=== PATIENT | male | born 1950 | race Caucasian/White ===

== ENCOUNTER 2020-10-16 10:08 | Emergency (ER) | payer OTHER, MEDICARE, SELFPAY ==
--- NOTE | 2020-10-16 10:09 | EKG12_ITS ---
Test Reason : TRAUMA Blood Pressure : / mmHG Vent. Rate : 140 BPM Atrial Rate : 138 BPM P-R Int : 000 ms QRS Dur : 090 ms QT Int : 348 ms P-R-T Axes : 000 085 -04 degrees QTc Int : 531 ms Atrial fibrillation with rapid ventricular response with premature ventricular or aberrantly conducte d complexes Nonspecific ST and T wave abnormality Abnormal ECG Confirmed by BRYCE HUNTLEY, MERCEDEZ ([id number]), offline editor ISRA YATES ([id number]) on 10/18/2020 12:33:19 PM Referred By: BRENNA Confirmed By:MERCEDEZ WU MD
--- NOTE | 2020-10-16 10:09 | RAD_ITS ---
STUDY: X-RAY - PELVIS REASON FOR EXAM: Male, 70 years old. Trauma -- Pelvis 2 views TECHNIQUE: One view of the pelvis was obtained. COMPARISON: None. FINDINGS: There is a non-specific bowel gas pattern. Normal visualized soft tissue structures. Normal bilateral iliac wings, sacroiliac joints and visualized sacrum. Normal visualized bilateral superior and inferior pubic rami. Normal pubic symphysis. Normal ischial tuberosities. Normal visualized right femoral head. Normal right acetabulum. Normal right hip joint. Normal visualized left femoral head. Normal left acetabulum. Normal left hip joint. RAD/Pelvis 1 or 2 Views IMPRESSION: Normal x-ray examination of the pelvis. Electronically Signed: Harjeet Gayle MD at 11:02 EDT Tel , Service support ,
--- NOTE | 2020-10-16 10:09 | RAD_ITS ---
STUDY: X-RAY - RIGHT FEMUR REASON FOR STUDY: Male, 70 years old. trauma TECHNIQUE: 2 view(s) of the femur. COMPARISON: None. FINDINGS: Acute anterior medially displaced oblique fracture the midshaft of the femur with a large butterfly fragment. Normal visualized soft tissue structure. RAD/Femur Min 2 Views IMPRESSION: Acute anterior medially displaced oblique fracture the midshaft of the femur with a large butterfly fragment. Electronically Signed: Harjeet Gayle MD at 11:03 EDT Tel , Service support ,
[2020-10-16 10:10] VITALS: BP 145/81; PULSE 138; RESP 21; TEMP 36.3; O2SAT 95; BMI 28.2
--- NOTE | 2020-10-16 10:14 | NURSING ---
CALLED [facility], TALKED TO GOPAL. PILOTS ARE CHECKING WEATHER. SHE WILL CALL BACK. GOING TO [facility]
--- NOTE | 2020-10-16 10:17 | NURSING ---
ETA IS 15 MIN
[2020-10-16 10:19] VITALS: PULSE 131
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
--- NOTE | 2020-10-16 10:22 | NURSING ---
NO OLD EKGS
[2020-10-16 10:27] LABS: Absolute Lymphocyte Count 3.42 X10^3/uL (0.83-4.51); Basophil# 0.07 X10^3/uL; Basophil% 0.6 % (0-1); Eosinophil# 0.24 X10^3/uL; Hematocrit 41.5 % (40-54); Hemoglobin 13.7 g/dL (13.0-16.5); Lymphocyte # 3.42 X10^3/ul (0.83-4.51); Lymphocyte % 28.5 % (19-41); Mean Corpuscular Hgb 30.3 pg (27.0-32.0); Mean Corpuscular Volume 91.8 fL (80-94); Mean Platelet Vol. 9.1 fl (6.2-12.0); Monocyte# 1.25 X10^3/uL; Monocyte% 10.4 % (0-10); NRBC Flagged by Analyzer 0 % (0-5); Neutrophil # 6.95 X10^3/uL (2.7-7.7); Neutrophil % 57.8 % (47-70); Platelet Count 384 K/mm3 (150-450); RBC Distribution Width CV 13.1 % (11.6-14.6); RBC Distribution Width SD 43.8 fl (35.1-43.9); Red Blood Count 4.52 M/mm3 (4.6-6.2)
[2020-10-16] MEDS: 0.9% Normal Saline 1,000 ML 999 ML IV (10:27)
[2020-10-16] MEDS: Cefazolin 1 GM/50 ML BAG IV (10:27)
[2020-10-16] MEDS: Diphth,Pertuss(Acell),Tet Vac 0.5 ML Vial IM (10:31)
[2020-10-16] MEDS: fentaNYL 100 MCG/2 ML Ampul IV (10:35)
[2020-10-16 10:37] VITALS: BP 148/107; PULSE 118; PULSE 125; RESP 20; RESP 22; O2SAT 93; O2SAT 96
[2020-10-16 10:44] LABS: Anion Gap 8 (5-15); BUN 20 mg/dL (7-18); BUN/Creat Ratio 16.8 RATIO (10-20); Calcium,Total 8.5 mg/dL (8.5-10.1); Chloride 106 mmol/L (98-107); Creatinine, Serum 1.19 mg/dL (0.70-1.30); EST Glomerular Filtration Rate 65 mL/min (>60); Est Glom Filt Rate - Afr Amer 78 mL/min (>60); Estimated Creatinine Clearance 71.01 ml/min; Glucose 136 mg/dL (74-106); Potassium 3.3 mmol/L (3.5-5.1); Sodium Level 139 mmol/L (136-145)
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
[2020-10-16 10:53] LABS: International Normalized Ratio 3.5; Prothrombin Time (Protime)PT. 34.2 SECONDS (11.7-14.9)
== END 2020-10-16 10:35 | disposition other institution (70) ==
PROVIDERS: Emergency Provider Emergency Medicine; PCP Internal Medicine
DX: S72.91XA Unspecified fracture of right femur, initial encounter for closed fracture (principal); I48.91 Unspecified atrial fibrillation; I10 Essential (primary) hypertension; Z79.01 Long term (current) use of anticoagulants; Z87.891 Personal history of nicotine dependence; W23.0XXA Caught, crushed, jammed, or pinched between moving objects, initial encounter
CPT/HCPCS: 72170; 73552; 80048; 85025; 85610; 90715; 93005; 96372; 96374; 99285; J7030; A4216

== ENCOUNTER 2020-10-22 19:14 | Inpatient (IN) | payer OTHER, MEDICARE, SELFPAY ==
[2020-10-22 19:23] VITALS: BP 106/68; PULSE 103; RESP 18; TEMP 37.1; O2SAT 93; BMI 23.8
[2020-10-22] MEDS: oxyCODONE 5 MG Tablet PO (20:36)
[2020-10-22 20:58] VITALS: BP 116/76; PULSE 100; RESP 16; TEMP 37.1; O2SAT 16
[2020-10-22] MEDS: Acetaminophen 500 MG Tablet PO (21:37)
[2020-10-22 21:38] VITALS: PULSE 100
[2020-10-22] MEDS: APIXABAN 5 MG TABLET PO (21:38)
[2020-10-22] MEDS: Metoprolol Tartrate 25 MG Tablet PO (21:38)
[2020-10-22 22:00] VITALS: PULSE 105; RESP 16; O2SAT 97
[2020-10-23 05:54] LABS: Absolute Lymphocyte Count 1.62 X10^3/uL (0.83-4.51); Absolute Neutrophil Count 7.9 X10^3/uL (2.0-7.7); Basophil# 0.05 X10^3/uL; Basophil% 0.4 % (0-1); Eosinophil# 0.23 X10^3/uL; Hematocrit 32.5 % (40-54); Hemoglobin 10.6 g/dL (13.0-16.5); Lymphocyte # 1.62 X10^3/ul (0.83-4.51); Mean Corp Hgb Conc 32.6 g/dL (32-36); Mean Corpuscular Hgb 30.7 pg (27.0-32.0); Mean Corpuscular Volume 94.2 fL (80-94); Mean Platelet Vol. 8.8 fl (6.2-12.0); Monocyte# 1.48 X10^3/uL; Monocyte% 12.8 % (0-10); NRBC Flagged by Analyzer 0 % (0-5); Neutrophil # 7.94 X10^3/uL (2.7-7.7); Neutrophil % 68.4 % (47-70); Platelet Count 414 K/mm3 (150-450); RBC Distribution Width CV 13.3 % (11.6-14.6); RBC Distribution Width SD 45.5 fl (35.1-43.9); Red Blood Count 3.45 M/mm3 (4.6-6.2); White Blood Count 11.6 K/mm3 (4.4-11.0)
[2020-10-23 06:30] LABS: ALB/GLOB Ratio 0.7 RATIO (0.9-2.4); AST(SGOT) 35 U/L (15-37); Alanine Aminotransfer ALT/SGPT 39 U/L (16-61); Alkaline Phosphatase 43 U/L (45-117); Anion Gap 7 (5-15); BUN 22 mg/dL (7-18); BUN/Creat Ratio 25.1 RATIO (10-20); Calcium,Total 8.8 mg/dL (8.5-10.1); Chloride 100 mmol/L (98-107); Creatinine, Serum 0.88 mg/dL (0.70-1.30); EST Glomerular Filtration Rate 92 mL/min (>60); Est Glom Filt Rate - Afr Amer 111 mL/min (>60); Estimated Creatinine Clearance 96.02 ml/min; Globulin 4.5 g/dL (2.2-4.2); Glucose 110 mg/dL (74-106); Magnesium 2.3 mg/dL (1.6-2.6); Phosphorus 2.8 mg/dL (2.5-4.9); Potassium 3.9 mmol/L (3.5-5.1); Protein, Total 7.5 g/dL (6.4-8.2); Sodium Level 135 mmol/L (136-145)
[2020-10-23] MEDS: oxyCODONE 5 MG Tablet PO ×4 (06:42→20:15)
[2020-10-23] MEDS: Acetaminophen 500 MG Tablet PO ×2 (06:42→15:16)
[2020-10-23 07:30] VITALS: BP 128/64; PULSE 74; RESP 16; TEMP 36.6; O2SAT 99
[2020-10-23] MEDS: Omega-3 Acid Ethyl Esters 1 GM Capsule PO (09:15)
[2020-10-23] MEDS: Niacin SA 500 MG Tablet PO (09:16)
[2020-10-23] MEDS: Fenofibrate 145 MG Tablet PO (09:16)
[2020-10-23] MEDS: APIXABAN 5 MG TABLET PO ×2 (09:16→21:41)
[2020-10-23 10:00] VITALS: PULSE 100
--- NOTE | 2020-10-23 10:24 | NURSING ---
Addendum entered by Mahnaz Webster 10/23/20 10:24: spoke with Parris at Dr briscoe office. to call back with dressing changes and staple dc orders. Original Note: Lt message
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
[2020-10-23] MEDS: Atenolol 50 MG Tablet PO (13:39)
[2020-10-23 15:10] LABS: Hemoglobin A1c 5.6 % (3.8-5.6)
[2020-10-23 17:59] VITALS: O2SAT 95
[2020-10-23 19:10] VITALS: BP 103/56; PULSE 86; RESP 17; TEMP 36.5; O2SAT 98
[2020-10-23] MEDS: MELATONIN 3 MG TABLET PO (21:42)
--- NOTE | 2020-10-24 01:35 | NURSING ---
Reviewed and agree with CAR TRIMMER assessment.
[2020-10-24] MEDS: oxyCODONE 5 MG Tablet PO ×4 (02:55→20:16)
[2020-10-24] MEDS: Acetaminophen 500 MG Tablet PO (02:56)
[2020-10-24 08:07] VITALS: BP 110/63; PULSE 84; RESP 16; TEMP 36.6; O2SAT 98
[2020-10-24] MEDS: Atenolol 50 MG Tablet PO (08:19)
[2020-10-24] MEDS: Omega-3 Acid Ethyl Esters 1 GM Capsule PO (08:19)
[2020-10-24] MEDS: Niacin SA 500 MG Tablet PO (08:19)
[2020-10-24] MEDS: APIXABAN 5 MG TABLET PO ×2 (08:19→20:59)
[2020-10-24] MEDS: Fenofibrate 145 MG Tablet PO (08:19)
--- NOTE | 2020-10-24 11:27 | PCM.RU.PYE ---
Admission Information Primary Diagnosis:: Physical debility due to traumatic FX of R femur Status Changes from Prescreening?: No changes Identified Actual Problem List:: Skin Intergrity, Pain, ALteration in Cmfrt, Alteration in Sleep, Fluid Change-Dehydration and Alteration-Leisure Activ. Potential Problem List:: DVT, Bleeding, Infection, UTI, Aspiration, Falls, Skin Integrity and Depression Risk of Complications DVT: MARY Jean and - (He is on Eliquis 5 mg BID for AF.) Bleeding: Monitor Lab Values, Nursing to Teach Precautions for anti-coagulation therapy., Wound, if applicable, to be assessed every shift. and Stroke patients assessed for lethargy or change in status. Infection: Clinical Staff to Monitor for S/S of infection: and S/S of infection include fever, redness, warmth, etc. Urinary Tract Infection: Monitor for frequency, burning, discomfort, or incontinence. and Nursing will obtain urine sample for urinalysis and C&S when ordered. Aspiration: Clinical staff will monitor for coughing, drooling, congestion., Speech will evaluate swallowing and dsyphasia. and Nursing will monitor patient swallowing during meals. Falls: Patient will be evaluated for Fall Precautions and Patient will be placed on Fall Precautions as indicated per protocol. Skin Breakdown: Nursing will assess skin daily using assessment tool. and Nursing will place on Skin Breakdown Precautions as indicated. Pain: Clinical staff will assess patient's pain level per protocol., Medications will be given, if needed, and the pain level reassessed. and Other methods: Massage, distraction, decrease stimulus, etc. used PRN. Plan of Care Patient requires physician specializing in physical medicine and rehab oversight to provide close medical supervision of rehab issues including: Pain Management, Sleep Problems, Bowel and Bladder, Medical and co-morbidity Management, DVT prophylaxis, Rehabilitation Leadership and Coordination of treatment team Patient needs Physical Therapy: For a minimum of 1 hour and At least 5 out of 7 days Patient needs Physical Therapy to improve:: Mobility, Strengthening, Transfers, Stretching, ROM, Endurance, Stairs, Gait and Balance Patient needs Occupational Therapy: For a minimum of 1 hour and At least 5 out of 7 days Patient needs Occupational Therapy to improve ADL's incl.: Eating, Grooming, Bathing, Dressing, Toileting, Toilet transfers, Community Reintegration, Higher functioning activities, Household tasks, Adaptive Equipment, Splinting and Other activities as determined Patient requires 17/11 Rehabilitation Nursing for: Pain Issues, Identifying and preventing risk factors, Monitoring and reporting current medical conditions, Assisting with ambulation, transfer, and all ADL's, Teaching patients about disease process and medications, Family teaching, Providing safe environment, Bowel and Bladder Issues, Skin integrity and Medication Management Patient needs Professor Of Poultry Science/ Case Management for: Discharge Planning, Arranging Home Equipment or Services and Family Interventions Patient needs Dietary and Nutrition Services for: Adequate Nutrition, Nutritional Supplements and Nutritional Education Goals Patient will remain: free from falls and or injury at time of discharge. Patient will perform bed mobility at: MOD I level of assist. Patient will complete transfers from bed to chair at: MOD I level of assist. Patient will ambulate: 100 feet and with LRD Patient will complete upper body dressing at: MOD I level of assist. Patient will complete lower body dressing at: MOD I level of assist. Patient will complete toileting at: MOD I level of assist. Patient will perform bathing at: MOD I level of assist. Patient will complete grooming at: MOD I level of assist. Patient will complete home management skills at: MOD I level of assist. Patient will achieve: - (1 curb step) Patient will have pain level of: of 3 or less Patient's skin will: remain intact Patient will receive: adequate nutrition. Discharge Planning Pt Prognosis for Sig. Practical Improv. w/in Reasonable Time: Good Estimated Length of stay (days): 14 Anticipated D/C Destination: Home Was Preadmission Assessment Accurate?: Yes
--- NOTE | 2020-10-24 11:33 | PCM.PN.BLA ---
Progress Note AF VSS - BP is well controlled. The resting HR has come down into the 80's. Maintaining appropriate oxygen saturation on RA. I&O - 1240/800......I had hoped he would drink more after I encouraged him to increase his fluid intake yesterday. Will continue to encourage increased fluid intake. He continues to c/o inadequate pain relief. Will increase the Oxycodone to 5-10 mg q 4 H PRN. Schedule 1 GM of Tylenol Q 8H. He slept better with the Melatonin added last night. Denies CP,SOB, calf pain. Physical Exam HEENT HEENT Narrative: Dry mucous membranes. Resp normal respiratory effort, no use of accessory muscles and clear to auscultation bilaterally Resp Narrative: Not tachypneic and no conversational dyspnea. Cardio regular rate, S1 normal heart sound, S2 normal heart sound, no murmurs and no gallops GI normal to inspection, nondistended, normoactive bowel sounds and non-tender GI Narrative: No guarding with palpation. Extremity Extremity Narrative: Negative Bill's and Shay's signs Skin Skin Narrative: No rashes, no skin breakdown. Assessment & Plan Assessment/Plan (1) Physical debility: (2) Status post open reduction and internal fixation (ORIF) of fracture: (3) Atrial fibrillation: QUALIFIERS: Atrial fibrillation type: longstanding persistent Qualified Code(s): I48.11 - Longstanding persistent atrial fibrillation (4) Uncontrolled pain: PLAN: HGBA1C yesterday was normal Increase the Oxycodone to 5-10 mg Q4PRN Added scheduled Tylenol Continue the Melatonin Continue to monitor the HR and the BP since the Metoprolol was discontinued yesterday and adjust the Atenolol dose as needed. Continue to encourage increased fluid intake. Continue therapy. Visit Charges Inpatient E&M: 70220 Subs Hosp L2
[2020-10-24] MEDS: Acetaminophen 500 MG Tablet 1000 MG PO ×2 (14:00→20:59)
--- NOTE | 2020-10-24 15:56 | NURSING ---
[id number] call form Parris at Dr Dover office ok to wicho jett 10/30.
[2020-10-24 19:10] VITALS: BP 108/64; PULSE 67; RESP 16; TEMP 36.6; O2SAT 98
[2020-10-24] MEDS: MELATONIN 3 MG TABLET PO (20:59)
--- NOTE | 2020-10-25 00:14 | NURSING ---
Reviewed and agree with REAL ESTATE INVESTOR assessment.
[2020-10-25] MEDS: Acetaminophen 500 MG Tablet 1000 MG PO ×3 (06:08→22:24)
[2020-10-25] MEDS: oxyCODONE 5 MG Tablet PO ×4 (06:08→19:49)
[2020-10-25] MEDS: Omega-3 Acid Ethyl Esters 1 GM Capsule PO (08:02)
[2020-10-25] MEDS: Fenofibrate 145 MG Tablet PO (08:02)
[2020-10-25] MEDS: Niacin SA 500 MG Tablet PO (08:02)
[2020-10-25] MEDS: Atenolol 50 MG Tablet PO (08:03)
[2020-10-25] MEDS: APIXABAN 5 MG TABLET PO ×2 (08:03→22:24)
[2020-10-25 08:53] VITALS: BP 109/54; PULSE 83; RESP 16; TEMP 36.5; O2SAT 97
--- NOTE | 2020-10-25 10:13 | CASEMGMT ---
Social Work Team meeting held. Patient present as well as patient spouse. Patient with update due on 10/26/2020 with [facility]. Patient to continue with further care and treatment on the Rehab Unit. Patient plans to discharge to home with spouse at time of discharge. Will continue to follow. Joyce ISSA, CHRISTIANS
--- NOTE | 2020-10-25 11:58 | PN_ITS ---
Progress Note Rito was seen on TEAM rounds today. His Libby was present for rounds. Afebrile BP is well controlled. The resting HR is now in the low 80's with better fluid intake. Doing fine on just the Atenolol since we discontinued the Metoprolol. He is maintaining appropriate oxygen saturation on RA. Sleeping well. Good bowel function No problems reported by nursing. Pain is better controlled with using 10 mg of Oxycodone and the Tylenol also seems to be helping. I am hesitant to use an NSAID in a pt on Eliquis. He has no hx of PUD and denies epigastric pain, Nausea or vomiting. He asked to look at the XRAYS from presentation to the ED and we brought them up on the computer. I think he now understands why he continues to have so much pain. No SOB, CP, N/V/constipation, no calf pain, no palpitations or lightheadedness. Physical Exam Const alert, oriented x3 and no apparent distress Constitutional Narrative: Making good eye contact, appropriate Resp normal respiratory effort, no use of accessory muscles and clear to auscultation bilaterally Resp Narrative: Not tachypneic and no conversational dyspnea. Cardio S1 normal heart sound, S2 normal heart sound, no murmurs, no rub and no gallops GI normal to inspection, nondistended, normoactive bowel sounds and non-tender GI Narrative: No guarding with palpation. Extremity Extremity Narrative: Negative Bill's and Shay's signs. there is minimal bruising in the upper medial thigh. The bandages are not to be removed yet but there is no erythema around the bandages. The knee effusion and the swelling have improved. There are a few small lymph nodes that are palpable in the R groin. They are NT. The abrasions to the distal RLE are scabbed over with no evidence of infection. Skin Skin Narrative: No rashes, no skin breakdown. Wounds: wounds noted Wound Narrative: RLE due to recent ORIF. The incision is intact and there is erythema and no DC. The R knee has an effusion. The RLE is generally warmer than the left from the mid thigh distally. Neuro no focal motor deficits Psych affect normal Psych Narrative: Appropriate, making good eye contact. Able to stay on topic a nd focus. No flight of ideas. Does not appear anxious or depressed. Conversant and relating well to staff. Assessment & Plan Assessment/Plan (1) Physical debility: (2) Status post open reduction and internal fixation (ORIF) of fracture: (3) Atrial fibrillation: QUALIFIERS: Atrial fibrillation type: longstanding persistent Qualified Code(s): I48.11 - Longstanding persistent atrial fibrillation (4) Uncontrolled pain: (5) Dehydration: (6) Right fibular fracture: (7) Right femoral shaft fracture: PLAN: Continue therapy. I recommended to him that he take 10 mg of Oxycodone for the next few days to control pain and then on Thursday he could try 5 mg again. Continue the scheduled Tylenol Encouraged once again to increase his water intake DC the Singular
[2020-10-25 19:40] VITALS: BP 98/49; PULSE 72; RESP 16; TEMP 36.7; O2SAT 96
[2020-10-25] MEDS: MELATONIN 3 MG TABLET PO (22:24)
[2020-10-26] MEDS: oxyCODONE 5 MG Tablet PO ×5 (01:51→21:41)
--- NOTE | 2020-10-26 02:37 | NURSING ---
REVIEWED AND AGREE WITH QUILL MACHINE TENDER'S FUNCTIONAL ASSESSMENT AND HANDOFF CHARTING.
[2020-10-26] MEDS: Acetaminophen 500 MG Tablet 1000 MG PO ×3 (05:57→21:40)
[2020-10-26] MEDS: Fenofibrate 145 MG Tablet PO (08:02)
[2020-10-26] MEDS: Niacin SA 500 MG Tablet PO (08:02)
[2020-10-26] MEDS: Omega-3 Acid Ethyl Esters 1 GM Capsule PO (08:02)
[2020-10-26] MEDS: APIXABAN 5 MG TABLET PO ×2 (08:03→21:40)
[2020-10-26] MEDS: Senna/Docusate Sodium 1 Tablet 2 TABLET PO ×2 (08:03→21:42)
[2020-10-26] MEDS: Atenolol 50 MG Tablet PO (08:04)
[2020-10-26 09:38] VITALS: BP 105/67; PULSE 72; RESP 16; TEMP 37.1; O2SAT 95
[2020-10-26 20:00] VITALS: BP 112/59; PULSE 95; RESP 18; TEMP 37.2; O2SAT 95
[2020-10-26] MEDS: MELATONIN 3 MG TABLET PO (21:40)
--- NOTE | 2020-10-27 03:54 | NURSING ---
REVIEWED AND AGREE WITH ECOLOGICAL RISK ASSESSOR'S HANDOFF AND FUNCTIONAL CHARTING.
[2020-10-27] MEDS: Acetaminophen 500 MG Tablet 1000 MG PO ×3 (06:03→21:22)
[2020-10-27] MEDS: oxyCODONE 5 MG Tablet PO ×3 (06:04→20:49)
[2020-10-27 07:51] VITALS: BP 111/66; PULSE 80; RESP 18; TEMP 36.4; O2SAT 96
[2020-10-27] MEDS: Senna/Docusate Sodium 1 Tablet 2 TABLET PO ×2 (07:54→21:22)
[2020-10-27] MEDS: Omega-3 Acid Ethyl Esters 1 GM Capsule PO (07:54)
[2020-10-27] MEDS: Fenofibrate 145 MG Tablet PO (07:54)
[2020-10-27] MEDS: APIXABAN 5 MG TABLET PO ×2 (07:54→21:22)
[2020-10-27] MEDS: Niacin SA 500 MG Tablet PO (07:55)
[2020-10-27] MEDS: Atenolol 50 MG Tablet PO (07:58)
[2020-10-27 21:00] VITALS: BP 108/52; PULSE 85; RESP 18; TEMP 36.3; O2SAT 97
[2020-10-27] MEDS: MELATONIN 3 MG TABLET PO (21:22)
--- NOTE | 2020-10-28 01:29 | NURSING ---
Reviewed and agree with SULFURIC ACID PLANT OPERATOR documentation and assessment charting.
--- NOTE | 2020-10-28 01:55 | NURSING ---
staff was doing rounding and heard walker movement in pt room and found pt up ambulating in the to the br. pt reeducated on calling staff for assistance to the br. pt stated that he could not find the call light , call light was on te bed where pt could reach it it the same place he put prior to going to sleep. staff stayed in the room until pt finished and followed him back to recliner. pt positioned for comfort, call light placed in pt lap for easier reach and walker moved away for pt reach for for safety. rn made aware
[2020-10-28] MEDS: oxyCODONE 5 MG Tablet PO ×3 (05:27→19:49)
[2020-10-28] MEDS: Acetaminophen 500 MG Tablet 1000 MG PO ×3 (05:28→19:49)
[2020-10-28 07:34] VITALS: BP 116/48; PULSE 72; RESP 16; TEMP 36.3; O2SAT 97
[2020-10-28] MEDS: APIXABAN 5 MG TABLET PO ×2 (09:40→19:48)
[2020-10-28] MEDS: Fenofibrate 145 MG Tablet PO (09:40)
[2020-10-28] MEDS: Atenolol 50 MG Tablet PO (09:40)
[2020-10-28] MEDS: Niacin SA 500 MG Tablet PO (09:40)
[2020-10-28] MEDS: Omega-3 Acid Ethyl Esters 1 GM Capsule PO (09:42)
[2020-10-28] MEDS: Senna/Docusate Sodium 1 Tablet 2 TABLET PO ×2 (09:42→19:48)
[2020-10-28 19:45] VITALS: BP 101/67; PULSE 90; RESP 16; TEMP 36.7; O2SAT 97
[2020-10-28] MEDS: Arthritis Pain Compound 60 CLICK TUBE TOPICAL (19:47)
[2020-10-28] MEDS: MELATONIN 3 MG TABLET PO (19:48)
--- NOTE | 2020-10-29 04:26 | NURSING ---
Reviewed and agree with JUSTOWRITER OPERATOR assessment and handoff.
[2020-10-29] MEDS: Acetaminophen 500 MG Tablet 1000 MG PO ×3 (05:49→21:59)
[2020-10-29] MEDS: oxyCODONE 5 MG Tablet PO ×3 (05:50→19:50)
[2020-10-29 08:22] VITALS: BP 117/72; PULSE 79; RESP 18; TEMP 36.3; O2SAT 98
[2020-10-29] MEDS: Atenolol 50 MG Tablet PO (09:16)
[2020-10-29] MEDS: Fenofibrate 145 MG Tablet PO (09:17)
[2020-10-29] MEDS: Niacin SA 500 MG Tablet PO (09:17)
[2020-10-29] MEDS: APIXABAN 5 MG TABLET PO ×2 (09:17→21:59)
[2020-10-29] MEDS: Senna/Docusate Sodium 1 Tablet 2 TABLET PO ×2 (09:17→22:00)
[2020-10-29] MEDS: Omega-3 Acid Ethyl Esters 1 GM Capsule PO (09:17)
[2020-10-29] MEDS: Arthritis Pain Compound 60 CLICK TUBE TOPICAL ×2 (09:37→21:58)
[2020-10-29 19:08] VITALS: BP 110/83; PULSE 86; RESP 18; TEMP 36.6; O2SAT 95
[2020-10-29] MEDS: MELATONIN 3 MG TABLET PO (21:59)
[2020-10-30] MEDS: oxyCODONE 5 MG Tablet PO ×4 (01:10→20:02)
[2020-10-30] MEDS: Acetaminophen 500 MG Tablet 1000 MG PO ×3 (05:26→20:04)
[2020-10-30 07:55] VITALS: BP 110/62; PULSE 80; RESP 18; TEMP 36.5; O2SAT 100
[2020-10-30] MEDS: Atenolol 50 MG Tablet PO (08:18)
[2020-10-30] MEDS: Niacin SA 500 MG Tablet PO (08:18)
[2020-10-30] MEDS: Omega-3 Acid Ethyl Esters 1 GM Capsule PO (08:18)
[2020-10-30] MEDS: APIXABAN 5 MG TABLET PO ×2 (08:18→20:01)
[2020-10-30] MEDS: Fenofibrate 145 MG Tablet PO (08:18)
[2020-10-30] MEDS: Arthritis Pain Compound 60 CLICK TUBE TOPICAL ×2 (08:19→20:00)
--- NOTE | 2020-10-30 15:32 | NURSING ---
sutures and maliha removed. incisions clean, dry and well approximated. no S/S infection. left GABRIELA. pt tolerated well
[2020-10-30 19:40] VITALS: BP 113/59; PULSE 88; RESP 14; TEMP 36.3; O2SAT 100
[2020-10-30] MEDS: MELATONIN 3 MG TABLET PO (20:02)
[2020-10-31] MEDS: Acetaminophen 500 MG Tablet 1000 MG PO ×3 (05:33→21:13)
[2020-10-31] MEDS: oxyCODONE 5 MG Tablet PO ×3 (05:33→21:14)
[2020-10-31 07:28] VITALS: BP 113/62; PULSE 73; RESP 14; TEMP 36.4; O2SAT 96
[2020-10-31] MEDS: Omega-3 Acid Ethyl Esters 1 GM Capsule PO (08:07)
[2020-10-31] MEDS: Niacin SA 500 MG Tablet PO (08:07)
[2020-10-31] MEDS: Fenofibrate 145 MG Tablet PO (08:07)
[2020-10-31] MEDS: Atenolol 50 MG Tablet PO (08:08)
[2020-10-31] MEDS: Arthritis Pain Compound 60 CLICK TUBE TOPICAL ×2 (08:08→21:13)
[2020-10-31] MEDS: APIXABAN 5 MG TABLET PO ×2 (08:08→20:55)
--- NOTE | 2020-10-31 13:39 | PCM.PN.BLA ---
Progress Note AF VSS Maintaining appropriate oxygen saturation on RA No problems reported by nursing Pain is adequately controlled Denies calf pain, SOB, CP, N/V, D/C, dysuria Physical Exam Const alert and no apparent distress HEENT HEENT Narrative: His membranes are dry. Resp normal respiratory effort, normal air movement, no use of accessory muscles and clear to auscultation bilaterally Effort and Inspection: able to speak in complete sentences Cardio regular rate, regular rhythm and no gallops GI soft to palpation, non-tender and non-distended GI Narrative: Normal bowel sounds all quadrants Extremity no calf tenderness Extremity Narrative: He has edema of the R thigh and the R knee and mild edema in the R ankle. No edema on the left Skin General Skin Exam: no breakdown Rashes: no rashes Wound Narrative: the incisions of the R knee are intact and there is no purulent DC and no significant lucia-incisional erythema. Assessment & Plan Assessment/Plan (1) Physical debility: (2) Right femoral shaft fracture: (3) Right fibular fracture: (4) Status post open reduction and internal fixation (ORIF) of fracture: (5) Atrial fibrillation: QUALIFIERS: Atrial fibrillation type: longstanding persistent Qualified Code(s): I48.11 - Longstanding persistent atrial fibrillation (6) Uncontrolled pain: (7) Dehydration: PLAN: 1. I encourage him every day to increase his water intake and he is getting better at this 2. He does not want any changes to the pain management drug regimen and is happy with his pain control at this time. 3. continue therapy. Visit Charges Inpatient E&M: 14492 Subs Hosp L2
[2020-10-31 20:10] VITALS: BP 101/58; PULSE 96; RESP 16; TEMP 36.5; O2SAT 95
[2020-10-31] MEDS: MELATONIN 3 MG TABLET PO (20:55)
[2020-10-31] MEDS: Senna/Docusate Sodium 1 Tablet 2 TABLET PO (20:56)
[2020-10-31 22:00] VITALS: PULSE 96; RESP 15; O2SAT 96
[2020-11-01] MEDS: Acetaminophen 500 MG Tablet 1000 MG PO ×3 (06:40→20:57)
[2020-11-01] MEDS: Fenofibrate 145 MG Tablet PO (08:09)
[2020-11-01] MEDS: Niacin SA 500 MG Tablet PO (08:09)
[2020-11-01] MEDS: Omega-3 Acid Ethyl Esters 1 GM Capsule PO (08:09)
[2020-11-01] MEDS: Atenolol 50 MG Tablet PO (08:10)
[2020-11-01] MEDS: Arthritis Pain Compound 60 CLICK TUBE TOPICAL ×2 (08:10→20:55)
[2020-11-01] MEDS: oxyCODONE 5 MG Tablet PO ×3 (08:10→20:58)
[2020-11-01] MEDS: APIXABAN 5 MG TABLET PO ×2 (08:10→20:56)
[2020-11-01 08:29] VITALS: BP 104/68; PULSE 95; RESP 18; TEMP 36.5; O2SAT 97
--- NOTE | 2020-11-01 09:45 | CASEMGMT ---
Social Work Team meeting held. Patient present as well as patient spouse. Discharge date set for 11/03/2020. Patient to discharge to home with spouse. Therapy not recommending any further therapy and recommending for patient to follow up with Orthopedic surgeon on therapy recommendations. Patient reports to need a front wheeled walker, wheelchair, 3-in-1 bedside commode, and polar care for DME. Patient spouse to provide transportation to home for patient. Proposed discharge date: 11/03/2020 Will continue to follow. Joyce ISSA, JUAN
--- NOTE | 2020-11-01 14:02 | PN_ITS ---
Progress Note This is a delayed entry for 10/28/20. The cafeteria food server was down and I was unable to document. Rito was in the recliner reading the paper when I entered the room. He looked comfortable and relaxed. Afebrile Vital signs stable Maintaining appropriate oxygen saturation on room air No problems reported by nursing I reviewed the PT and OT notes from yesterday. He continues to make good progress. He denies chest pain, calf pain, shortness of breath, hemoptysis, nausea/vomiting, abdominal pain, dysuria. He tells me his pain is well controlled. He tells me he is sleeping well. Physical Exam Const alert, oriented x3, no apparent distress and healthy appearing General Appearance: cooperative, comfortable and well kempt HEENT moist oral mucous membranes Resp normal respiratory effort, normal air movement, no use of accessory muscles and clear to auscultation bilaterally Effort and Inspection: able to speak in complete sentences Cardio no gallops Cardio Narrative: The rhythm is irregular today but the rate is well controlled. He denies palpitations. He denies lightheadedness. the R foot is warm and there is intact sensation GI soft to palpation, non-tender and non-distended GI Narrative: Normal bowel sounds, no constipation. Extremity Extremity Narrative: The dressing over the knee is intact. It will be removed later this week. the R knee remains swollen. The R foot is warm and there is intact sensation Assessment & Plan Assessment/Plan (1) Physical debility: (2) Right femoral shaft fracture: (3) Right fibular fracture: (4) Status post open reduction and internal fixation (ORIF) of fracture: PLAN: continue therapy no changes to the drug regimen today Reassured him that he is making good progress and it is normal to still have pain......in addition to the fracture he had a lot of soft tissue damage and the bone went through the skin but the bone retracted and was not visible when the wound was examined in the ED. Visit Charges Inpatient E&M: 20271 Subs Hosp L1
--- NOTE | 2020-11-01 16:50 | CASEMGMT ---
Social Work Telephone call to [facility] counseling case manager, Emilie ([phone]). Emilie confirms that a C-9 form will need to be completed in order for patient to obtain DME. Dr. Oconnor is not [facility] certified and unable to sign for C-9. Dr. Dover (patient ortho) will need to sign for C-9's. Telephone call to Dr. Dover office ([phone]). Dr. Dover is out of the office until next ThursdayNovember 05. C-9's faxed to be signed by Dr. Dover when Dr. Dover is back in the office. C-9's faxed to [phone]. Telephone call to Emilie. Emilie updated that a C-9 will not be able to be obtained until Thursday but plan is for patient to discharge to home on 11/03/2020. Per Emilie a front wheeled walker should be able to be dispensed by a DME company due to being under $150. Telephone call to [employer], no answer. End of day. Will follow up with [employer] tomorrow to see if walker can be dispensed without a C-9. Order for walker, 3-in-1 commode, polar care and wheelchair faxed to [employer]. This social staff worker updated patient on above information. Patient voices to be able to return to home on 11/03/2020 if walker is able to be obtained. Social work to continue to follow. Proposed discharge date: 11/03/2020 pending DME being able to be set up. Joyce ISSA, JUAN
[2020-11-01 20:24] VITALS: BP 110/63; PULSE 58; RESP 18; TEMP 36.3; O2SAT 96
[2020-11-01 20:42] VITALS: PULSE 78; RESP 16; O2SAT 97
[2020-11-01] MEDS: MELATONIN 3 MG TABLET PO (20:56)
[2020-11-01] MEDS: Senna/Docusate Sodium 1 Tablet 2 TABLET PO (20:57)
[2020-11-02 05:31] LABS: Hematocrit 33.4 % (40-54); Hemoglobin 10.7 g/dL (13.0-16.5); Mean Corpuscular Volume 96.8 fL (80-94); Mean Platelet Vol. 8.6 fl (6.2-12.0); Platelet Count 485 K/mm3 (150-450); RBC Distribution Width CV 14.1 % (11.6-14.6); RBC Distribution Width SD 49.7 fl (35.1-43.9); Red Blood Count 3.45 M/mm3 (4.6-6.2); White Blood Count 5.9 K/mm3 (4.4-11.0)
[2020-11-02 05:45] LABS: Anion Gap 5 (5-15); BUN 18 mg/dL (7-18); BUN/Creat Ratio 22.7 RATIO (10-20); Calcium,Total 8.9 mg/dL (8.5-10.1); Chloride 104 mmol/L (98-107); Creatinine, Serum 0.79 mg/dL (0.70-1.30); EST Glomerular Filtration Rate 103 mL/min (>60); Est Glom Filt Rate - Afr Amer 125 mL/min (>60); Glucose 104 mg/dL (74-106); Sodium Level 138 mmol/L (136-145)
[2020-11-02] MEDS: oxyCODONE 5 MG Tablet PO ×4 (06:20→21:07)
[2020-11-02] MEDS: Acetaminophen 500 MG Tablet 1000 MG PO ×3 (06:20→21:07)
[2020-11-02 07:24] VITALS: BP 122/70; PULSE 106; RESP 18; TEMP 36.3; O2SAT 96
[2020-11-02] MEDS: Fenofibrate 145 MG Tablet PO (08:34)
[2020-11-02] MEDS: Arthritis Pain Compound 60 CLICK TUBE TOPICAL ×2 (08:34→20:38)
[2020-11-02] MEDS: Niacin SA 500 MG Tablet PO (08:34)
[2020-11-02] MEDS: Omega-3 Acid Ethyl Esters 1 GM Capsule PO (08:34)
[2020-11-02] MEDS: APIXABAN 5 MG TABLET PO ×2 (08:35→20:39)
[2020-11-02] MEDS: Atenolol 50 MG Tablet PO (08:38)
[2020-11-02] MEDS: Senna/Docusate Sodium 1 Tablet 2 TABLET PO ×2 (08:38→20:37)
[2020-11-02 10:00] VITALS: PULSE 106
--- NOTE | 2020-11-02 13:09 | CASEMGMT ---
Social Work Return call from Emilie at [facility] who states that after review, all DME has been approved by [facility] and information has been faxed to [facility]. ROBINSON spoke with Rose at [facility] who confirmed receipt of [facility] info and that equipment will be delivered today. Wheeled Walkerr to be delivered to pt room, Wheelchair, BSC and polar care to be delivered to pt home. ROBINSON spoke with pt who confirms someone will be home to receive the equipment. Pt updated about DME. No further d/c needs at this time. D/C Date: 11/03/20, to transport D/C Disposition: Home with , DME in place. RODERICK Armstrong
--- NOTE | 2020-11-02 14:20 | PCM.DC ---
Discharge Instructions Diet Discharge Diet: Low fat / Low cholesterol Activity Discharge Activity: May Shower, Use Walker and - (Do the exercises given to you by the therapist at least once a day.) Ice area for (Minutes): 15 Weight Bearing Status: Weight bearing as tolerated Keep extremity elevated above heart level: Right Leg Dressing / Incision Call your doctor if your incision/area has: Continuous Slow Oozing, Sudden Increased Bleeding, Increased Pain/ Swelling, Increased Redness, Foul Smelling Discharge and Swelling at the incision site Call your doctor if you observe: Fever of 101 or Higher, Inability to have a bowel movement, Shortness of breath, Chest pain, Calf discomfort and Uncontrolled pain Suture Line Care: Avoid Pulling/Pushing and Avoid Pinching/Bending Cleanse incision/area with: Soap & Water Follow Up Care Please Follow Up With: Dr. Dover- Nanette Test Results: Test results from this visit will be discussed in further detail at your follow-up appointment, if applicable. Pending Tests Upon Discharge: none Discharge Plan Admission Admit Date/Time: 10/22/20 19:14 Primary Reason for Your Visit: Debility due to traumatic right mid femur fracture/ORIF Attending Provider: Charis Oconnor Primary Care Provider: Priscilla Solomon Instructions Forms: Work / School Excuse Additional Instructions / Restrictions: 1. I will leave it up to you to taper the Oxycodone as your pain improves. I would continue to take the Tylenol 1,000 mg every 8 hours. 2. Make sure to do the exercises given to you by the therapists at least once a day. 3. Ice your knee after every time you exercise and if the pain is increased. 4. If you have any questions after you are discharged please call the rehab unit at [phone]. Discharge Orders/Prescriptions Prescriptions: New Arthritis Pain Compound 0 click topical BID Qty: 0 RF: 0 acetaminophen 500 mg Tablet 1,000 mg PO Q8H PRN PRN (Reason: pain) Qty: 1 RF: 0 omega-3 acid ethyl esters 1 gram Capsule 1 g PO 0800 Qty: 30 RF: 0 niacin 500 mg Tablet Extended Release 500 mg PO 0800 Qty: 30 RF: 0 Eliquis 5 mg Tablet 5 mg PO BID Qty: 60 RF: 0 trazodone 50 mg Tablet 50 - 100 mg PO QHS Qty: 60 RF: 0 polyethylene glycol 3350 17 gram Powder In Packet 17 g PO DAILY Qty: 14 RF: 0 sennosides-docusate sodium [Stool Softener-Stimulant Laxat] 8.6-50 mg Tablet 2 tab PO BID Qty: 120 RF: 0 oxycodone 5 mg capsule 10 mg PO Q4H PRN (Reason: pain) 7 Days Qty: 70 RF: 0 Continued atenolol 50 MG tablet 50 mg PO DAILY RF: 0 fenofibrate nanocrystallized 145 MG tablet 145 mg PO DAILY RF: 0 Discontinued montelukast 10 MG tablet 10 mg PO DAILY RF: 0 Referrals / Follow Up: Priscilla Solomon MD [Primary Care Provider] - Disposition Disposition (needs filled in before D/C Order can be placed): Home, Self Care
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
[2020-11-02 19:03] VITALS: BP 108/59; PULSE 83; RESP 18; TEMP 36.6; O2SAT 95
[2020-11-02] MEDS: MELATONIN 3 MG TABLET PO (20:37)
[2020-11-02 22:00] VITALS: PULSE 83; RESP 16; O2SAT 93
[2020-11-03] MEDS: oxyCODONE 5 MG Tablet PO (05:47)
[2020-11-03] MEDS: Acetaminophen 500 MG Tablet 1000 MG PO (05:47)
[2020-11-03 07:30] VITALS: BP 116/68; PULSE 89; RESP 18; TEMP 36.5; O2SAT 95
[2020-11-03] MEDS: APIXABAN 5 MG TABLET PO (07:39)
[2020-11-03] MEDS: Niacin SA 500 MG Tablet PO (07:39)
[2020-11-03] MEDS: Fenofibrate 145 MG Tablet PO (07:39)
[2020-11-03] MEDS: Atenolol 50 MG Tablet PO (07:39)
[2020-11-03] MEDS: Omega-3 Acid Ethyl Esters 1 GM Capsule PO (07:40)
--- NOTE | 2020-11-03 10:47 | NURSING ---
Discharge to home, and patient verbalized understanding to instruct given.
== END 2020-11-03 10:48 | disposition home or self-care (01) | DRG 560 ==
PROVIDERS: Admitting Provider Internal Medicine; PCP Internal Medicine; Visit Provider Internal Medicine
DX: S72.91XD Unspecified fracture of right femur, subsequent encounter for closed fracture with routine healing (principal); I48.11 Longstanding persistent atrial fibrillation; S82.401D Unspecified fracture of shaft of right fibula, subsequent encounter for closed fracture with routine healing; I10 Essential (primary) hypertension; E78.5 Hyperlipidemia, unspecified; E86.0 Dehydration; M48.02 Spinal stenosis, cervical region; V84.9XXD Unspecified occupant of special agricultural vehicle injured in nontraffic accident, subsequent encounter; Z86.718 Personal history of other venous thrombosis and embolism; Z79.01 Long term (current) use of anticoagulants; Z79.899 Other long term (current) drug therapy; Z87.891 Personal history of nicotine dependence
CPT/HCPCS: 36415; 80048; 80053; 83036; 83735; 84100; 85025; 85027; 97110; 97116; 97140; 97162; 97166; 97530; 97535; 97802; 97803; 99251; G0463

== ENCOUNTER → 2020-12-06 | Outpatient (CLI) | payer MEDICARE, SELFPAY | END | disposition home or self-care (01) | PROVIDERS: PCP Internal Medicine; Visit Provider Ophthalmology | DX: H04.42 Chronic lacrimal canaliculitis (principal); D48.5 Neoplasm of uncertain behavior of skin | CPT/HCPCS: 87070; 87077; 87186; 87205 ==

== ENCOUNTER 2024-11-13 13:50 | Inpatient (IN) | payer MEDICARE, SELFPAY ==
--- OUTSIDE RECORDS SUMMARY | 2024-11-13 14:03 | XMS RPT_ITS | CCD ---
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 Name Role Phone Unavailable Primary Care Provider Unavailabl e PROVIDER, UNKNOWN Attending Unavailable PROVIDER, UNKNOWN Admitting Unavailable Stanislaw HUNTLEY, Piter Mcgill Unavailable Juanito HUNTLEY, Sherin Primary Care Provider Juanito HUNTLEY, Sherin Primary Care Provider Juanito HUNTLEY, Sherin Primary Care Provider Juanito HUNTLEY, Sherin Primary Care Provider Karla Curtis PA-C Unavailable Older ENGINE HOSTLER.FIRST BEATER, Leah Unavailable Melissa Brennan PA-C Unavailable OLDER, LEAH Referring Unavailable GANTA, SHERIN Primary Care Unavailable OLDER, LEAH Attending Unavailable GANTA, SHERIN Primary Care Unavailable OLDER, LEAH Attending Unavailable GANTA, SHERIN Primary Care Unavailable SRI NELSON Attending Unavailable GANTA, SHERIN Primary Care Unavailable BRIAN APPLE Referring Unavailable GANTA, SHERIN Primary Care Unavailable GANTA, SHERIN Primary Care Unavailable GANTA, SHERIN Attending Unavailable SELF Referring Unavailable GANTA, SHERIN Primary Care Unavailable GANTA, SHERIN Referring Unavailable GANTA, SHERIN Primary Care Unavailable GANTA, SHERIN Attending Unavailable GANTA, SHERIN Primary Care Unavailable GANTA, SHERIN Attending Unavailable GANTA, SHERIN Primary Care Unavailable DOOKHAN, JODY Attending Unavailable DOOKHAN, JODY Referring Unavailable GANTA, SHERIN Primary Care Unavailable GANTA, SHERIN Attending Unavailable GANTA, SHERIN Primary Care Unavailable GANTA, SHERIN Referring Unavailable GANTA, SHERIN Primary Care Unavailable HARVINDER, JODY Referring Unavailable GANTA, SHERIN Primary Care Unavailable Dr. Pablo Jaime MD Emergency Provider Dr. Sherin Boswell MD Primary Care Provider Pablo Jaime Attending Unavailable Sherin Boswell Primary Care Unavailable CELINE HOUSE Attending Unavailable CELINE HOUSE Admitting Unavailable SHERIN BOSWELL Primary Care Unavailable PABLO JAIME Referring Unavailable Medications Current Medications Medication Drug Class(es) Dates Sig (Normalized) Sig (Original) amoxicillin 875 mg / clavulanate 125 mg oral tablet (2 sources) Penicillin-class Antibacterial Start: 01-18-2024 End: 01-28-2024 take 1 tablet by mouth twice daily amoxicillin-clav ulanate potassium (AUGMENTIN) 875-125 mg per tablet Take 1 tablet by mouth two times a day for 10 days. 20 tablet 01/18/2024 01/28/2024 Active apixaban 5 mg oral tablet (20 sources) Factor Xa Inhibitor Start: 07-10-2021 End: 06-01-2024 take 1 tablet by mouth twice daily apixaban (ELIQUIS) 5 mg tab(s) Take 1 tablet by mouth two times a day. 180 tablet 3 06/02/2024 Active Start: 11-09-2020 take 1 tablet by dima th twice daily ELIQUIS 5 MG TABS 1 tablet by mouth twice a day apixaban [id number] Kandice Landis LPN Start: 10-17-2020 take 1 tablet by dima th twice daily apixaban (ELIQUIS) 5 MG TABS tablet Take 1 tablet by mouth 2 times daily 60 tablet 0 10/18/2020 Active Comment on above: Take 1 tablet by dima th twice daily. take 1 tablet by dima th twice daily azithromycin 250 mg oral tablet (1 source) Macrolide Antimicrobial Start: 2023 End: 2023 take 2 tablets by mouth once daily, then take 1 tablet by mouth once daily azithromycin (ZITHROMAX) 250 mg tablet Take 2 tablets by mouth once daily for 1 day, THEN 1 tablet once daily for 4 days. 6 tablet 01/18/2024 01/23/2024 Active bisacodyl 10 mg rectal suppository (2 sources) Stimulant Laxative Start: 2020 End: 2020 bisacodyl (DULCOLAX) [address] 1 suppository rectally daily as needed for Constipation 0 10/18/2020 11/17/2020 Active cefuroxime 500 mg oral tablet (3 sources) Cephalosporin Antibacterial Start: 2023 End: 2023 take 1 tablet by mouth twice daily cefUROXime (CEFTIN) 500 mg tablet Take 1 tablet by mouth two times a day for 5 days. 10 tablet 01/11/2024 01/16/2024 Active clobetasol propionate 0.5 mg/ml topical cream (20 sources) Corticosteroid Start: 2015 clobetasol (TEMOVATE) 0.05 % cream Apply 1 application to affected area as needed. 0 08/17/2015 Active Comment on above: Apply 1 application to affected area twice daily. diphenhydrAMINE hydrochloride 25 mg oral tablet (1 source) Histamine-1 Receptor Antagonist Start: 2020 diphenhydrAMINE (BENADRYL) tablet 25 mg docosahexaenoic acid 120 mg / eicosapentaenoic acid 180 mg oral capsule (1 source) take 1 capsule by mouth once daily [place]-3 1000 MG CAPS Take 1,000 mg by mouth daily 0 Active docusate sodium 50 mg / sennosides, longterm 8.6 mg oral tablet (2 sources) Start: 2020 take 1 tablet by mouth twice daily sennosides-docusate sodium (SENOKOT-S) 8.6-50 MG tablet Take 1 tablet by mouth 2 times daily 0 10/18/2020 Active doxycycline monohydrate 100 mg oral tablet (3 sources) Tetracycline-class Drug Start: 2023 End: 2023 take 1 tablet by mouth twice daily doxycycline monohydrate 100 mg tablet Take 1 tablet by mouth two times a day for 5 days. 10 tablet 01/11/2024 01/16/2024 Active fenofibrate 145 mg oral tablet (20 sources) Peroxisome Proliferator Receptor alpha Agonist Start: 2021 End: 2024 take 1 tablet by mouth once daily fenofibrate nanocrystallized (TRICOR) 145 mg tablet Indications: Hypertriglyceridemia Take 1 tablet by mouth once daily. 90 tablet 3 06/02/2024 Active Start: 10-17-2020 take 160 mg by mouth once daily 160 mg, Oral, DAILY, First dose on Thu10/17/20 at 0900 Substituted for Fenofibrate (Non-Formulary Dose). take 1 tablet by dima th once daily fenofibrate (TRICOR) 145 MG tablet Take 145 mg by mouth daily 0 Active Comment on above: Take 1 tablet by dima th once daily. loratadine 10 mg oral tablet (10 sources) Start: 09-15-2022 End: 09-28-2023 take 1 tablet by mouth once daily loratadine (CLARITIN) 10 mg tablet Take 1 tablet by mouth once daily. 90 tablet 1 09/15/2022 09/28/2023 Discontinued (Course of therapy completed) Comment on above: Take 1 tablet by dima once daily. melatonin 3 mg oral tablet (1 source) Start: 10-18-2020 melatonin tablet 3 mg metoprolol tartrate 50 mg oral tablet (20 sources) beta-Adrenergic Angela Start: 06-29-2023 End: 06-29-2025 take 1 tablet by mouth twice daily metoprolol tartrate, short acting, (LOPRESSOR) 50 mg tablet Indications: Persistent atrial fibrillation (HCC) Take 1 tablet by mouth two times a day. 180 tablet 3 06/29/2024 06/29/2025 Active Start: 06-10-2023 End: 12-07-2023 take 1 tablet by mouth twice daily metoprolol tartrate, short acting, (LOPRESSOR) 25 mg tablet Take 1 tablet by mouth two times a day. 60 tablet 5 06/10/2023 06/29/2023 Discontinued Start: 10-17-2020 take 1 tablet by dima th twice daily metoprolol tartrate (LOPRESSOR) 25 MG tablet Take 1 tablet by mouth 2 times daily 60 tablet 3 10/18/2020 Active Comment on above: Take 1 tablet by dima th two times a day. Multiple Vitamins-Minerals (COMPLETE MULTIVITAMIN/MINERAL PO) (1 source) Multiple Vitamins-Minerals (COMPLETE MULTIVITAMIN/MINERAL PO) Take 1 tablet by mouth 0 Active multivitamin tablet (20 sources) Start: 6 take 1 tablet by mouth once daily multivitamin tablet Take 1 tablet by mouth once daily. 0 08/17/2015 Active Comment on above: Take 1 tablet by dima th once daily. [place]-3 Fatty Acids (FISH OIL) 500 mg cap (20 sources) Start: 6 take 1 capsule by mouth once daily [place]-3 Fatty Acids (FISH OIL) 500 mg cap Take 1 capsule by mouth once daily. 0 08/17/2015 Active Comment on above: Take 1 capsule by [facility] once daily. 2 ml ondansetron 2 mg/ml injection (1 source) Serotonin-3 Receptor Antagonist Start: 1 4 mg, Intravenous, EVERY 6 HOURS PRN, Nausea, Vomiting, Starting on Thu10/16/20 at 2137 oxyCODONE hydrochloride 5 mg oral tablet (2 sources) Opioid Agonist Start: End: 1 take 1 tablet by mouth every six hours as needed for pain oxyCODONE (ROXICODONE) 5 MG immediate release tablet Indications: Acute traumatic pain Take 1 tablet by mouth every 6 hours as needed for Pain for up to 7 days. 28 tablet 0 10/18/2020 10/25/2020 Active Start: 10-16-2020 oxyCODONE (ESTELA ICODONE) immediate release tablet 5 mg polyethylene glycol [id number] [id number] mg powder for oral solution (2 sources) Osmotic Laxative Start: 10-17-2020 End: 11-18-2020 take 17 g by mouth once daily polyethylene glycol (GLYCOLAX) 17 g packet Take 17 g by mouth daily 527 g 1 10/19/2020 11/18/2020 Active pravastatin sodium 10 mg oral tablet (3 sources) HMG-CoA Reductase Inhibitor Start: 08-30-2024 take 1 tablet by mouth once daily pravastatin (PRAVACHOL) 10 mg tablet Take 1 tablet by mouth once daily. 30 tablet 3 08/30/2024 Active 3 ml sodium chloride 9 mg/ml injection (4 sources) Start: 10-16-2020 take 1 dose intravenously twice daily 5-40 mL, Intravenous, EVERY 12 HOURS SCHEDULED (2 times per day), First dose on Thu10/16/20 at 2200 For Line Patency: Peripheral IV = 5 mL; Midline or Central Line = 10 mL/lumen. &n bsp;If following IV push medication, administer flush at same rate as the IV push. Flush volume is determined by type of infusion therapy being given. &nbsp ;For non-viscous solutions use: Periphe ral IV = 5 mL Midline or Central Line = 10 mL/lumen &nb sp;For viscous solutions (i.e. blood components, parenteral nutrition, contrast media, or after obtaining blood sample) use: Periphe ral IV = 10 mL Midline or Central Line = 20 mL/lumen Start: 10-16-2020 take 5-40 mL intrave nously once as needed 5-40 mL, Intravenous, PRN, Line Care, After every IV line use, Starting on Thu10/16/20 at 2137 For Line Patency: Peripheral IV = 5 mL; Midline or Central Line = 10 mL/lumen. If following IV push medication, administer flush at same rate as the IV push. Flush volume is determined by type of infusion therapy being given. For non-viscous solutions use: Peripheral IV = 5 mL Midline or Central Line = 10 mL/lumen For viscous solutions (i.e. blood components, parenteral nutrition, contrast media, or after obtaining blood sample) use: Peripheral IV = 10 mL Midline or Central Line = 20 mL/lumen Start: 10-16-2020 take 25 mL intraveno usly every hour as needed 25 mL, Intravenous, at 100 mL/hr, PRN, If patient receiving piggyback infusions without ordered maintenance IV fluids or with frequent/long duration piggyback infusions, Starting on Thu10/16/20 at 2137 Administer at the same rate as the piggyback being infused. Start: 10-16-2020 End: 10-16-2020 0.9 % sodium chloride infusi on Completed/Discontinued Medications Medication Drug Class(es) Dates Sig (Normalized) Sig (Original) acetaminophen 500 mg oral tablet (3 sources) Start: 11-09-2020 take 2 tablets by mouth every eight hours as needed TYLENOL EXTRA STRENGTH 500 MG TABS 2 tablet by mouth every eight hours as needed ACETAMINOPHEN Kandice Sabiha CLINICAL PATHOLOGIST Start: 10-16-2020 take 1 dose by mouth three times daily 1,000 mg, Oral, EVERY 8 HOURS SCHEDULED (3 times per day), First dose on Thu10/16/20 at 2200 Maximum dose of acetaminophen is 4000 mg from all sources in 24 hours. take 1 tablet by dima th three times daily as needed for pain acetaminophen (TYLENOL) 500 MG tablet Take 500 mg by mouth 3 times daily as needed for Pain 0 Active atenolol 50 mg oral tablet (20 sources) beta-Adrenergic Angela Start: 11-09-2020 End: 06-10-2023 take 1 tablet by mouth once daily atenolol (TENORMIN) 50 mg tablet Take 1 tablet by mouth once daily. 90 tablet 3 03/18/2023 06/10/2023 Discontinued take 1 tablet by mouth once nicole y atenolol (TENORMIN) 50 MG tablet Take 50 mg by mouth daily 0 Active Comment on above: Take 1 tablet by dima th once daily. benzonatate 100 mg oral capsule (15 sources) Non-narcotic Antitussive Start: 01-18-20 End: 10-18-19 take 1 capsule by mouth every eight hours as needed benzonatate (TESSALON PERLES) 100 mg capsule Take 1 capsule by mouth three times a day as needed for cough. 30 capsule 01/18/2024 10/17/2024 Discontinued calcium chloride 0.0014 meq/ml / potassium chloride 0.004 meq/ml / sodium chloride 0.103 meq/ml / sodium lactate 0.028 meq/ml injectable solution (1 source) Start: 10-17-19 End: 10-18-19 Intravenous, at 100 mL/hr, CONTINUOUS, Starting on Thu10/16/20 at 2200 0.3 ml enoxaparin sodium 100 mg/ml prefilled syringe (1 source) Low Molecular Weight Heparin Start: 10-18-19 End: 10-18-19 enoxaparin (LOVENOX) injection 30 mg coagulation factor ix, human 1 unt / coagulation factor x, human 1 unt / factor vii, human 1 unt / protein c, human 1 unt / protein s, human 1 unt / prothrombin, human 1 unt injection (1 source) Anti-coagulant, Blood Coagulation Factor, Human Blood Coagulation Factor Start: 10-17-19 End: 10-17-19 prothrombin complex concentrate (human) (KCENTRA) infusion 3,030 Units 1 ml HYDROmorphone hydrochloride 1 mg/ml cartridge (3 sources) Opioid Agonist Start: 10-17-19 End: 10-17-19 HYDROmorphone (DILAUDID) injection 0.5 mg Start: 10-16-2020 End: 10-16-2020 HYDROmorphone (DILAUDID) 1 M G/ML injection Start: 10-16-2020 End: 10-16-2020 HYDROmorphone (DILAUDID) inj ection 1 mg levothyroxine sodium 0.025 mg oral tablet (20 sources) l-Thyroxine Start: 03-26-2023 End: 10-17-2024 take 1 tablet by mouth once daily for thyroid dysfunction levothyroxine (LEVOXYL) 25 mcg tablet Take 1 tablet by mouth once daily. Take on empty stomach. For Thyroid 30 tablet 1 03/26/2023 10/17/2024 Discontinued Start: 03-23-2023 take 1 tablet by dima th once daily for thyroid dysfunction levothyroxine (LEVOXYL) 25 mcg tablet Take 1 tablet by mouth once daily. Take on empty stomach. For Thyroid 30 tablet 1 03/23/2023 Active Comment on above: Take 1 tablet by dima th once daily. Take on empty stomach. For Thyroid montelukast 10 mg oral tablet (20 sources) Leukotriene Receptor Antagonist Start: End: take 1 tablet by mouth once daily at bedtime montelukast (SINGULAIR) 10 mg tablet Take 1 tablet by mouth daily at bedtime. 90 tablet 1 11/30/2023 07/05/2024 Discontinued Start: 03-17-2022 take 1 tablet by dima th once daily at bedtime montelukast (SINGULAIR) 10 mg tablet Take 1 tablet by mouth daily at bedtime. 90 tablet 1 03/17/2022 Active Start: 03-14-2020 End: 09-11-2021 take 1 tablet by mouth once daily at bedtime montelukast (SINGULAIR) 10 mg tablet Indications: Allergic bronchitis without complication Take 1 tablet by mouth daily at bedtime. 90 tablet 3 03/14/2020 09/11/2021 Discontinued (Discontinued by Patient) Comment on above: Take 1 tablet by dima th daily at bedtime. niacin 500 mg oral tablet (20 sources) Nicotinic Acid Start: 11-09-2020 take 1 tablet by mouth once daily KP NIACIN 500 MG TABS 1 tablet by mouth once a day niacin [id number] Kandice Sabiha STEVENS Start: 08-17-2015 take 1 tablet by dima th once daily at bedtime niacin ER (NIASPAN) 500 mg tablet Take 1 tablet by mouth daily at bedtime. 0 08/17/2015 Active take 1 tablet by dima th once daily at breakfast niacin 500 MG tablet Take 500 mg by mouth daily (with breakfast) 0 Active Comment on above: Take 1 tablet by idma th daily at bedtime. [id number]-epa-fish oil (1 source) Start: 1 take 1 capsule by mouth once daily [place]-3 FISH OIL 300 MG CAPS 1 capsule by mouth once a day dyhiy-[id number]-epa-fish oil [id number] Kandice Landis LPN phytonadione (ADULT) (VITAMIN K) 10 mg in dextrose 5 % 100 mL IVPB (1 source) Start: 1 End: 1 phytonadione (ADULT) (VITAMIN K) 10 mg in dextrose 5 % 100 mL IVPB piperacillin 3000 mg / tazobactam 375 mg injection (1 source) Penicillin-class Antibacterial, beta Lactamase Inhibitor Start: 1 End: 1 3,375 mg, Intravenous, EVERY 8 HOURS, First dose on Thu10/17/20 at 0200, Until Discontinued rosuvastatin calcium 10 mg oral tablet (10 sources) HMG-CoA Reductase Inhibitor Start: 5 End: 5 take 1 tablet by mouth once daily at bedtime rosuvastatin (CRESTOR) 10 mg tablet Take 1 tablet by mouth daily at bedtime. 90 tablet 3 07/05/2024 10/17/2024 Discontinued Start: 04-04-2024 End: 07-05-2024 take 1 tablet by mouth once daily at bedtime rosuvastatin (CRESTOR) 5 mg tablet Take 1 tablet by mouth daily at bedtime. 30 tablet 5 04/04/2024 07/05/2024 Discontinued traZODone hydrochloride 50 mg oral tablet (1 source) Serotonin Reuptake Inhibitor Start: 11-09-2020 take 1-2 tablets by mouth once daily as needed TRAZODONE HCL 50 MG TABS 1-2 tablet by mouth once a day as needed TRAZODONE HCL Kandice Landis LPN warfarin sodium 1 mg oral tablet (1 source) Vitamin K Antagonist Start: 10-04-2020 End: 10-18-2020 take 4 tablets by mouth twice daily warfarin (COUMADIN) 1 MG tablet Take 4 mg by mouth 2 times daily 0 10/04/2020 10/18/2020 Discontinued (Stop Taking at Discharge) Problems Active Problems Problem Classification Problem Date Documented Da te Episodic/Chronic Acute cerebrovascular disease (5 sources) Right sided cerebral hemisphere cerebrovascular accident; Translations: [Cerebral infarction, unspecified] Onset: 11-09-2024 11-09-2024 Chronic Asthma (20 sources) Allergic bronchitis; Translations: [Unspecified asthma, uncomplicated] Onset: 05-22-2017 05-22-2017 Chronic Cardiac dysrhythmias (20 sources) Persistent atrial fibrillation; Translations: [Other persistent atrial fibrillation] Onset: 08-17-2015 03-12-2020 Chronic Cardiac dysrhythmias (1 source) Palpitations; Translations: [Palpitations] 03-18-2023 Episodic Disorders of lipid metabolism (20 sources) Mixed hyperlipidemia; Translations: [Mixed hyperlipidemia] Onset: 08-17-2015 04-22-2021 Chronic E Codes: Machinery (2 sources) Accident caused by machinery ; Translations: [Contact with unspecified machinery, initial encounter] Onset: 10-19-2020 Episodic Essential hypertension (20 sources) Hypertensive disorder; Translations: [Essential (primary) hypertension] Onset: 08-17-2015 04-22-2021 Chronic Genitourinary symptoms and ill-defined conditions (1 source) Nocturia; Translations: [Nocturia] 04-04-2024 Episodic Heart valve disorders (7 sources) Aortic valve stenosis; Translations: [Nonrheumatic aortic (valve) stenosis] Onset: 03-28-2024 06-10-2023 Chronic Hyperplasia of prostate (1 source) Nocturia due to benign prostatic hypertrophy; Translations: [Benign prostatic hyperplasia with lower urinary tract symptoms] 04-04-2024 Chronic Immunizations and screening for infectious disease (8 sources) Patient encounter status; Translations: [Encounter for immunization] 09-28-2023 Episodic Malaise and fatigue (2 sources) Fatigue; Translations: [Other fatigue] Onset: 08-30-2024 08-30-2024 Episodic Other aftercare (3 sources) Long-term current use of anticoagulant; Translations: [[facility] (current) use of anticoagulants] Episodic Other connective tissue disease (1 source) Pain in left foot; Translations: [Pain in left foot] 09-15-2022 Episodic Other connective tissue disease (1 source) Muscle pain; Translations: [Myalgia, unspecified site] 08-30-2024 Episodic Other connective tissue disease (1 source) Myalgia, unspecified site; Translations: [Myalgia] Onset: 08-30-2024 Episodic Other injuries and conditions due to external causes (2 sources) Traumatic injury; Translations: [Injury, unspecified, initial encounter] Onset: 10-19-2020 Episodic Other injuries and conditions due to external causes (2 sources) Traumatic rhabdomyolysis; Translations: [Traumatic ischemia of muscle, initial encounter] Onset: 10-19-2020 Episodic Other lower respiratory disease (2 sources) Cough; Translations: [Acute cough] 01-11-2024 Episodic Other nervous system disorders (2 sources) Acute pain due to injury; Translations: [Acute pain due to trauma] Episodic Other nervous system disorders (5 sources) Drug-induced myopathy; Translations: [Toxic myopathy] Onset: 08-30-2024 08-30-2024 Episodic Other non-traumatic joint disorders (1 source) Pain in right knee; Translations: [Pain in joint, lower leg] 09-11-2020 Episodic Other nutritional; endocrine; and metabolic disorders (1 source) Hypercalcemia; Translations: [Hypercalcemia] 03-23-2023 Chronic Other nutritional; endocrine; and metabolic disorders (1 source) Weight increased; Translations: [Abnormal weight gain] 08-30-2024 Episodic Other nutritional; endocrine; and metabolic disorders (1 source) Abnormal weight gain; Translations: [Weight gain] Onset: 08-30-2024 Episodic Other screening for suspected conditions (not mental disorders or infectious disease) (1 source) Encounter for screening for malignant neoplasm of prostate; Translations: [Prostate cancer screening] Onset: 08-30-2024 Episodic Other upper respiratory disease (1 source) Rhinitis; Translations: [Chronic rhinitis] Chronic Other upper respiratory disease (1 source) Nasal sinus problem; Translations: [Other specified disorders of nose and nasal sinuses] 01-25-2024 Episodic Other upper respiratory infections (1 source) Acute sinusitis; Translations: [Acute sinusitis, unspecified] 01-18-2024 Episodic Phlebitis; thrombophlebitis and thromboembolism (2 sources) Thrombosis of superficial vein of lower limb; Translations: [Embolism and thrombosis of superficial veins of right lower extremity] Episodic Screening and history of mental health and substance abuse codes (2 sources) Encounter for screening for depression; Translations: [Encounter for screening examination for other mental health and behavioral disorders] Onset: 10-17-2024 Episodic Substance-related disorders (1 source) Tobacco dependence in remission; Translations: [Nicotine dependence, unspecified, in remission] 07-05-2024 Chronic Thyroid disorders (4 sources) Acquired hypothyroidism; Translations: [Hypothyroidism, unspecified] Onset: 08-30-2024 03-23-2023 Chronic Unclassified (1 source) Other persistent atrial fibrillation; Translations: [Persistent atrial fibrillation (HCC)] Onset: 03-12-2020 Unclassified (1 source) Acute cough; Translations: [Acute cough] Onset: 01-11-2024 Past or Other Problems Problem Classification Problem Date Documented Da te Episodic/Chronic Fracture of lower limb (20 sources) Closed fracture of shaft of right femur; Translations: [Unspecified fracture of shaft of right femur, initial encounter for closed fracture] Onset: 10-16-2020 Episodic Other aftercare (1 source) Other snf (current) drug therapy; Translations: [Medication management] Onset: 04-04-2024 Episodic Pneumonia (except that caused by tuberculosis or sexually transmitted disease) (6 sources) Community acquired pneumonia; Translations: [Pneumonia, unspecified organism] Onset: 02-24-2024 01-11-2024 Episodic Residual codes; unclassified (20 sources) Tobacco user; Translations: [Tobacco use] Onset: 08-17-2015 Resolved: 07-05-2024 05-22-2017 Episodic Unclassified (1 source) Problem Results Test Name Value Interpretation Reference Range Facility CBC,PLATELETSon 11-11-2024 Hematocrit (Bld) [Volume fraction] 43.3 % Normal 39.6-48.8 [facility] Comment on above: Performed By: #### H EMOGC #### [facility] (DEFAULT) [address] [id number] Hemoglobin (Bld) [Mass/Vol] 14.5 g/dL Normal 13.4-16.8 [facility] Comment on above: Performed By: #### H EMOGC #### [facility] (DEFAULT) [address] [address] MCV (RBC) [Entitic vol] 92.7 fL Normal 79.0-94.5 [facility] Comment on above: Performed By: #### H EMOGC #### [facility] (DEFAULT) [address] [address] Mean Cell Hgb 31.0 pg Normal 26.1-33.3 [facility] Comment on above: Performed By: #### H EMOGC #### [facility] (DEFAULT) [address] [address] Mean Cell Hgb Conc 33.5 g/dL Normal 31.9-36.5 [facility] Comment on above: Performed By: #### H EMOGC #### [facility] (DEFAULT) [address] [address] Platelet mean volume (Bld) [Entitic vol] 9.1 fL Normal 8.7-12.3 [facility] Comment on above: Performed By: #### H EMOGC #### [facility] (DEFAULT) [address] [address] Platelets (Bld) [#/Vol] 266 10*3/uL Normal 146-337 [facility] Comment on above: Performed By: #### H EMOGC #### [facility] (DEFAULT) [address] [address] RBC (Bld) [#/Vol] 4.67 10*6/uL Normal 4.38-5.83 [facility] Comment on above: Performed By: #### H EMOGC #### [facility] (DEFAULT) [address] [place] [id number] RBC Distribution 13.0 % Normal 10.9-14.3 [facility] Comment on above: Performed By: #### H EMO #### [facility] (DEFAULT) [address] [place] [address] 77488 WBC (Bld) [#/Vol] 9.59 10*3/uL Normal 3.73-10.10 [facility] Comment on above: Performed By: #### [facility] #### [facility] (DEFAULT) [address] [place] [address] 77297 CHEM 7 (LYTES,BUN,CREA,GLUC) on 11-11-2024 Anion gap [Moles/Vol] 11 mmol/L Normal 7-17 [facility] Comment on above: Performed By: #### L LURDES, HFP, C7ED #### [facility] (DEFAULT) [address] [place] [address] 76098 Chloride [Moles/Vol] 104 mmol/L Normal 98-108 [facility] Comment on above: Performed By: #### L PATSY1, HFP, C7ED #### [facility] (DEFAULT) [address] [place] [address] 90417 CO2 [Moles/Vol] 28 mmol/L Normal 21-31 [facility] Comment on above: Performed By: #### L LURDES, HFP, C7ED #### [facility] (DEFAULT) [address] [place] [address] 93718 Creatinine [Mass/Vol] 1.02 mg/dL Normal 0.70-1.30 [facility] Comment on above: Performed By: #### L ABPHILLIPTI1, HFP, C7ED #### [facility] (DEFAULT) [address] [place] [address] 27424 GFR/1.73 sq M.predicted among non-blacks MDRD (S/P/Bld) [Vol rate/Area] 78 mL/min/{1.73_m2} Normal >=60 [facility] Comment on above: Result Comment: Repo rted eGFR is based on the CKD-EPI 2020 equation using creatinine, age, and sex. Performed By: #### DANGELO CHAWLA, C7ED #### [facility] (DEFAULT) [address] [place] [address] 41807 Glucose [Mass/Vol] 92 mg/dL Normal Nonfastin g : 70-179 mg/dL; Fastin-99 [facility] Comment on above: Performed By: #### DANGELO CHAWLA, C7ED #### [facility] (DEFAULT) [address] [place] [address] 97272 Osmolality [Osmolality] 293 mosm/kg Normal 278-305 [facility] Comment on above: Performed By: #### DANGELO CHAWLA, C7ED #### [facility] (DEFAULT) [address] [place] [address] 07177 Potassium [Moles/Vol] 4.0 mmol/L Normal 3.5-5.0 [facility] Comment on above: Performed By: #### DANGELO CHAWLA, C7ED #### [facility] (DEFAULT) [address] [place] [address] 11971 Sodium [Moles/Vol] 139 mmol/L Normal 135-145 [facility] Comment on above: Performed By: #### DANGELO CHAWLA, C7ED #### [facility] (DEFAULT) [address] [place] [address] 83572 Urea nitrogen [Mass/Vol] 19 mg/dL Normal 7-25 [facility] Comment on above: Performed By: #### DANGELO CHAWLA, C7ED #### [facility] (DEFAULT) [address] [place] [address] 82730 Urea nitrogen/Creatinine [Mass ratio] 19 mg/mg Normal [facility] Comment on above: Performed By: #### Jeimy CHATMAN, DANGELO, C7ED #### [facility] (DEFAULT) [address] [place] [address] XR FLUORO MODIFIED BARIUM SW ALLOW WITH SPEECHon 11-11-2024 XR FLUORO MODIFIED BARIUM SWALLOW WITH SPEECH EXAM: XR FLUORO MODIFIED BARIUM SWALLOW WITH SPEECH, 11/11/2024 09:01 AM COMPARISON: No prior MBS studies available for comparison. CLINICAL INDICATIONS: Dysphagia. TECHNIQUE: Multiple barium consistencies were administered to evaluate swallow. Lateral videofluoroscopy was performed in conjunction with Speech Pathology. The examination was performed by MAGALY Cassidy. Fluoroscopy Time: 1.1 min. FINDINGS: Pharyngeal Phase: Thin: No penetration or aspiration. Mildly thick/nectar: No penetration or aspiration. Moderately thick/honey: No penetration or aspiration. Pudding: No penetration or aspiration. Cracker: No penetration or aspiration. There is mild thickening of the tongue base. Cervical Phase: Functional. There are degenerative changes of the cervical spine. The prevertebral soft tissues appear unremarkable. IMPRESSION: 1. Functional exam. No penetration or aspiration with any of the tested consistencies. 2. There is mild thickening of the tongue base that may suggest enlarged lingual tonsils. For additional analysis of the fluoroscopic examination for specific therapeutic recommendations, please see the artificial flower maker report of the speech pathologist. Examination performed by MAGALY Cassidy, under the direct supervision of Loulou Navarro M.D., who was immediately available on site during the examination. I personally viewed and interpreted these images and I have reviewed and approved this report. Normal [facility] ANTI XA DOAC (APIXABAN)on Anti Xa DOAC (Apixaban) 81 ng/mL Normal [facility] Comment on above: Result Comment: Rout ine monitoring of Anti Xa levels for patients on Apixaban is not recommended. Therapeutic reference ranges have not been established. At steady state - median (5th-95th percentile) peak and trough levels have been observed in clinical trials: Peak Conc., Trough Conc., ng/mL (a) ng/mL (b) VTE prevention after total hip replacement 2.5 mg twice daily 77 (41-146) 51 (23-109) Stroke and systemic embolism prevention in patients with AF\X09\\X09\ 2.5 mg twice daily 123 (69-221) 79 (34-162) 5 mg twice daily 171 (91-321) 103 (41-230) Prevention and treatment of DVT and PE\X09\\X09\ 2.5 mg twice daily 67 (30-153) 32 (11-90) 5 mg twice daily 132 (59-302) 63 (22-77) 10 mg twice daily 251 (111-572) 120 (41-335) (a) Defined as samples collected 2-4 hours after dosing (b) Defined as samples collected 10-12 hours after dosing AF-atrial fibrillation, FU-WB-sxcduigggi clearance, DVT-deep vein thrombosis, VTE-venous thromboembolism Clinical References: 1. Package insert: Apixaban: [employer]. Revised April 2014 2. Jayla KV, O'Carina JM, Radhika A: Quick reference guide to apixaban. [facility] Health Risk Manag 2017; 13:263-267 3. Sara CB, Franklyn JH, Javan StockJ, et al: Apixaban versus warfarin in patient with atrial fibrillation. N Engl J Med 2011;365:981-992 4. True C, Neeraj S, Manuel J, et al: Safety, pharmacokinetics and pharmacodynamics of multiple oral doses of apixaban, a factor Xa inhibitor, in healthy subjects. Br. J. Clin. Pharmocol 2013;76 :(5):776-786 5. Amairani G, Jeancarlos HR, Srini A, et al: Oral apixaban for the treatment of acute venous thromboembolism. N Engl J Med 2013;369:799-808 6. Hermelinda LAGUNA, Bong StockT, Wei SJ, et al: Andexanet randee for reversal of factor Xa inhibitor activity. N Engl J Med 2015;373:3100-5260 7. Jb K, Camryn J, Isiah BL, et al: Use of the direct oral anticoagulants in obese patients: guidance from the SSC of the [employer]. J Thromb Haemost 2016;14:4065-7454 This test has been modified from the lighter's instructions. Its performance characteristics were determined by [facility] in a manner consistent with CLIA requirements. This test has not been cleared or approved by the U.S. Food and Drug Administration. Performed By: #### L ABPHILLIPTI1, HFP, C7ED #### [facility] (DEFAULT) [address] [place] [address] 07421 CBC,PLATELETSon 11-10-2024 Hematocrit (Bld) [Volume fraction] 48.3 % Normal 39.6-48.8 [facility] Comment on above: Performed By: #### Jeimy GARNER1DANGELO, C7ED #### [facility] (DEFAULT) [address] [address] Hemoglobin (Bld) [Mass/Vol] 16.1 g/dL Normal 13.4-16.8 [facility] Comment on above: Performed By: #### Jeimy ABHSTI1, HFP, C7ED #### [facility] (DEFAULT) [address] [place] [address] 73811 MCV (RBC) [Entitic vol] 92.9 fL Normal 79.0-94.5 [facility] Comment on above: Performed By: #### L ABHSTI1, HFP, C7ED #### [facility] (DEFAULT) [address] [place] [address] 34455 Mean Cell Hgb 31.0 pg Normal 26.1-33.3 [facility] Comment on above: Performed By: #### L ABHSTI1, HFP, C7ED #### [facility] (DEFAULT) [address] [address] Mean Cell Hgb Conc 33.3 g/dL Normal 31.9-36.5 [facility] Comment on above: Performed By: #### L ABHSTI1, HFP, C7ED #### [facility] (DEFAULT) [address] [place] [address] 29844 Platelet mean volume (Bld) [Entitic vol] 8.9 fL Normal 8.7-12.3 [facility] Comment on above: Performed By: #### L ABADELA1, HFP, C7ED #### [facility] (DEFAULT) [address] [place] [address] 73020 Platelets (Bld) [#/Vol] 281 10*3/uL Normal 146-337 [facility] Comment on above: Performed By: #### L ABADELA1, HFP, C7ED #### [facility] (DEFAULT) [address] [place] [address] 54937 RBC (Bld) [#/Vol] 5.20 10*6/uL Normal 4.38-5.83 [facility] Comment on above: Performed By: #### L ABPHILLIPTI1, HFP, C7ED #### [facility] (DEFAULT) [address] [address] RBC Distribution 12.8 % Normal 10.9-14.3 [facility] Comment on above: Performed By: #### L ABADELA1, HFP, C7ED #### [facility] (DEFAULT) [address] 75621 WBC (Bld) [#/Vol] 10.86 10*3/uL High 3.73-10.10 [facility] Comment on above: Performed By: #### L ABADELA1, HFP, C7ED #### [facility] (DEFAULT) [address] [place] [address] 78510 Hematocrit (Bld) [Volume fraction] 46.3 % Normal 39.6-48.8 [facility] Comment on above: Performed By: #### H EMO #### [facility] (DEFAULT) [address] [address] Hemoglobin (Bld) [Mass/Vol] 15.3 g/dL Normal 13.4-16.8 [facility] Comment on above: Performed By: #### H EMO #### [facility] (DEFAULT) [address] [place] [address] 92701 MCV (RBC) [Entitic vol] 93.5 fL Normal 79.0-94.5 [facility] Comment on above: Performed By: #### H EMOGC #### [facility] (DEFAULT) [address] [address] Mean Cell Hgb 30.9 pg Normal 26.1-33.3 [facility] Comment on above: Performed By: #### H EMOGC #### [facility] (DEFAULT) [address] [address] Mean Cell Hgb Conc 33.0 g/dL Normal 31.9-36.5 [facility] Comment on above: Performed By: #### H EMOGC #### [facility] (DEFAULT) [address] [address] Platelet mean volume (Bld) [Entitic vol] 9.2 fL Normal 8.7-12.3 [facility] Comment on above: Performed By: #### H EMOGC #### [facility] (DEFAULT) [address] [address] Platelets (Bld) [#/Vol] 269 10*3/uL Normal 146-337 [facility] Comment on above: Performed By: #### H EMOGC #### [facility] (DEFAULT) [address] [address] RBC (Bld) [#/Vol] 4.95 10*6/uL Normal 4.38-5.83 [facility] Comment on above: Performed By: #### H EMOGC #### [facility] (DEFAULT) [address] 9[address] RBC Distribution 12.8 % Normal 10.9-14.3 [facility] Comment on above: Performed By: #### H EMOGC #### [facility] (DEFAULT) [address] [address] WBC (Bld) [#/Vol] 11.05 10*3/uL High 3.73-10.10 [facility] Comment on above: Performed By: #### H [facility] #### [facility] (DEFAULT) [address] [place] [address] 37125 CHEM 7 (LYTES,BUN,CREA,GLUC) on 11-10-2024 Anion gap [Moles/Vol] 17 mmol/L Normal 7-17 [facility] Comment on above: Performed By: #### L ABHSTI1, HFP, C7ED #### [facility] (DEFAULT) [address] [place] [address] 06333 Chloride [Moles/Vol] 104 mmol/L Normal 98-108 [facility] Comment on above: Performed By: #### L ABHSTI1, HFP, C7ED #### [facility] (DEFAULT) [address] [place] [address] 08832 CO2 [Moles/Vol] 22 mmol/L Normal 21-31 [facility] Comment on above: Performed By: #### L ABPHILLIPTI1, HFP, C7ED #### [facility] (DEFAULT) [address] [place] [address] 40733 Creatinine [Mass/Vol] 0.87 mg/dL Normal 0.70-1.30 [facility] Comment on above: Performed By: #### L ABHSTI1, HFP, C7ED #### [facility] (DEFAULT) [address] [place] [address] 99110 eGFR, CKD-EPI, Male > Normal >=60 [facility] Comment on above: Result Comment: Repo rted eGFR is based on the CKD-EPI 2020 equation using creatinine, age, and sex. Performed By: #### L ABHSTI1, HFP, C7ED #### [facility] (DEFAULT) [address] [place] [address] 89509 Glucose [Mass/Vol] 90 mg/dL Normal Nonfastin g : 70-179 mg/dL; Fastin-99 [facility] Comment on above: Performed By: #### L ABHSTI1, HFP, C7ED #### [facility] (DEFAULT) [address] [place] [address] 52604 Osmolality [Osmolality] 291 mosm/kg Normal 278-305 [facility] Comment on above: Performed By: #### L ABHSTI1, HFP, C7ED #### [facility] (DEFAULT) [address] [place] [address] 28467 Potassium [Moles/Vol] 4.1 mmol/L Normal 3.5-5.0 [facility] Comment on above: Performed By: #### L ABHSTI1, HFP, C7ED #### [facility] (DEFAULT) [address] [place] [address] 66352 Sodium [Moles/Vol] 139 mmol/L Normal 135-145 [facility] Comment on above: Performed By: #### L ABPHILLIPTI1, HFP, C7ED #### [facility] (DEFAULT) [address] [place] [address] 71788 Urea nitrogen [Mass/Vol] 15 mg/dL Normal 7-25 [facility] Comment on above: Performed By: #### L ABPHILLIPTI1, HFP, C7ED #### [facility] (DEFAULT) [address] [place] [address] 72234 Urea nitrogen/Creatinine [Mass ratio] 17 mg/mg Normal [facility] Comment on above: Performed By: #### L ABHSTI1, HFP, C7ED #### [facility] (DEFAULT) [address] [place] [address] 82689 Anion gap [Moles/Vol] 14 mmol/L Normal 7-17 [facility] Comment on above: Performed By: #### C HM7, HFP, LIPDR #### [facility] (DEFAULT) [address] [place] [address] 21305 Chloride [Moles/Vol] 104 mmol/L Normal 98-108 [facility] Comment on above: Performed By: #### C HM7, HFP, LIPDR #### [facility] (DEFAULT) [address] [place] [address] 77755 CO2 [Moles/Vol] 23 mmol/L Normal 21-31 [facility] Comment on above: Performed By: #### C HM7, HFP, LIPDR #### [facility] (DEFAULT) [address] [place] [address] 27760 Creatinine [Mass/Vol] 0.95 mg/dL Normal 0.70-1.30 [facility] Comment on above: Performed By: #### C HM7, HFP, LIPDR #### [facility] (DEFAULT) [address] [place] [address] 32807 GFR/1.73 sq M.predicted among non-blacks MDRD (S/P/Bld) [Vol rate/Area] 85 mL/min/{1.73_m2} Normal >=60 [facility] Comment on above: Result Comment: Repo rted eGFR is based on the CKD-EPI 2020 equation using creatinine, age, and sex. Performed By: #### C HM7, HFP, LIPDR #### [facility] (DEFAULT) [address] [place] [address] 95166 Glucose [Mass/Vol] 106 mg/dL Normal Nonfastin g : 70-179 mg/dL; Fastin-99 [facility] Comment on above: Performed By: #### Foster HM7, HFP, LIPDR #### [facility] (DEFAULT) [address] [place] [address] 49010 Osmolality [Osmolality] 288 mosm/kg Normal 278-305 [facility] Comment on above: Performed By: #### C HM7, HFP, LIPDR #### [facility] (DEFAULT) [address] [place] [address] 62875 Potassium [Moles/Vol] 3.9 mmol/L Normal 3.5-5.0 [facility] Comment on above: Performed By: #### C HM7, HFP, LIPDR #### [facility] (DEFAULT) [address] [place] [address] 97208 Sodium [Moles/Vol] 137 mmol/L Normal 135-145 [facility] Comment on above: Performed By: #### C HM7, DANGELO, LIPDR #### [facility] (DEFAULT) [address] [place] [address] 89350 Urea nitrogen [Mass/Vol] 14 mg/dL Normal 7-25 [facility] Comment on above: Performed By: #### C HM7, HFP, LIPDR #### [facility] (DEFAULT) [address] [place] [address] 06820 Urea nitrogen/Creatinine [Mass ratio] 15 mg/mg Normal [facility] Comment on above: Performed By: #### C HM7, HFP, LIPDR #### [facility] (DEFAULT) [address] [place] [address] 66923 ECHOCARDIOGRAMon 11-10-2024 Echocardiography Normal LV size and low-normal LV systolic function. The LV ejection fraction is 50-55% with ccyv-np-btal variability due to irregular rhythm. The regional wall motion is grossly normal.There is mild concentric remodeling of the LV. Indeterminate LV diastolic function due to irregular rhythm. Severely enlarged left atrial size. Normal RV size and moderately reduced RV systolic function. The aortic valve is heavily calcified with reduced excursion. There is moderate-severe aortic stenosis with borderline low-flow. The mean gradient is 23 mmHg, the PV is 3.1 m/sec, the LOAN is 1.0 - 1.1 cm2, and the DI is 0.20 - 0.25. No aortic regurgitation. The mitral annulus is calcified without significant mitral stenosis. There is trace regurgitation. The valvular vegetations noted. The RVSP cannot be measured due to incomplete TR jet envelope. The aorta is normal in caliber in visualized segments. No prior [facility] echocardiogram available for comparison. Table formatting from the original result was not included. Images from the original result were not included. [facility] Facility [facility] Patient Information Patient Name Rito Leon Legal Sex Male Indication for Exam Priority: Routine Dx: Cerebrovascular accident (CVA), unspecified mechanism [I63.9 (ICD-10-CM)] Order Question Reason for Exam Stroke Interpretation Summary Result History is available. Normal LV size and low-normal LV systolic function. The LV ejection fraction is 50-55% with aszb-fh-alxy variability due to irregular rhythm. The regional wall motion is grossly normal.There is mild concentric remodeling of the LV. Indeterminate LV diastolic function due to irregular rhythm. Severely enlarged left atrial size. Normal RV size and moderately reduced RV systolic function. The aortic valve is heavily calcified with reduced excursion. There is moderate-severe aortic stenosis with borderline low-flow. The mean gradient is 23 mmHg, the PV is 3.1 m/sec, the LOAN is 1.0 - 1.1 cm2, and the DI is 0.20 - 0.25. No aortic regurgitation. The mitral annulus is calcified without significant mitral stenosis. There is trace regurgitation. The valvular vegetations noted. The RVSP cannot be measured due to incomplete TR jet envelope. The aorta is normal in caliber in visualized segments. No prior [facility] echocardiogram available for comparison. Findings Left Ventricle End-diastolic volume is normal. Increased wall thickness. Concentric remodeling is present. Normal global systolic function. Regional wall motion is normal. Ejection fraction is low normal (50-55%). Right Ventricle Chamber size is enlarged. Systolic function is moderately reduced. Left Atrium Chamber size is severely enlarged. Right Atrium Chamber size is normal. Septum The atrial septum is normal. Mitral Valve Normal appearing leaflets. Leaflet mobility is normal. Moderate anterior and posterior annular calcification. Trace regurgitation. No valve stenosis. Mean gradient is 3 mmHg. Aortic Valve Structural morphology cannot be determined. Severe leaflet calcification of all cusps. Leaflet excursion is moderately decreased. Trace regurgitation. Moderate to severe stenosis (low flow/low gradient). LVOT diameter: 2.40 cm. Mean gradient: 23 mmHg. Dimensionless Index by VTI: 0.25. Valve area continuity VTI: 1.12 cm2. Stroke volume index: 33.87 ml/m2. The valve Vmax is 3.08 m/s. Tricuspid Valve Normal leaflets. Leaflet mobility is normal. Trace regurgitation. No stenosis. Pulmonary artery systolic pressure (PASP) is unable to be estimated. Pulmonic Valve Pulmonic valve not well visualized. Trace regurgitation. No stenosis. Aorta No dilation to extent seen. SOV: 3.59 cm. STJ: 3.17 cm. Ascendin.44 cm. Pericardium Small pericardial effusion. IVC/SVC Inferior vena cava not well visualized. Pulmonary Artery Pulmonary artery not well visualized. Reading Providers Reading Role Read Date Chano Gonzalez MD Echo [place] 11/10/2024 Left Heart Measurements LV - Systole LVIDD 4.07 cm IVS 1.11 cm LVIDS 3.06 cm PW 1.39 cm LV RWT 0.68 LV Mass Index 87.6 g/m2 LV EDV BP 108 mL LV ESV BP 47 mL BP EF 56 % LV stroke volume BP (ml) 61 mL LV stroke volume index BP 29.61 mL/m2 LV - Diastole MV pk E ramon 0.99 m/s MV pk A ramon 0.26 m/s E/A ratio 3.81 e' septal pk ramon 0.08 m/s e' lateral pk ramon 0.08 m/s Avg e' pk ramon 0.08 m/s E/e' septal ratio 12.36 E/e' lateral ratio 11.77 Avg E/e' ratio 12.07 LV - HCM AV LVOT peak gradient 2 mmHg Left Atrium LA ESV SP 4CH (MOD) 81 mL LA ESV SP 2CH (MOD) 152 mL LA ESV BP (MOD) index 56 mL/m2 Right Heart Measurements RV - 2D RV basal diam 5.36 cm RV mid diam 4.07 cm RV long diam 7.46 cm RV Area diastolic 36.5 cm2 RV Area systolic 27.7 cm2 RV (more content not included)... Normal [facility] HEMOGLOBIN A1Con 11-10-2024 Glucose [Mass/Vol] 120 mg/dL Normal [facility] Comment on above: Performed By: #### A 1CB #### [facility] (DEFAULT) [address] [address] Hemoglobin A1C HPLC 5.8 % High 4.7-5.6 [facility] Comment on above: Performed By: #### A 1CB #### [facility] (DEFAULT) [address] [address] HEPATIC FUNCTION PANELon Albumin [Mass/Vol] 4.1 g/dL Normal 3.5-5.0 [facility] Comment on above: Performed By: #### C HM7, HFP, LIPDR #### [facility] (DEFAULT) [address] [place] [address] 78483 ALP [Catalytic activity/Vol] 37 U/L Normal 32-126 [facility] Comment on above: Performed By: #### C HM7, HFP, LIPDR #### [facility] (DEFAULT) [address] [place] [address] 26808 ALT [Catalytic activity/Vol] 15 U/L Normal 10-52 [facility] Comment on above: Performed By: #### C HM7, HFP, LIPDR #### [facility] (DEFAULT) [address] [place] [address] 86122 AST [Catalytic activity/Vol] 21 U/L Normal 10-39 [facility] Comment on above: Performed By: #### C HM7, HFP, LIPDR #### [facility] (DEFAULT) [address] [place] [address] 16196 Bilirubin [Mass/Vol] 0.8 mg/dL Normal <1.5 [facility] Comment on above: Performed By: #### C HM7, HFP, LIPDR #### [facility] (DEFAULT) [address] [place] [address] 26213 Bilirubin.indirect [Mass/Vol] 0.2 mg/dL Normal <0.3 [facility] Comment on above: Performed By: #### C HM7, HFP, LIPDR #### [facility] (DEFAULT) [address] [place] [address] 74598 Protein [Mass/Vol] 7.9 g/dL Normal 6.4-8.3 [facility] Comment on above: Performed By: #### C HM7, HFP, LIPDR #### [facility] (DEFAULT) [address] [place] [address] 76786 LIPID PANEL WITH REFLEX TO M EASURED LDLon 11-10-2024 Calculated LDL Cholesterol 70 mg/dL Normal 0-99 [facility] Comment on above: Result Comment: [<10 0 mg/dL: Optimal] [100-129 mg/dL: Near Optimal] [130-159 mg/dL: Borderline High] [160-189 mg/dL: High] [>189 mg/dL: Very High] Performed By: #### C HM7, HFP, LIPDR #### [facility] (DEFAULT) [address] [place] [address] 82208 Cholesterol [Mass/Vol] 137 mg/dL Normal <200 [facility] Comment on above: Result Comment: [<20 0 mg/dL: Desirable] [200-239 mg/dL: Borderline High] [>239 mg/dL: High] Performed By: #### C HM7, HFP, LIPDR #### [facility] (DEFAULT) [address] [place] [address] 10359 Cholesterol in HDL [Mass/Vol] 30 mg/dL Low >=40 [facility] Comment on above: Result Comment: [<40 mg/dL: Low (High Risk)] [>59 mg/dL: High (Low Risk)] Performed By: #### C HM7, HFP, LIPDR #### [facility] (DEFAULT) [address] [place] [address] 83457 Non HDL Cholesterol 107 mg/dL Normal <130 [facility] Comment on above: Performed By: #### C HM7, HFP, LIPDR #### [facility] (DEFAULT) [address] [place] [address] 96533 Total Cholesterol/HDL Ratio 4.6 High <4.5 [facility] Comment on above: Performed By: #### C HM7, HFP, LIPDR #### [facility] (DEFAULT) [address] [place] [address] Triglyceride [Mass/Vol] 185 mg/dL High <150 [facility] Comment on above: Result Comment: [<15 0 mg/dL: Desirable] [150-199 mg/dL: Borderline] [200-499 mg/dL: High] [>500 mg/dL: Very High] Performed By: #### C HM7, HFP, LIPDR #### [facility] (DEFAULT) [address] [place] [address] MRI BRAIN STROKE WITHOUT CON TRASTon 11-10-2024 MRI BRAIN STROKE WITHOUT CONTRAST EXAM: MRI BRAIN STROKE WITHOUT CONTRAST, 11/10/2024 03:21 AM COMPARISON: CT STROKE HEAD-STROKE ALERT ONLY November 09, 2024 CLINICAL INDICATIONS: 74 years Male stroke RELEVANT CLINICAL HISTORY: TECHNIQUE: A series of multisequence, multiplanar images of the brain are obtained without intravenous contrast according to acute stroke protocol. Study includes diffusion-weighted images. FINDINGS: Scattered foci of T2/FLAIR signal hyperintensity are seen in the white matter of both cerebral hemispheres, nonspecific, but most likely representing chronic microvascular ischemic change. No evidence of edema. No evidence of mass lesion. No evidence of hemorrhage. Multiple small acute infarcts are noted in the right frontal lobe and the right frontal and parietal periventricular region. Additional small infarcts along the right temporal cortex. No extracerebral collection. Sellar and parasellar structures are unremarkable. Posterior fossa is unremarkable. Ventricles and sulci are within normal limits. Skull and extracranial structures are unremarkable. IMPRESSION: Multiple small infarcts in the right frontal and temporal lobes. No evidence of hemorrhagic transformation [facility] Absolute lymphocyte countOrd ered By: Pablo Jaime on 11-09-2024 Lymphocytes Auto (Unsp spec) [#/Vol] 2.15 10*3/uL 0.83-4.51 [facility] Absolute neutrophil countOrd ered By: Pablo Jaime on 11-09-2024 Neutrophils (Bld) [#/Vol] 6.0 10*3/uL 2.0-7.7 [facility] Activated partial thrombopla stin time (aPTT) in platelet poor plasma by coagulation aOrdered By: Pablo Jaime on 11-09-2024 aPTT Coag (PPP) [Time] 30.4 s 24.1-36.2 [facility] Automated lymphocyte count a s percentage of total leukocytesOrdered By: Pablo Jaime on 11-09-2024 Lymphocytes/100 WBC Auto (Unsp spec) 22.2 % 19-41 [facility] Basic Metabolic Profile (BMP )on 11-09-2024 BUN/CRE 18.8 RATIO Normal 10-20 [facility] Comment on above: Performed By: #### L 300.3900, L300.4310, L500.2500, L100.0100, L501.4021 #### [facility] [address] [place], [address] Calcium [Mass/Vol] 9.7 mg/dL Normal 7.6-11.0 [facility] Comment on above: Performed By: #### L 300.3900, L300.4310, L500.2500, L100.0100, L501.4021 #### [facility] [address] [place], [address] Chloride [Moles/Vol] 99 mmol/L Normal 98-108 [facility] Comment on above: Performed By: #### L 300.3900, L300.4310, L500.2500, L100.0100, L501.4021 #### [facility] [address] [place], [address] CO2 [Moles/Vol] 23.5 mmol/L Normal 21.0-32.0 [facility] Comment on above: Performed By: #### L 300.3900, L300.4310, L500.2500, L100.0100, L501.4021 #### [facility] [address] [place], [address] Creatinine [Mass/Vol] 1.05 mg/dL Normal 0.70-1.20 [facility] Comment on above: Performed By: #### L 300.3900, L300.4310, L500.2500, L100.0100, L501.4021 #### [facility] [address] [place], [address] ECRCL 76.01 ml/min Normal 50-250 [facility] Comment on above: Performed By: #### L 300.3900, L300.4310, L500.2500, L100.0100, L501.4021 #### [facility] [address] [place], [address] GAP 11 Normal 5-15 [facility] Comment on above: Performed By: #### L 300.3900, L300.4310, L500.2500, L100.0100, L501.4021 #### [facility] [address] [place], [address] GFR/1.73 sq M.predicted among non-blacks MDRD (S/P/Bld) [Vol rate/Area] 75 mL/min/{1.73_m2} Normal >60 [facility] Comment on above: Result Comment: mL/m in/1.73m2 CKD-EPI Creatinine Equation (2020) Performed By: #### L 300.3900, L300.4310, L500.2500, L100.0100, L501.4021 #### [facility] [address] [place], [address] Glucose [Mass/Vol] 105 mg/dL High 70-99 [facility] Comment on above: Performed By: #### L 300.3900, L300.4310, L500.2500, L100.0100, L501.4021 #### [facility] [address] [place], [address] Potassium [Moles/Vol] 4.5 mmol/L Normal 3.3-5.1 [facility] Comment on above: Performed By: #### L 300.3900, L300.4310, L500.2500, L100.0100, L501.4021 #### [facility] [address] [place], [address] Sodium [Moles/Vol] 133 mmol/L Normal 133-145 [facility] Comment on above: Performed By: #### L 300.3900, L300.4310, L500.2500, L100.0100, L501.4021 #### [facility] [address] [place], [address] Urea nitrogen [Mass/Vol] 20 mg/dL High 4-19 [facility] Comment on above: Performed By: #### L 300.3900, L300.4310, L500.2500, L100.0100, L501.4021 #### [facility] [address] [place], [address] Basophil percentageOrdered B y: Pablo Jaime on 11-09-2024 Basophils/100 WBC (Bld) 0.7 % 0-1 [facility] Bedside Glucoseon 11-09-2024 FINGERSTICK GLU 101 mg/dL Normal 74-106 [facility] Comment on above: Result Comment: ANTOLIN ARGUETA OF PATIENT CARE PER NURSING PROTOCOL Performed By: #### L 501.080 #### [facility] [address] [place], [address] CBC AND ELECTRONIC DIFFon Basophils (Bld) [#/Vol] 0.09 10*3/uL Normal 0.00-0.09 [facility] Comment on above: Performed By: #### L ABHSTI1, HFP, C7ED #### [facility] (DEFAULT) [address] [address] Basophils/100 WBC (Bld) 0.7 % [facility] Comment on above: Performed By: #### L ABHSTI1, HFP, C7ED #### [facility] (DEFAULT) [address] [address] DIFF STATUS Electronic Differential [facility] Comment on above: Performed By: #### L ABHSTI1, HFP, C7ED #### [facility] (DEFAULT) [address] [place] [address] Eosinophils (Bld) [#/Vol] 0.15 10*3/uL Normal 0.00-0.48 [facility] Comment on above: Performed By: #### L ABHSTI1, HFP, C7ED #### [facility] (DEFAULT) [address] [address] Eosinophils/100 WBC (Bld) 1.2 % [facility] Comment on above: Performed By: #### L ABHSTI1, HFP, C7ED #### [facility] (DEFAULT) [address] [address] Hematocrit (Bld) [Volume fraction] 43.5 % Normal 39.6-48.8 [facility] Comment on above: Performed By: #### L ABHSTI1, HFP, C7ED #### [facility] (DEFAULT) [address] [place] [address] Hemoglobin (Bld) [Mass/Vol] 14.6 g/dL Normal 13.4-16.8 [facility] Comment on above: Performed By: #### L ABPHILLIPTI1, HFP, C7ED #### [facility] (DEFAULT) [address] [place] [address] Immature Grans % 0.6 % Normal [facility] Comment on above: Performed By: #### L ABHSTI1, HFP, C7ED #### [facility] (DEFAULT) [address] [place] [address] Immature Grans Absolute 0.07 K/uL Normal <=0.07 [facility] Comment on above: Performed By: #### L ABHSTI1, HFP, C7ED #### [facility] (DEFAULT) [address] [place] [address] Lymphocytes (Bld) [#/Vol] 1.59 10*3/uL Normal 0.83-3.57 [facility] Comment on above: Performed By: #### L ABHSTI1, HFP, C7ED #### [facility] (DEFAULT) [address] [address] Lymphocytes/100 WBC (Bld) 13.0 % [facility] Comment on above: Performed By: #### L ABHSTI1, HFP, C7ED #### [facility] (DEFAULT) [address] [address] MCV (RBC) [Entitic vol] 93.1 fL Normal 79.0-94.5 [facility] Comment on above: Performed By: #### L ABHSTI1, HFP, C7ED #### [facility] (DEFAULT) [address] [address] Mean Cell Hgb 31.3 pg Normal 26.1-33.3 [facility] Comment on above: Performed By: #### L ABHSTI1, HFP, C7ED #### [facility] (DEFAULT) [address] [address] Mean Cell Hgb Conc 33.6 g/dL Normal 31.9-36.5 [facility] Comment on above: Performed By: #### L ABHSTI1, HFP, C7ED #### [facility] (DEFAULT) [address] [address] Monocytes (Bld) [#/Vol] 1.25 10*3/uL High 0.24-0.93 [facility] Comment on above: Performed By: #### L ABHSTI1, HFP, C7ED #### [facility] (DEFAULT) [address] [address] Monocytes/100 WBC (Bld) 10.2 % [facility] Comment on above: Performed By: #### L ABHSTI1, HFP, C7ED #### [facility] (DEFAULT) [address] [address] Nucleated RBC 0.0 /100 WBC Normal <=0.2 [facility] Comment on above: Performed By: #### L ABHSTI1, HFP, C7ED #### [facility] (DEFAULT) [address] [address] Platelet mean volume (Bld) [Entitic vol] 9.2 fL Normal 8.7-12.3 [facility] Comment on above: Performed By: #### L ABHSTI1, HFP, C7ED #### [facility] (DEFAULT) [address] [place] [address] Platelets (Bld) [#/Vol] 265 10*3/uL Normal 146-337 [facility] Comment on above: Performed By: #### L ABHSTI1, HFP, C7ED #### [facility] (DEFAULT) [address] [place] [address] RBC (Bld) [#/Vol] 4.67 10*6/uL Normal 4.38-5.83 [facility] Comment on above: Performed By: #### L ABHSTI1, HFP, C7ED #### [facility] (DEFAULT) [address] [place] [address] RBC Distribution 12.8 % Normal 10.9-14.3 [facility] Comment on above: Performed By: #### L ABHSTI1, HFP, C7ED #### [facility] (DEFAULT) [address] [place] [address] Segs + Bands Auto 74.3 % Normal [facility] Comment on above: Performed By: #### L ABHSTI1, HFP, C7ED #### [facility] (DEFAULT) [address] [place] [address] Segs + Bands,Absolute Auto 9.12 K/uL High 1.57-6.19 [facility] Comment on above: Performed By: #### L ABHSTI1, HFP, C7ED #### [facility] (DEFAULT) [address] [place] [address] WBC (Bld) [#/Vol] 12.27 10*3/uL High 3.73-10.10 [facility] Comment on above: Performed By: #### L ABHSTI1, HFP, C7ED #### [facility] (DEFAULT) [address] [place] [address] CBC W/Diff, Automatedon 07- Absolute Lymph 2.15 X10 3/uL Normal 0.83-4.51 [facility] Comment on above: Performed By: #### L 300.3900, L300.4310, L500.2500, L100.0100, L501.4021 #### [facility] [address] [place], [address] Absolute Neut 6.0 X10 3/uL Normal 2.0-7.7 [facility] Comment on above: Performed By: #### L 300.3900, L300.4310, L500.2500, L100.0100, L501.4021 #### [facility] [address] [place], [address] Basophils/100 WBC (Bld) 0.7 % Normal 0-1 [facility] Comment on above: Performed By: #### L 300.3900, L300.4310, L500.2500, L100.0100, L501.4021 #### [facility] [address] [place], [address] Eosinophils/100 WBC (Bld) 2.7 % Normal 0-5 [facility] Comment on above: Performed By: #### L 300.3900, L300.4310, L500.2500, L100.0100, L501.4021 #### [facility] [address] [place], [address] Erythrocyte distribution width (RBC) [Ratio] 12.8 % Normal 11.6-14.6 [facility] Comment on above: Performed By: #### L 300.3900, L300.4310, L500.2500, L100.0100, L501.4021 #### [facility] [address] [place], [address] Hematocrit (Bld) [Volume fraction] 42.4 % Normal 40-54 [facility] Comment on above: Performed By: #### L 300.3900, L300.4310, L500.2500, L100.0100, L501.4021 #### [facility] [address] [place], [address] Hemoglobin (Bld) [Mass/Vol] 14.5 g/dL Normal 13.0-16.5 [facility] Comment on above: Performed By: #### L 300.3900, L300.4310, L500.2500, L100.0100, L501.4021 #### [facility] [address] [place], [address] IG% 0.700 Normal 0.0-0.9 [facility] Comment on above: Result Comment: IG% - Immature Granulocytes (promyelocytes, myelocytes and metamyelocytes) > 1% indicates that a LEFT SHIFT is Present. Performed By: #### L 300.3900, L300.4310, L500.2500, L100.0100, L501.4021 #### [facility] [address] [place], [address] Lymphocytes/100 WBC (Bld) 22.2 % Normal 19-41 [facility] Comment on above: Performed By: #### L 300.3900, L300.4310, L500.2500, L100.0100, L501.4021 #### [facility] [address] [place], [address] MCH (RBC) [Entitic mass] 31.6 pg Normal 27.0-32.0 [facility] Comment on above: Performed By: #### L 300.3900, L300.4310, L500.2500, L100.0100, L501.4021 #### [facility] [address] [place], [address] MCHC (RBC) [Mass/Vol] 34.2 g/dL Normal 32-36 [facility] Comment on above: Performed By: #### L 300.3900, L300.4310, L500.2500, L100.0100, L501.4021 #### [facility] [address] [place], [address] MCV (RBC) [Entitic vol] 92.4 fL Normal 80-94 [facility] Comment on above: Performed By: #### L 300.3900, L300.4310, L500.2500, L100.0100, L501.4021 #### [facility] [address] [place], [address] Monocytes/100 WBC (Bld) 12.3 % High 0-10 [facility] Comment on above: Performed By: #### L 300.3900, L300.4310, L500.2500, L100.0100, L501.4021 #### [facility] [address] [place], [address] Neutrophils/100 WBC (Bld) 61.4 % Normal 47-70 [facility] Comment on above: Performed By: #### L 300.3900, L300.4310, L500.2500, L100.0100, L501.4021 #### [facility] [address] [place], [address] Nucleated RBC (Bld) [#/Vol] 0 10*3/uL Normal 0-5 [facility] Comment on above: Performed By: #### L 300.3900, L300.4310, L500.2500, L100.0100, L501.4021 #### [facility] [address] [place], [address] Platelet mean volume (Bld) [Entitic vol] 9.3 fL Normal 6.2-12.0 [facility] Comment on above: Performed By: #### L 300.3900, L300.4310, L500.2500, L100.0100, L501.4021 #### [facility] [address] [place], [address] Platelets (Bld) [#/Vol] 287 10*3/uL Normal 150-450 [facility] Comment on above: Performed By: #### L 300.3900, L300.4310, L500.2500, L100.0100, L501.4021 #### [facility] [address] [place], [address] RBC (Bld) [#/Vol] 4.59 10*6/uL Low 4.6-6.2 [facility] Comment on above: Performed By: #### L 300.3900, L300.4310, L500.2500, L100.0100, L501.4021 #### [facility] [address] [place], [address] RDW SD 43.4 fl Normal 35.1-43.9 [facility] Comment on above: Performed By: #### L 300.3900, L300.4310, L500.2500, L100.0100, L501.4021 #### [facility] [address] [place], [address] WBC (Bld) [#/Vol] 9.7 10*3/uL Normal 4.4-11.0 [facility] Comment on above: Performed By: #### L 300.3900, L300.4310, L500.2500, L100.0100, L501.4021 #### [facility] [address] [place], [address] CHM 7 - EDon 11-09-2024 Anion gap [Moles/Vol] 9 mmol/L Normal 7-17 [facility] Comment on above: Performed By: #### L ABHSTI1, HFP, C7ED #### [facility] (DEFAULT) [address] [place] [address] Chloride [Moles/Vol] 107 mmol/L Normal 98-108 [facility] Comment on above: Performed By: #### DANGELO CHAWLA, C7ED #### [facility] (DEFAULT) [address] [place] [address] CO2 [Moles/Vol] 25 mmol/L Normal 21-31 [facility] Comment on above: Performed By: #### DANGELO CHAWLA, C7ED #### [facility] (DEFAULT) [address] [place] [address] Creatinine [Mass/Vol] 0.93 mg/dL Normal 0.70-1.30 [facility] Comment on above: Performed By: #### DANGELO CHAWLA, C7ED #### [facility] (DEFAULT) [address] [place] [address] GFR/1.73 sq M.predicted among non-blacks MDRD (S/P/Bld) [Vol rate/Area] 87 mL/min/{1.73_m2} Normal >=60 [facility] Comment on above: Result Comment: Repo rted eGFR is based on the CKD-EPI 2020 equation using creatinine, age, and sex. Performed By: #### DANGELO CHAWLA, C7ED #### [facility] (DEFAULT) [address] [place] [address] Glucose [Mass/Vol] 102 mg/dL Normal Nonfastin g : 70-179 mg/dL; Fastin-99 [facility] Comment on above: Performed By: #### DANGELO CHAWLA, C7ED #### [facility] (DEFAULT) [address] [place] [address] Osmolality [Osmolality] 289 mosm/kg Normal 278-305 [facility] Comment on above: Performed By: #### DANGELO CHAWLA, C7ED #### [facility] (DEFAULT) [address] [place] [address] Potassium [Moles/Vol] 4.3 mmol/L Normal 3.5-5.0 [facility] Comment on above: Performed By: #### L PATSY1, HFP, C7ED #### [facility] (DEFAULT) [address] [place] [address] Sodium [Moles/Vol] 137 mmol/L Normal 135-145 [facility] Comment on above: Performed By: #### L PATSY1, HFP, C7ED #### [facility] (DEFAULT) [address] [place] [address] Urea nitrogen [Mass/Vol] 17 mg/dL Normal 7-25 [facility] Comment on above: Performed By: #### L PATSY1, DANGELO, C7ED #### [facility] (DEFAULT) [address] [place] [address] Urea nitrogen/Creatinine [Mass ratio] 18 mg/mg [facility] Comment on above: Performed By: #### L LURDES, DANGELO, C7ED #### [facility] (DEFAULT) [address] [place] [address] STROKE HEAD-STROKE ALERT ONLYon 11-09-2024 CT STROKE HEAD-STROKE ALERT ONLY EXAM: CT STROKE HEAD-STROKE ALERT ONLY, 11/09/2024 11:34 AM COMPARISON: CT HEAD (OUTSIDE IMAGE) November 09, 2024 CLINICAL INDICATIONS: 74-year-old male suspected stroke RELEVANT CLINICAL HISTORY: according to note in the EMR there are left sided deficits TECHNIQUE: A series of transaxial computerized tomographic images are obtained from base of skull to vertex without intravenous contrast. Axial whole-head and thin section posterior fossa slices are provided. Reformats: Sagittal and coronal. FINDINGS: Wadsworth-white matter differentiation is preserved. No acute large territory infarction is seen. Patchy periventricular white matter hypoattenuation is noted which is non-specific, but likely due to chronic small vessel ischemic changes. No acute intracranial hemorrhage is seen. No significant mass effect or midline shift. Ventricles are normal in size and configuration for patient age. Skull appears intact. Visualized orbits appear normal. Retention cyst or polyp in the left maxillary sinus. Visualized mastoid air cells are clear. Degenerative changes of the bilateral temporomandibular joints. IMPRESSION: No acute intracranial hemorrhage. No acute large territory infarct or mass effect. White matter lesions in a pattern which is nonspecific but typically related to chronic microvascular ischemic changes. Findings were discussed with Gianfranco Patel MD at 1148 on 11/09/2024. I personally viewed and interpreted these images and I have reviewed and approved this report. [facility] Emergency Department Summary on 11-09-2024 Emergency Department Summary [facility] Medical Records Department [address] [place] [address] Emergency Department Summary 11/09/24 MR#: [id number] Acct: [id number] Name: RITO LEON Rep #: [id number] : 1950 74 From: Pablo Jaime MD PCP: Dr. Sherin Boswell MD Status:REG ER Location: ED HPI History of Present Illness Chief Complaint: Stroke Alert Detail of Chief Complaint: According to squad patient was flaccid on the left side his speech was much Informant: patient and EMS Onset/Context/Timing Onset: Today (0800) Context: Onset with activity and Sudden Onset Timing: Continuous Quality and Location: Positive for Left Facial Droop, Left Arm Weakness, Left Leg Weakness, Slurred Speech and Difficulty with Ambulation Current Severity: Mild Maximum Severity: Severe Worsened by: Probable stroke Relieved by: Not applicable Associated Symptoms Associated Symptoms: Negative for Headache, Nausea or Vomiting Narrative Narrative: Patient is a 74-year-old male with history of atrial fibrillation on Eliquis. saw him fall. He had a flaccid left side significantly slurred speech and facial droop. He denies headache. Denies visual disturbance. He denies cardiac or respiratory symptoms. He denies nausea or vomiting. There are no records available for review. Prior similar symptoms: No Recent Illness/Hospitalization: No PFSH PFS Medical History (Updated 11/09/24 @ 09:[address] Pablo Jaime MD) Atrial fibrillation Social History (Updated 11/09/24 @ 08:[address] Pablo Jaime MD) household members: spouse housing: house Smoking Status: Former smoker ROS ROS ED Eyes Eyes: Denies blurry vision or change in vision Cardiovascular Cardiovascular: Denies chest pain or palpitations Respiratory/Chest Respiratory/Chest: Denies cough, dyspnea or dyspnea on exertion Gastrointestinal Gastrointestinal: Denies abdominal pain, nausea or vomiting Integumentary Denies rash Neurologic Neurologic: Reports weakness; Denies headache(s) or paresthesias Hematologic/Lymphatic Hematologic/Lymphatic: Denies easy bleeding or easy bruising EXAM Physical Exam Const Vital Signs: 11/09/24 08:32 11/09/24 08:46 11/09/24 09:01 Temperature 97.7 F L Temperature Source Oral Pulse Rate 96 81 Respiratory Rate 25 H 19 H Blood Pressure 164/89 H 166/127 H Blood Pressure Mean 114 140 Pulse Ox 93 97 Oxygen Delivery Method Room Air Room Air Room Air 11/09/24 09:02 Temperature Temperature Source Pulse Rate 79 Respiratory Rate 19 H Blood Pressure 166/127 H Blood Pressure Mean 140 Pulse Ox 97 Oxygen Delivery Method Room Air Positive well nourished and well developed General Appearance ED: well developed and NAD HEENT Reports moist mucous membranes atraumatic Eyes PERRL and EOMs intact bilaterally General Eye ED: Negative for pale conjunctiva or scleral icterus Neck no lymphadenopathy, supple and no JVD Resp normal respiratory effort and clear to auscultation bilaterally Cardio no murmurs Rate: regular rate Rhythm: abnormal rhythm irregularly irregular GI normal to inspection, nondistended, normoactive bowel sounds, soft to palpation and non-tender Back/Spine no CVA tenderness Extremity normal to inspection General Extremety ED: Negative for deformity or edema General Extremity: Negative for deformity or edema Neuro oriented x3 and No CN's II-XII intact bilaterally Estrella Coma Scale: document GCS findings Spontaneous Obeys Commands Oriented 15 Sensorium / Orientation: Negative for alert Speech: Negative for speech normal Psych mental status grossly normal Skin no wounds General Skin Exam: Negative for jaundice Lesions: no lesions Rashes: no rashes MDM MDM MDM Narrative Medical decision making narrative: Patient presents with strokelike symptoms. Need to evaluate for LVO. He is not a candidate for TNKase since he is on anticoagulant. CT minus was obtained as well as CTA of the head and neck. Monitor from paramedics reveals atrial fibrillation. Stroke team was called. Lab Data Labs: Laboratory Results - last 24 hr 11/09/24 09:03 POC Glucose 101 Radiography Diagnostic Testing: Clinical Impression(s) from Imaging Studies Brain CT 11/09/24 08:33 IMPRESSION: 1. Subtle hypodense lesion of the left basal ganglia could represent infarction of indeterminate age or prominent perivascular space. Further evaluation with MRI is recommended. 2. Generalized brain atrophy. 3. Small vessel ischemic/degenerative changes. 4. No acute intracranial hemorrhage, midline shift or mass effect. If symptoms persist, further evaluation with MRI is recommended. Reading Location: [facility] CT report that was docume (more content not included)... Normal [facility] Eosinophil percentageOrdered By: [facility] on 11-[facility]-2024 Eosinophils/100 WBC (Bld) 2.7 % 0-5 [facility] Erythrocyte distribution wid th ratioOrdered By: Pablo Jaime on 11-09-2024 Erythrocyte distribution width (RBC) [Ratio] 12.8 % 11.6-14.6 [facility] Erythrocyte distribution wid th standard deviationOrdered By: [facility] on 11-09-2024 Erythrocyte distribution width (RBC) [Ratio] 43.4 fl 35.1-43.9 [facility] Glucose measurement at bedsi deOrdered By: Pablo Jaime on 11-09-2024 Glucose [Mass/Vol] 101 mg/dL 74-106 [facility] Comment on above: MANAGEMENT OF PATIEN T CARE PER NURSING PROTOCOL HEPATIC FUNCTION PANELon Albumin [Mass/Vol] 3.9 g/dL Normal 3.5-5.0 [facility] Comment on above: Performed By: #### L DANGELO CHATMAN, C7ED #### [facility] (DEFAULT) [address] [address] ALP [Catalytic activity/Vol] 42 U/L Normal 32-126 [facility] Comment on above: Performed By: #### DANGELO CHAWLA, C7ED #### [facility] (DEFAULT) [address] [address] ALT [Catalytic activity/Vol] 14 U/L Normal 10-52 [facility] Comment on above: Performed By: #### L ABHSTI1, HFP, C7ED #### [facility] (DEFAULT) [address] [place] [address] AST [Catalytic activity/Vol] 19 U/L Normal 10-39 [facility] Comment on above: Performed By: #### L ABPHILLIPTI1, HFP, C7ED #### [facility] (DEFAULT) [address] [place] [address] Bilirubin [Mass/Vol] 0.5 mg/dL Normal <1.5 [facility] Comment on above: Performed By: #### L ABHSTI1, HFP, C7ED #### [facility] (DEFAULT) [address] [place] [address] Bilirubin.indirect [Mass/Vol] 0.1 mg/dL Normal <0.3 [facility] Comment on above: Performed By: #### L ABADELA1, DANGELO, C7ED #### [facility] (DEFAULT) [address] [place] [address] Protein [Mass/Vol] 7.2 g/dL Normal 6.4-8.3 [facility] Comment on above: Performed By: #### L ABPHILLIPTI1, HFP, C7ED #### [facility] (DEFAULT) [address] [place] [address] HIGH SENSITIVITY TROPONIN I - SINGLE ORDERon 11-09-2024 hs-Troponin I 40 ng/L Normal <53 [facility] Comment on above: Order Comment: Acute Coronary Syndrome (ACS): Initial Evaluation and Management: [email or web address] Performed By: #### L ABPHILLIPTI1, DANGELO, C7ED #### [facility] (DEFAULT) [address] [place] [address] Hematocrit Auto (Bld) [Volum e fraction]Ordered By: Pablo Jaime on 11-09-2024 Hematocrit (Bld) [Volume fraction] 42.4 % 40-54 [facility] Hemoglobin measurementOrdere d By: Pablo Kleino on 11-09-2024 Hemoglobin (Bld) [Mass/Vol] 14.5 g/dL 13.0-16.5 [facility] Immature granulocytes/100 WB C Auto (Bld)Ordered By: Pablo Kleino on 11-09-2024 Immature granulocytes/100 WBC (Bld) 0.700 % 0.0-0.9 [facility] Comment on above: IG% - Immature Granu locytes (promyelocytes, myelocytes and metamyelocytes) > 1% indicates that a LEFT SHIFT is Present. International normalized rat io (INR) calculationOrdered By: Pabloroberto carlos Kleino on 11-09-2024 INR Coag (Bld) [Relative time] 1.4 {INR} [facility] L499.0042on 11-09-2024 Trop T High Sen Normal <=22 [facility] Comment on above: Result Comment: Canc elled via OM: Order cancelled - Patient discharged Performed By: #### L 499.0042 #### [facility] [address] [place], [address] L499.0043on 11-09-2024 Trop T High Sen Normal <=22 [facility] Comment on above: Result Comment: Canc elled via OM: Order cancelled - Patient discharged Performed By: #### L 300.3900, L300.4310, L500.2500, L100.0100, L501.4021 #### [facility] [address] [place], [address] L501.4021on 11-09-2024 Trop T High Sen 17 ng/L Normal <=22 [facility] Comment on above: Performed By: #### L 300.3900, L300.4310, L500.2500, L100.0100, L501.4021 #### [facility] [address] [place], [address] MAGNESIUMon 11-09-2024 Magnesium [Mass/Vol] 1.9 mg/dL Normal 1.6-2.6 [facility] Comment on above: Performed By: #### L LURDES, DANGELO, C7ED #### [facility] (DEFAULT) [address] [place] [address] MCV (mean corpuscular volume ) determinationOrdered By: Pabloroberto carlos Kleino on 11-09-2024 MCV (RBC) [Entitic vol] 92.4 fL 80-94 [facility] Mean corpuscular hemoglobin (MCH) determinationOrdered By: Pabloroberto carlos Jaime on 11-09-2024 MCH (RBC) [Entitic mass] 31.6 pg 27.0-32.0 [facility] Mean corpuscular hemoglobin concentration (MCHC) determinationOrdered By: [facility] Jaime on 11-09-2024 MCHC (RBC) [Mass/Vol] 34.2 g/dL 32-36 [facility] Mean platelet volume determi nationOrdered By: Pabloroberto carlos Jaime on 11-09-2024 Platelet mean volume (Bld) [Entitic vol] 9.3 fL 6.2-12.0 [facility] Monocyte percentageOrdered B y: [facility] on 11-09-2024 Monocytes/100 WBC (Bld) 12.3 % High 0-10 [facility] Neutrophil percentageOrdered By: [facility] on 11-09-2024 Neutrophils/100 WBC (Bld) 61.4 % 47-70 [facility] Nucleated red blood cell per centageOrdered By: Pabloroberto carlos Jaime on 11-09-2024 Nucleated RBC/100 WBC (Bld) [Ratio] 0 % 0-5 [facility] PTINR-STROKEon 11-09-2024 INR Coag (PPP) [Relative time] 1.4 {INR} High 0.9-1.1 [facility] Comment on above: Performed By: #### L LURDES, DANGELO, C7ED #### [facility] (DEFAULT) [address] [place] [address] PT Coag (PPP) [Time] 16.9 s High 11.9-14.2 [facility] Comment on above: Performed By: #### L ABHSTI1, HFP, C7ED #### [facility] (DEFAULT) [address] [place] [address] PTTon 11-09-2024 aPTT Coag (Bld) [Time] 30.8 s Normal 24.0-34.3 [facility] Comment on above: Performed By: #### L ABHSTI1, HFP, C7ED #### [facility] (DEFAULT) [address] [place] [address] Partial Thromboplast Timeon 11-09-2024 aPTT Coag (Bld) [Time] 30.4 s Normal 24.1-36.2 [facility] Comment on above: Performed By: #### L 300.3900, L300.4310, L500.2500, L100.0100, L501.4021 #### [facility] [address] [place], [address] Platelet countOrdered By: Mayra Jaime on 11-09-2024 Platelets (Bld) [#/Vol] 287 10*3/uL 150-450 [facility] Prothrombin Time w/INRon INR Coag (PPP) [Relative time] 1.4 {INR} Normal [facility] Comment on above: Performed By: #### L 300.3900, L300.4310, L500.2500, L100.0100, L501.4021 #### [facility] [address] [place], [address] PT Coag (PPP) [Time] 17.0 s High 11.7-14.9 [facility] Comment on above: Performed By: #### L 300.3900, L300.4310, L500.2500, L100.0100, L501.4021 #### [facility] [address] [place], [address] Prothrombin timeOrdered By: Pablo Jaime on 11-09-2024 PT Coag (PPP) [Time] 17.0 s High 11.7-14.9 [facility] RBC Auto (Bld) [#/Vol]Ordere d By: Pablo Jaime on 11-09-2024 RBC (Bld) [#/Vol] 4.59 10*6/uL Low 4.6-6.2 [facility] STROKE Brain/Head without Co nton 11-09-2024 STROKE Brain/Head without Cont [facility] Imaging Services [address] [place] [id number] STROKE Brain/Head without Cont MR#: [id number] Acct: [id number] Name: Milind leon Rep #: [id number] : 1950 M 74 From: Chevy Handley MD PCP: Status: PRE ER Study: STROKE Brain/Head without Cont Date of Exam: 0 11/09/24 Exam# [id number] Ordering Dr: Pablo Jaime MD EXAM: CT Head Without Intravenous Contrast CLINICAL INDICATION: NEURO DEFICIT, ACUTE, STROKE SUSPECTED TECHNIQUE: Axial computed tomography images of the head/brain without intravenous contrast. This CT exam was performed using one or more of the following dose reduction techniques: automated exposure control, adjustment of the mA and/or kV according to patient size, and/or use of iterative reconstruction technique. COMPARISON: No relevant prior studies available. FINDINGS: BRAIN AND EXTRA-AXIAL SPACES: Subtle hypodense lesion of the left basal ganglia could represent infarction of indeterminate age or prominent perivascular space. Further evaluation with MRI is recommended. The cerebral and cerebellar sulci are prominent consistent with brain atrophy. Areas of decreased attenuation in the deep cerebral white matter are consistent with small vessel ischemic/degenerative changes. No acute intracranial hemorrhage, midline shift or mass effect. If symptoms persist, further evaluation with MRI is recommended. BONES/JOINTS: Unremarkable. No acute fracture. SOFT TISSUES: Unremarkable. SINUSES: Unremarkable as visualized. No acute sinusitis. MASTOID AIR CELLS: Unremarkable as visualized. No mastoid effusion. CT/STROKE Brain/Head without Cont IMPRESSION: 1. Subtle hypodense lesion of the left basal ganglia could represent infarction of indeterminate age or prominent perivascular space. Further evaluation with MRI is recommended. 2. Generalized brain atrophy. 3. Small vessel ischemic/degenerative changes. 4. No acute intracranial hemorrhage, midline shift or mass effect. If symptoms persist, further evaluation with MRI is recommended. Reading Location: [facility] CC: Dr. Pablo Jaime MD Lgsw: Signed Normal [facility] STROKE CTA Head AND Neck W/C onon 11-09-2024 STROKE CTA Head AND Neck W/Con [facility] Imaging Services [address] [place], [place] [address] STROKE CTA Head AND Neck W/Con MR#: [id number] Acct: [id number] Name: RITO LEON Rep #: [id number] : 1950 M 74 From: Gian Bueno MD PCP: Dr. Sherin Boswell MD Status: DEP ER Study: STROKE CTA Head AND Neck W/Con Date of Exam: 0 11/09/24 Exam# [id number] Ordering Dr: Pablo Jaime MD PROCEDURE: STROKE CTA HEAD AND NECK W/CON 11/09/2024 REASON FOR EXAM: NEURO DEFICIT, ACUTE, STROKE SUSPECTED TECHNIQUE: STROKE CTA HEAD AND NECK W/CON Multiplanar Sagittal and Coronal images were obtained. CONTRAST: Not reported One or more dose reduction techniques were used (e.g., Automated exposure control, adjustment of the mA and/or kV according to patient size, use of iterative reconstruction technique). RADIATION DOSE SUMMARY: DLP: 802 mGycm COMPARISON: None FINDINGS: Aortic Arch: Patent Brachiocephalic and Subclavians: Patent RIGHT Carotid: Right CCA: Patent, heavily calcified plaque is noted. Right ICA: Patent Maximum stenosis (NASCET): 0 % Right ECA: Patent LEFT Carotid: Left CCA: Patent, heavily calcified plaque is noted Left ICA: Patent Maximum stenosis (NASCET): 0 % Left ECA: Patent Vertebrals: Patent RIGHT Vertebral: Patent LEFT Vertebral: Patent, dominant Anatomy: Calcified plaque is noted Aneurysm or avm: None Anterior cerebral arteries: Patent Middle cerebral arteries: Patent Basilar artery: Patent Posterior cerebral arteries: Patent Other major branches of the posterior circulation: Patent Major venous structures: Patent Other findings: Neck: Unremarkable lungs: There is a 1.1 x 1.1 cm enlarged right paratracheal node, image 35/601. Emphysema is noted at the apices with scar bones: There is no acute bony abnormality. CT/STROKE CTA Head AND Neck W/Con IMPRESSION: There is a 1.1 x 1.1 cm enlarged right paratracheal node, image 35/601. Emphysema is noted at the apices with scar. Chest CT correlation is recommended No significant stenosis or occlusion is identified in the carotid system in the neck or head. Reading Location: [facility] CC: Dr. Sherin Boswell MD; Dr. Pablo Jaime MD Lgsw: Signed Normal [facility] URINALYSISon 11-09-2024 Appearance (U) Clear Normal [facility] Comment on above: Performed By: #### L ABPHILLIPTI1, HFP, C7ED #### [facility] (DEFAULT) [address] [place] [address] Bacteria ABSENT Normal ABSENT [facility] Comment on above: Performed By: #### L ABHSTI1, HFP, C7ED #### [facility] (DEFAULT) [address] [place] [address] Blood Urine Negative Normal Negative [facility] Comment on above: Performed By: #### L ABHSTI1, HFP, C7ED #### [facility] (DEFAULT) [address] [place] [address] Color (U) Yellow Normal Yellow [facility] Comment on above: Performed By: #### L ABHSTI1, HFP, C7ED #### [facility] (DEFAULT) [address] [place] [address] Glucose Ql (U) Negative Normal Negative [facility] Comment on above: Performed By: #### L ABHSTI1, HFP, C7ED #### [facility] (DEFAULT) [address] [place] [address] Ketones Ql (U) Negative Normal Negative [facility] Comment on above: Performed By: #### L ABHSTI1, HFP, C7ED #### [facility] (DEFAULT) [address] [place] [address] Leukocyte esterase Test strip Ql (U) Negative Normal Negative [facility] Comment on above: Performed By: #### DANGELO CHAWLA, C7ED #### [facility] (DEFAULT) [address] [place] [address] Nitrites Urine Negative Normal Negative [facility] Comment on above: Performed By: #### DANGELO CHAWLA, C7ED #### [facility] (DEFAULT) [address] [place] [address] pH (U) 5.5 [pH] Normal 5.0-7.0 [facility] Comment on above: Performed By: #### DAGNELO CHAWLA, C7ED #### [facility] (DEFAULT) [address] [place] [address] Protein Urine Negative Normal Negative [facility] Comment on above: Performed By: #### DANGELO CHAWLA, C7ED #### [facility] (DEFAULT) [address] [place] [address]46 RBC Urine 0-2 Normal 0-2 [facility] Comment on above: Performed By: #### DANGELO CHAWLA, C7ED #### [facility] (DEFAULT) [address] [place] [address] 12026 Specific [place] Urine 1.040 High 1.001 -1.03 5 [facility] Comment on above: Performed By: #### DANGELO CHAWLA, C7ED #### [facility] (DEFAULT) [address] [place] [address]282 Squamous/Epithelial Cells, Urine 0-2/hpf Normal 0-2/hpf, 3-5/hpf = 1+ [facility] Comment on above: Performed By: #### DANGELO CHAWLA, C7ED #### [facility] (DEFAULT) [address] [place] [address] Urobilinogen Urine 0.2 E.U./dL Normal 0.2 E.U/dL, 1.0 E.U/dL [facility] Comment on above: Performed By: #### L ABHSTI1, HFP, C7ED #### [facility] (DEFAULT) [address] [address] WBC Urine 0 - 5 Normal 0 - 5 [facility] Comment on above: Performed By: #### L ABHSTI1, HFP, C7ED #### [facility] (DEFAULT) [address] [address] URINE DRUG SCREEN 11-09 Amphetamine/Methamphet amine Not detected Normal Cutoff: 500 ng/mL [facility] Comment on above: Order Comment: For m edical purposes only. Positive results are unconfirmed unless otherwise noted. Performed By: #### 1 0DRUG #### [facility] (DEFAULT) [address] [address] Barbiturates Not detected Normal Cutoff: 200 ng/mL [facility] Comment on above: Order Comment: For m edical purposes only. Positive results are unconfirmed unless otherwise noted. Performed By: #### 1 0DRUG #### [facility] (DEFAULT) [address] [address] Benzodiazepines Not detected Normal Cutoff: 200 ng/mL [facility] Comment on above: Order Comment: For m edical purposes only. Positive results are unconfirmed unless otherwise noted. Performed By: #### 1 0DRUG #### [facility] [address] [address] Buprenorphine Not detected Normal Cutoff: 5 ng/mL [facility] Comment on above: Order Comment: For m edical purposes only. Positive results are unconfirmed unless otherwise noted. Performed By: #### 1 0DRUG #### [facility] (DEFAULT) [address] [address] Cannabinoids Screen Ql (U) Not detected Normal Cutoff: 50 ng/mL [facility] Comment on above: Order Comment: For m edical purposes only. Positive results are unconfirmed unless otherwise noted. Performed By: #### 1 0DRUG #### [facility] (DEFAULT) [address] [address] Cocaine Not detected Normal Cutoff: 150 ng/mL [facility] Comment on above: Order Comment: For m edical purposes only. Positive results are unconfirmed unless otherwise noted. Performed By: #### 1 0DRUG #### [facility] (DEFAULT) [address] [address] Fentanyl Not detected Normal Cutoff: 1 ng/mL [facility] Comment on above: Order Comment: For edical purposes only. Positive results are unconfirmed unless otherwise noted. Performed By: #### 1 0DRUG #### [facility] (DEFAULT) [address] [address] Methadone Not detected Normal Cutoff: 300 ng/mL [facility] Comment on above: Order Comment: For edical purposes only. Positive results are unconfirmed unless otherwise noted. Performed By: #### 1 0DRUG #### [facility] [address] [address] Opiates Not detected Normal Cutoff: 300 ng/mL [facility] Comment on above: Order Comment: For edical purposes only. Positive results are unconfirmed unless otherwise noted. Performed By: #### 1 0DRUG #### [facility] (DEFAULT) [address] [address] Oxycodone Not detected Normal Cutoff: 100 ng/mL [facility] Comment on above: Order Comment: For edical purposes only. Positive results are unconfirmed unless otherwise noted. Performed By: #### 1 0DRUG #### [facility] (DEFAULT) [address] [address] White blood cell (WBC) count Ordered By: Pablo Jaime on 11-09-2024 WBC (Bld) [#/Vol] 9.7 10*3/uL 4.4-11.0 [facility] CNOVon 10-17-2024 CNOV Office Visit (INTMWS ) -- RITO LEON ([id number]) 1950 M Date Time Provider Department 10/17/24 9:00 AM SHERIN BOSWELL During your visit today, we recorded the following information about you: Sherin Boswell MD 10/17/2024 9:25 AM Signed We discussed your cholesterol management: - You are currently taking pravastatin daily, which is less likely to cause muscle-related side effects. Continue taking this medication as prescribed. - Continue taking CoQ10 daily while you are on pravastatin to help with muscle health. - Your cholesterol levels are at target based on your recent labs from one month ago. No changes to your current regimen are needed. - You are also taking niacin and fish oil, which can support cholesterol management. Continue these as directed. We discussed your thyroid: - You have not been taking thyroid medication for over a year, and your recent thyroid labs from one month ago were normal. You do not need to restart thyroid medication at this time. We discussed your muscle cramps and body aches: - Your muscle cramps have improved since switching from Crestor to pravastatin. Continue monitoring your symptoms and let us know if they worsen. We discussed precautions for working in the heat: - When working in high temperatures, take precautions to avoid heat-related illness: - Drink plenty of fluids, such as water or Gatorade, to stay hydrated. - Use cold water to cool yourself down by sprinkling it on your body frequently. - Take breaks in the shade or under an umbrella whenever possible. - Be mindful that as you age, your risk of heat stroke increases. If you experience symptoms such as dizziness, confusion, or excessive fatigue, stop working immediately and seek a cool environment. Your blood pressure: - Your blood pressure today was 114/76, which is within a healthy range. Continue your current management plan. No follow-up appointments or additional tests were discussed during this visit. Please contact our office if you have any new concerns or questions. Sherin Boswell MD 10/17/2024 1:13 PM Signed Reason for Visit Follow up HPI Rito Leon is a 74-year-old male presenting for follow-up on cholesterol management and associated symptoms. Rito reports a significant reduction in myalgias and heartburn since discontinuing Crestor. He is currently taking pravastatin, which he has been on for approximately 2 months, and has recently increased the dosage to daily administration. He denies experiencing any adverse effects from pravastatin. He is also taking CoQ10 and niacin as part of his cholesterol management regimen. Rito reports that his leg cramps have improved but are still present upon waking, though they resolve as he becomes more active throughout the day. 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 Rito has not been taking his thyroid medication for approximately 1 year. Recent thyroid function tests performed 1 month ago were within normal limits. He is also taking fish oil supplements. Social History Tobacco Use Smoking status: Former Current packs/day: 0.00 Types: Cigarettes Quit date: 07/09/2018 Years since quittin.2 Smokeless tobacco: Never Vaping Use Vaping status: Some Days Substance Use Topics Alcohol use: Yes Comment: occasionally Drug use: No Past medical history, appointments, medications, allergies reviewed. Pertinent Lab/Diagnostic Studies are reviewed and discussed today Current Outpatient Medications: pravastatin (PRAVACHOL) 10 mg tablet metoprolol tartrate, short acting, (LOPRESSOR) 50 mg tablet apixaban (ELIQUIS) 5 mg tab(s) fenofibrate nanocrystallized (TRICOR) 145 mg tablet clobetasol (TEMOVATE) 0.05 % cream multivitamin tablet [place]-3 Fatty Acids (FISH OIL) 500 mg cap niacin ER (NIASPAN) 500 mg tablet Health Maintenance Hepatitis C Screening Advance Directive Discussion Medicare Advantage Annual Wellness Visit@ Review Of Systems Gastrointestinal: (-) heartburn Musculoskeletal: (+) leg muscle cramps Physical Exam There were no vitals taken for this visit. GENERAL: NAD, alert and oriented. SKIN: Unremarkable, no rash or skin lesions. HEAD: Normocephalic. EYES: PERRLA, EOMI, conjunctiva clear. LUNGS: Clear to auscultation bilaterally, no wheezes/rhonchi/rales. HEART: Regular rate and rhythm, no murmurs. No ectopy. EXTREMITIES: Normal, no deformities, no skin discoloration, no edema. NEURO: Awake, alert and oriented x3, cranial nerves II-XII grossly intact, normal gait, no involuntary motions. Labs: (No date) - TSH: Normal - Lipid Panel: At target (No date) - Muscle Enzymes: Normal Assessment and Plan 1. Mixed hyperlipidemia (E78.2) Discontinued Crestor due to myalgi (more content not included)... Normal [facility] Aldolase SerPl-cCncon 2024 Aldolase [Catalytic activity/Vol] 3.9 mU/mL Normal 1.5-8.1 [facility] Comment on above: Order Comment: Dale klein Type: BLOOD SPECIMEN Ordering Facility: [facility] Address: [address] [place] [address] Result Comment: This test was developed, and its performance characteristics determined by the [facility] Department of Pathology and Laboratory Medicine. It has not been cleared or approved by the FDA. The [facility] Department of Pathology and Laboratory Medicine is regulated under CLIA as qualified to perform high-complexity testing. This test is used for clinical purposes. It should not be regarded as investigational or for research. Performed By: #### P SAS1 #### [facility] CLIA [id number] [address] [place] [address] [place] CBC W Auto Differential pane l (Bld)on 08-30-2024 Basophils (Bld) [#/Vol] 0.07 10*3/uL Normal <0.11 [facility] Comment on above: Order Comment: Dale klein Type: BLOOD SPECIMEN Ordering Facility: [facility] Address: [address] [place] [address] Performed By: #### P SAS1 #### [facility] CLIA [id number] [address] [place] [address] [place] Basophils/100 WBC (Bld) 0.7 % Normal [facility] Comment on above: Order Comment: Dale klein Type: BLOOD SPECIMEN Ordering Facility: [facility] Address: [address] [place] [address] Performed By: #### P SAS1 #### [facility] CLIA [id number] [address] [place] [address] [place] Differential cell count method Nom (Bld) Auto Normal [facility] Comment on above: Order Comment: Speci men Type: BLOOD SPECIMEN Ordering Facility: [facility] Address: [address] [place] [address] Performed By: #### P SAS1 #### [facility] CLIA [id number] [address] [place] [address] [place] Eosinophils (Bld) [#/Vol] 0.25 10*3/uL Normal <0.46 [facility] Comment on above: Order Comment: Speci men Type: BLOOD SPECIMEN Ordering Facility: [facility] Address: [address] [place] [address] Performed By: #### P SAS1 #### [facility] CLIA [id number] [address] [place] [address] [place] Eosinophils/100 WBC (Bld) 2.6 % Normal [facility] Comment on above: Order Comment: Speci men Type: BLOOD SPECIMEN Ordering Facility: [facility] Address: [address] [place] [address] Performed By: #### P SAS1 #### [facility] CLIA [id number] [address] [place] [address] [place] Erythrocyte distribution width (RBC) [Ratio] 12.9 % Normal 11.5-15.0 [facility] Comment on above: Order Comment: Speci men Type: BLOOD SPECIMEN Ordering Facility: [facility] Address: [address] [place] [address] Performed By: #### P SAS1 #### [facility] CLIA [id number] [address] [place] [address] [place] Hematocrit (Bld) [Volume fraction] 45.7 % Normal 39.0-51.0 [facility] Comment on above: Order Comment: Speci men Type: BLOOD SPECIMEN Ordering Facility: [facility] Address: [address] [place] [address] Performed By: #### P SAS1 #### [facility] CLIA [id number] [address] [place] [address] [place] Hemoglobin (Bld) [Mass/Vol] 15.1 g/dL Normal 13.0-17.0 [facility] Comment on above: Order Comment: Speci men Type: BLOOD SPECIMEN Ordering Facility: [facility] Address: [address] [place] [address] Performed By: #### P SAS1 #### [facility] CLIA [id number] [address] [place] [address] [place] Immature granulocytes (Bld) [#/Vol] 0.05 10*3/uL Normal <0.10 [facility] Comment on above: Order Comment: Speci men Type: BLOOD SPECIMEN Ordering Facility: [facility] Address: [address] [place] [address] Performed By: #### P SAS1 #### [facility] CLIA [id number] [address] [place] [address] [place] Immature granulocytes/100 WBC (Bld) 0.5 % Normal [facility] Comment on above: Order Comment: Speci men Type: BLOOD SPECIMEN Ordering Facility: [facility] Address: [address] [place] [address] Performed By: #### P SAS1 #### [facility] CLIA [id number] [address] [place] [address] [place] Lymphocytes (Bld) [#/Vol] 1.64 10*3/uL Normal 1.00-4.00 [facility] Comment on above: Order Comment: Speci men Type: BLOOD SPECIMEN Ordering Facility: [facility] Address: [address] [place] [address] Performed By: #### P SAS1 #### [facility] CLIA [id number] [address] [place] [address] [place] Lymphocytes/100 WBC (Bld) 16.8 % Normal [facility] Comment on above: Order Comment: Speci men Type: BLOOD SPECIMEN Ordering Facility: [facility] Address: [address] [place] [address] Performed By: #### P SAS1 #### [facility] CLIA [id number] [address] [place] [address] [place] MCH (RBC) [Entitic mass] 31.5 pg Normal 26.0-34.0 [facility] Comment on above: Order Comment: Speci men Type: BLOOD SPECIMEN Ordering Facility: [facility] Address: [address] [place] [address] Performed By: #### P SAS1 #### [facility] CLIA [id number] [address] [place] [address] [place] MCHC (RBC) [Mass/Vol] 33.0 g/dL Normal 30.5-36.0 [facility] Comment on above: Order Comment: Speci men Type: BLOOD SPECIMEN Ordering Facility: [facility] Address: [address] [place] [address] Performed By: #### P SAS1 #### [facility] CLIA [id number] [address] [place] [address] [place] MCV (RBC) [Entitic vol] 95.2 fL Normal 80.0-100.0 [facility] Comment on above: Order Comment: Speci men Type: BLOOD SPECIMEN Ordering Facility: [facility] Address: [address] [place] [address] Performed By: #### P SAS1 #### [facility] CLIA [id number] [address] [place] [address] [place] Monocytes (Bld) [#/Vol] 1.11 10*3/uL High <0.87 [facility] Comment on above: Order Comment: Speci men Type: BLOOD SPECIMEN Ordering Facility: [facility] Address: [address] [place] [address] Performed By: #### P SAS1 #### [facility] CLIA [id number] [address] [place] [address] [place] Monocytes/100 WBC (Bld) 11.4 % Normal [facility] Comment on above: Order Comment: Speci men Type: BLOOD SPECIMEN Ordering Facility: [facility] Address: [address] [place] [address] Performed By: #### P SAS1 #### [facility] CLIA [id number] [address] [place] [address] [place] Neutrophils (Bld) [#/Vol] 6.65 10*3/uL Normal 1.45-7.50 [facility] Comment on above: Order Comment: Speci men Type: BLOOD SPECIMEN Ordering Facility: [facility] Address: [address] [place] [address] Performed By: #### P SAS1 #### [facility] CLIA [id number] [address] [place] [address] [place] Neutrophils/100 WBC (Bld) 68.0 % Normal [facility] Comment on above: Order Comment: Speci men Type: BLOOD SPECIMEN Ordering Facility: [facility] Address: [address] [place] [address] Performed By: #### P SAS1 #### [facility] CLIA [id number] [address] [place] [address] [place] Nucleated RBC (Bld) [#/Vol] 10*3/uL Normal <0.01 [facility] Comment on above: Order Comment: Speci men Type: BLOOD SPECIMEN Ordering Facility: [facility] Address: [address] [place] [address] Performed By: #### P SAS1 #### [facility] CLIA [id number] [address] [place] [address] [place] Nucleated RBC/100 WBC (Bld) [Ratio] 0.0 /100 WBC Normal [facility] Comment on above: Order Comment: Speci men Type: BLOOD SPECIMEN Ordering Facility: [facility] Address: [address] [place] [address] Performed By: #### P SAS1 #### [facility] CLIA [id number] [address] [place] [address] [place] Platelet mean volume (Bld) [Entitic vol] 9.4 fL Normal 9.0-12.7 [facility] Comment on above: Order Comment: Speci men Type: BLOOD SPECIMEN Ordering Facility: [facility] Address: [address] [place] [address] Performed By: #### P SAS1 #### [facility] CLIA [id number] [address] [place] [address] [place] Platelets (Bld) [#/Vol] 312 10*3/uL Normal 150-400 [facility] Comment on above: Order Comment: Speci men Type: BLOOD SPECIMEN Ordering Facility: [facility] Address: [address] [place] [address] Performed By: #### P SAS1 #### [facility] CLIA [id number] [address] [place] [address] [place] RBC (Bld) [#/Vol] 4.80 10*6/uL Normal 4.20-6.00 [facility] Comment on above: Order Comment: Speci men Type: BLOOD SPECIMEN Ordering Facility: [facility] Address: [address] [place] [address] Performed By: #### P SAS1 #### [facility] CLIA [id number] [address] [place] [address] [place] WBC (Bld) [#/Vol] 9.77 10*3/uL Normal 3.70-11.00 [facility] Comment on above: Order Comment: Speci men Type: BLOOD SPECIMEN Ordering Facility: [facility] Address: [address] [place] [address] Performed By: #### P SAS1 #### [facility] CLIA [id number] [address] [place] [address] [place] CK SerPl-cCncon 08-30-2024 CK [Catalytic activity/Vol] 117 U/L Normal 51-298 [facility] Comment on above: Order Comment: Speci men Type: BLOOD SPECIMEN Ordering Facility: [facility] Address: [address] [place] [address] Performed By: #### P SAS1 #### [facility] CLIA [id number] [address] [place] [address] [place] CNOVon 08-30-2024 CNOV Office Visit (INT[facility] ) -- RITO LEON ([id number]) 1950 M Date Time Provider Department 08/30/24 8:20 AM SHERIN BOSWELL [facility] During your visit today, we recorded the following information about you: Pulse Blood pressure Weight Height 61/minute 137/67 91.8 kg 1.88 m Sherin Boswell MD 08/30/2024 9:09 AM Signed Reason for Visit Myalgia VERNNO Veras is a 74-year-old male with a history of atrial fibrillation presenting with myalgias and heartburn. Rito reports significant myalgias and heartburn that began approximately 1 month ago after starting a higher dose of Crestor. He experiences muscle pain in both legs, hips, and back, with more severe pain in the right leg, which was previously injured. The pain has been so intense that it has hindered his ability to ascend and descend stairs. He also reports persistent heartburn, which he describes as a rude awakening, noting that he has never experienced heartburn before. The heartburn occurs throughout the day and part of the night, requiring frequent use of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 complication [J45.9*05/22/2017 Closed fracture of shaft of right femur with ro*11/30/2020 Open fracture of shaft of right femur, type III*07/24/2021 Encounter Status:Closed by SHAMA THOMAS on 02/26/24 Normal [facility] XR CHEST 2V FRONTAL/LATon XR CHEST 2V FRONTAL/LAT * * *Final Report* * * DATE OF EXAM: Feb 24 2024 9:14AM WOX [id number] - XR CHEST 2V FRONTAL/LAT / PROCEDURE REASON: Pneumonia of left lung due to infectious organism, unspecified part of lung * * * * Physician Interpretation * * * * EXAMINATION: CHEST RADIOGRAPH (2 VIEW FRONTAL and LATERAL) CLINICAL HISTORY: Pneumonia of left lung due to infectious organism, unspecified part of lung MQ: [id number] EXAM DATE/TIME: 02/24/2024 9:14 AM COMPARISON: 01/11/2024 RESULT: Lines, tubes, and devices: None. Lungs and pleura: No consolidation. No lung mass. No pleural effusion. No pneumothorax. Minimal stable atelectasis or fibrosis at the left lung base Cardiomediastinal silhouette: Normal cardiomediastinal silhouette. Bones and soft tissues: Degenerative change and osteophytosis throughout the spine. IMPRESSION: No acute radiographic abnormality. Lgsw: PSCB Transcribe Date/Time: Feb 25 2024 4:24P Dictated by : AMAURY SALMERON MD This examination was interpreted and the report reviewed and electronically signed by: AMAURY SALMERON MD on Feb 25 2024 4:25PM EST [id number] Normal [facility] CNOVon 01-25-2024 CNOV Office Visit (INTMWS ) -- RITO LEON ([id number]) 1950 M Date Time Provider Department 01/25/24 9:40 AM MALIA, LEAH INTChasityWS During your visit today, we recorded the following information about you: Temperature Pulse Respiration Blood pressure 97.7 degrees 81/minute 16/minute 122/78 Weight 91.2 kg Older, LeahTYRELL.FIRST BEATER 01/25/2024 10:12 AM Signed CC: Patient presents with: Recheck: 1 week pneumonia follow up HPI Rito Leon is a 73 year old male who presents today for pneumonia follow up. Originally seen in [facility] on 01/11/24 took his prescribed doxy for 5 days but then symptoms returned. Was seen in this office 01/18/24 and given augmentin and Z-pack for symptoms of persistent non-productive cough, shortness of breath, fatigued, low grade fever, chills, decreased appetite, headaches, sinus congestion, and generalized weakness. Today he returns with some improvement in cough but worse early AM and wakes him up. Improvement in SOB and appetite . Some nasal congestion remain, still fatigued, and still with slight headache. Denies fever, chills, nausea, vomiting, diarrhea, chest pain, edema, dizziness, or syncope. REVIEW OF SYSTEMS See HPI PAST MEDICAL HISTORY Diagnosis Date A-fib (HCC) BCC (basal cell carcinoma) face Hypertriglyceridemia Psoriasis SCC (squamous cell carcinoma) right arm PAST SURGICAL HISTORY Procedure Laterality Date HERNIA REPAIR HX TONSILLECTOMY PRIMARY/SECONDARY Tonsillectomy ALLERGIES Patient has no known allergies. MEDICATIONS amoxicillin-clavulanate potassium (AUGMENTIN) 875-125 mg per tablet Take 1 tablet by mouth two times a day for 10 days. benzonatate (TESSALON PERLES) 100 mg capsule Take 1 capsule by mouth three times a day as needed for cough. montelukast (SINGULAIR) 10 mg tablet Take 1 tablet by mouth daily at bedtime. apixaban (ELIQUIS) 5 mg tab(s) Take 1 tablet by mouth two times a day. metoprolol tartrate, short acting, (LOPRESSOR) 50 mg tablet Take 1 tablet by mouth two times a day. levothyroxine (LEVOXYL) 25 mcg tablet Take 1 tablet by mouth once daily. Take on empty stomach. For Thyroid (Patient not taking: Reported on 09/28/2023) fenofibrate nanocrystallized (TRICOR) 145 mg tablet Take 1 tablet by mouth once daily. clobetasol (TEMOVATE) 0.05 % cream Apply 1 application to affected area twice daily. multivitamin tablet Take 1 tablet by mouth once daily. [place]-3 Fatty Acids (FISH OIL) 500 mg cap Take 1 capsule by mouth once daily. niacin ER (NIASPAN) 500 mg tablet Take 1 tablet by mouth daily at bedtime. FAMILY HISTORY Problem Relation Age of Onset other (low dilantin level) Father Social History Tobacco Use Smoking status: Former Current packs/day: 0.00 Types: Cigarettes Quit date: 07/09/2018 Years since quittin.5 Smokeless tobacco: Never Vaping Use Vaping status: Some Days Substance Use Topics Alcohol use: Yes Comment: occasionally Drug use: No PHYSICAL EXAM BP 122/78 Pulse 81 Temp 36.5 ?C (97.7 ?F) (Temporal) Resp 16 Wt 91.2 kg (201 lb) SpO2 95% BMI 25.12 kg/m? General Appearance: well appearing, in no acute distress, alert Eyes: conjunctiva pink and moist, no icterus, sclera white, non-injected Lungs: Lungs clear to auscultation. No wheezing, rhonchi, rales. Heart: RRR without murmur, gallop, or rubs. No ectopy Health maintenance reviewed with patient: Depression Screening Never done Anxiety Screening Never done BP Controlled (<130/80) Never done Advance Directive Discussion due on 04/27/2023 Hepatitis C Screening due on 03/18/2024 Influenza Vaccine(1) due on 10/24/2024 Covid-19 Vaccine( season) due on 01/17/2025 Annual PCP Team Chronic Disease Visit due on 01/17/2025 Colorectal Cancer Screening due on 02/01/2026 Diabetes Screening due on 05/06/2026 Lipid Screening due on 09/21/2028 DTaP,Tdap,Td Vaccine(2 - Td or Tdap) due on 10/16/2030 Abdominal Aortic Aneurysm Screening Completed RSV Vaccine Completed Shingrix Vaccine Completed Pneumococcal Vaccine: 65+ Completed DATA REVIEWED: No new labs ASSESSMENT/PLAN: 1. Pneumonia of left lung due to infectious organism, unspecified part of lung - ICD9: 486, ICD10: J18.9 (primary diagnosis) Symptoms improving. Cough most likely from sinus drainage. Has used flonase in the past but caused nose bleeds. Will use saline nasal spray, nasal lavage, and claritin to help improve this Follow up if cough does not improve or for any further concerns. - XR CHEST 2V FRONTAL/LAT 2. Sinus drainage - ICD9: 478.19, ICD10: J34.89 As above Prescription instructions reviewed with patient as applicable. Potential red flag symptoms discussed with the patient. Reviewed appropriate action plan to take if red flag symptoms occur. Patient agreeable to treatment plan. ELIAZAR Riley Joy, APRN.CNP (more content not included)... Normal [facility] CNOVon 01-18-2024 CNOV Office Visit (INTMWS ) -- RITO LEON ([id number]) 1950 M Date Time Provider Department 01/18/24 7:40 AM LEAH BLOOM INTMARYANA During your visit today, we recorded the following information about you: Temperature Pulse Respiration Blood pressure 97.8 degrees 92/minute 16/minute 128/80 Weight 91.2 kg Leah Bloom APRN.CNP 01/18/2024 8:08 AM Signed CC: Patient presents with: Recheck: Follow up cough, pneumonia HPI Riot Josué Carolyn is a 73 year old male who presents today for follow up on pneumonia. Seen in [facility] with ill symptoms for 4 days. Diagnosed with pneumonia and treated with ceftin and doxycycline. Was only given 5 days of treatment and finished this past Thursday. [place] good enough to go to work on Thursday but then started coughing again Thursday night. Started feeling ill again yesterday. Today with persistent non-productive cough, shortness of breath, fatigued, low grade fever, chills, decreased appetite, headaches, sinus congestion, and generalized weakness. Denies wheezing, syncope, dizziness, chest pain, palpitations, edema, or N/V/D. Has been taking dimetapp for sinus congestion. No history of asthma or other respiratory disease, has not smoked in almost 9 years. REVIEW OF SYSTEMS See HPI PAST MEDICAL HISTORY Diagnosis Date A-fib (HCC) BCC (basal cell carcinoma) face Hypertriglyceridemia Psoriasis SCC (squamous cell carcinoma) right arm PAST SURGICAL HISTORY Procedure Laterality Date HERNIA REPAIR HX TONSILLECTOMY PRIMARY/SECONDARY Tonsillectomy ALLERGIES Patient has no known allergies. MEDICATIONS montelukast (SINGULAIR) 10 mg tablet Take 1 tablet by mouth daily at bedtime. apixaban (ELIQUIS) 5 mg tab(s) Take 1 tablet by mouth two times a day. metoprolol tartrate, short acting, (LOPRESSOR) 50 mg tablet Take 1 tablet by mouth two times a day. levothyroxine (LEVOXYL) 25 mcg tablet Take 1 tablet by mouth once daily. Take on empty stomach. For Thyroid (Patient not taking: Reported on 09/28/2023) fenofibrate nanocrystallized (TRICOR) 145 mg tablet Take 1 tablet by mouth once daily. clobetasol (TEMOVATE) 0.05 % cream Apply 1 application to affected area twice daily. multivitamin tablet Take 1 tablet by mouth once daily. [place]-3 Fatty Acids (FISH OIL) 500 mg cap Take 1 capsule by mouth once daily. niacin ER (NIASPAN) 500 mg tablet Take 1 tablet by mouth daily at bedtime. FAMILY HISTORY Problem Relation Age of Onset other (low dilantin level) Father Social History Tobacco Use Smoking status: Former Current packs/day: 0.00 Types: Cigarettes Quit date: 07/09/2018 Years since quittin.5 Smokeless tobacco: Never Vaping Use Vaping status: Some Days Substance Use Topics Alcohol use: Yes Comment: occasionally Drug use: No PHYSICAL EXAM BP 128/80 Pulse 92 Temp 36.6 ?C (97.8 ?F) (Temporal) Resp 16 Wt 91.2 kg (201 lb) SpO2 96% BMI 25.12 kg/m? General Appearance: well appearing, in no acute distress, alert Skin: Skin color, texture, turgor normal for age; Eyes: conjunctiva pink and moist, no icterus, sclera white, non-injected Nose/sinus: Nares normal. Septum midline. Mucosa normal. No drainage., No sinus tenderness Neck: Thyroid normal size and symmetric without palpable nodules, Neck supple, No adenopathy Lymph nodes: No cervical lymphadenopathy and No supraclavicular lymphadenopathy Lungs: Lungs clear to auscultation. No wheezing, rhonchi, rales. Slightly diminished to bilateral posterior bases. Heart: RRR without murmur, gallop, or rubs. No ectopy Health maintenance reviewed with patient: Depression Screening Never done Anxiety Screening Never done Advance Directive Discussion due on 04/27/2023 Covid-19 Vaccine( season) due on 12/27/2023 Influenza Vaccine(1) due on 12/27/2023 Hepatitis C Screening due on 03/18/2024 Annual PCP Team Chronic Disease Visit due on 09/27/2024 BP Controlled (<130/80) due on 01/13/2025 Colorectal Cancer Screening due on 02/01/2026 Diabetes Screening due on 05/06/2026 Lipid Screening due on 09/21/2028 DTaP,Tdap,Td Vaccine(2 - Td or Tdap) due on 10/16/2030 Abdominal Aortic Aneurysm Screening Completed RSV Vaccine Completed Shingrix Vaccine Completed Pneumococcal Vaccine: 65+ Completed DATA REVIEWED: Most recent imaging ASSESSMENT/PLAN: 1. Pneumonia of left lung due to infectious organism, unspecified part of lung - ICD9: 486, ICD10: J18.9 - Was improving on previous antibiotic but has been off for a few days. Will do augmentin and z-pack - Call if no improvement in the next few days and follow up in 1 week. - tessalon for cough as ordered Will need repeat chest xray in 4-6 weeks. 2. Acute non-recurrent sinusitis, unspecified location - ICD9: 461.9, ICD10: J01.90 - Will begin treatment with as per antibiotic as written, see orders - Supportive care (more content not included)... Normal [facility] CNOVon 01-14-2024 CNOV Office Visit (FAMPWS ) -- RITO LEON ([id number]) 1950 M Date Time Provider Department 01/14/24 8:00 AM SRI NELSON FAMPWS During your visit today, we recorded the following information about you: Temperature Pulse Respiration Blood pressure 97.7 degrees 75/minute 20/minute 128/72 Weight 91 kg Sri Nelson APRN.CNP 01/14/2024 8:06 AM Signed This is a 73 year old male who presents today with: Patient presents with: Cough: Follow up HISTORY OF PRESENT ILLNESS: Rito Leon is a 73 year old male. Patient presents with: Cough: Follow up Does feel really tired but some improvement. + cough, non-productive. Occ. Plegm. Had fever but that has subsided since yesterday morning. Still taking ceftin and doxycycline- enough for 3 more doses. Initially nausea, one episode of vomiting. No change in body aches. PAST MEDICAL HISTORY: PAST MEDICAL HISTORY Diagnosis Date A-fib (HCC) BCC (basal cell carcinoma) face Hypertriglyceridemia Psoriasis SCC (squamous cell carcinoma) right arm PAST SURGICAL HISTORY Procedure Laterality Date HERNIA REPAIR HX TONSILLECTOMY PRIMARY/SECONDARY Tonsillectomy ALLERGIES Patient has no known allergies. MEDICATIONS Current Outpatient Medications Medication Sig doxycycline monohydrate 100 mg tablet Take 1 tablet by mouth two times a day for 5 days. cefUROXime (CEFTIN) 500 mg tablet Take 1 tablet by mouth two times a day for 5 days. montelukast (SINGULAIR) 10 mg tablet Take 1 tablet by mouth daily at bedtime. apixaban (ELIQUIS) 5 mg tab(s) Take 1 tablet by mouth two times a day. metoprolol tartrate, short acting, (LOPRESSOR) 50 mg tablet Take 1 tablet by mouth two times a day. fenofibrate nanocrystallized (TRICOR) 145 mg tablet Take 1 tablet by mouth once daily. multivitamin tablet Take 1 tablet by mouth once daily. [place]-3 Fatty Acids (FISH OIL) 500 mg cap Take 1 capsule by mouth once daily. niacin ER (NIASPAN) 500 mg tablet Take 1 tablet by mouth daily at bedtime. levothyroxine (LEVOXYL) 25 mcg tablet Take 1 tablet by mouth once daily. Take on empty stomach. For Thyroid (Patient not taking: Reported on 09/28/2023) clobetasol (TEMOVATE) 0.05 % cream Apply 1 application to affected area twice daily. No current facility-administered medications for this visit. FAMILY HISTORY Problem Relation Age of Onset other (low dilantin level) Father Social History Tobacco Use Smoking status: Former Current packs/day: 0.00 Types: Cigarettes Quit date: 07/09/2018 Years since quittin.5 Smokeless tobacco: Never Vaping Use Vaping status: Some Days Substance Use Topics Alcohol use: Yes Comment: occasionally Drug use: No EXAM: BP 128/72 Pulse 75 Temp 36.5 ?C (97.7 ?F) (Tympanic) Resp 20 Wt 91 kg (200 lb 9.9 oz) SpO2 97% BMI 25.08 kg/m? PHYSICAL EXAM: Physical Exam Vitals reviewed. Constitutional: Appearance: Normal appearance. HENT: Head: Normocephalic. Cardiovascular: Rate and Rhythm: Normal rate. Rhythm irregular. Pulses: Normal pulses. Heart sounds: Murmur heard. Comments: Soft MARINA @ sternal border Pulmonary: Effort: Pulmonary effort is normal. Breath sounds: Rhonchi present. No wheezing or rales. Comments: Cleared after cough Abdominal: Palpations: Abdomen is soft. Musculoskeletal: General: Normal range of motion. Skin: General: Skin is warm and dry. Neurological: Mental Status: He is alert. LABS: ASSESSMENT/PLAN: 1. Bacterial pneumonia - ICD9: 482.9, ICD10: J15.9 -improving - continue antibiotics until gone - encourage water intake Discussed treatment plan and patient voices understanding. Patient's questions answered appropriately. Medications and potential side effects were discussed and patient voices understanding. Return to the office as scheduled or as needed for worsening/no improvement. ELIAZAR Valdes Jacqueline A, APRN.CNP 01/14/2024 8:06 AM Signed 1) Follow up with Dr. Boswell Apr.04 2) Finish antibiotics 3) Encourage water intake 4) Call if symptoms return Allergies As of Date: 01/14/2024 (No Known Allergies) Date Reviewed: 01/14/2024 Reviewed by: Sri Nelson APRN.CNP - Fully Assessed Reason for Visit: Cough [28] Cmt: Follow up Primary Visit Diagnosis:Bacterial pneumonia [J15.9] Prescriptions as of 01/14/2024 - doxycycline monohydrate 100 mg tablet Take 1 tablet by mouth two times a day for 5 days. - cefUROXime (CEFTIN) 500 mg tablet Take 1 tablet by mouth two times a day for 5 days. - montelukast (SINGULAIR) 10 mg tablet Take 1 tablet by mouth daily at bedtime. - apixaban (ELIQUIS) 5 mg tab(s) Take 1 tablet by mouth two times a day. - metoprolol tartrate, short acting, (LOPRESSOR) 50 mg tablet Take 1 tablet by mouth two times a day. - levothyroxine (LEVOXYL) 25 mcg tablet Take 1 (more content not included)... Normal [facility] CNOVon 01-11-2024 CN Office Visit (UCTR ) -- RITO LEON ([id number]) 1950 M Date Time Provider Department 01/11/24 7:15 AM BRIAN APPLE [facility] During your visit today, we recorded the following information about you: Temperature Pulse Respiration Blood pressure 98.1 degrees 92/minute 16/minute 126/76 Weight 90.5 kg Brian Apple, ENGINE HOSTLER.FIRST BEATER 01/11/2024 8:52 AM Signed Subjective HPI Nontoxic-appearing male presents urgent care chief complaint flulike symptoms. Duration of symptoms 4 days. Associated symptoms head congestion cough fever headache sore throat. Most prominent symptom today is fatigue. Had a fever 102 when he woke up this morning. Did take Tylenol. This did help. No known sick contacts. Denies any body aches chills productive cough chest pain shortness of breath pleuritic pain hemoptysis nausea vomiting abdominal pain change in bowel or bladder habits. Past medical history prescription medication use and allergies reviewed. .Patient presents with: Head Congestion: cough, fever, headache and sore throat x 4 days PAST MEDICAL HISTORY Diagnosis Date A-fib (HCC) BCC (basal cell carcinoma) face Hypertriglyceridemia Psoriasis SCC (squamous cell carcinoma) right arm PAST SURGICAL HISTORY Procedure Laterality Date HERNIA REPAIR HX TONSILLECTOMY PRIMARY/SECONDARY Tonsillectomy ALLERGIES Patient has no known allergies. MEDICATIONS montelukast (SINGULAIR) 10 mg tablet Take 1 tablet by mouth daily at bedtime. apixaban (ELIQUIS) 5 mg tab(s) Take 1 tablet by mouth two times a day. metoprolol tartrate, short acting, (LOPRESSOR) 50 mg tablet Take 1 tablet by mouth two times a day. fenofibrate nanocrystallized (TRICOR) 145 mg tablet Take 1 tablet by mouth once daily. clobetasol (TEMOVATE) 0.05 % cream Apply 1 application to affected area twice daily. multivitamin tablet Take 1 tablet by mouth once daily. [place]-3 Fatty Acids (FISH OIL) 500 mg cap Take 1 capsule by mouth once daily. niacin ER (NIASPAN) 500 mg tablet Take 1 tablet by mouth daily at bedtime. levothyroxine (LEVOXYL) 25 mcg tablet Take 1 tablet by mouth once daily. Take on empty stomach. For Thyroid (Patient not taking: Reported on 09/28/2023) FAMILY HISTORY Problem Relation Age of Onset other (low dilantin level) Father Social History Tobacco Use Smoking status: Former Current packs/day: 0.00 Types: Cigarettes Quit date: 07/09/2018 Years since quittin.5 Smokeless tobacco: Never Vaping Use Vaping status: Some Days Substance Use Topics Alcohol use: Yes Comment: occasionally Drug use: No BP 126/76 Pulse 92 Temp 36.7 ?C (98.1 ?F) Resp 16 Wt 90.5 kg (199 lb 8.3 oz) SpO2 96% BMI 24.94 kg/m? Review of Systems Constitutional: Positive for fever and malaise/fatigue. Negative for chills. HENT: Positive for congestion and sore throat. Negative for ear discharge, ear pain and sinus pain. Eyes: Negative for blurred vision, pain, discharge and redness. Respiratory: Positive for cough. Negative for hemoptysis, sputum production, shortness of breath, wheezing and stridor. Cardiovascular: Negative for chest pain. Gastrointestinal: Negative for abdominal pain, diarrhea, nausea and vomiting. Musculoskeletal: Positive for myalgias. Skin: Negative for itching and rash. Neurological: Negative for dizziness and headaches. Objective Physical Exam Constitutional: General: He is not in acute distress. Appearance: He is not diaphoretic. HENT: Head: Normocephalic. Jaw: No trismus, tenderness, swelling or pain on movement. Right Ear: Tympanic membrane, ear canal and external ear normal. Left Ear: Tympanic membrane, ear canal and external ear normal. Nose: Congestion present. Mouth/Throat: Mouth: Mucous membranes are moist. Pharynx: Oropharynx is clear. Uvula midline. No pharyngeal swelling, oropharyngeal exudate, posterior oropharyngeal erythema or uvula swelling. Eyes: Conjunctiva/sclera: Conjunctivae normal. Pupils: Pupils are equal, round, and reactive to light. Cardiovascular: Rate and Rhythm: Normal rate and regular rhythm. Heart sounds: Normal heart sounds. Pulmonary: Effort: Pulmonary effort is normal. No tachypnea, accessory muscle usage or respiratory distress. Breath sounds: No stridor. Rhonchi present. No wheezing or rales. Abdominal: General: There is no distension. Palpations: Abdomen is soft. Tenderness: There is no abdominal tenderness. There is no guarding or rebound. Musculoskeletal: Cervical back: Normal range of motion and neck supple. No edema, erythema, rigidity or tenderness. No pain with movement. Normal range of motion. Lymphadenopathy: Cervical: No cervical adenopathy. Skin: General: Skin is warm and dry. Neurological: Mental Status: He is alert and oriented to person, place, and time. ASSESSMENT/PLAN: 1. Acute cough - ICD9: 78 (more content not included)... Normal [facility] 01-11-2024 [facility] Telephone ([facility]) -- RITO LEON ([id number]) 1950 M Date Time Provider Department 01/11/24 HERMILA VILLAGOMEZ [facility] During your visit today, we recorded the following information about you: Hermila Villagomez APRN.[facility] 01/11/2024 7:36 PM Signed You tested negative for COVID, Influenza, and RSV. Please contact us if your symptoms are worsening or not improving. Please advise. Alma Perea MA 01/11/2024 8:02 PM Signed Patient given results and verbalized understanding of instructions given. Alma Perea MA Allergies As of Date: 01/11/2024 (No Known Allergies) Date Reviewed: 01/11/2024 Reviewed by: Brian Apple APRN.FIRST BEATER - Fully Assessed Reason for Visit: Results [95] Prescriptions as of 01/11/2024 - doxycycline monohydrate 100 mg tablet Take 1 tablet by mouth two times a day for 5 days. - cefUROXime (CEFTIN) 500 mg tablet Take 1 tablet by mouth two times a day for 5 days. - montelukast (SINGULAIR) 10 mg tablet Take 1 tablet by mouth daily at bedtime. - apixaban (ELIQUIS) 5 mg tab(s) Take 1 tablet by mouth two times a day. - metoprolol tartrate, short acting, (LOPRESSOR) 50 mg tablet Take 1 tablet by mouth two times a day. - levothyroxine (LEVOXYL) 25 mcg tablet Take 1 tablet by mouth once daily. Take on empty stomach. For Thyroid - fenofibrate nanocrystallized (TRICOR) 145 mg tablet Take 1 tablet by mouth once daily. - clobetasol (TEMOVATE) 0.05 % cream Apply 1 application to affected area twice daily. - multivitamin tablet Take 1 tablet by mouth once daily. - [place]-3 Fatty Acids (FISH OIL) 500 mg cap Take 1 capsule by mouth once daily. - niacin ER (NIASPAN) 500 mg tablet Take 1 tablet by mouth daily at bedtime. Problem List As Of Date 01/11/2024 Noted Resolved Mixed hyperlipidemia [E78.2] 08/17/2015 Hypertension with goal blood pressure less than*08/17/2015 Tobacco abuse disorder [Z72.0] 08/17/2015 Persistent atrial fibrillation (HCC) [I48.19] 08/17/2015 Hypertriglyceridemia [E78.1] 05/21/2016 Allergic bronchitis without complication [J45.9*05/22/2017 Closed fracture of shaft of right femur with ro*11/30/2020 Open fracture of shaft of right femur, type III*07/24/2021 Encounter Status:Closed by ALMA PEREA on 01/11/24 [facility] AND INFLUENZA A/B AND RSV PCR, ROUTINEon 01-11-2024 SARS-CoV-2 (COVID-19) RNA ANGEL+probe Ql (Unsp spec) SARS-COV-2 (AGENT OF COVID-19) RNA: Not detected INFLUENZA A RNA: Not detected INFLUENZA B RNA: Not detected RESPIRATORY SYNCYTIAL VIRUS (RSV) RNA: Not detected Normal [facility] Comment on above: Performed By: #### C VFLRS ####[facility] LABCLIA [id number] [place] [id number] [place] XR CHEST 2V FRONTAL/LATon XR CHEST 2V FRONTAL/LAT * * *Final Report* * * DATE OF EXAM: Jan 11 2024 8:09AM WOX 5291 - XR CHEST 2V FRONTAL/LAT / PROCEDURE REASON: Acute cough * * * * Physician Interpretation * * * * EXAMINATION: CHEST RADIOGRAPH (2 VIEW FRONTAL and LATERAL) CLINICAL HISTORY: Acute cough MQ: XC2_6 EXAM DATE/TIME: 01/11/2024 8:09 AM COMPARISON: No relevant prior studies available. RESULT: Lines, tubes, and devices: None. Lungs and pleura: Left basilar patchy opacities are visualized. The remaining lungs are clear. No solid mass lesions seen. No pleural effusions or pneumothorax. Cardiomediastinal silhouette: Normal cardiomediastinal silhouette. Bones and soft tissues: There are degenerative changes in the spine. IMPRESSION: Left basilar patchy opacities, raising concern for pneumonia or aspiration. Please clinically correlate. Lgsw: [facility] Transcribe Date/Time: Jan 11 2024 8:27A Dictated by : JOSE RAFAEL MURRIETA MD This examination was interpreted and the report reviewed and electronically signed by: JOSE RAFAEL MURRIETA MD on Jan 11 2024 8:28AM EST [id number] Normal [facility] XR Chest PA and Lateralon IMPRESSION: Left basilar patchy opacities, raising concern for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 machine. Venous flow and imaging: + + -------+--------+--------- + +Location +Overall+Thrombus+Properti es + + + -------+--------+--------- + +R CFV +Patent +--------+Normal phasicity; + + + + +spontaneous; normal + + + + +augmentation; compressible+ + + -------+--------+--------- + +R saphenofemoral +Patent +--------+Compressible + +junction + + + + + + -------+--------+--------- + +R profunda femoral +Patent +--------+ + + + -------+--------+--------- + +R FV - prox. +Patent +--------+Compressible + + + -------+--------+--------- + +R FV - mid +Patent +--------+Normal phasicity; + + + + +spontaneous; normal + + + + +augmentation; compressible+ + + -------+--------+--------- + +R FV - distal +Patent +--------+Compressible + + + -------+--------+--------- + +R popliteal +Patent +--------+Normal phasicity; + + + + +spontaneous; normal + + + + +augmentation; compressible+ + + -------+--------+--------- + +R gastrocnemius +Patent +--------+Compressible + + + -------+--------+--------- + +R PTV +Patent +--------+Compressible + + + -------+--------+--------- + +R peroneal +Patent +--------+Compressible + + + -------+--------+--------- + +R soleal +Patent +--------+Compressible + + + -------+--------+--------- + +R GSV +Patent +--------+Compressible + + + -------+--------+--------- + +L CFV +Patent +--------+Normal phasicity; + + + + +spontaneous; normal + + + + +augmentation; compressible+ + + -------+--------+--------- + +L saphenofemoral +Patent +--------+Compressible + +junction + + + + + + -------+--------+--------- + +L profunda femoral +Patent +--------+ + + + -------+--------+--------- + +L FV - prox. +Patent +--------+Compressible (more content not included)... [facility] Work Phone: [place], [facility] Incoming Cardiology Results From Arnold/Osmin - 10/22/2020 4:47 PM EDT [facility] Lower Extremity Venous Duplex Report Patient Carolyn, : 1950 Study 10/22/2020 Name: Rito Moses (yr) Date: Patient [id number] Age: 70 Account: [id number] ID: Gender: M Loc: 6117 BP: Ordering Physician: Kinsey Frias Deburrer: Brook Marr Costa Interpreting Physician: Rogers Colon M.D. Location: [facility] Indications: Right lower extremity swelling and prolonged bedrest due to recent trauma.. Conclusions 1. Chronic deep vein thrombosis noted in the left popliteal vein. 2. There is no evidence of acute deep or superficial venous thrombosis noted in the right lower extremity. History: Risk factors: Hypertension. Immobility. Age over 65 years. Study data: Complete lower extremity venous duplex evaluation. Grayscale 2D imaging, color Doppler imaging, and spectral Doppler analysis. Location: Bedside. Procedure: A vascular evaluation was performed with the patient in the supine position. Images were obtained using a Waspit E9 vascular ultrasound machine. Venous flow and imaging: + + -------+--------+--------- + +Location +Overall+Thrombus+Properti es + + + -------+--------+--------- + +R CFV +Patent +--------+Normal phasicity; + + + + +spontaneous; normal + + + + +augmentation; compressible+ + + -------+--------+--------- + +R saphenofemoral +Patent +--------+Compressible + +junction + + + + + + -------+--------+--------- + +R profunda femoral +Patent +--------+ + + + -------+--------+--------- + +R FV - prox. +Patent +--------+Compressible + + + -------+--------+--------- + +R FV - mid +Patent +--------+Normal phasicity; + + + + +spontaneous; normal + + + + +augmentation; compressible+ + + -------+--------+--------- + +R FV - distal +Patent +--------+Compressible + + + -------+--------+--------- + +R popliteal +Patent +--------+Normal phasicity; + + + + +spontaneous; normal + + + + +augmentation; compressible+ + + -------+--------+--------- + +R gastrocnemius +Patent +--------+Compressible + + + -------+--------+--------- + +R PTV +Patent +--------+Compressible + + + -------+--------+--------- + +R peroneal +Patent +--------+Compressible + + + -------+--------+--------- + +R soleal +Patent +--------+Compressible + + + -------+--------+--------- + +R GSV +Patent +--------+Compressible + + + -------+--------+--------- + +L CFV +Patent +--------+Normal phasicity; + + + + +spontaneous; normal + + + + +augmentation; compressible+ + + -------+--------+--------- + +L saphenofemoral +Patent +--------+Compressible + +junction + + + + + + -------+--------+--------- + +L profunda femoral +Patent +--------+ + + + -------+--------+--------- + +L FV - prox. +Patent +--------+Compressible + + + -------+--------+--------- + +L FV - mid +Patent +--------+Normal phasicity; + + + + +spontaneous; normal + + + + +augmentation; compressible+ + + -------+--------+--------- + +L FV - distal +Patent +--------+Compressible + + + -------+--------+--------- + +L popliteal +Patent +Chronic +Normal phasicity; + + + + +spontaneous; normal + + + + +augmentation; compressible+ + + -------+--------+--------- + +L gastrocnemius +Patent +--------+Compressible + + + -------+--------+--------- + +L PTV +Patent +--------+Compressible + + (more content not included)... [facility] Work Phone: [phone] [facility] Work Phone: VL Venous Duplex US Lower Ex t Bilateralon 10-22-2020 VL Venous Duplex US Lower Ext Bilateral Patient Name: RITO LEON Ultrasound ACCESSION EXAM DATE/TIME PROCEDURE ORDERING PROVIDER [id number] 10/22/2020 15:18 EDT VL Venous Duplex US KINSEY FRIAS Lower Ext Bilateral CPT code 99605 Reason For Exam (VL Venous Duplex US Lower Ext Bilateral) edema Report [facility] Lower Extremity Venous Duplex Report Patient Carolyn : 1950 Study 10/22/2020 Name: Rito Moses (yrs) Date: Patient [id number] Age: 70 Account: [id number] ID: Gender: Chasity Loc: 6117 BP: Ordering Physician: Kinsey Frias Deburrer: Brook Marr Costa Interpreting Physician: Rogers Colon M.D. Location: [facility] Indications: Right lower extremity swelling and prolonged bedrest due to recent trauma.. Conclusions 1. Chronic deep vein thrombosis noted in the left popliteal vein. 2. There is no evidence of acute deep or superficial venous thrombosis noted in the right lower extremity. History: Risk factors: Hypertension. Immobility. Age over 65 years. Study data: Complete lower extremity venous duplex evaluation. Grayscale 2D imaging, color Doppler imaging, and spectral Doppler analysis. Location: Bedside. Procedure: A vascular evaluation was performed with the patient in the supine position. Images were obtained using a Waspit E9 vascular ultrasound machine. Ultrasound Report Venous flow and imaging: + + -------+--------+--------- + +Location +Overall+Thrombus+Properti es + + + -------+--------+--------- + +R CFV +Patent +--------+Normal phasicity; + + + + +spontaneous; normal + + + + +augmentation; compressible+ + + -------+--------+--------- + +R saphenofemoral +Patent +--------+Compressible + +junction + + + + + + -------+--------+--------- + +R profunda femoral +Patent +--------+ + + + -------+--------+--------- + +R FV - prox. +Patent +--------+Compressible + + + -------+--------+--------- + +R FV - mid +Patent +--------+Normal phasicity; + + + + +spontaneous; normal + + + + +augmentation; compressible+ + + -------+--------+--------- + +R FV - distal +Patent +--------+Compressible + + + -------+--------+--------- + +R popliteal +Patent +--------+Normal phasicity; + + + + +spontaneous; normal + + + + +augmentation; compressible+ + + -------+--------+--------- + +R gastrocnemius +Patent +--------+Compressible + + + -------+--------+--------- + +R PTV +Patent +--------+Compressible + + + -------+--------+--------- + +R peroneal +Patent +--------+Compressible + + + -------+--------+--------- + +R soleal +Patent +--------+Compressible + + + -------+--------+--------- + +R GSV +Patent +--------+Compressible + + + -------+--------+--------- + +L CFV +Patent +--------+Normal phasicity; + + + + +spontaneous; normal + + + + +augmentation; compressible+ + + -------+--------+--------- + +L saphenofemoral +Patent +--------+Compressible + +junction + + + + + + -------+--------+--------- + +L profunda femoral +Patent +--------+ + + + -------+--------+--------- + +L FV - prox. +Patent +--------+Compressible + + + -------+--------+--------- + +L FV - mid +Patent +--------+Normal phasicity; + + + + +spontaneous; normal + + + + +augmentation; compressible+ + + -------+--------+--------- + +L FV - distal +Patent +--------+Compressible + + + -------+--------+--------- + +L popliteal +Patent +Chronic +Normal phasicity; + + + + +spontaneous; normal + + + + +augmentation; compressible+ + + -------+--------+--------- + +L g (more content not included)... Normal [facility] Basic Metabolic Panelon 06-2 Calcium [Mass/Vol] 8.5 mg/dL Normal 8.4-10.4 [facility] Comment on above: Performed By: #### Disha MP3M, HEMOG #### [facility] [employer] [facility] [address] [place], [place] #### VD25H #### [facility] [employer] [facility] [address] [place] [address] Glucose [Mass/Vol] 130 mg/dL High 70-100 [facility] Comment on above: Performed By: #### Disha MP3M, HEMOG #### [facility] [employer] [facility] [address] [place], [place] #### VD25H #### [facility] [employer] [facility] [address] [place] [address] Urea nitrogen [Mass/Vol] 21 mg/dL High 7-20 [facility] Comment on above: Performed By: #### Disha MP3M, HEMOG #### [facility] [employer] [facility] [address] [place], [place] #### VD25H #### [facility] [address] [place] [address] Anion gap [Moles/Vol] 7 mmol/L Normal 3-13 [facility] Comment on above: Performed By: #### B MP3M, HEMOG #### [facility] [address] [place], [place] #### VD25H #### [facility] [address] [place] [address] CO2 [Moles/Vol] 26 mmol/L Normal 22-30 [facility] Comment on above: Performed By: #### B MP3M, HEMOG #### [facility] [address] [place], [place] #### VD25H #### [facility] [address] [place] [address] Creatinine [Mass/Vol] 0.80 mg/dL Normal 0.52-1.25 [facility] Comment on above: Performed By: #### B MP3M, HEMOG #### [place] [address] [place], [place] #### VD25H #### [facility] [address] [place] [address] eGFR OTHER > 90.0 Normal >60 [facility] Comment on above: Result Comment: KDIG O guidelines provide the following GFR categories: Stage GFR(ml/min/1.73 m2) Terms G1 >=90 Normal or high G2 60-89 Mildly decreased* G3a 45-59 Mildly to moderately decreased G3b 30-44 Moderately to severely decreased G4 15-29 Severely decreased G5 <15 Kidney failure *Relative to young adult level. In the absence of evidence of kidney damage, neither GFR category G1 nor G2 fulfill the criteria for CKD. The CKD-EPI equation is validated in individuals 18 years of age and older. Currently the best equation for estimating glomerular filtration rate (GFR) from serum creatinine in children is the Bedside Gonzalez equation. It is less accurate in patients with extremes of muscle mass, restriction of dietary protein, ingestion of creatine, extra-renal metabolism of creatinine, or treatment with medications that affect renal tubular creatinine secretion. Performed By: #### B MP3M, HEMOG #### [facility] [address] [facility], [place] #### VD25H #### [facility] [address] [place] [address] GFR/1.73 sq M.predicted among blacks MDRD (S/P/Bld) [Vol rate/Area] mL/min/{1.73_m2} Normal >60 [facility] Comment on above: Performed By: #### Disha MP3M, HEMOG #### [facility] [address] [place] [address] #### VD25H #### [facility] [address] [place] [address] Chloride [Moles/Vol] 103 mmol/L Normal 98-107 [facility] Comment on above: Performed By: #### Disha MP3M, HEMOG #### [facility] [address] [place] [address] #### VD25H #### [facility] [address] [place] [address] Potassium [Moles/Vol] 3.8 mmol/L Normal 3.5-5.1 [facility] Comment on above: Performed By: #### Disha MP3M, HEMOG #### [facility] [address] [place] [address] #### VD25H #### [facility] [address] [place] [address] Sodium [Moles/Vol] 137 mmol/L Normal 135-145 [facility] Comment on above: Performed By: #### Disha MP3M, HEMOG #### [facility] [address] [place] [address] #### VD25H #### [facility] [address] [place] [address] Basic Metabolic Panel w/ Ref tigist to MGOrdered By: Sharon Camejo on 10-19-2020 Anion gap [Moles/Vol] 7 mmol/L 3 - 13 mmol/L [facility] Work Phone: Calcium [Mass/Vol] 8.5 mg/dL 8.4 - 10. 4 mg/dL [facility] Work Phone: Chloride [Moles/Vol] 103 mmol/L 98 - 10 7 mmol/L [facility] Work Phone: CO2 [Moles/Vol] 26 mmol/L 22 - 30 mmol/L [facility] Work Phone: [phone] Creatinine [Mass/Vol] 0.8 mg/dL 0.52 - 1.25 mg/dL [facility] Work Phone: [phone] EGFR IF NonAfrican R[place]an >90.0 >60 mL/min [facility] Work Phone: [phone] Comment on above: KDIGO guidelines pro vide the following GFR categories: Stage GFR(ml/min/1.73 m2) Terms G1 >=90 Normal or high G2 60-89 Mildly decreased* G3a 45-59 Mildly to moderately decreased G3b 30-44 Moderately to severely decreased G4 15-29 Severely decreased G5 <15 Kidney failure *Relative to young adult level. In the absence of evidence of kidney damage, neither GFR category G1 nor G2 fulfill the criteria for CKD. The CKD-EPI equation is validated in individuals 18 years of age and older. Currently the best equation for estimating glomerular filtration rate (GFR) from serum creatinine in children is the Bedside Gonzalez equation. It is less accurate in patients with extremes of muscle mass, restriction of dietary protein, ingestion of creatine, extra-renal metabolism of creatinine, or treatment with medications that affect renal tubular creatinine secretion. GFR/1.73 sq M.predicted among blacks MDRD (S/P/Bld) [Vol rate/Area] mL/min/{1.73_m2} >60 mL/min [facility] Work Phone: [phone] Glucose [Mass/Vol] 130 mg/dL High 70 - 100 mg/dL [facility] Work Phone: [phone] Interpretation and review of laboratory results Abnormal [facility] Work Phone: [phone] Potassium [Moles/Vol] 3.8 mmol/L 3.5 - 5.1 mmol/L [facility] Work Phone: [phone] Sodium [Moles/Vol] 137 mmol/L 135 - 145 mmol/L [facility] Work Phone: [phone] Urea nitrogen (BldV) [Mass/Vol] 21 mg/dL High 7 - 20 mg/dL [facility] Work Phone: [phone] Test Performed by [facility], [address] [place] [address] [facility] Work Phone: [facility] Work Phone: CBCOrdered By: Sharon alejandra on 10-19-2020 Hematocrit (Bld) [Volume fraction] 29.3 % Low 40.0 - 52.0 % [facility] Work Phone: Hemoglobin.gastrointes tinal spec 1 Ql (Stl) 10.0 g/dL Low 13.0 - 18.0 g/dL [facility] Work Phone: Interpretation and review of laboratory results Abnormal [facility] Work Phone: MCH (RBC) [Entitic mass] 31.4 pg 26.0 - 34.0 pg [facility] Work Phone: MCHC (RBC) [Mass/Vol] 34.2 % 32.0 - 36.0 % [facility] Work Phone: MCV (RBC) [Entitic vol] 91.6 fL 80.0 - 98.0 fL [facility] Work Phone: Platelet distribution width (Bld) [Ratio] 13.8 % 11.5 - 14.5 % [facility] Work Phone: Platelet mean volume (Bld) [Entitic vol] 7.8 fL 7.4 - 10.4 fL [facility] Work Phone: Platelets (Bld) [#/Vol] 274 10*3/uL 140 - 440 10*3/uL [facility] Work Phone: RBC (Bld) [#/Vol] 3.20 10*6/uL Low 4.40 - 5.90 10*6/uL [facility] Work Phone: WBC (Bld) [#/Vol] 12.1 10*3/uL High 3.6 - 10.7 10*3/uL [facility] Work Phone: Test Performed by [facility], [address] [place] [address] [facility] Work Phone: [facility] Work Phone: Hemogramon 10-19-2020 Erythrocyte distribution width (RBC) [Ratio] 13.8 % Normal 11.5-14.5 [facility] Comment on above: Performed By: #### B MP3M, HEMOG #### [place] [address] [place], [place] #### VD25H #### [facility] [address] [place] [address] Hematocrit (Bld) [Volume fraction] 29.3 % Low 40.0-52.0 [facility] Comment on above: Performed By: #### B MP3M, HEMOG #### [place] [address] [place], [place] #### VD25H #### [facility] [address] [place] [address] Hemoglobin (Bld) [Mass/Vol] 10.0 g/dL Low 13.0-18.0 [facility] Comment on above: Performed By: #### Disha MP3M, HEMOG #### [address] #### VD25H #### [facility] [address] [place] [address] MCH (RBC) [Entitic mass] 31.4 pg Normal 26.0-34.0 [facility] Comment on above: Performed By: #### Disha MP3M, HEMOG #### [address] #### VD25H #### [facility] [address] [place] [address] MCHC 34.2 % Normal 32.0-36.0 [facility] Comment on above: Performed By: #### Disha MP3M, HEMOG #### [address] #### VD25H #### [facility] [address] [place] [address] MCV (RBC) [Entitic vol] 91.6 fL Normal 80.0-98.0 [facility] Comment on above: Performed By: #### B MP3M, HEMOG #### [address] [place], [place] #### VD25H #### [facility] [address] [place] [address] Platelet mean volume (Bld) [Entitic vol] 7.8 fL Normal 7.4-10.4 [facility] Comment on above: Performed By: #### Disha MP3M, HEMOG #### [facility] [address] [place], [place] #### VD25H #### [facility] [address] [place] [address] Platelets (Bld) [#/Vol] 274 10*3/uL Normal 140-440 [facility] Comment on above: Performed By: #### Disha MP3M, HEMOG #### [facility] [address] [place], [place] #### VD25H #### [facility] [address] [place] [address] RBC (Bld) [#/Vol] 3.20 10*6/uL Low 4.40-5.90 [facility] Comment on above: Performed By: #### Disha MP3M, HEMOG #### [facility] [address] [place], [place] #### VD25H #### [facility] [address] [place] [address] WBC (Bld) [#/Vol] 12.1 10*3/uL High 3.6-10.7 [facility] Comment on above: Performed By: #### Disha MP3M, HEMOG #### [facility] [address] [place], [place] #### VD25H #### [facility] [address] [place] [address] VL DUP LOWER EXTREMITY VENOU S BILATERALOrdered By: Kinsey Frias on 10-19-2020 [facility] Lower Extremity Venous Duplex Report Patient Carolyn : 1950 Study 10/19/2020 Name: Rito Moses (yrs) Date: Patient [id number] Age: 70 Account: [id number] ID: Gender: Chasity Loc: 1ECB BP: Ordering Physician: Kinsey Frias Deburrer: Dulce Larson RVT Interpreting Physician: Bert Willingham MD Location: [facility] Indications: Edema right entire leg. Edema left entire leg. Preliminary result was reported to Kinsey Frias CNP , by Dulce Larson , on 10/19/2020 , at 12:59 PM. Correct read-back was verified. Conclusions 1. Chronic, non-occlusivesuperficial vein thrombosis noted in the right great saphenous vein in the mid thigh. 2. There is no evidence of acute deep or superficial venous thrombosis noted in the right lower extremity. 3. There is no evidence of acute deep or superficial venous thrombosis noted in the left lower extremity. 4. The study was difficult/suboptimal due to limitations. History: Risk factors: Immobility. Age over 65 years. Study data: Complete lower extremity venous duplex evaluation. Grayscale 2D imaging, color Doppler imaging, and spectral Doppler analysis. Location: Bedside. Procedure: A vascular evaluation was performed with the patient in the supine position. Images were obtained using a Dexetra Vivid E9 vascular ultrasound machine. The study was technically limited due to immobility, surgical incision, and casts or medical dressings. Venous flow and imaging: + + ---+--------+ ----+ + +Location +Overall +Thrombus+Properties +Comments + + + ---+--------+ ----+ + +R CFV +Patent with +--------+Normal phasicity;+S/p operative+ + +color flow and+ +spontaneous; +fixation of a+ + +Doppler + +normal +right open + + +imaging + +augmentation +femur + + + + + +fracture + + + + + +10/16/20. + + + ---+--------+ ----+ + +R +Patent with +--------+ -+ + +saphenofemora+color flow and+ + + + +l junction +Doppler + + + + + +imaging + + + + + + ---+--------+ ----+ + +R profunda +Patent +--------+Normal phasicity;+ + +femoral + + +spontaneous; + + + + + +normal + + + + + +augmentation + + + + ---+--------+ ----+ + +R FV - prox. +Patent with +--------+ -+ + + +color flow and+ + + + + +Doppler + + + + + +imaging + + + + + + ---+--------+ ----+ + +R FV - mid +Patent with +--------+Normal phasicity;+ + + +color flow and+ +spontaneous; + + + +Doppler + +normal + + + +imaging + +augmentation + + + + ---+--------+ ----+ + +R FV - distal+Patent with +--------+ -+ + + +color flow and+ + + + + +Doppler + + + + + +imaging + + + + + + ---+--------+ ----+ + +R popliteal +Patent with +--------+Normal phasicity;+ + + +color flow and+ +spontaneous; (more content not included)... [facility] Work Phone: [facility] Results From [facility] - 10/19/2020 3:27 PM EDT [facility] Lower Extremity Venous Duplex Report Patient Carolyn, : 1950 Study 10/19/2020 Name: Rito Moses (yrs) Date: Patient [id number] Age: 70 Account: [id number] ID: Gender: Chasity Loc: 1ECB BP: Ordering Physician: Kinsey Frias Deburrer: Dulce Larson RVT Interpreting Physician: Bert Willingham MD Location: [facility] Indications: Edema right entire leg. Edema left entire leg. Preliminary result was reported to Kinsey Frias CNP , by Dulce Larson , on 10/19/2020 , at 12:59 PM. Correct read-back was verified. Conclusions 1. Chronic, non-occlusivesuperficial vein thrombosis noted in the right great saphenous vein in the mid thigh. 2. There is no evidence of acute deep or superficial venous thrombosis noted in the right lower extremity. 3. There is no evidence of acute deep or superficial venous thrombosis noted in the left lower extremity. 4. The study was difficult/suboptimal due to limitations. History: Risk factors: Immobility. Age over 65 years. Study data: Complete lower extremity venous duplex evaluation. Grayscale 2D imaging, color Doppler imaging, and spectral Doppler analysis. Location: Bedside. Procedure: A vascular evaluation was performed with the patient in the supine position. Images were obtained using a Dexetra Vivid E9 vascular ultrasound machine. The study was technically limited due to immobility, surgical incision, and casts or medical dressings. Venous flow and imaging: + + ---+--------+ ----+ + +Location +Overall +Thrombus+Properties +Comments + + + ---+--------+ ----+ + +R CFV +Patent with +--------+Normal phasicity;+S/p operative+ + +color flow and+ +spontaneous; +fixation of a+ + +Doppler + +normal +right open + + +imaging + +augmentation +femur + + + + + +fracture + + + + + +10/16/20. + + + ---+--------+ ----+ + +R +Patent with +--------+ -+ + +saphenofemora+color flow and+ + + + +l junction +Doppler + + + + + +imaging + + + + + + ---+--------+ ----+ + +R profunda +Patent +--------+Normal phasicity;+ + +femoral + + +spontaneous; + + + + + +normal + + + + + +augmentation + + + + ---+--------+ ----+ + +R FV - prox. +Patent with +--------+ -+ + + +color flow and+ + + + + +Doppler + + + + + +imaging + + + + + + ---+--------+ ----+ + +R FV - mid +Patent with +--------+Normal phasicity;+ + + +color flow and+ +spontaneous; + + + +Doppler + +normal + + + +imaging + +augmentation + + + + ---+--------+ ----+ + +R FV - distal+Patent with +--------+ -+ + + +color flow and+ + + + + +Doppler + + + + + +imaging + + + + + + ---+--------+ ----+ + +R popliteal +Patent with +--------+Normal phasicity;+ + + +color flow and+ +spontaneous; + + + +Doppler + +normal + + + +imaging + +augmentation + + + + ---+--------+ ----+ + +R +Patent +--------+Compressible + + +gastrocnemius+ + + + + + + ---+--------+ ----+ + +R PTV +Patent +--------+Compressible + + + + ---+--------+ ----+ + +R peroneal +Patent +--------+Compressible + + + + ---+--------+ ----+ + +R soleal +Patent +--------+Compressible + + + + ---+--------+ ----+ + +R GSV +Partially +Chronic +Partially +Mid thigh. + + +occluded + +compressible + + + + ---+--------+ ----+ + +L CFV +Patent +--------+Normal phasicity;+ + + + + +spontaneous; + + + + + +normal + + + + + +augme (more content not included)... [facility] Work Phone: [facility] Work Phone: VL Venous Duplex US Lower Ex t Bilateralon 10-19-2020 VL Venous Duplex US Lower Ext Bilateral Patient Name: RITO LEON Ultrasound ACCESSION EXAM DATE/TIME PROCEDURE ORDERING PROVIDER [id number] 10/19/2020 12:50 EDT VL Venous Duplex US KINSEY FRIAS Lower Ext Bilateral CPT code 27717 Reason For Exam (VL Venous Duplex US Lower Ext Bilateral) edema Report [facility] Lower Extremity Venous Duplex Report Patient DO CarolynB: 1950 Study 10/19/2020 Name: Rito Moses (70yrs) Date: Patient [id number] Age: 70 Account: [id number] ID: Gender: M Loc: 1ECB BP: Ordering Physician: Kinsey Frias Deburrer: Dulce Larson RVT Interpreting Physician: Bert Willingham MD Location: [facility] Indications: Edema right entire leg. Edema left entire leg. Preliminary result was reported to Kinsey Frias CNP , by Dulce Larson , on 10/19/2020 , at 12:59 PM. Correct read-back was verified. Conclusions 1. Chronic, non-occlusivesuperficial vein thrombosis noted in the right great saphenous vein in the mid thigh. 2. There is no evidence of acute deep or superficial venous thrombosis noted in the right lower extremity. 3. There is no evidence of acute deep or superficial venous thrombosis noted in the left lower extremity. 4. The study was difficult/suboptimal due to limitations. History: Risk factors: Immobility. Age over 65 years. Ultrasound Report Study data: Complete lower extremity venous duplex evaluation. Grayscale 2D imaging, color Doppler imaging, and spectral Doppler analysis. Location: Bedside. Procedure: A vascular evaluation was performed with the patient in the supine position. Images were obtained using a Dexetra Vivid E9 vascular ultrasound machine. The study was technically limited due to immobility, surgical incision, and casts or medical dressings. Venous flow and imaging: + + ---+--------+ ----+ + +Location +Overall +Thrombus+Properties +Comments + + + ---+--------+ ----+ + +R CFV +Patent with +--------+Normal phasicity;+S/p operative+ + +color flow and+ +spontaneous; +fixation of a+ + +Doppler + +normal +right open + + +imaging + +augmentation +femur + + + + + +fracture + + + + + +10/16/20. + + + ---+--------+ ----+ + +R +Patent with +--------+ -+ + +saphenofemora+color flow and+ + + + +l junction +Doppler + + + + + +imaging + + + + + + ---+--------+ ----+ + +R profunda +Patent +--------+Normal phasicity;+ + +femoral + + +spontaneous; + + + + + +normal + + + + + +augmentation + + + + ---+--------+ ----+ + +R FV - prox. +Patent with +--------+ -+ + + +color flow and+ + + + + +Doppler + + + + + +imaging + + + + + + ---+--------+ ----+ + +R FV - mid +Patent with +--------+Normal phasicity;+ + + +color flow and+ +spontaneous; + + + +Doppler + +normal + + + +imaging + +augmentation + + + + ---+--------+ ----+ + +R FV - distal+Patent with +--------+ -+ + + +color flow and+ + + + + +Doppler + + + + + +imaging + + + + + + ---+--------+ ----+ + +R popliteal +Patent with +--------+Normal phasicity;+ + + +color flow and+ +spontaneous; + + + +Doppler + +normal + + + +imaging + +augmentation + + + + ---+--------+ ----+ + +R +Patent +--------+Compressible + + +gastrocnemius+ + + + + + + ---+--------+ ----+ + +R PTV +Patent +--------+Compressible + + + + ---+--------+ ----+ + +R peroneal +Patent +--------+Compressible + + + + ---+--------+ ----+ + +R soleal +Patent +--------+Compressible + + + + ---+--------+ ----+ + +R GSV +Partially +Chronic +Partially +Mid thigh. + + +occluded + +compressible + + Ultras (more content not included)... Normal [facility] Vit D 25-OH, Totalon 021 Vit D 25-OH, Total 29 ng/mL Low 30-100 [facility] Comment on above: Result Comment: Ther apy is based on measurement of Total 25- OHD with the following classification levels: Less than 20 ng/mL: Indicative of Vit D deficiency 20-30 ng/mL: Suggests Vit D insufficiency Optimal: Greater than or equal to 30 ng/mL Test performed by [employer] Competitive Immunoassay, measuring Total Vitamin D, not individual fractions. Performed By: #### B MP3M, HEMOG #### [facility] [address] [place] [address] #### VD25H #### [facility] [address] [place] [address] Vitamin D 25 HydroxyOrdered By: Justin Calix on 10-19-2020 Interpretation and review of laboratory results Abnormal [facility] Work Phone: Vit D, 25-Hydroxy 29 ng/mL Low 30 - 100 ng/mL [facility] Work Phone: Comment on above: Therapy is based on measurement of Total 25-OHD with the following classification levels: Less than 20 ng/mL: Indicative of Vit D deficiency 20-30 ng/mL: Suggests Vit D insufficiency Optimal: Greater than or equal to 30 ng/mL Test performed by [employer] Competitive Immunoassay, measuring Total Vitamin D, not individual fractions. Test Performed by [facility], [address] [place], [place], [place] [address] [facility] Work Phone: [phone] [facility] Work Phone: [phone] On Lab TestOrdered By: Kellie Aragon on 10-18-2020 Add On Accepted [facility] Work Phone: [phone] Comment on above: Specimen available & acceptable for analysis. Test Performed by [facility], [address] [place] [address] [facility] Work Phone: [phone] [facility] Work Phone: [phone] Add on test from HISon 10-18 Add on test from HIS Accepted Normal [facility] Comment on above: Result Comment: Spec imen available & acceptable for analysis. Performed By: #### A DDON #### [address] [place] [address] Basic Metabolic Panelon - Calcium [Mass/Vol] 8.7 mg/dL Normal 8.4-10.4 [facility] Comment on above: Performed By: #### H RODGER BMP3M, CK3 #### [address] [address] [place] [address] Anion gap [Moles/Vol] 5 mmol/L Normal 3-13 [facility] Comment on above: Performed By: #### H EMOCalos BMP3M, CK3 #### [facility] [address] [place] [address] CO2 [Moles/Vol] 27 mmol/L Normal 22-30 [facility] Comment on above: Performed By: #### H EMOCalos BMP3M, CK3 #### [address] [place] [address] Creatinine [Mass/Vol] 0.84 mg/dL Normal 0.52-1.25 [facility] Comment on above: Performed By: #### H EMOG BMP3M, CK3 #### [facility] [address] [place], [place] GFR/1.73 sq M.predicted among blacks MDRD (S/P/Bld) [Vol rate/Area] mL/min/{1.73_m2} Normal >60 [facility] Comment on above: Performed By: #### H ASHLEY SOARES CK3 #### [facility] [address] [place], [place] GFR/1.73 sq M.predicted among non-blacks MDRD (S/P/Bld) [Vol rate/Area] 89.5 mL/min/{1.73_m2} Normal >60 [facility] Comment on above: Result Comment: KDIG O guidelines provide the following GFR categories: Stage GFR(ml/min/1.73 m2) Terms G1 >=90 Normal or high G2 60-89 Mildly decreased* G3a 45-59 Mildly to moderately decreased G3b 30-44 Moderately to severely decreased G4 15-29 Severely decreased G5 <15 Kidney failure *Relative to young adult level. In the absence of evidence of kidney damage, neither GFR category G1 nor G2 fulfill the criteria for CKD. The CKD-EPI equation is validated in individuals 18 years of age and older. Currently the best equation for estimating glomerular filtration rate (GFR) from serum creatinine in children is the Bedside Gonzalez equation. It is less accurate in patients with extremes of muscle mass, restriction of dietary protein, ingestion of creatine, extra-renal metabolism of creatinine, or treatment with medications that affect renal tubular creatinine secretion. Performed By: #### H ASHLEY SOARES CK3 #### [facility] [address] [place], [place] Glucose [Mass/Vol] 114 mg/dL High 70-100 [facility] Comment on above: Performed By: #### H ASHLEY SOARES CK3 #### [facility] [address] [place], [place] Urea nitrogen [Mass/Vol] 19 mg/dL Normal 7-20 [facility] Comment on above: Performed By: #### H ASHLEY SOARES CK3 #### [facility] [address] [place], [place] Chloride [Moles/Vol] 106 mmol/L Normal 98-107 [facility] Comment on above: Performed By: #### H ASHLEY SOARES, CK3 #### [facility] [address] [place], [place] Potassium [Moles/Vol] 4.4 mmol/L Normal 3.5-5.1 [facility] Comment on above: Performed By: #### H ASHLEY SOARES, CK3 #### [facility] [address] [place], [place] Sodium [Moles/Vol] 139 mmol/L Normal 135-145 [facility] Comment on above: Performed By: #### H ASHLEY SOARES, CK3 #### [facility] [address] [place], [place] Basic Metabolic Panel w/ Ref tigist to MGOrdered By: Sharon Camejo on 10-18-2020 Anion gap [Moles/Vol] 5 mmol/L 3 - 13 mmol/L [facility] Work Phone: Calcium [Mass/Vol] 8.7 mg/dL 8.4 - 10. 4 mg/dL [facility] Work Phone: Chloride [Moles/Vol] 106 mmol/L 98 - 10 7 mmol/L [facility] Work Phone: CO2 [Moles/Vol] 27 mmol/L 22 - 30 mmol/L [facility] Work Phone: Creatinine [Mass/Vol] 0.84 mg/dL 0.52 - 1.25 mg/dL [facility] Work Phone: EGFR IF NonAfrican [place]wandan 89.5 mL/min >60 [facility] Work Phone: Comment on above: KDIGO guidelines pro vide the following GFR categories: Stage GFR(ml/min/1.73 m2) Terms G1 >=90 Normal or high G2 60-89 Mildly decreased* G3a 45-59 Mildly to moderately decreased G3b 30-44 Moderately to severely decreased G4 15-29 Severely decreased G5 <15 Kidney failure *Relative to young adult level. In the absence of evidence of kidney damage, neither GFR category G1 nor G2 fulfill the criteria for CKD. The CKD-EPI equation is validated in individuals 18 years of age and older. Currently the best equation for estimating glomerular filtration rate (GFR) from serum creatinine in children is the Bedside Gonzalez equation. It is less accurate in patients with extremes of muscle mass, restriction of dietary protein, ingestion of creatine, extra-renal metabolism of creatinine, or treatment with medications that affect renal tubular creatinine secretion. GFR/1.73 sq M.predicted among blacks MDRD (S/P/Bld) [Vol rate/Area] mL/min/{1.73_m2} >60 mL/min [facility] Work Phone: Glucose [Mass/Vol] 114 mg/dL High 70 - 100 mg/dL [facility] Work Phone: Interpretation and review of laboratory results Abnormal [facility] Work Phone: Potassium [Moles/Vol] 4.4 mmol/L 3.5 - 5.1 mmol/L [facility] Work Phone: Sodium [Moles/Vol] 139 mmol/L 135 - 145 mmol/L [facility] Work Phone: Urea nitrogen (BldV) [Mass/Vol] 19 mg/dL 7 - 20 mg/dL [facility] Work Phone: Test Performed by [address] [address] [facility] Work Phone: [facility] Work Phone: CBCOrdered By: Sharon alejandra on 10-18-2020 Hematocrit (Bld) [Volume fraction] 30.4 % Low 40.0 - 52.0 % [facility] Work Phone: Hemoglobin.gastrointes tinal spec 1 Ql (Stl) 10.4 g/dL Low 13.0 - 18.0 g/dL [facility] Work Phone: Interpretation and review of laboratory results Abnormal [facility] Work Phone: MCH (RBC) [Entitic mass] 31.1 pg 26.0 - 34.0 pg [facility] Work Phone: MCHC (RBC) [Mass/Vol] 34.2 % 32.0 - 36.0 % [facility] Work Phone: 1 MCV (RBC) [Entitic vol] 90.8 fL 80.0 - 98.0 fL [facility] Work Phone: 1 Platelet distribution width (Bld) [Ratio] 14.0 % 11.5 - 14.5 % [facility] Work Phone: Platelet mean volume (Bld) [Entitic vol] 7.7 fL 7.4 - 10.4 fL [facility] Work Phone: 1 Platelets (Bld) [#/Vol] 273 10*3/uL 140 - 440 10*3/uL [facility] Work Phone: RBC (Bld) [#/Vol] 3.34 10*6/uL Low 4.40 - 5.90 10*6/uL [facility] Work Phone: WBC (Bld) [#/Vol] 13.4 10*3/uL High 3.6 - 10.7 10*3/uL [facility] Work Phone: 1 Test Performed by [facility] [employer] [facility], [address] [place] [address] [facility] Work Phone: [facility] Work Phone: CKon 10-18-2020 CK [Catalytic activity/Vol] 1570 U/L High 30-170 [facility] [employer] [facility] Comment on above: Performed By: #### H EMOG, BMP3M, CK3 #### [facility] [address] [place] [address] CKOrdered By: Sharon watt on 10-18-2020 CK [Catalytic activity/Vol] 1570 U/L High 30 - 170 U/L [facility] Work Phone: Interpretation and review of laboratory results Abnormal [facility] Work Phone: Test Performed by [facility] [employer] [facility], [address] [place] [address] [facility] Work Phone: [phone] [facility] Work Phone: 1 Hemogramon 10-18-2020 Erythrocyte distribution width (RBC) [Ratio] 14.0 % Normal 11.5-14.5 [facility] Comment on above: Performed By: #### H ASHLEY SOARES, CK3 #### [address] [place], [place] Hematocrit (Bld) [Volume fraction] 30.4 % Low 40.0-52.0 [facility] Comment on above: Performed By: #### EULALIO TRINIDAD3Chasity, CK3 #### [address] [place], [place] Hemoglobin (Bld) [Mass/Vol] 10.4 g/dL Low 13.0-18.0 [facility] Comment on above: Performed By: #### EULALIO TRINIDAD3Chasity, CK3 #### [address] [place], [place] MCH (RBC) [Entitic mass] 31.1 pg Normal 26.0-34.0 [facility] Comment on above: Performed By: #### EULALIO TRINIDAD3Chasity, CK3 #### [address] [place], [place] MCHC 34.2 % Normal 32.0-36.0 [facility] Comment on above: Performed By: #### EULALIO TRINIDAD3Chasity, CK3 #### [address] [place], [place] MCV (RBC) [Entitic vol] 90.8 fL Normal 80.0-98.0 [facility] Comment on above: Performed By: #### H RODGER BMP3M, CK3 #### [address] [place], [place] Platelet mean volume (Bld) [Entitic vol] 7.7 fL Normal 7.4-10.4 [facility] Comment on above: Performed By: #### H RODGER BMP3M, CK3 #### [address] [place], [place] Platelets (Bld) [#/Vol] 273 10*3/uL Normal 140-440 [facility] Comment on above: Performed By: #### H EMOCalos BMP3M, CK3 #### [address] [place], [place] RBC (Bld) [#/Vol] 3.34 10*6/uL Low 4.40-5.90 [facility] Comment on above: Performed By: #### H EMOCalos BMP3M, CK3 #### [address] [place], [place] WBC (Bld) [#/Vol] 13.4 10*3/uL High 3.6-10.7 [facility] Comment on above: Performed By: #### H RODGER BMP3M, CK3 #### [address] [place], [place] Basic Metabolic Panelon 06-2 Calcium [Mass/Vol] 8.3 mg/dL Low 8.4-10.4 [facility] Comment on above: Performed By: #### B MP3M, HEMOG #### [address] [place], [place] #### VD25H #### [facility] [address] [place] [address] Glucose [Mass/Vol] 136 mg/dL High 70-100 [facility] Comment on above: Performed By: #### B MP3M, HEMOG #### [address] [address] [place], [place] #### VD25H #### [facility] [address] [place] [address] Urea nitrogen [Mass/Vol] 15 mg/dL Normal 7-20 [facility] Comment on above: Performed By: #### B MP3M, HEMOG #### [address] [place], [place] #### VD25H #### [facility] [address] [place] [address] Anion gap [Moles/Vol] 6 mmol/L Normal 3-13 [facility] Comment on above: Performed By: #### B MP3M, HEMOG #### [facility] [address] [place], [place] #### VD25H #### [facility] [address] [place] [address] CO2 [Moles/Vol] 22 mmol/L Normal 22-30 [facility] Comment on above: Performed By: #### B MP3M, HEMOG #### [facility] [address] [place], [place] #### VD25H #### [facility] [address] [place] [address] Creatinine [Mass/Vol] 0.71 mg/dL Normal 0.52-1.25 [facility] Comment on above: Performed By: #### B MP3M, HEMOG #### [address] [place], [place] #### VD25H #### [facility] [address] [place] [address] eGFR OTHER > 90.0 Normal >60 [facility] Comment on above: Result Comment: KDIG O guidelines provide the following GFR categories: Stage GFR(ml/min/1.73 m2) Terms G1 >=90 Normal or high G2 60-89 Mildly decreased* G3a 45-59 Mildly to moderately decreased G3b 30-44 Moderately to severely decreased G4 15-29 Severely decreased G5 <15 Kidney failure *Relative to young adult level. In the absence of evidence of kidney damage, neither GFR category G1 nor G2 fulfill the criteria for CKD. The CKD-EPI equation is validated in individuals 18 years of age and older. Currently the best equation for estimating glomerular filtration rate (GFR) from serum creatinine in children is the Bedside Gonzalez equation. It is less accurate in patients with extremes of muscle mass, restriction of dietary protein, ingestion of creatine, extra-renal metabolism of creatinine, or treatment with medications that affect renal tubular creatinine secretion. Performed By: #### B MP3M, HEMOG #### [address] [place], [place] #### VD25H #### [facility] [address] [place] [address] GFR/1.73 sq M.predicted among blacks MDRD (S/P/Bld) [Vol rate/Area] mL/min/{1.73_m2} Normal >60 [facility] Comment on above: Performed By: #### B MP3M, HEMOG #### [facility] [address] [place], [place] #### VD25H #### [facility] [address] [place] [address] Potassium [Moles/Vol] 4.6 mmol/L Normal 3.5-5.1 [facility] Comment on above: Performed By: #### B MP3M, HEMOG #### [facility] [address] [place], [place] #### VD25H #### [facility] [address] [place] [address] Chloride [Moles/Vol] 108 mmol/L High 98-107 [facility] Comment on above: Performed By: #### Disha MP3M, HEMOG #### [facility] [address] [place], [place] #### VD25H #### [facility] [address] [place] [address] Sodium [Moles/Vol] 136 mmol/L Normal 135-145 [facility] Comment on above: Performed By: #### Disha MP3M, HEMOG #### [facility] [address] [place], [place] #### VD25H #### [facility] [address] [place] [address] Basic Metabolic Panel w/ Ref tigist to MGOrdered By: Sharon Camejo on 10-17-2020 Anion gap [Moles/Vol] 6 mmol/L 3 - 13 mmol/L [facility] Work Phone: Calcium [Mass/Vol] 8.3 mg/dL Low 8.4 - 10. 4 mg/dL [facility] Work Phone: Chloride [Moles/Vol] 108 mmol/L High 98 - 10 7 mmol/L [facility] Work Phone: CO2 [Moles/Vol] 22 mmol/L 22 - 30 mmol/L [facility] Work Phone: [phone] Creatinine [Mass/Vol] 0.71 mg/dL 0.52 - 1.25 mg/dL [facility] Work Phone: [phone] EGFR IF NonAfrican [place]an >90.0 >60 mL/min [facility] Work Phone: [phone] Comment on above: KDIGO guidelines pro vide the following GFR categories: Stage GFR(ml/min/1.73 m2) Terms G1 >=90 Normal or high G2 60-89 Mildly decreased* G3a 45-59 Mildly to moderately decreased G3b 30-44 Moderately to severely decreased G4 15-29 Severely decreased G5 <15 Kidney failure *Relative to young adult level. In the absence of evidence of kidney damage, neither GFR category G1 nor G2 fulfill the criteria for CKD. The CKD-EPI equation is validated in individuals 18 years of age and older. Currently the best equation for estimating glomerular filtration rate (GFR) from serum creatinine in children is the Bedside Gonzalez equation. It is less accurate in patients with extremes of muscle mass, restriction of dietary protein, ingestion of creatine, extra-renal metabolism of creatinine, or treatment with medications that affect renal tubular creatinine secretion. GFR/1.73 sq M.predicted among blacks MDRD (S/P/Bld) [Vol rate/Area] mL/min/{1.73_m2} >60 mL/min [facility] Work Phone: [phone] Glucose [Mass/Vol] 136 mg/dL High 70 - 100 mg/dL [facility] Work Phone: [phone] Potassium [Moles/Vol] 4.6 mmol/L 3.5 - 5.1 mmol/L [facility] Work Phone: [phone] Sodium [Moles/Vol] 136 mmol/L 135 - 145 mmol/L [facility] Work Phone: [phone] Urea nitrogen (BldV) [Mass/Vol] 15 mg/dL 7 - 20 mg/dL [facility] Work Phone: [phone] CBCOrdered By: Sharon alejandra on 10-17-2020 Hematocrit (Bld) [Volume fraction] 33.3 % Low 40.0 - 52.0 % [facility] Work Phone: [phone] Hemoglobin.gastrointes tinal spec 1 Ql (Stl) 11.4 g/dL Low 13.0 - 18.0 g/dL [facility] Work Phone: [phone] Interpretation and review of laboratory results Abnormal [facility] Work Phone: MCH (RBC) [Entitic mass] 31.4 pg 26.0 - 34.0 pg [facility] Work Phone: MCHC (RBC) [Mass/Vol] 34.3 % 32.0 - 36.0 % [facility] Work Phone: MCV (RBC) [Entitic vol] 91.6 fL 80.0 - 98.0 fL [facility] Work Phone: Platelet distribution width (Bld) [Ratio] 13.7 % 11.5 - 14.5 % [facility] Work Phone: Platelet mean volume (Bld) [Entitic vol] 7.7 fL 7.4 - 10.4 fL [facility] Work Phone: Platelets (Bld) [#/Vol] 269 10*3/uL 140 - 440 10*3/uL [facility] Work Phone: RBC (Bld) [#/Vol] 3.63 10*6/uL Low 4.40 - 5.90 10*6/uL [facility] Work Phone: WBC (Bld) [#/Vol] 10.4 10*3/uL 3.6 - 10.7 10*3/uL [facility] Work Phone: Test Performed by [facility], [address] [place] [address] [facility] Work Phone: [facility] Work Phone: CKon 10-17-2020 CK [Catalytic activity/Vol] 1503 U/L High 30-170 [facility] Comment on above: Performed By: #### B MP3M, HEMOG #### [facility] [employer] [address] [address] #### VD25H #### [facility] [employer] [facility] [address] [place] [address] CKOrdered By: Sharon Alegria alysa on 10-17-2020 CK [Catalytic activity/Vol] 1503 U/L High 30 - 170 U/L [facility] Work Phone: Hemogramon 10-17-2020 Erythrocyte distribution width (RBC) [Ratio] 13.7 % Normal 11.5-14.5 [facility] Comment on above: Performed By: #### Disha SONI3M, HEMOG #### [employer] [facility] [address] [place], [place] #### VD25H #### [employer] [facility] [address] [place] [address] Hematocrit (Bld) [Volume fraction] 33.3 % Low 40.0-52.0 [facility] Comment on above: Performed By: #### Disha MP3M, HEMOG #### [employer] [place] [address] [place], [place] #### VD25H #### [facility] [employer] [facility] [address] [place] [address] Hemoglobin (Bld) [Mass/Vol] 11.4 g/dL Low 13.0-18.0 [facility] Comment on above: Performed By: #### Disha MP3M, HEMOG #### [facility] [employer] [facility] [address] [place], [place] #### VD25H #### [employer] [facility] [address] [place] [address] MCH (RBC) [Entitic mass] 31.4 pg Normal 26.0-34.0 [facility] Comment on above: Performed By: #### Disha MP3M, HEMOG #### [facility] [employer] [facility] [address] [place], [place] #### VD25H #### [employer] [facility] [address] [place] [address] MCHC 34.3 % Normal 32.0-36.0 [facility] Comment on above: Performed By: #### Disha MP3M, HEMOG #### [facility] [employer] [place] [place], [place] #### VD25H #### [facility] [address] [place] [address] MCV (RBC) [Entitic vol] 91.6 fL Normal 80.0-98.0 [facility] Comment on above: Performed By: #### Disha SONI3Chasity, HEMOG #### [facility] [address] [place], [place] #### VD25H #### [facility] [address] [place] [address] Platelet mean volume (Bld) [Entitic vol] 7.7 fL Normal 7.4-10.4 [facility] Comment on above: Performed By: #### Disha MP3M, HEMOG #### [address] [place], [place] #### VD25H #### [facility] [address] [place] [address] Platelets (Bld) [#/Vol] 269 10*3/uL Normal 140-440 [facility] Comment on above: Performed By: #### Disha SONI3M, HEMOG #### [address] [place], [place] #### VD25H #### [facility] [address] [place] [address] RBC (Bld) [#/Vol] 3.63 10*6/uL Low 4.40-5.90 [facility] Comment on above: Performed By: #### Disha SONI3M, HEMOG #### [address] [place], [place] #### VD25H #### [facility] [address] [place] [address] WBC (Bld) [#/Vol] 10.4 10*3/uL Normal 3.6-10.7 [facility] Comment on above: Performed By: #### Disha MP3M, HEMOG #### [address] [place], [place] #### VD25H #### [facility] [address] [place] [address] Lactic Acidon 10-17-2020 Lactate [Moles/Vol] 1.4 mmol/L Normal 0.7-2.0 [facility] Comment on above: Performed By: #### L ACT3 #### [facility] [address] [place] [address] Lactic acid, plasmaOrdered B y: Sharon Camejo on 10-17-2020 Lactate [Moles/Vol] 1.4 mmol/L 0.7 - 2. 0 mmol/L [facility] Work Phone: [phone] Test Performed by [employer], [address] [place] [address] [facility] Work Phone: [phone] [facility] Work Phone: [phone] No Panel InformationOrdered By: Sharon Camejo on 10-17-2020 Interpretation and review of laboratory results Abnormal [facility] Work Phone: [phone] Test Performed by [employer], [address] [place] [address] [facility] Work Phone: [phone] [facility] Work Phone: [phone] OPERATIVE REPORTOrdered By: 3m Scanning on 10-17-2020 [facility] Work Phone: Prothrombin Timeon INR 1.1 Normal 0.9-1.1 [facility] [facility] Comment on above: Result Comment: Demetrius mmended Anticoagulant Therapy: SEE BELOW ----- INR of 2.0 - 3.0 : - Prophylaxis of Venous Thrombosis (high-risk surgery) - Treatment of Venous Thrombosis - Treatment of Pulmonary Embolism (Includes tissue heart valves, Acute Myocardial Infarction to prevent systemic embolism, Valvular Heart Disease, and Atrial Fibrillation) ----- INR of 2.5 - 3.5 : - Mechanical Prosthetic Valves (high risk) - If oral anticoagulant therapy is used to prevent Myocardial Infarction Performed By: #### B MP3M, HEMOG #### [facility] [address] [place] [address] #### VD25H #### [facility] [address] [place] [address] PT Coag (PPP) [Time] 11.7 s Normal 9.0-12.0 [facility] Comment on above: Result Comment: . Performed By: #### B MP3M, HEMOG #### [facility] [address] [place] [address] #### VD25H #### [facility] [address] [place] [address] Protime-INROrdered By: Arron Camejo on 10-17-2020 INR Coag (Bld) [Relative time] 1.1 {INR} [facility] Work Phone: Comment on above: Recommended Anticoag ulant Therapy: SEE BELOW ----- INR of 2.0 - 3.0 : - Prophylaxis of Venous Thrombosis (high-risk surgery) - Treatment of Venous Thrombosis - Treatment of Pulmonary Embolism (Includes tissue heart valves, Acute Myocardial Infarction to prevent systemic embolism, Valvular Heart Disease, and Atrial Fibrillation) ----- INR of 2.5 - 3.5 : - Mechanical Prosthetic Valves (high risk) - If oral anticoagulant therapy is used to prevent Myocardial Infarction PT Coag (PPP) [Time] 11.7 s 9.0 - 1 2.0 s [facility] Work Phone: Comment on above: . Test Performed by [facility], [address] [place] [address] [facility] Work Phone: [facility] Work Phone: [phone] Lead EKGon 10-16-2020 12 Lead EKG [facility] [address] [place] [address] 12 Lead EKG 10/16/20 1021 MR#: [id number] Acct: [id number] Name: RITO LEON Rep #: [id number] : [id number] 70 From: Michoacano Fernandez MD Attending Dr: Status: DEP ER Ordering Dr: Galilea Welch MD Date: 10/16/20 Location: ED Sex: M C Admitted: Test Reason : TRAUMA Blood Pressure : / mmHG Vent. Rate : 140 BPM Atrial Rate : 138 BPM P-R Int : 000 ms QRS Dur : 090 ms QT Int : 348 ms P-R-T Axes : 000 085 -04 degrees QTc Int : 531 ms Atrial fibrillation with rapid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 rami. Comminuted fracture is present at the midshaft of the right femur. The distal fracture fragment is externally rotated about 90 degrees. At the level the fracture there are soft tissue air bubbles from skin to lateral muscle compartment indicating an open fracture. There is a small amount of hematoma intervening between the fracture fragments. Distal fracture fragment is displaced posteriorly by about 4 cm. There is a small collection in the knee joint with a fat fluid level. A tiny calcific density is present adjacent to the medial femoral condyle in the intercondylar notch which could represent a tiny avulsion. No other fracture is noted at the knee. Diffuse arteriosclerotic calcifications are noted. IMPRESSION: Comminuted displaced open fracture mid shaft right femur Small joint effusion with a fat fluid level Tiny calcific density adjacent to the medial femoral condyle in the intercondylar notch could represent a tiny avulsion. There is no other articular involving fracture identified Computed Tomography Report Report Dictated on --- Final --- Dictated: 10/16/2020 1:03 pm Dictating Physician: MD SPEAR DIANE Signed Date and Time: 10/16/2020 1:13 pm Signed by: MD SPEAR DIANE Transcribed Date and Time: 10/16/2020 1:03 [facility] Work Phone: [facility], [facility] Incoming Radiology Results From [facility] - 10/16/2020 1:14 PM EDT Patient Name: RITO LEON Computed Tomography ACCESSION EXAM DATE/TIME PROCEDURE ORDERING PROVIDER [id number] 10/16/2020 12:[address] Low Ext w/o Contrast MD TERE, HOME Right CPT code 52121 Reason For Exam (CT Low Ext w/o Contrast Right) tractor rollover Report CT right femur CLINICAL INDICATION: Tractor rollover accident. Right femur fracture. COMPARISON: Plain films right femur 10/16/2020 Radiation dose: DLP 1856 mGycm Imaging was performed from the iliac crest through the proximal tibial and fibular metaphyses with [id number] restricted to the right lower extremity. Axial, coronal and sagittal images are reconstructed. Hip joint is intact. There is no fracture noted in the femoral neck or trochanteric region. There is no fracture noted in the right iliac bone or in the right superior or inferior pubic rami. Comminuted fracture is present at the midshaft of the right femur. The distal fracture fragment is externally rotated about 90 degrees. At the level the fracture there are soft tissue air bubbles from skin to lateral muscle compartment indicating an open fracture. There is a small amount of hematoma intervening between the fracture fragments. Distal fracture fragment is displaced posteriorly by about 4 cm. There is a small collection in the knee joint with a fat fluid level. A tiny calcific density is present adjacent to the medial femoral condyle in the intercondylar notch which could represent a tiny avulsion. No other fracture is noted at the knee. Diffuse arteriosclerotic calcifications are noted. IMPRESSION: Comminuted displaced open fracture mid shaft right femur Small joint effusion with a fat fluid level Tiny calcific density adjacent to the medial femoral condyle in the intercondylar notch could represent a tiny avulsion. There is no other articular involving fracture identified Computed Tomography Report Report Dictated on --- Final --- Dictated: 10/16/2020 1:03 pm Dictating Physician: MD SPEAR DIANE Signed Date and Time: 10/16/2020 1:13 pm Signed by: MD SPEAR DIANE Transcribed Date and Time: 10/16/2020 1:03 [facility] Work Phone: [facility] Work Phone: CT Low Ext w/o Contrast Righ ton 10-16-2020 CT Low Ext w/o Contrast Right Patient Name: RITO LEON Computed Tomography ACCESSION EXAM DATE/TIME PROCEDURE ORDERING PROVIDER [id number] 10/16/2020 12:[address] Low Ext w/o Contrast MD TERE, HOME Right CPT code 79618 Reason For Exam (CT Low Ext w/o Contrast Right) tractor rollover Report CT right femur CLINICAL INDICATION: Tractor rollover accident. Right femur fracture. COMPARISON: Plain films right femur 10/16/2020 Radiation dose: DLP 1856 mGycm Imaging was performed from the iliac crest through the proximal tibial and fibular metaphyses with [id number]-oh-tolf restricted to the right lower extremity. Axial, coronal and sagittal images are reconstructed. Hip joint is intact. There is no fracture noted in the femoral neck or trochanteric region. There is no fracture noted in the right iliac bone or in the right superior or inferior pubic rami. Comminuted fracture is present at the midshaft of the right femur. The distal fracture fragment is externally rotated about 90 degrees. At the level the fracture there are soft tissue air bubbles from skin to lateral muscle compartment indicating an open fracture. There is a small amount of hematoma intervening between the fracture fragments. Distal fracture fragment is displaced posteriorly by about 4 cm. There is a small collection in the knee joint with a fat fluid level. A tiny calcific density is present adjacent to the medial femoral condyle in the intercondylar notch which could represent a tiny avulsion. No other fracture is noted at the knee. Diffuse arteriosclerotic calcifications are noted. IMPRESSION: Comminuted displaced open fracture mid shaft right femur Small joint effusion with a fat fluid level Tiny calcific density adjacent to the medial femoral condyle in the intercondylar notch could represent a tiny avulsion. There is no other articular involving fracture identified Computed Tomography Report Report Dictated on Final Dictated: 10/16/2020 1:03 pm Dictating Physician: MD SPEAR DIANE Signed Date and Time: 10/16/2020 1:13 pm Signed by: MD SPEAR DIANE Transcribed Date and Time: 10/16/2020 1:03 Normal [facility] CT Spine Cervical w/o Contra ston 10-16-2020 CT Spine Cervical w/o Contrast Patient Name: RITO LEON Computed Tomography ACCESSION EXAM DATE/TIME PROCEDURE ORDERING PROVIDER [id number] 10/16/2020 12:[address] Spine Cervical w/o MD TERE, HOME Contrast CPT code 51025 Reason For Exam (CT Spine Cervical w/o Contrast) tractor rollover Report Clinical indication: Tractor rollover accident Comparison: None Radiation dose: DLP 432 mGycm Multidetector imaging from skull base through thoracic inlet was performed with axial, coronal and sagittal reconstructions evaluated. No fracture or focal spondylolisthesis is identified. C4-C5 disc is moderately narrowed with associated endplate spur formation. Left neural foraminal stenosis is noted at C3-C4 and bilateral neural foraminal stenosis at C4-C5 related to a combination of uncovertebral and facet hypertrophy. IMPRESSION: No acute osseous abnormality is noted in the cervical spine. 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 Report Dictated on Final Dictated: 10/16/2020 12:49 pm Dictating Physician: MD SPEAR DIANE Signed Date and Time: 10/16/2020 12:52 pm Signed by: MD SPEAR DIANE Transcribed Date and Time: 10/16/2020 12:49 Normal [facility] ED Provider Noteon ED Provider Note [facility] EMERGENCY DEPARTMENT ENCOUNTER Pt Name: Rito Leon Birthdate 1950 Date of evaluation: 10/16/2020 Provider: Reji Barnett MD CHIEF COMPLAINT No chief complaint on file. HISTORY OF PRESENT ILLNESS (Location/Symptom, Timing/Onset, Context/Setting, Quality, Duration, Modifying Factors, Severity) Note limiting factors. I wore a N95 mask for the entirety of this encounter. Does this patient come from an ECF, SNF, Rehab, Care Home or other Congregate setting: No (If yes to above patient needs a Covid-19 test) HPI Rito Leon is a 70 y.o. male who presents to the emergency department as a transfer from [facility] post tractor accident at work. Patient was reportedly working on a tractor when the tractor rolled over his right leg. He was taken to [facility] where he had an obvious deformity of the right thigh. He was evaluated there, got imaging, was placed in a traction splint and transferred via care flight. Noted that patient's INR was 3.5 at the facility. GCS was 15, no obvious injuries besides right leg deformity. Neurovascularly intact with notable DP PT pulses. Nursing Notes were reviewed. REVIEW OF SYSTEMS (2+ for level 4; 10+ for level 5) Review of Systems Constitutional: Negative for chills and fever. HENT: Negative for sore throat. Eyes: Negative for visual disturbance. Respiratory: Negative for cough and shortness of breath. Cardiovascular: Negative for chest pain. Gastrointestinal: Negative for abdominal pain, diarrhea, nausea and vomiting. Genitourinary: Negative for dysuria. Musculoskeletal: Right leg pain Skin: Negative for rash. Neurological: Negative for dizziness and headaches. PAST MEDICAL HISTORY Past Medical History: Diagnosis Date ? Atrial fibrillation (HCC) ? Hyperlipidemia SURGICAL HISTORY No past surgical history on file. CURRENT MEDICATIONS Previous Medications No medications on file ALLERGIES Patient has no allergy information on record. FAMILY HISTORY No family history on file. SOCIAL HISTORY Social History Socioeconomic History ? Marital status: Spouse name: None ? Number of children: None ? Years of education: None ? Highest education level: None Occupational History ? None Tobacco Use ? Smoking status: None Substance and Sexual Activity ? Alcohol use: None ? Drug use: None ? Sexual activity: None Other Topics Concern ? None Social History Narrative ? None Social Determinants of Health Financial Resource Strain: ? Difficulty of Paying Living Expenses: Food Insecurity: ? Worried About Running Out of Food in the Last Year: ? Ran Out of Food in the Last Year: Transportation Needs: ? Lack of Transportation (Medical): ? Lack of Transportation (Non-Medical): Physical Activity: ? Days of Exercise per Week: ? Minutes of Exercise per Session: Stress: ? Feeling of Stress : Social Connections: ? Frequency of Communication with Friends and Family: ? Frequency of Social Gatherings with Friends and Family: ? Attends Anabaptism Services: ? Active Member of Clubs or Organizations: ? Attends Club or Organization Meetings: ? Marital Status: Intimate Partner Violence: ? Fear of Current or Ex-Partner: ? Emotionally Abused: ? Physically Abused: ? Sexually Abused: SCREENINGS PHYSICAL EXAM (up to 7 for level 4, 8 or more for level 5) ED Triage Vitals BP Temp Temp src Pulse Resp SpO2 Height Weight -- -- -- -- -- -- -- -- Physical Exam Constitutional: General: He is in acute distress. Appearance: Normal appearance. HENT: Head: Normocephalic and atraumatic. Comments: No cephalohematomas, midface is stable, no hemotympanum in either ear canal, no nasal septal hematomas. Trachea is midline Nose: Nose normal. Mouth/Throat: Mouth: Mucous membranes are moist. Pharynx: No oropharyngeal exudate or posterior oropharyngeal erythema. Eyes: Extraocular Movements: Extraocular movements intact. Conjunctiva/sclera: Conjunctivae normal. Pupils: Pupils are equal, round, and reactive to light. Cardiovascular: Rate and Rhythm: Normal rate and regular rhythm. Pulses: Normal pulses. Heart sounds: Normal heart sounds. No murmur heard. No gallop. Pulmonary: Effort: Pulmonary effort is normal. No respiratory distress. Breath sounds: Normal breath sounds. No wheezing or rales. Abdominal: General: Bowel sounds are normal. Palpations: Abdomen is soft. Tenderness: There is no abdominal tenderness. There is no guarding or rebound. Musculoskeletal: General: Swelling, deformity and signs of injury present. Cervical back: No tenderness. Comments: Gross deformity of right thigh noted. Skin: General: Skin is warm. Capillary Refill: Capillary refill takes less than 2 seconds. Neurological: General: No focal deficit present. Mental Status: He is alert and oriented to person, place, and time. DIAGNOSTI (more content not included)... [facility] ED Provider Note Emergency Department Encounter [facility] EMERGENCY DEPT Patient: Rito Leon : 1950 Date of Evaluation: 10/16/2020 ED Supervising Physician: Alfredo Miles MD I independently examined and evaluated Rito Leon. In brief HPI , Focused exam: Rito Leon is a 70 y.o. male that presents to the emergency department patient presents after a tractor accident. Seen at outside facility. Had a deformed femur fracture. Transported here via [facility]. My evaluation femur deformity is distal pulses intact. Femur traction splint is in place placed by [employer]. Had Ancef tetanus 10 mg of ketamine and 200 mg of fentanyl prior to arrival. Brief ED course/MDM: Patient will require admission for this fracture. With his anticoagulation status will CT head as well. Trauma will admit. Orthopedic surgery is at the bedside at this time. Frequently reassessing patient. Coordinating care with trauma and orthopedic surgery. Re-Assessments: CRITICAL CARE TIME Total Critical Care time was 31 minutes, excluding separately reportable procedures. There was a high probability of clinically significant/life threatening deterioration in the patient's condition which required my urgent intervention. All diagnostic, treatment, and disposition decisions were made by myself in conjunction with the JARVIS/Resident. For all further details of the patient's emergency department visit, please see their documentation. (Please note that portions of this note may have been completed with a voice recognition program. Efforts were made to edit the dictations but occasionally words are mis-transcribed.) Alfredo Miles MD [employer] Alfredo Miles MD 10/16/20 1139 [facility] Emergency Department Summary on 10-16-2020 Emergency Department Summary [facility] Medical Records Department [address] [place] [address] Emergency Department Summary 10/16/20 MR#: [id number] Acct: [id number] Name: RITO LEON Rep #: [id number] : 1950 70 From: Galilea Welch MD PCP: Dr. Sherin Boswell MD Status:REG ER Location: ED HPI History of Present Illness Chief Complaint: Trauma Informant: patient and EMS Onset/Context/Timing Onset: Today Mechanism/Context: Blunt Injury Location of pain/injuries: Right hip and Right thigh Current Severity: Severe Associated Symptoms Associated Symptoms: Negative for Parasthesias, Weakness, Loss of function and Inability to ambulate Narrative Narrative: The patient is a 70-year-old male medical history significant for hypertension and atrial fibrillation who presents to the emergency department as a trauma. The patient was in his normal state of health. He was working underneath a large tractor. Apparently, the tractor came off the stand, and rolled over him. Most of the impact was to his right lower extremity. He had no head injury. There was no loss of consciousness. On squad arrival, he had obvious deformity of the mid femur. He was in significant pain. There is a small area with oozing up near the pelvis. There is no visible bone. Patient has been compliant with his Coumadin. He is unsure of his last tetanus shot. PFSH PFS Medical History Atrial fibrillation High cholesterol Home Medications atenolol 50 mg PO DAILY 11/02/16 [History Last Taken 11/01/16] fenofibrate nanocrystallized 145 mg PO DAILY 11/02/16 [History Last Taken 11/01/16] hydrocodone-acetaminophen 1 - 2 tab PO Q4H PRN PRN #5 tablet 11/02/16 [Rx Last Taken Unknown] montelukast 10 mg PO DAILY 11/02/16 [History Last Taken 11/01/16] warfarin [Coumadin ([facility])] 8 mg PO DAILY 11/02/16 [History Last Taken 11/01/16] Allergy/AdvReac Type Severity Reaction Status Date / Time No Known Allergies Allergy Verified 10/16/20 10:09 Social History Smoking Status: Former smoker ROS ROS ED Constitutional Constitutional ED: Denies chills or fever(s) Eyes Eyes: Denies blurry vision or change in vision ENT ENT ED: Denies ear pain or sore throat Cardiovascular Cardiovascular: Denies chest pain or palpitations Respiratory/Chest Respiratory/Chest: Denies cough, dyspnea or dyspnea on exertion Gastrointestinal Gastrointestinal: Denies abdominal pain, nausea or vomiting Genitourinary Genitourinary ED: Denies dysuria or urinary frequency Musculoskeletal Musculoskeletal: Reports arthralgias and myalgias Integumentary Denies rash Neurologic Neurologic: Denies headache(s) or paresthesias Psychiatric Psychiatric: Denies anxiety or depression Endocrine Endocrinology: Denies polydipsia or polyuria Allergic/Immunologic Allergic/Immunologic ED: Denies urticaria EXAM Physical Exam Const Vital Signs: 10/16/20 10:10 10/16/20 10:16 10/16/20 10:19 Temperature 97.3 F L Temperature Source Temporal Pulse Rate 138 H 131 H Respiratory Rate 21 H Respiratory Effort Normal Non-Labored Blood Pressure 145/81 H Blood Pressure Mean 102 Pulse Ox 95 Oxygen Delivery Method Room Air 10/16/20 10:37 Temperature Temperature Source Pulse Rate 118 H Respiratory Rate 20 H Respiratory Effort Blood Pressure 148/107 H Blood Pressure Mean 120 Pulse Ox 96 Oxygen Delivery Method Nasal Cannula Positive well nourished and well developed General Appearance ED: well developed HEENT Reports normocephalic, head/scalp atraumatic and moist mucous membranes atraumatic; Negative for tenderness Eyes PERRL and EOMs intact bilaterally Neck full ROM, no lymphadenopathy and supple General: Negative for tenderness Chest Wall inspection of chest normal Resp normal respiratory effort and clear to auscultation bilaterally Cardio regular rate, regular rhythm and no murmurs GI normal to inspection, nondistended, normoactive bowel sounds Palpation: Negative for tender, guarding or rebound tenderness present Back/Spine no CVA tenderness and normal to inspection Cervical Spine: Negative for cervical spine tenderness Thoracic Spine / Upper Back: Negative for thoracic spinal tenderness Extremity Extremity Narrative: Patient does have obvious deformity of the mid femur on the right lower extremity. There is a 1 cm poke hole towards the inguinal crease. It is only oozing. There is no pulsatile blood. He does have 2+ posterior tib and dorsalis pedis pulses distally. There is some firmness of the leg. General Extremety ED: Yes tenderness Neuro oriented x3 and CN's II-XII intact bilaterally Neuro Narrative: No focal deficits appreciated. Sensorium / O (more content not included)... Normal [facility] EthanolOrdered By: Zandra lopez on 10-16-2020 Ethanol Lvl <0.010 0.000 - 0.010 g/dL [facility] Work Phone: Comment on above: NOTE: This result is for medical treatment only. Analysis performed using non-forensic procedures. Ethanol Serum/Plasmaon 10-16 Ethanol-Serum/Plasma < 0.010 Normal 0.000-0 .01 0 [facility] Comment on above: Result Comment: NOTE : This result is for medical treatment only. Analysis performed using non-forensic procedures. Performed By: #### H EMOG, BMP3M, CK3 #### [facility] [address] [place] [address] Femur Min 2 Viewson 10-17-19 Femur Min 2 Views [facility] Imaging Services [address] [place] [address] Femur Min 2 Views MR#: [id number] Acct: [id number] Name: RITO LEON Rep #: [id number] : 1950 M 70 From: Harjeet Gayle MD PCP: Dr. Sherin Boswell MD Status: REG ER Study: Femur Min 2 Views Date of Exam: 10/16/20 Exam# [id number] Ordering Dr: Galilea Welch MD STUDY: X-RAY - RIGHT FEMUR REASON FOR STUDY: Male, 70 years old. trauma TECHNIQUE: 2 view(s) of the femur. COMPARISON: None. FINDINGS: Acute anterior medially displaced oblique fracture the midshaft of the femur with a large butterfly fragment. Normal visualized soft tissue structure. RAD/Femur Min 2 Views IMPRESSION: Acute anterior medially displaced oblique fracture the midshaft of the femur with a large butterfly fragment. Electronically Signed: Harjeet Gayle MD at 11:03 EDT Tel , Service support , CC: Dr. Sherin Boswell MD; Dr. Galilea Welch MD Lgsw: Signed Normal [facility] Hemogramon 10-16-2020 Erythrocyte distribution width (RBC) [Ratio] 13.8 % Normal 11.5-14.5 [facility] Comment on above: Performed By: #### H EULALIO SOARES3Chasity, CK3 #### [address] [address] [address] [place], [place] Hematocrit (Bld) [Volume fraction] 38.9 % Low 40.0-52.0 [facility] Comment on above: Performed By: #### H EULALIO SOARES3Chasity, CK3 #### [address] [address] [address] [place], [place] Hemoglobin (Bld) [Mass/Vol] 13.3 g/dL Normal 13.0-18.0 [facility] Comment on above: Performed By: #### H EULALIO SOARES3Chasity, CK3 #### [address] [address] [address] [place], [place] MCH (RBC) [Entitic mass] 31.3 pg Normal 26.0-34.0 [facility] Comment on above: Performed By: #### H RODGER BMP3M, CK3 #### [address] [address] [address] [place], [place] MCHC 34.3 % Normal 32.0-36.0 [facility] Comment on above: Performed By: #### H EULALIO SOARES3Chasity, CK3 #### [address] [address] [place], [place] MCV (RBC) [Entitic vol] 91.2 fL Normal 80.0-98.0 [facility] Comment on above: Performed By: #### H EMOCalos BMP3M, CK3 #### [address] [address] [address] [place], [place] Platelet mean volume (Bld) [Entitic vol] 7.3 fL Low 7.4-10.4 [facility] Comment on above: Performed By: #### H EMOCalos BMP3M, CK3 #### [address] [address] [place], [place] Platelets (Bld) [#/Vol] 354 10*3/uL Normal 140-440 [facility] Comment on above: Performed By: #### H EMOCalos BMP3M, CK3 #### [address] [address] [place], [place] RBC (Bld) [#/Vol] 4.26 10*6/uL Low 4.40-5.90 [facility] Comment on above: Performed By: #### H EMOG BMP3M, CK3 #### [address] [address] [place], [place] WBC (Bld) [#/Vol] 20.6 10*3/uL High 3.6-10.7 [facility] Comment on above: Performed By: #### H RODGER BMP3M, CK3 #### [address] Lactic Acidon 10-16-2020 Lactate [Moles/Vol] 2.6 mmol/L Critically high 0.7-2.0 [facility] Comment on above: Performed By: #### L ACT3 #### [address] [address] [place], [place] Lactate [Moles/Vol] 2.4 mmol/L Critically high 0.7-2.0 [facility] Comment on above: Result Comment: Crit ica Panic Lactate has fallen below the [facility] CCL/ED Panic Call Protocol. For [facility] ED patients ONLY the Lactate Levels greater than 2.0 and less than or equal to 4.0 mmol/L fall under the Panic Call Policy. Performed By: #### B MP3M, HEMOG #### [address] [address] [place], [place] #### VD25H #### [facility] [address] [place] [address] Lactic Acid, PlasmaOrdered B y: Jey Camacho on 10-16-2020 Interpretation and review of laboratory results Abnormal [facility] Work Phone: Lactate [Moles/Vol] 2.6 mmol/L Critically high 0.7 - 2.0 mmol/L [facility] Work Phone: Test Performed by [facility], [facility] [place], [place] [facility] Work Phone: [phone] [facility] Work Phone: [phone] Lactic Acid, PlasmaOrdered B y: Zandra Resendez on 10-16-2020 Interpretation and review of laboratory results Abnormal [facility] Work Phone: [phone] Lactate [Moles/Vol] 2.4 mmol/L Critically high 0.7 - 2.0 mmol/L [facility] Work Phone: [phone] Comment on above: Critical Panic Lacta te has fallen below the [facility] CCL/ED Panic Call Protocol. For [facility] ED patients ONLY the Lactate Levels greater than 2.0 and less than or equal to 4.0 mmol/L fall under the Panic Call Policy. Test Performed by [address] [place] [address] [place] [address] [facility] Work Phone: [phone] [facility] Work Phone: [phone] Panel InformationOrdered By: Zandra Resendez on 10-16-2020 Interpretation and review of laboratory results Abnormal [facility] Work Phone: [phone] Test Performed by [facility], [facility] [place] [address] [facility] Work Phone: [phone] [facility] Work Phone: [phone] Op Noteon 10-16-[address] [facility] [address] [place], [place] [id number] Dept: [phone] Loc: [phone] Operative Report Patient Name: Rito Leon Date of : 1950 Date of Surgery: 10/16/20 Pre-operative diagnosis: 1) Right open midshaft femur fracture 2) R knee effusion and proximal fibula fracture Post-operative diagnosis: 1) Right grade 3 open midshaft femur fracture 2) Proximal fibula fracture with stable knee Procedure(s): 1. Irrigation and debridement of right open femur fracture 2. Retrograde right femoral nail (CPT 07960) 3. Right knee exam under anesthesia Surgeon: Piter Dover M.D. Facilities Maintenance Engineer(s): Rolf Jaramillo M.D. and Kortnie Broschinsky, M.D. Anesthesia: General EBL: 100 mL IVF: Crystalloid Medications: Patient was on scheduled 4.5 g Zosyn, received another dose intraoperatively Implants: S&N Trigen retrograde femoral nail, 10 mm x 40 cm nail Clinical History/Indication for Surgery The patient is a 70 y.o. year old male who was presents for operative fixation of a right open femur fracture. He was given Zosyn immediately upon initial evaluation by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 Sherin Boswell MD Work Phone: [facility] 08-30-2024 08:02-0400 Diastolic blood pressure 67 mm[Hg] Sherin Boswell MD Work Phone: [facility] 08-30-2024 08:02-0400 Heart rate 61 /min Sherin Boswell MD Work Phone: [facility] 08-30-2024 08:02-0400 SaO2% (BldA) [Mass fraction] 98 % Sherin Boswell MD Work Phone: [facility] 08-30-2024 08:02-0400 Systolic blood pressure 137 mm[Hg] Sherin Boswell MD Work Phone: [facility] 07-05-2024 09:20-0400 Body height 190.5 cm Sherin Boswell MD Work Phone: [facility] 07-05-2024 09:20-0400 Body mass index (BMI) [Ratio] 24.97 kg/m2 Sherin Boswell MD Work Phone: [facility] 07-05-2024 09:20-0400 Body weight 90.63 kg Sherin Boswell MD Work Phone: [facility] 07-05-2024 09:20-0400 Diastolic blood pressure 59 mm[Hg] Sherin Boswell MD Work Phone: [facility] 07-05-2024 09:20-0400 Heart rate 86 /min Sherin Boswell MD Work Phone: [facility] 07-05-2024 09:20-0400 SaO2% (BldA) [Mass fraction] 95 % Sherin Boswell MD Work Phone: [facility] 07-05-2024 09:20-0400 Systolic blood pressure 108 mm[Hg] Sherin Boswell MD Work Phone: [facility] 04-18-2024 10:00-0500 Body mass index (BMI) [Ratio] 26 kg/m2 Jody Blanton MD Work Phone: [facility] 04-18-2024 10:00-0500 Body weight 91.9 kg Jody Blanton MD Work Phone: [facility] 04-18-2024 10:00-0500 Diastolic blood pressure 68 mm[Hg] Jody Blanton MD Work Phone: [facility] 04-18-2024 10:00-0500 Heart rate 99 /min Jody Blanton MD Work Phone: [facility] 04-18-2024 10:00-0500 SaO2% (BldA) [Mass fraction] 98 % Jody Blanton MD Work Phone: [facility] 04-18-2024 10:00-0500 Systolic blood pressure 124 mm[Hg] Jody Blanton MD Work Phone: [facility] 04-04-2024 08:09-0500 Body height 188 cm Sherin Boswell MD Work Phone: [facility] 04-04-2024 08:09-0500 Body mass index (BMI) [Ratio] 25.9 kg/m2 Sherin Boswell MD Work Phone: [facility] 04-04-2024 08:09-0500 Body weight 91.54 kg Sherin Boswell MD Work Phone: [facility] 04-04-2024 08:09-0500 Diastolic blood pressure 64 mm[Hg] Sherin Boswell MD Work Phone: [facility] 04-04-2024 08:09-0500 Heart rate 78 /min Sherin Boswell MD Work Phone: [facility] 04-04-2024 08:09-0500 SaO2% (BldA) [Mass fraction] 94 % Sherin Boswell MD Work Phone: [facility] 04-04-2024 08:09-0500 Systolic blood pressure 118 mm[Hg] Sherin Boswell MD Work Phone: [facility] 01-25-2024 09:37-0400 Body mass index (BMI) [Ratio] 25.12 kg/m2 Leah Older [employer]INE [employer] Work Phone: [facility] 01-25-2024 09:37-0400 Body temperature 97.7 [degF] Leah Older [employer] Work Phone: [facility] 01-25-2024 09:37-0400 Body weight 91.17 kg Leah Older [employer] Work Phone: [facility] 01-25-2024 09:37-0400 Diastolic blood pressure 78 mm[Hg] Leah Older [employer] Work Phone: [facility] 01-25-2024 09:37-0400 Heart rate 81 /min Leah Older [employer]INE [employer] Work Phone: [facility] 01-25-2024 09:37-0400 Respiratory rate 16 /min Leah Older [employer]INE [employer] Work Phone: [facility] 01-25-2024 09:37-0400 SaO2% (BldA) [Mass fraction] 95 % Leah Older [employer] Work Phone: [facility] 01-25-2024 09:37-0400 Systolic blood pressure 122 mm[Hg] Leah Older [employer]INE [employer] Work Phone: [facility] 01-18-2024 07:39-0400 Body mass index (BMI) [Ratio] 25.12 kg/m2 Leah Older [employer] Work Phone: [facility] 01-18-2024 07:39-0400 Body temperature 97.81 [degF] Leah Older [employer] Work Phone: [facility] 01-18-2024 07:39-0400 Body weight 91.17 kg Leah Older [employer]INE [employer] Work Phone: [facility] 01-18-2024 07:39-0400 Diastolic blood pressure 80 mm[Hg] Leah Older [employer]INE [employer] Work Phone: [facility] 01-18-2024 07:39-0400 Heart rate 92 /min Leah Older [employer]INE [employer] Work Phone: [facility] 01-18-2024 07:39-0400 Respiratory rate 16 /min Leah Older [employer]INE [employer] Work Phone: [facility] 01-18-2024 07:39-0400 SaO2% (BldA) [Mass fraction] 96 % Leah Older [employer]INE [employer] Work Phone: [facility] 01-18-2024 07:39-0400 Systolic blood pressure 128 mm[Hg] Leah Older [employer]INE [employer] Work Phone: [facility] 01-14-2024 07:48-0400 Body mass index (BMI) [Ratio] 25.08 kg/m2 Sri Suppan [employer] Work Phone: [facility] 01-14-2024 07:48-0400 Body temperature 97.7 [degF] Sri Suppan [employer] Work Phone: [facility] 01-14-2024 07:48-0400 Body weight 91 kg Sri Suppan [employer] Work Phone: [facility] 01-14-2024 07:48-0400 Diastolic blood pressure 72 mm[Hg] Sri Suppan [employer]INE [employer] Work Phone: [facility] 01-14-2024 07:48-0400 Heart rate 75 /min Rsi Suppan [employer] Work Phone: [facility] 01-14-2024 07:48-0400 Respiratory rate 20 /min Sri Suppan [employer]INE [employer] Work Phone: [facility] 01-14-2024 07:48-0400 SaO2% (BldA) [Mass fraction] 97 % Sri Suppan [employer] Work Phone: [facility] 01-14-2024 07:48-0400 Systolic blood pressure 128 mm[Hg] Sri Sergioblaine [employer]INE [employer] Work Phone: [facility] 01-11-2024 07:27-0400 Body mass index (BMI) [Ratio] 24.94 kg/m2 Brian Apple [employer] Work Phone: [facility] 01-11-2024 07:27-0400 Body temperature 98.1 [degF] Brian Apple [employer]INE [employer] Work Phone: [facility] 01-11-2024 07:27-0400 Body weight 90.5 kg Brian Apple [employer]INE [employer] Work Phone: [facility] 01-11-2024 07:27-0400 Diastolic blood pressure 76 mm[Hg] Brian Apple [employer]INE [employer] Work Phone: [facility] 01-11-2024 07:27-0400 Heart rate 92 /min Brian Apple [employer]INE [employer] Work Phone: [facility] 01-11-2024 07:27-0400 Respiratory rate 16 /min Brian Lopezaime ENGINE H[employer] Work Phone: [facility] 01-11-2024 07:27-0400 SaO2% (BldA) [Mass fraction] 96 % Brian Apple [employer] Work Phone: [facility] 01-11-2024 07:27-0400 Systolic blood pressure 126 mm[Hg] Brian Apple [employer]INE [employer] Work Phone: [facility] 09-28-2023 07:55-0400 Body mass index (BMI) [Ratio] 24.87 kg/m2 Isabelle Melara [employer] Work Phone: [facility] 09-28-2023 07:55-0400 Body weight 90.27 kg Isabelle Melara [employer] Work Phone: [facility] 09-28-2023 07:55-0400 Diastolic blood pressure 81 mm[Hg] Isabelle Melara [employer]INE [employer] Work Phone: [facility] 09-28-2023 07:55-0400 Heart rate 84 /min Isabelle Kelton [employer] Work Phone: [facility] 09-28-2023 07:55-0400 Respiratory rate 16 /min Isabelle Kelton [employer]INE [employer] Work Phone: [facility] 09-28-2023 07:55-0400 SaO2% (BldA) [Mass fraction] 95 % Isabelle Kelton [employer]INE [employer] Work Phone: [facility] 09-28-2023 07:55-0400 Systolic blood pressure 123 mm[Hg] Isabelle Kelton [employer]INE [employer] Work Phone: [facility] 07-10-2023 10:50-0400 Body height 190.5 cm Jody Blanton MD Work Phone: [facility] 07-10-2023 10:50-0400 Body weight 91 kg Jody Blanton MD Work Phone: [facility] 07-10-2023 10:50-0400 Diastolic blood pressure 70 mm[Hg] Jody Blanton MD Work Phone: [facility] 07-10-2023 10:50-0400 Heart rate 66 /min Jody Blanton MD Work Phone: [facility] 07-10-2023 10:50-0400 SaO2% (BldA) [Mass fraction] 97 % Jody Blanton MD Work Phone: [facility] 07-10-2023 10:50-0400 Systolic blood pressure 114 mm[Hg] Jody Blanton MD Work Phone: [facility] 06-10-2023 09:59-0500 Body height 190.5 cm Jody Blanton MD Work Phone: [facility] 06-10-2023 09:59-0500 Body weight 90.9 kg Jody Blanton MD Work Phone: [facility] 06-10-2023 09:59-0500 Diastolic blood pressure 70 mm[Hg] Jody Blanton MD Work Phone: [facility] 06-10-2023 09:59-0500 Heart rate 88 /min Jody Blanton MD Work Phone: [facility] 06-10-2023 09:59-0500 Respiratory rate 16 /min Jody Blanton MD Work Phone: [facility] 06-10-2023 09:59-0500 SaO2% (BldA) [Mass fraction] 98 % Jody Blanton MD Work Phone: [facility] 06-10-2023 09:59-0500 Systolic blood pressure 120 mm[Hg] Jody Blanton MD Work Phone: [facility] 03-18-2023 07:47-0500 Body height 167 cm Leah Older ENGINE [employer] Work Phone: [facility] 03-18-2023 07:47-0500 Body weight 89.27 kg Leah Older ENGINE [employer] Work Phone: [facility] 03-18-2023 07:47-0500 Diastolic blood pressure 64 mm[Hg] Leah Older [employer]INE [employer] Work Phone: [facility] 03-18-2023 07:47-0500 Heart rate 70 /min Leah Older ENGINE H[employer] Work Phone: [facility] 03-18-2023 07:47-0500 Respiratory rate 16 /min Leah Older ENGINE [employer] Work Phone: [facility] 03-18-2023 07:47-0500 SaO2% (BldA) [Mass fraction] 96 % Leah Older ENGINE [employer] Work Phone: [facility] 03-18-2023 07:47-0500 Systolic blood pressure 118 mm[Hg] Leah Older ENGINE H[employer] Work Phone: [facility] 03-17-2022 07:51-0500 Body height 190.5 cm Leah Older ENGINE [employer] Work Phone: [facility] 03-17-2022 07:51-0500 Body temperature 96.91 [degF] Leah Older [employer]INE [employer] Work Phone: [facility] 03-17-2022 07:51-0500 Body weight 91.63 kg Leah Older ENGINE [employer] Work Phone: [facility] 03-17-2022 07:51-0500 Diastolic blood pressure 72 mm[Hg] Leah Older ENGINE [employer] Work Phone: [facility] 03-17-2022 07:51-0500 Heart rate 71 /min Leah Older ENGINE [employer] Work Phone: [facility] 03-17-2022 07:51-0500 Respiratory rate 12 /min Leah Older ENGINE [employer] Work Phone: [facility] 03-17-2022 07:51-0500 SaO2% (BldA) [Mass fraction] 97 % Leah Older ENGINE [employer] Work Phone: [facility] 03-17-2022 07:51-0500 Systolic blood pressure 122 mm[Hg] Leah Older ENGINE [employer] Work Phone: [facility] 10-22-2020 13:37-0400 Body temperature 97.3 [degF] Alfredo Miles MD Work Phone: [facility] Work Phone: 10-22-2020 13:37-0400 Diastolic blood pressure 80 mm[Hg] Alfredo Miles MD Work Phone: [facility] Work Phone: 10-22-2020 13:37-0400 Heart rate 112 /min Alfredo Miles MD Work Phone: [facility] Work Phone: 10-22-2020 13:37-0400 Respiratory rate 18 /min Alfredo Miles MD Work Phone: [facility] Work Phone: 10-22-2020 13:37-0400 SaO2% (BldA) [Mass fraction] 95 % Alfredo Miles MD Work Phone: [facility] Work Phone: 10-22-2020 13:37-0400 Systolic blood pressure 118 mm[Hg] Alfredo Miles MD Work Phone: [facility] Work Phone: 10-16-2020 17:05-0400 Body height 190.5 cm Alfredo Miles MD Work Phone: [facility] Work Phone: 10-16-2020 17:05-0400 Body mass index (BMI) [Ratio] 23.87 kg/m2 Alfredo Miles MD Work Phone: [facility] Work Phone: 10-16-2020 17:05-0400 Body weight 86.64 kg Alfredo Miles MD Work Phone: [facility] Work Phone: NEGATED: Highlighted [id number] 12:43-0500 Body height 186.69 cm Kandice Landis [facility] Work Phone: NEGATED: Highlighted [id number] 12:43-0500 Body height 187 cm Kandice Landis CLINICAL PATHOLOGIST [facility] Work Phone: NEGATED: Highlighted [id number] 12:43-0500 Body mass index (BMI) [Ratio] 26.91 kg/m2 Kandice Landis CLINICAL PATHOLOGIST [facility] Work Phone: NEGATED: Highlighted [id number] 12:43-0500 Body weight 93.44 kg Kandice Landis CLINICAL PATHOLOGIST [facility] Work Phone: NEGATED: Highlighted [id number] 12:43-0500 Body weight 94 kg Kandice Landis CLINICAL PATHOLOGIST [facility] Work Phone: Encounters Encounter Date Encounter Type Care Provider Facility Start: 11-09-2024 Evaluation and manag ement of inpatient [facility] Facility:[facility] Start: 11-09-2024 End: 11-09-2024 Emergency department patient visit Dr. Pablo Jaime MD Work Phone: -Emergency Department Work Phone: Start: 10-17-2024 End: 10-17-2024 Office outpatient visit 25 minutes Sherin Boswell MD Work Phone: [facility] [place] Comment on above: Mixed hyperlipidemia (Primary Dx); Hypertension with goal blood pressure less than 140/90; Screening for depression; Encounter for screening examination for other mental health and behavioral disorders Start: 10-17-2024 End: 10-17-2024 [facility] Facility:[facility] Start: 09-02-2024 End: 11-02-2024 Follow-up encounter Leah Bloom APRN.CNP Work Phone: [facility] [place] Start: 08-30-2024 End: 08-30-2024 [facility] Facility:[facility] Start: 08-30-2024 End: 08-30-2024 Office outpatient visit 25 minutes Sherin Boswell MD Work Phone: [facility] [place] Comment on above: Myalgia (Primary Dx) ; Mixed hyperlipidemia; Hypertriglyceridemia; Persistent atrial fibrillation (HCC); Hypertension with goal blood pressure less than 140/90; Weight gain; Fatigue, unspecified type; Statin myopathy Start: 08-30-2024 End: 08-30-2024 [facility] Facility:[facility] Start: 08-29-2024 End: 08-30-2024 Telephone encounter Sherin Boswell MD Work Phone: [facility] [place] Comment on above: Patient Update Start: 07-05-2024 End: 07-05-2024 [facility] Facility:[facility] Start: 07-05-2024 End: 07-05-2024 Office outpatient visit 25 minutes Sherin Boswell MD Work Phone: [facility] [place] Comment on above: Atrial fibrillation, unspecified type (HCC) (Primary Dx); Tobacco abuse, in remission; Hypertension with goal blood pressure less than 140/90; Mixed hyperlipidemia; Hypothyroidism, unspecified type; Prostate cancer screening Start: 06-27-2024 End: 06-29-2024 Refill Sherin Boswell MD Work Phone: [facility] [place] Comment on above: Refill Request Start: 06-01-2024 End: 06-02-2024 Refill Sherin Boswell MD Work Phone: [facility] [place] Comment on above: Refill Request Start: 04-18-2024 End: 04-18-2024 ambulatory JODY BLANTON Facility:[facility] Start: 04-18-2024 End: 04-18-2024 Patient encounter procedure Jody Blanton MD Work Phone: Cardiology Comment on above: Aortic valve stenosi s, etiology of cardiac valve disease unspecified (Primary Dx); Atrial fibrillation, unspecified type (HCC) Start: 04-04-2024 End: 04-04-2024 Office outpatient visit 25 minutes Sherin Boswell MD Work Phone: [facility] [place] Comment on above: Medicare annual well ness visit, subsequent (Primary Dx); Need for influenza vaccination; Nocturia; Prostate cancer screening; BPH associated with nocturia; Aortic valve stenosis, etiology of cardiac valve disease unspecified; Mixed hyperlipidemia Start: 04-04-2024 End: 04-04-2024 Patient encounter procedure Sherin Boswell MD Work Phone: [facility] Start: 04-04-2024 End: 04-04-2024 ambulatory SHERIN BOSWELL Facility:[facility] Start: 03-28-2024 End: 03-28-2024 ambulatory JODY BLANTON Facility:[facility] Start: 03-22-2024 End: 03-25-2024 ambulatory Sherin Boswell MD Work Phone: Internal Medicine [facility] Start: 03-18-2024 End: 03-18-2024 Refill Sherin Boswell MD Work Phone: [facility] [place] Comment on above: Refill Request Start: 02-26-2024 End: 02-26-2024 Telephone encounter Leah Bloom APRN.FIRST BEATER Work Phone: [facility] [place] Comment on above: repeat chest xrpatrica churchill Start: 02-24-2024 End: 02-24-2024 [facility] Facility:[facility] Start: 02-24-2024 End: 02-24-2024 Subsequent hospital visit by physician Xr [facility] Work Phone: Radiology Comment on above: Pneumonia of left arlen ng due to infectious organism, unspecified part of lung [J18.9] Start: 01-25-2024 End: 01-25-2024 [facility] Facility:[facility] Start: 01-25-2024 End: 01-25-2024 Patient encounter procedure Leah Bloom APRN.FIRST BEATER Work Phone: [facility] [place] Comment on above: Pneumonia of left arlen ng due to infectious organism, unspecified part of lung (Primary Dx); Sinus drainage Start: 01-18-2024 End: 01-18-2024 [facility] Facility:[facility] Start: 01-18-2024 End: 01-18-2024 Patient encounter procedure Leah Bloom ENGINE HOSTLER.FIRST BEATER Work Phone: [facility] [place] Comment on above: Pneumonia of left arlen ng due to infectious organism, unspecified part of lung (Primary Dx); Acute non-recurrent sinusitis, unspecified location Start: 01-17-2024 End: 01-17-2024 ambulatory Pepper Haley RN NURSE ROCKET ASSEMBLY OPERATOR Comment on above: Pneumonia Start: 01-14-2024 End: 01-14-2024 ambulatory SRI NELSON Facility:[facility] Start: 01-14-2024 End: 01-14-2024 Office outpatient visit 15 minutes Sri Nelson ENGINE HOSTLER.FIRST BEATER Work Phone: [facility] [place] Comment on above: Bacterial pneumonia (Primary Dx) Start: 01-11-2024 End: 01-11-2024 Telephone encounter Hermila Villagomez APRN.FIRST BEATER Work Phone: [facility] Comment on above: Results Start: 01-11-2024 End: 01-11-2024 Subsequent hospital visit by physician Latisha [facility] Work Phone: Radiology Comment on above: Acute cough [R05.1] Start: 01-11-2024 End: 01-11-2024 ambulatory SHERIN BOSWELL Facility:[facility] Start: 01-11-2024 End: 01-11-2024 Office outpatient visit 25 minutes Brian Apple APRN.FIRST BEATER Work Phone: [facility] Comment on above: Acute cough (Primary Dx); Suspected COVID-19 virus infection; Community acquired pneumonia of left lower lobe of lung Start: 12-11-2023 ambulatory Cassy Damon [facility] Start: 12-11-2023 Patient encounter [facility] Comment on above: Population Health [facility] (Goldy Mariano [facility]) Erroneous encounter- disregard Start: 11-30-2023 Refill Sherin Moses Work Phone: [facility] [place] Comment on above: Refill Request Start: 09-28-2023 End: 09-28-2023 Patient encounter procedure Isabelle Melara APRN.FIRST BEATER Work Phone: [facility] [place] Comment on above: Primary hypertension (Primary Dx); Hypothyroidism, unspecified type; Mixed hyperlipidemia; Persistent atrial fibrillation (HCC); Encounter for immunization Start: 09-15-2023 ambulatory Sherin Moses Work Phone: Internal Medicine [facility] Start: 09-14-2023 Refill Sherin Moses Work Phone: [facility] [place] Comment on above: Refill Request Start: 07-10-2023 End: 07-10-2023 Patient encounter procedure Jody Blanton MD Work Phone: Cardiology Comment on above: Aortic valve stenosi s, etiology of cardiac valve disease unspecified (Primary Dx); Persistent atrial fibrillation (HCC) Start: 06-29-2023 Telephone encounter Jody Blanton MD Work Phone: Cardiology Comment on above: Medication Problem ( Metoprolol dose, ) Start: 06-11-2023 Refill Leah Bloom APRN .HILDA Work Phone: [facility] [place] Comment on above: Refill Request Start: 06-10-2023 End: 06-10-2023 Patient encounter procedure Jody Blanton MD Work Phone: Cardiology Comment on above: Aortic valve stenosi s, etiology of cardiac valve disease unspecified (Primary Dx); Chronic a-fib (HCC); Aortic stenosis, severe; Mixed hyperlipidemia; Persistent atrial fibrillation (HCC) Start: 04-08-2023 Telephone encounter Leah Bloom APRN.HILDA Work Phone: [facility] [place] Comment on above: Results Start: 03-23-2023 Telephone encounter Leah Bloom APRN.HILDA Work Phone: [facility] [place] Comment on above: Results Start: 03-18-2023 End: 03-18-2023 Patient encounter procedure Leah Bloom APRN.HILDA Work Phone: [facility] [place] Comment on above: Medicare annual well [facility] visit, subsequent (Primary Dx); Hypertension with goal blood pressure less than 140/90; Palpitations; Persistent atrial fibrillation (HCC); Hypertriglyceridemia Start: 09-15-2022 End: 09-15-2022 Subsequent hospital visit by physician Latisha [facility] Work Phone: Radiology Comment on above: Left foot pain [M79. 672] Start: 06-30-2022 Refill Sherin Moses Work Phone: [facility] [place] Comment on above: Refill Request Start: 05-23-2022 Refill Sherin Moses Work Phone: [facility] [place] Comment on above: Refill Request Start: 03-19-2022 Telephone encounter Leah Bloom APRN.HILDA Work Phone: [facility] [place] Comment on above: Results Start: 03-17-2022 End: 03-17-2022 Patient encounter procedure Leah Bloom APRN.HILDA Work Phone: [facility] [place] Comment on above: Persistent atrial fi brillation (HCC) (Primary Dx); Hypertension, unspecified type; Mixed hyperlipidemia; Rhinitis, unspecified type; Chronic anticoagulation Start: 01-28-2022 Refill Leah HerreraFIRST BEATER Work Phone: [facility] Comment on above: Refill Request Start: 09-11-2021 End: 09-11-2021 ambulatory Alma Scott PT Work Phone: [facility] Comment on above: Type III open fractu re of shaft of right femur with routine healing, unspecified fracture morphology, subsequent encounter Start: 09-09-2021 End: 09-09-2021 ambulatory Virgen Paula LITHOGRAPH DESIGNER Work Phone: [facility] Comment on above: Type III open fractu re of shaft of right femur with routine healing, unspecified fracture morphology, subsequent encounter Start: 09-04-2021 End: 09-04-2021 ambulatory Alma Scott PT Work Phone: [facility] Comment on above: Type III open fractu re of shaft of right femur with routine healing, unspecified fracture morphology, subsequent encounter Start: 08-29-2021 End: 08-29-2021 ambulatory Virgen Paula LITHOGRAPH DESIGNER Work Phone: [facility] Comment on above: Type III open fractu re of shaft of right femur with routine healing, unspecified fracture morphology, subsequent encounter Start: 08-27-2021 End: 08-27-2021 ambulatory Virgen Paula LITHOGRAPH DESIGNER Work Phone: [facility] Comment on above: Type III open fractu re of shaft of right femur with routine healing, unspecified fracture morphology, subsequent encounter Start: 08-23-2021 End: 08-23-2021 ambulatory Virgen Paula LITHOGRAPH DESIGNER Work Phone: [facility] Comment on above: Type III open fractu re of shaft of right femur with routine healing, unspecified fracture morphology, subsequent encounter Start: 08-20-2021 End: 08-20-2021 ambulatory Virgen Paula LITHOGRAPH DESIGNER Work Phone: [facility] Comment on above: Type III open fractu re of shaft of right femur with routine healing, unspecified fracture morphology, subsequent encounter Start: 08-16-2021 End: 08-16-2021 ambulatory Alma Lemon PT Work Phone: [facility] Comment on above: Type III open fractu re of shaft of right femur with routine healing, unspecified fracture morphology, subsequent encounter Start: 08-09-2021 End: 08-09-2021 ambulatory Alma Lemon PT Work Phone: [facility] Comment on above: Type III open fractu re of shaft of right femur with routine healing, unspecified fracture morphology, subsequent encounter Start: 08-06-2021 End: 08-06-2021 ambulatory Virgen Paula LITHOGRAPH DESIGNER Work Phone: [facility] Comment on above: Type III open fractu re of shaft of right femur with routine healing, unspecified fracture morphology, subsequent encounter Start: 08-02-2021 End: 08-02-2021 ambulatory Alma Lemon PT Work Phone: [facility] Comment on above: Type III open fractu re of shaft of right femur with routine healing, unspecified fracture morphology, subsequent encounter Start: 07-26-2021 End: 07-26-2021 ambulatory Alma Lemon PT Work Phone: [facility] Comment on above: Type III open fractu re of shaft of right femur with routine healing, unspecified fracture morphology, subsequent encounter Start: 07-24-2021 End: 07-24-2021 ambulatory Alma Lemon PT Work Phone: [facility] Comment on above: Type III open fractu re of shaft of right femur with routine healing, unspecified fracture morphology, subsequent encounter (Primary Dx) Start: 10-18-2020 End: 10-18-2020 ambulatory UNKNOWN PROVIDER Facility:[facility] Start: 10-16-2020 End: 10-22-2020 Evaluation and management of inpatient Alfredo Miles MD Work Phone: [facility] Comment on above: Closed fracture of s haft of right femur, unspecified fracture morphology, initial encounter ([facility]) (Primary Dx); Acute traumatic pain; Accident caused by machinery, initial encounter Start: 09-11-2020 End: 09-11-2020 Subsequent hospital visit by physician Latisha [facility] Work Phone: Radiology Comment on above: Chronic pain of righ t knee [M25.561, G89.29] Procedures Date Procedure Procedure Detail Performing Clinician Start: 11-09-2024 CT of head without contrast Dr. Pablo Jaime MD Work Phone: Start: 10-17-2024 Adult depression screening assessment Sherin Boswell MD Work Phone: Start: 08-30-2024 Lipid 1996 panel - S vivienne or Plasma Sherin Boswell MD Work Phone: Start: 01-11-2024 Radiologic exam ches t 2 views Brian Apple ENGINE HOSTLER.FIRST BEATER Work Phone: Start: 09-28-2023 CoNarrative-Spinzo COVI D-19 VACCINE (2022-) AGE 12+ YR Isabelle Melara ENGINE HOSTLER.FIRST BEATER Work Phone: Start: 09-22-2023 Lipid 1996 panel - S vivienne or Plasma Isabelle Melara ENGINE HOSTLER.FIRST BEATER Work Phone: Start: 06-10-2023 Ecg routine ecg w/le ast 12 lds i&r only [facility] Provider Start: 03-18-2023 Ecg routine ecg w/le ast 12 lds i&r only [facility] Provider Start: 09-15-2022 Radex foot complete minimum 3 views Leah Bloom ENGINE HOSTLER.FIRST BEATER Work Phone: Start: 09-11-2022 Lipid 1996 panel - S vivienne or Plasma Leah Bloom ENGINE HOSTLER.FIRST BEATER Work Phone: Start: 09-11-2021 Adult depression screening assessment Alma Monzonadrienne PT Work Phone: Start: 07-01-2021 End: 07-01-2021 BP scrn no perf at interval Piter Dover MD Work Phone: Start: 07-01-2021 End: 07-01-2021 Calc BMI abv up veronica f/u Piter Dover MD Work Phone: Start: 07-01-2021 End: 07-01-2021 Current tobacco non-user cad cap copd pv dm Piter Dover MD Work Phone: Start: 07-01-2021 End: 07-01-2021 Docd contact that fx existed & pt tsted/txd op Piter Dover MD Work Phone: Start: 07-01-2021 End: 07-01-2021 Docrev cur meds by vahid Dover MD Work Phone: Start: 07-01-2021 End: 07-01-2021 Pain doc pos and plan Piter Dover MD Work Phone: Start: 07-01-2021 End: 07-01-2021 Patient encounter procedure Piter Dover MD Work Phone: Start: 07-01-2021 End: 07-01-2021 Radiologic examination femur minimum 2 views Piter Dover MD Work Phone: Start: 10-22-2020 Dup-scan xtr veins complete bilateral study Kinsey Frias ENGINE HOSTLER - FIRST BEATER Work Phone: Start: 10-22-2020 COVID-19 Kinsey henderson ENGINE HOSTLER - FIRST BEATER Work Phone: Start: 10-19-2020 Dup-scan xtr veins complete bilateral study Kinsey Frias ENGINE HOSTLER - FIRST BEATER Work Phone: Start: 10-19-2020 BASIC METABOLIC PANE L W/ REFLEX TO MG FOR LOW K Sharon Camejo MD Work Phone: Start: 10-19-2020 Blood count complete automated Sharon Camejo MD Work Phone: Start: 10-18-2020 ADD ON LAB TEST Nishi Aragon ENGINE HOSTLER - FLORAL SPECIALIST Work Phone: Start: 10-18-2020 BASIC METABOLIC PANE L W/ REFLEX TO MG FOR LOW K Sharon Camejo MD Work Phone: Start: 10-18-2020 Creatine kinase total S alia Camejo MD Work Phone: Start: 10-17-2020 OPERATIVE REPORT 3m Sca nning Start: 10-17-2020 BASIC METABOLIC PANE L W/ REFLEX TO MG FOR LOW K Sharon Camejo MD Work Phone: Start: 10-17-2020 Creatine kinase total S alia Camejo MD Work Phone: Start: 10-16-2020 Radiologic examinati on femur minimum 2 views Emiliano Harris MD Work Phone: Start: 10-16-2020 Assay of lactate Jey sutton MD Work Phone: Start: 10-16-2020 Prothrombin time Vishal Mooney MD Work Phone: Start: 10-16-2020 Antibody screen Alfredo Miles MD Work Phone: Start: 10-16-2020 Radiologic exam ches t single view Home Presley MD Work Phone: Start: 6 End: 10-16-2020 Radiologic examination femur minimum 2 views Home Presley MD Work Phone: Start: 8 End: 10-16-2020 Ct cervical spine w/o contrast material Home Presley MD Work Phone: Start: 10-16-2020 Ct head/brain w/o contrast material Home Presley MD Work Phone: Start: 10-16-2020 PROTIME/INR & PTT Elbert Resendez MD Work Phone: Start: 10-16-2020 Assay of ethanol Zandra Resendez MD Work Phone: Start: 10-16-2020 Basic metabolic pane l calcium total Zandra Resendez MD Work Phone: Start: 10-16-2020 Blood typing serolog ic abo Alfredo Miles MD Work Phone: Start: 09-11-2020 Radiologic exam knee complete 4/more views Sherin Boswell MD Work Phone: Start: 02-01-2019 Colonoscopy Alma Scott PT Work Phone: Start: 05-27-2018 Adult depression screening assessment Alma Scott PT Work Phone: NEGATED: Highlighted rowStart: 07-01-2021 End: 07-01-2021 Documentation of current medications Kandice Landis LPN Plan of Treatment Date Care Activity Detail Author Start: 10-16-2030 Urine microalbumin profile [facility] Start: 08-30-2029 Lipid panel Lipid Screening [facility] Start: 09-21-2028 Lipid panel Lipid Screening [facility] Start: 09-12-2027 Lipid 1996 panel - Serum or Plasma Lipid Screening [facility] Start: 09-12-2027 Lipid panel Lipid Screening [facility] Start: 08-31-2027 Diabetes Screening Diabetes Screening [facility] Start: 04-04-2027 Diabetes Screening Diabetes Screening [facility] Start: 08-24-2026 LIPID SCREEN LIPID SCREEN [facility] Start: 05-06-2026 Diabetes Screening Diabetes Screening [facility] Start: 03-18-2026 Diabetes Screening Diabetes Screening [facility] Start: 02-01-2026 Colonoscopy COLONOSCOPY [facility] Start: 02-01-2026 COLORECTAL CANCER SCREENING COLORECTAL CANCER SCREENING [facility] Start: 02-01-2026 Screening for malignant neoplasm of colon [facility] Start: 10-17-2025 Annual PCP Team Chronic Disease Visit Annual PCP Team Chronic Disease Visit [facility] Start: 10-17-2025 Anxiety Screening Anxiety Screening [facility] Start: 10-17-2025 Depression Screening Depression Screening [facility] Start: 08-30-2025 Annual PCP Team Chronic Disease Visit Annual PCP Team Chronic Disease Visit [facility] Start: 08-30-2025 LIPID SCREEN LIPID SCREEN [facility] Start: 07-05-2025 Annual PCP Team Chronic Disease Visit Annual PCP Team Chronic Disease Visit [facility] Start: 07-05-2025 BP Controlled (<130/80) BP Controlled (<130/80) [facility] Start: 04-18-2025 BP Controlled (<130/80) BP Controlled (<130/80) [facility] Start: 04-07-2025 End: 04-07-2025 Patient encounter procedure 04/07/2025 8:00 AM EST Office Visit [facility] [address] [place] [address] Sherin Boswell MD [address] [place], [place] [address] Medicare Wellness [facility] [place] Comment on above: Medicare Wellness Start: 04-04-2025 Annual PCP Team Chronic Disease Visit Annual PCP Team Chronic Disease Visit [facility] Start: 04-04-2025 BP Controlled (<130/80) BP Controlled (<130/80) [facility] Start: 03-24-2025 Echocardiography ECHO Cardiology Routine Aortic valve stenosis, etiology of cardiac valve disease unspecified Expected: 03/24/2025 [facility] Work Phone: Comment on above: Expected: 03/24/2025 Start: 03-17-2025 DIABETES SCREEN DIABETES SCREEN [facility] Start: 03-17-2025 Diabetes Screening Diabetes Screening [facility] Start: 01-24-2025 Annual PCP Team Chronic Disease Visit Annual PCP Team Chronic Disease Visit [facility] Start: 01-24-2025 BP Controlled (<130/80) BP Controlled (<130/80) [facility] Start: 01-17-2025 Annual PCP Team Chronic Disease Visit Annual PCP Team Chronic Disease Visit [facility] Start: 01-17-2025 Covid-19 Vaccine ( season) Covid-19 Vaccine () [facility] Comment on above: Postponed from 12/27/2023 (Declined at t his time) Start: 01-13-2025 BP Controlled (<130/80) BP Controlled (<130/80) [facility] Start: 01-10-2025 BP Controlled (<130/80) BP Controlled (<130/80) [facility] Start: 12-26-2024 Influenza vaccination Influenza Vaccine (#1) [facility] Start: 11-21-2024 End: 11-21-2024 Patient encounter procedure 11/21/2024 9:20 AM EDT Office Visit Cardiology [address] [place] [phone] Jody Blanton MD [address] [place] [id number] 6 month follow up Cardiology Comment on above: 6 month follow up Start: 11-09-2024 CT angiography of head and neck STROKE CTA Head AND Neck W/Con [facility] Start: 11-09-2024 CTA Head vessels and Neck vessels W contrast IV [facility] Start: 11-09-2024 Oxygen therapy [facility] Start: 11-09-2024 End: 11-09-2024 [facility] Start: 10-24-2024 Influenza vaccination Influenza Vaccine (#1) [facility] Comment on above: Postponed from 12/27/2023 (Declined at t his time) Start: 10-17-2024 End: 10-17-2024 Patient encounter procedure Cardiology Comment on above: 6 month follow up 3 month follow up Start: 10-05-2024 End: 01-04-2025 CBC W Auto Differential panel - Blood COMPLETE BLOOD COUNT AND DIFFERENTIAL Lab Routine Hypertension with goal blood pressure less than 140/90 Expected: 10/05/2024, Expires: 01/04/[address] [facility] Comment on above: Expected: 10/05/2024, Expires: Start: 10-05-2024 End: 01-04-2025 Comprehensive metabolic 2000 panel - Serum or Plasma COMPREHENSIVE METABOLIC PANEL Lab Routine Hypertension with goal blood pressure less than 140/90 Expected: 10/05/2024, Expires: 01/04/[address] [facility] Comment on above: Expected: 10/05/2024, Expires: Start: 10-05-2024 End: 01-04-2025 Lipid 1996 panel - Serum or Plasma LIPID PANEL BASIC Lab Routine Mixed hyperlipidemia Expected: 10/05/2024, Expires: 01/04/[address] [facility] Comment on above: Expected: 10/05/2024, Expires: Start: 10-05-2024 End: 01-04-2025 PSA/PROSTATE SPECIFIC ANTIGEN SCREENING PSA/PROSTATE SPECIFIC ANTIGEN SCREENING Lab Routine Prostate cancer screening Expected: 10/05/2024, Expires: 01/04/2025 [facility] Work Phone: Comment on above: Expected: 10/05/2024, Expires: Start: 10-05-2024 End: 01-04-2025 Thyrotropin [Units/volume] in Serum or Plasma THYROID STIMULATING HORMONE Lab Routine Hypothyroidism, unspecified type Expected: 10/05/2024, Expires: 01/04/[address] [facility] Comment on above: Expected: 10/05/2024, Expires: Start: 09-27-2024 Annual PCP Team Chronic Disease Visit Annual PCP Team Chronic Disease Visit [facility] Start: 08-30-2024 End: 11-29-2024 Aldolase [Enzymatic activity/volume] in Serum or Plasma [facility] Work Phone: Comment on above: Expected: 08/30/2024, Expires: Start: 08-30-2024 End: 11-29-2024 Creatine kinase [Enzymatic activity/volume] in Serum or Plasma [facility] Comment on above: Expected: 08/30/2024, Expires: Start: 08-30-2024 End: 08-30-2024 Patient encounter procedure 08/30/2024 8:20 AM EDT Office Visit Internal Alexi Longo [address] [place], [place] [phone] Sherin Boswell MD [address] [place] [address] myalgias, mild leg swelling, see 08/29/24 phone note for more details [facility] Comment on above: myalgias, mild leg swelling, see 08/29/24 phone note for more details Start: 08-24-2024 DIABETES SCREEN DIABETES SCREEN [facility] Start: 07-09-2024 BP Controlled (<130/80) BP Controlled (<130/80) [facility] Start: 07-05-2024 End: 07-05-2024 Patient encounter procedure 07/05/2024 9:20 AM EDT Office Visit [facility] [place] [address] [facility] [place] [address] Sherin Boswell MD [address] [facility] [place] [address] 3 month follow up [facility] [place] Comment on above: 3 month follow up Start: 06-10-2024 BP Controlled (<130/80) BP Controlled (<130/80) [facility] Start: 04-27-2024 Advance Directive Discussion Advance Directive Discussion [facility] Start: 04-27-2024 Medicare Advantage Annual Wellness Visit Medicare [facility] Annual Wellness Visit [facility] Start: 04-18-2024 End: 04-18-2024 Patient encounter procedure 04/18/2024 10:20 AM EST Office Visit Cardiology [address] [place] [phone] Jody Blanton MD [address] [place], [place] [phone] follow up Cardiology Comment on above: follow up Start: 04-11-2024 End: 04-11-2024 Patient encounter procedure 04/11/2024 11:00 AM EST Office Visit Cardiology [address] [place] [id number] Jody Blanton MD [address] [place], [place] [phone] follow up Cardiology Comment on above: follow up Start: 04-04-2024 End: 07-04-2024 PSA/PROSTATE SPECIFIC ANTIGEN SCREENING PSA/PROSTATE SPECIFIC ANTIGEN SCREENING Lab Routine Prostate cancer screening Expected: 04/04/2024, Expires: 07/04/2024 [facility] Work Phone: Comment on above: Expected: 04/04/2024, Expires: Start: 04-04-2024 End: 04-04-2024 Patient encounter procedure 04/04/2024 8:00 AM EST Office Visit [facility] [place] [address] [facility] [place] [address] Sherin Boswell MD [address] [place] [address] Medicare Wellness [facility] Comment on above: Medicare Wellness Start: 03-28-2024 End: 03-28-2024 Patient encounter procedure 03/28/2024 8:50 AM EST Office Visit Cardiology [address] [place] [address] Aortic valve stenosis, etiology of cardiac valve disease unspecified [I35.0] Cardiology Comment on above: Aortic valve stenosis, etiology of cardi ac valve disease unspecified [I35.0] Start: 03-25-2024 End: 07-09-2024 Echocardiography ECHO Cardiology Routine Aortic valve stenosis, etiology of cardiac valve disease unspecified Expected: 03/25/2024, Expires: 07/09/2024 [facility] Work Phone: Comment on above: Expected: 03/25/2024, Expires: Start: 03-22-2024 End: 06-21-2024 Alanine aminotransferase [Enzymatic activity/volume] in Serum or Plasma ALANINE AMINOTRANSFERASE / SGPT Lab Routine Medication management Expected: 03/22/2024, Expires: 06/21/[address] [facility] Comment on above: Expected: 03/22/2024, Expires: Start: 03-22-2024 End: 06-21-2024 Aspartate aminotransferase [Enzymatic activity/volume] in Serum or Plasma ASPARTATE AMINOTRANSFERASE/SGOT Lab Routine Medication management Expected: 03/22/2024, Expires: 06/21/[address] [facility] Comment on above: Expected: 03/22/2024, Expires: Start: 03-22-2024 End: 06-21-2024 Basic metabolic 2000 panel - Serum or Plasma BASIC METABOLIC PANEL Lab Routine Hypertension with goal blood pressure less than 140/90 Expected: 03/22/2024, Expires: 06/21/2024 [facility] Work Phone: Comment on above: Expected: 03/22/2024, Expires: Start: 03-22-2024 End: 06-21-2024 CBC panel - Blood by Automated count COMPLETE BLOOD COUNT Lab Routine Medication management Expected: 03/22/2024, Expires: 06/21/[address] [facility] Comment on above: Expected: 03/22/2024, Expires: Start: 03-18-2024 Annual PCP Team Chronic Disease Visit Annual PCP Team Chronic Disease Visit [facility] Start: 03-18-2024 BP Controlled (<130/80) BP Controlled (<130/80) [facility] inic Start: 03-18-2024 Hepatitis C Screening Hepatitis C Screening [facility] Comment on above: Postponed from 02/10/1970 (Declined at t his time) Start: 03-18-2024 Hepatitis C screening Hepatitis C Screening [facility] Comment on above: Postponed from 02/10/1970 (Declined at t his time) Start: 02-24-2024 End: 02-23-2025 XR Chest PA and Lateral [facility] Work Phone: Comment on above: Expected: 02/24/2024 (Approximate), Expi res: 02/23/2025 Start: 01-25-2024 End: 01-25-2024 Patient encounter procedure 01/25/2024 9:40 AM EDT Office Visit [facility] [place] [address] [place] [address] Leah Bloom APRN.FIRST BEATER [address] [place] [address] 1 week pneumonia follow up [facility] Comment on above: 1 week pneumonia follow up Start: 01-18-2024 End: 01-18-2024 Patient encounter procedure 01/18/2024 7:40 AM EDT Office Visit [facility] [place] [address] [place] [address] Leah Bloom APRN.FIRST BEATER [address] [place] [address] Follow Up Pneumonia symptoms not improving [facility] Comment on above: Follow Up Pneumonia symptoms not improvi ng Start: 01-14-2024 End: 01-14-2024 Patient encounter procedure 01/14/2024 8:00 AM EDT Office Visit [facility] [address] [facility] [place] [address] Sri Nelson APRN.FIRST BEATER [address] [place] [address] f/u cough [facility] [place] Comment on above: f/u cough Start: 12-27-2023 Covid-19 Vaccine () Covid-19 Vaccine () [facility] Start: 12-27-2023 Influenza vaccination Influenza Vaccine (#1) [facility] Start: 09-28-2023 End: 12-28-2023 Thyrotropin [Units/volume] in Serum or Plasma [facility] Work Phone: Comment on above: Expected: 09/28/2023, Expires: Start: 09-28-2023 End: 12-28-2023 Thyroxine (T4) free [Mass/volume] in Serum or Plasma [facility] Comment on above: Expected: 09/28/2023, Expires: Start: 09-28-2023 End: 09-28-2023 Patient encounter procedure 09/28/2023 8:00 AM EDT Office Visit [facility] [place] [address] [place] [address] Leah Bloom APRN.FIRST BEATER [address] [place] [address] 6 Month follow up [facility] [place] Comment on above: 6 Month follow up Start: 09-15-2023 End: 12-15-2023 Lipid 1996 panel - Serum or Plasma LIPID PANEL BASIC Lab Routine Hypertriglyceridemia Expected: 09/15/2023, Expires: 12/15/2023 [facility] Work Phone: Comment on above: Expected: 09/15/2023, Expires: Start: 08-02-2023 DIABETES SCREEN DIABETES SCREEN [facility] Start: 06-07-2023 Covid-19 Vaccine () Covid-19 Vaccine () [facility] Start: 04-27-2023 Advance Directive Discussion Advance Directive Discussion [facility] Start: 04-27-2023 Behavioral Health Screening Behavioral Health Screening [facility] Start: 04-27-2023 Depression Assessment Depression Assessment [facility] Start: 04-20-2023 End: 07-20-2023 Basic metabolic 2000 panel - Serum or Plasma BASIC METABOLIC PNL Lab Routine Hypercalcemia Expected: 04/20/2023, Expires: 07/20/2023 [facility] Work Phone: Comment on above: Expected: 04/20/2023, Expires: 4 Start: 04-20-2023 End: 07-20-2023 Calcium.ionized [Moles/volume] in Blood CALCIUM IONIZED BLOOD Lab Routine Hypercalcemia Expected: 04/20/2023, Expires: 07/20/2023 [facility] Work Phone: Comment on above: Expected: 04/20/2023, Expires: 4 Start: 04-20-2023 End: 07-20-2023 Parathyrin.intact [Mass/volume] in Serum or Plasma PTH INTACT BLD Lab Routine Hypercalcemia Expected: 04/20/2023, Expires: 07/20/2023 [facility] Work Phone: Comment on above: Expected: 04/20/2023, Expires: 4 Start: 04-20-2023 End: 07-20-2023 Thyrotropin [Units/volume] in Serum or Plasma TSH BLD Lab Routine Hypothyroidism, acquired Expected: 04/20/2023, Expires: 07/20/2023 [facility] Work Phone: Comment on above: Expected: 04/20/2023, Expires: 4 Start: 04-15-2023 Shingrix Vaccine (2 of 2) Shingrix Vaccine (2 of 2) [facility] Start: 03-18-2023 End: 06-17-2023 Comprehensive metabolic 2000 panel - Serum or Plasma [facility] Work Phone: Comment on above: Expected: 03/18/2023, Expires: 4 Start: 03-18-2023 End: 06-17-2023 Magnesium [Mass/volume] in Serum or Plasma [facility] Work Phone: Comment on above: Expected: 03/18/2023, Expires: 4 Start: 03-18-2023 End: 06-17-2023 Thyrotropin [Units/volume] in Serum or Plasma [facility] Work Phone: Comment on above: Expected: 03/18/2023, Expires: 4 Start: 03-18-2023 End: 06-17-2023 Thyroxine (T4) free [Mass/volume] in Serum or Plasma [facility] Work Phone: Comment on above: Expected: 03/18/2023, Expires: 4 Start: 03-17-2023 ANNUAL PCP TEAM CHRONIC DISEASE VISIT ANNUAL PCP TEAM CHRONIC DISEASE VISIT [facility] Start: 03-17-2023 BP CONTROLLED (<130/80) BP CONTROLLED (<130/80) [facility] Start: 03-17-2023 HEPATITIS C SCREENING HEPATITIS C SCREENING [facility] Comment on above: Postponed from 02/10/1970 (Declined at t his time) Start: 09-11-2022 Adult depression screening assessment DEPRESSION SCREENING [facility] Start: 09-11-2022 ANNUAL PCP TEAM CHRONIC DISEASE VISIT ANNUAL PCP TEAM CHRONIC DISEASE VISIT [facility] Start: 09-11-2022 BP CONTROLLED (<130/80) BP CONTROLLED (<130/80) [facility] Start: 09-11-2022 COVID-19 VACCINE (4 - Booster for Pfizer series) COVID-19 VACCINE (4 - Booster for Pfizer series) [facility] Comment on above: Postponed from 04/17/2021 (Declined at t his time) Start: 09-11-2022 PNEUMOCOCCAL: 65+ (#3) PNEUMOCOCCAL: 65+ (#3) [facility] Comment on above: Postponed from 08/16/2020 (Declined at t his time) Start: 09-11-2022 PNEUMOVAX AGE 65 AND OVER WITH 5YR LOOKBACK (#1) PNEUMOVAX AGE 65 AND OVER WITH 5YR LOOKBACK (#1) [facility] Comment on above: Postponed from 08/16/2020 (Declined at t his time) Start: 09-11-2022 SHINGRIX VACCINE (1 of 2) SHINGRIX VACCINE (1 of 2) [facility] Comment on above: Postponed from 02/10/2002 (Declined at t his time) Start: 04-27-2022 ADVANCE DIRECTIVE DISCUSSION ADVANCE DIRECTIVE DISCUSSION [facility] Start: 04-27-2022 DEPRESSION ASSESSMENT DEPRESSION ASSESSMENT [facility] Start: 03-17-2022 End: 05-17-2022 Basic metabolic 2000 panel - Serum or Plasma [facility] Work Phone: Comment on above: Expected: 03/17/2022, Expires: 3 Start: 03-17-2022 End: 05-17-2022 CBC W Auto Differential panel - Blood [facility] Work Phone: Comment on above: Expected: 03/17/2022, Expires: 3 Start: 03-14-2022 ANNUAL PCP TEAM CHRONIC DISEASE VISIT ANNUAL PCP TEAM CHRONIC DISEASE VISIT [facility] Start: 03-14-2022 BP CONTROLLED (<130/80) BP CONTROLLED (<130/80) [facility] Start: 12-26-2021 Influenza vaccination INFLUENZA (#1) [facility] Start: 11-15-2021 COVID-19 VACCINE (5 - Booster for Pfizer series) COVID-19 VACCINE (5 - Booster for Pfizer series) [facility] Start: 07-01-2021 End: 07-01-2021 Patient encounter procedure Appointment [facility] Work Phone: Start: 04-27-2021 ADVANCE DIRECTIVE DISCUSSION ADVANCE DIRECTIVE DISCUSSION [facility] Start: 04-27-2021 DEPRESSION ASSESSMENT DEPRESSION ASSESSMENT [facility] Start: 04-17-2021 COVID-19 VACCINE (4 - Booster for Pfizer series) COVID-19 VACCINE (4 - Booster for Pfizer series) [facility] Start: 12-26-2020 Influenza vaccination Flu vaccine (Season Ended) [facility] Work Phone: Start: 10-19-2020 Annual Wellness Visit (AWV) Annual Wellness Visit (AWV) [facility] Work Phone: Start: 08-16-2020 PNEUMOCOCCAL: 65+ (2 - PPSV23 or PCV20) PNEUMOCOCCAL: 65+ (2 - PPSV23 or PCV20) [facility] Start: 08-16-2020 PNEUMOVAX AGE 65 AND OVER WITH 5YR LOOKBACK (#1) PNEUMOVAX AGE 65 AND OVER WITH 5YR LOOKBACK (#1) [facility] Start: 05-27-2019 Adult depression screening assessment DEPRESSION SCREENING [facility] Start: 02-10-2017 Pneumococcal 65+ years Vaccine (1 of 1 - PPSV23) Pneumococcal 65+ years Vaccine (1 of 1 - PPSV23) [facility] Work Phone: Start: 02-10-2002 Screening for malignant neoplasm of colon Colon cancer screen colonoscopy [facility] Work Phone: Start: 02-10-2002 Shingles Vaccine (1 of 2) Shingles Vaccine (1 of 2) [facility] Work Phone: Start: 02-10-2002 SHINGRIX VACCINE (1 of 2) SHINGRIX VACCINE (1 of 2) [facility] Start: 02-10-1997 COLOGUARD (FIT-DNA) COLOGUARD (FIT-DNA) [facility] Start: 02-10-[address] COLONOGRAPHY [facility] Start: 02-10-1997 FECAL OCCULT BLOOD FECAL OCCULT BLOOD [facility] Start: 02-10-1997 Screening for malignant neoplasm of colon [facility] Start: 02-10-1997 SIGMOIDOSCOPY SIGMOIDOSCOPY [facility] Start: 1992 Lipid panel Lipid screen [facility] Work Phone: Start: 02-10-1971 DTaP/Tdap/Td vaccine (1 - Tdap) DTaP/Tdap/Td vaccine (1 - Tdap) [facility] Work Phone: Start: 02-10-1971 Urine microalbumin profile DTAP,TDAP,TD (1 - Tdap) [facility] Start: 02-10-1970 Anxiety Screening Anxiety Screening [facility] Start: 02-10-1970 BP Controlled (<130/80) BP Controlled (<130/80) [facility] in Start: 02-10-1970 Depression Screening Depression Screening [facility] Start: 02-10-1970 HEPATITIS C SCREENING HEPATITIS C SCREENING [facility] Start: 02-10-1970 Hepatitis C screening Hepatitis C Screening [facility] Start: 1950 Hepatitis C screening Hepatitis C screen [facility] Work Phone: Anion gap in Serum o r Plasma [facility] BUN/Creatinine ratio [facility] Calcium [Mass/volume ] in Serum or Plasma [facility] Carbon dioxide, tota l [Moles/volume] in Central venous blood [facility] CK CK Lab Routine 0 10/17/2020 3:22 AM EDT [facility] Work Phone: COVID & INFLUENZA A/ B & RSV PCR, ROUTINE COVID & INFLUENZA A/B & RSV PCR, ROUTINE Microbiology Routine Acute cough Suspected COVID-19 virus infection Ordered: 01/11/2024 [facility] Work Phone: Comment on above: Ordered: 01/11/2024 Creatinine [Mass/vol ume] in Serum or Plasma [facility] ECG COMPLETE [facility] Work Phone: Comment on above: Ordered: 03/18/2023 ECG COMPLETE ECG COMPLETE ECG 06/10/2023 9:56 AM EST [facility] End: 03-18-2024 Echocardiography ECHO Cardiology Routine Persistent atrial fibrillation (HCC) Palpitations 1 Occurrences starting 03/18/2023 until 03/18/2024 [facility] Work Phone: Comment on above: 1 Occurrences starting 03/18/2023 until 03/18/2024 End: 10-16-2020 FL Greater Than 1 Hour FL Greater Than 1 Hour Imaging Routine Once for 1 Occurrences starting 10/16/2020 until 10/16/2020 [facility] Work Phone: Comment on above: Once for 1 Occurrences starting 10/17/19 until 10/16/2020 FL Greater Than 1 Hour FL Greate r Than 1 Hour Imaging Routine 10/16/2020 5:17 PM EDT [facility] Work Phone: Glucose [Mass/volume ] in Serum or Plasma [facility] End: 10-18-2020 Intermittent pulse oximetry Pulse Oximetry Spot Check Respiratory Care Routine One Time for 1 Occurrences starting 10/18/2020 until 10/18/2020 [facility] Work Phone: Comment on above: One Time for 1 Occurrences starting 09/26 until 10/18/2020 Measurement of renal function [facility] Oxygen therapy [[facility] Data Set] Initiate Oxygen Therapy Protocol Respiratory Care Routine Daily until discontinued starting 10/16/2020 [facility] Work Phone: Comment on above: Daily until discontinued starting 2020 Potassium measurement [facility] Serum chloride measurement [facility] Sodium measurement [facility] Spirometry panel Incentive dread metry Respiratory Care Routine Every 2hr while awake until discontinued starting 10/16/2020 [facility] Work Phone: Comment on above: Every 2hr while awake until discontinued starting 10/16/2020 Troponin T.cardiac [Mass/volume] in Serum or Plasma by High sensitivity method [facility] Urea nitrogen [Mass/volume] in Serum or Plasma [facility] End: 05-04-2025 US Prostate transrectal US PROSTATE Radiology Routine BPH associated with nocturia 1 Occurrences starting 04/04/2024 until 05/04/[address] [facility] Comment on above: 1 Occurrences starting 04/04/2024 until 05/04/2025 End: 10-29-2020 VL DUP LOWER EXTREMITY VENOUS BILATERAL VL DUP LOWER EXTREMITY VENOUS BILATERAL Imaging Routine Every Mo,Th for 4 Occurrences starting 10/18/2020 until 10/29/2020, 2 completed [facility] Work Phone: Comment on above: Every Mo,Th for 4 Occurrences starting 0 10/18/2020 until 10/29/2020, 2 completed [facility] Immunizations Immunization Date Immunization Notes Care Provider [facility] 04-04-2024 influenza, high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 02/26/2024 7:31 AM EDT ----- Infection has resolved. Please follow up for any further concerns. Thank you Leah Bloom APRN.FIRST BEATER documented in this encounter [facility] 02-26-2024 Telephone encounter Note ----- Message from Leah Bloom APRN.CNP sent at 02/26/2024 7:31 AM EDT ----- Infection has resolved. Please follow up for any further concerns. Thank you Leah Bloom APRN.FIRST BEATER [facility] 02-24-2024 History of Present illness Narrative Radiology Service Progress Note PATIENT NAME: Rito IYERN: [id number] DATE OF SERVICE: February 24, 2024 TIME: 9:09 AM PATIENT IDENTITY VERIFICATION COMPLETED USING TWO (2) IDENTIFIERS: Name and Date of confirmed by patient verbally. FALL SCREENING: Has the patient had 2 falls in the last year or 1 fall with injury or currently using an Ambulatory Assistive Device (Walker, Cane, Wheelchair, Crutches, etc.)? No PATIENT GENDER DATA: Male PATIENT RELEVANT IMPLANT DATA REVIEWED: Yes PATIENT PRESENTS WITH AN IMPLANTABLE OR ATTACHED SURVEILLANCE INSPECTOR: No RADIOLOGY DEPARTMENT: General X-ray: Exam(s) Completed: Chest X-Ray PERIPHERAL IV DATA: Not applicable SIGNED BY: RT Madeline(Jennifer) February 24, 2024 9:09 AM documented in this encounter [facility] 02-24-2024 Note HNO ID: [id number] Author: SUHA GIMENEZ RT(R) Service: Radiology Author Type: Technologist Type: Progress Notes Filed: 02/24/2024 09:14 Note Text: Radiology Service Progress Note PATIENT NAME: Rito Leon DATE OF SERVICE: February 24, 2024 TIME: 9:09 AM PATIENT IDENTITY VERIFICATION COMPLETED USING TWO (2) IDENTIFIERS: Name and Date of confirmed by patient verbally. FALL SCREENING: Has the patient had 2 falls in the last year or 1 fall with injury or currently using an Ambulatory Assistive Device (Walker, Cane, Wheelchair, Crutches, etc.)? No PATIENT GENDER DATA: Male PATIENT RELEVANT IMPLANT DATA REVIEWED: Yes PATIENT PRESENTS WITH AN IMPLANTABLE OR ATTACHED SURVEILLANCE INSPECTOR: No RADIOLOGY DEPARTMENT: General X-ray: Exam(s) Completed: Chest X-Ray PERIPHERAL IV DATA: Not applicable SIGNED BY: RT Madeline(Jennifer) February 24, 2024 9:09 AM [facility] 01-25-2024 Instructions Leah Bloom APRN.CNP - 01/25/2024 9:50 AM EDT Start using saline nasal spray, nasal lavage, and claritin. documented in this encounter [facility] 01-25-2024 Note HNO ID: [id number] Author: LEAH BLOOM APRN.FIRST BEATER Service: ? Author Type: Nurse Practitioner Type: Progress Notes Filed: 01/25/2024 10:12 Note Text: CC: Patient presents with: Recheck: 1 week pneumonia follow up HPI Rito Leon is a 73 year old male who presents today for pneumonia follow up. Originally seen in [facility] on 01/11/24 took his prescribed doxy for 5 days but then symptoms returned. Was seen in this office 01/18/24 and given augmentin and Z-pack for symptoms of persistent non-productive cough, shortness of breath, fatigued, low grade fever, chills, decreased appetite, headaches, sinus congestion, and generalized weakness. Today he returns with some improvement in cough but worse early AM and wakes him up. Improvement in SOB and appetite . Some nasal congestion remain, still fatigued, and still with slight headache. Denies fever, chills, nausea, vomiting, diarrhea, chest pain, edema, dizziness, or syncope. REVIEW OF SYSTEMS See HPI PAST MEDICAL HISTORY Diagnosis Date A-fib (HCC) BCC (basal cell carcinoma) face Hypertriglyceridemia Psoriasis SCC (squamous cell carcinoma) right arm PAST SURGICAL HISTORY Procedure Laterality Date HERNIA REPAIR HX TONSILLECTOMY PRIMARY/SECONDARY Tonsillectomy ALLERGIES Patient has no known allergies. MEDICATIONS amoxicillin-clavulanate potassium (AUGMENTIN) 875-125 mg per tablet Take 1 tablet by mouth two times a day for 10 days. benzonatate (TESSALON PERLES) 100 mg capsule Take 1 capsule by mouth three times a day as needed for cough. montelukast (SINGULAIR) 10 mg tablet Take 1 tablet by mouth daily at bedtime. apixaban (ELIQUIS) 5 mg tab(s) Take 1 tablet by mouth two times a day. metoprolol tartrate, short acting, (LOPRESSOR) 50 mg tablet Take 1 tablet by mouth two times a day. levothyroxine (LEVOXYL) 25 mcg tablet Take 1 tablet by mouth once daily. Take on empty stomach. For Thyroid (Patient not taking: Reported on 09/28/2023) fenofibrate nanocrystallized (TRICOR) 145 mg tablet Take 1 tablet by mouth once daily. clobetasol (TEMOVATE) 0.05 % cream Apply 1 application to affected area twice daily. multivitamin tablet Take 1 tablet by mouth once daily. [place]-3 Fatty Acids (FISH OIL) 500 mg cap Take 1 capsule by mouth once daily. niacin ER (NIASPAN) 500 mg tablet Take 1 tablet by mouth daily at bedtime. FAMILY HISTORY Problem Relation Age of Onset other (low dilantin level) Father Social History Tobacco Use Smoking status: Former Current packs/day: 0.00 Types: Cigarettes Quit date: 07/09/2018 Years since quittin.5 Smokeless tobacco: Never Vaping Use Vaping status: Some Days Substance Use Topics Alcohol use: Yes Comment: occasionally Drug use: No PHYSICAL EXAM BP 122/78 Pulse 81 Temp 36.5 ?C (97.7 ?F) (Temporal) Resp 16 Wt 91.2 kg (201 lb) SpO2 95% BMI 25.12 kg/m? General Appearance: well appearing, in no acute distress, alert Eyes: conjunctiva pink and moist, no icterus, sclera white, non-injected Lungs: Lungs clear to auscultation. No wheezing, rhonchi, rales. Heart: RRR without murmur, gallop, or rubs. No ectopy Health maintenance reviewed with patient: Depression Screening Never done Anxiety Screening Never done BP Controlled (<130/80) Never done Advance Directive Discussion due on 04/27/2023 Hepatitis C Screening due on 03/18/2024 Influenza Vaccine(1) due on 10/24/2024 Covid-19 Vaccine( season) due on 01/17/2025 Annual PCP Team Chronic Disease Visit due on 01/17/2025 Colorectal Cancer Screening due on 02/01/2026 Diabetes Screening due on 05/06/2026 Lipid Screening due on 09/21/2028 DTaP,Tdap,Td Vaccine(2 - Td or Tdap) due on 10/16/2030 Abdominal Aortic Aneurysm Screening Completed RSV Vaccine Completed Shingrix Vaccine Completed Pneumococcal Vaccine: 65+ Completed DATA REVIEWED: No new labs ASSESSMENT/PLAN: 1. Pneumonia of left lung due to infectious organism, unspecified part of lung - ICD9: 486, ICD10: J18.9 (primary diagnosis) Symptoms improving. Cough most likely from sinus drainage. Has used flonase in the past but caused nose bleeds. Will use saline nasal spray, nasal lavage, and claritin to help improve this Follow up if cough does not improve or for any further concerns. - XR CHEST 2V FRONTAL/LAT 2. Sinus drainage - ICD9: 478.19, ICD10: J34.89 As above Prescription instructions reviewed with patient as applicable. Potential red flag symptoms discussed with the patient. Reviewed appropriate action plan to take if red flag symptoms occur. Patient agreeable to treatment plan. Leah Bloom APRN.[facility] 01-25-2024 History of Present illness Narrative CC: Patient presents with: Recheck: 1 week pneumonia follow up HPI Rito Leon is a 73 year old male who presents today for pneumonia follow up. Originally seen in [facility] on 01/11/24 took his prescribed doxy for 5 days but then symptoms returned. Was seen in this office 01/18/24 and given augmentin and Z-pack for symptoms of persistent non-productive cough, shortness of breath, fatigued, low grade fever, chills, decreased appetite, headaches, sinus congestion, and generalized weakness. Today he returns with some improvement in cough but worse early AM and wakes him up. Improvement in SOB and appetite . Some nasal congestion remain, still fatigued, and still with slight headache. Denies fever, chills, nausea, vomiting, diarrhea, chest pain, edema, dizziness, or syncope. REVIEW OF SYSTEMS See HPI PAST MEDICAL HISTORY Diagnosis Date A-fib (HCC) BCC (basal cell carcinoma) face Hypertriglyceridemia Psoriasis SCC (squamous cell carcinoma) right arm PAST SURGICAL HISTORY Procedure Laterality Date HERNIA REPAIR HX TONSILLECTOMY PRIMARY/SECONDARY <AGE 12 Tonsillectomy ALLERGIES Patient has no known allergies. MEDICATIONS amoxicillin-clavulanate potassium (AUGMENTIN) 875-125 mg per tablet Take 1 tablet by mouth two times a day for 10 days. benzonatate (TESSALON PERLES) 100 mg capsule Take 1 capsule by mouth three times a day as needed for cough. montelukast (SINGULAIR) 10 mg tablet Take 1 tablet by mouth daily at bedtime. apixaban (ELIQUIS) 5 mg tab(s) Take 1 tablet by mouth two times a day. metoprolol tartrate, short acting, (LOPRESSOR) 50 mg tablet Take 1 tablet by mouth two times a day. levothyroxine (LEVOXYL) 25 mcg tablet Take 1 tablet by mouth once daily. Take on empty stomach. For Thyroid (Patient not taking: Reported on 09/28/2023) fenofibrate nanocrystallized (TRICOR) 145 mg tablet Take 1 tablet by mouth once daily. clobetasol (TEMOVATE) 0.05 % cream Apply 1 application to affected area twice daily. multivitamin tablet Take 1 tablet by mouth once daily. [place]-3 Fatty Acids (FISH OIL) 500 mg cap Take 1 capsule by mouth once daily. niacin ER (NIASPAN) 500 mg tablet Take 1 tablet by mouth daily at bedtime. FAMILY HISTORY Problem Relation Age of Onset other (low dilantin level) Father Social History Tobacco Use Smoking status: Former Current packs/day: 0.00 Types: Cigarettes Quit date: 07/09/2018 Years since quittin.5 Smokeless tobacco: Never Vaping Use Vaping status: Some Days Substance Use Topics Alcohol use: Yes Comment: occasionally Drug use: No PHYSICAL EXAM BP 122/78 Pulse 81 Temp 36.5 C (97.7 F) (Temporal) Resp 16 Wt 91.2 kg (201 lb) SpO2 95% BMI 25.12 kg/m General Appearance: well appearing, in no acute distress, alert Eyes: conjunctiva pink and moist, no icterus, sclera white, non-injected Lungs: Lungs clear to auscultation. No wheezing, rhonchi, rales. Heart: RRR without murmur, gallop, or rubs. No ectopy Health maintenance reviewed with patient: Depression Screening Never done Anxiety Screening Never done BP Controlled (<130/80) Never done Advance Directive Discussion due on 04/27/2023 Hepatitis C Screening due on 03/18/2024 Influenza Vaccine(1) due on 10/24/2024 Covid-19 Vaccine( season) due on 01/17/2025 Annual PCP Team Chronic Disease Visit due on 01/17/2025 Colorectal Cancer Screening due on 02/01/2026 Diabetes Screening due on 05/06/2026 Lipid Screening due on 09/21/2028 DTaP,Tdap,Td Vaccine(2 - Td or Tdap) due on 10/16/2030 Abdominal Aortic Aneurysm Screening Completed RSV Vaccine Completed Shingrix Vaccine Completed Pneumococcal Vaccine: 65+ Completed DATA REVIEWED: No new labs ASSESSMENT/PLAN: 1. Pneumonia of left lung due to infectious organism, unspecified part of lung - ICD9: 486, ICD10: J18.9 (primary diagnosis) Symptoms improving. Cough most likely from sinus drainage. Has used flonase in the past but caused nose bleeds. Will use saline nasal spray, nasal lavage, and claritin to help improve this Follow up if cough does not improve or for any further concerns. - XR CHEST 2V FRONTAL/LAT 2. Sinus drainage - ICD9: 478.19, ICD10: J34.89 As above Prescription instructions reviewed with patient as applicable. Potential red flag symptoms discussed with the patient. Reviewed appropriate action plan to take if red flag symptoms occur. Patient agreeable to treatment plan. Leah Bloom APRN.CNP documented in this encounter [facility] 01-18-2024 Note HNO ID: [id number] Author: LEAH BLOOM APRN.CNP Service: ? Author Type: Nurse Practitioner Type: Progress Notes Filed: 01/18/2024 08:08 Note Text: CC: Patient presents with: Recheck: Follow up cough, pneumonia HPI Rito Leon is a 73 year old male who presents today for follow up on pneumonia. Seen in [facility] with ill symptoms for 4 days. Diagnosed with pneumonia and treated with ceftin and doxycycline. Was only given 5 days of treatment and finished this past Thursday. [place] good enough to go to work on Thursday but then started coughing again Thursday night. Started feeling ill again yesterday. Today with persistent non-productive cough, shortness of breath, fatigued, low grade fever, chills, decreased appetite, headaches, sinus congestion, and generalized weakness. Denies wheezing, syncope, dizziness, chest pain, palpitations, edema, or N/V/D. Has been taking dimetapp for sinus congestion. No history of asthma or other respiratory disease, has not smoked in almost 9 years. REVIEW OF SYSTEMS See HPI PAST MEDICAL HISTORY Diagnosis Date A-fib (HCC) BCC (basal cell carcinoma) face Hypertriglyceridemia Psoriasis SCC (squamous cell carcinoma) right arm PAST SURGICAL HISTORY Procedure Laterality Date HERNIA REPAIR HX TONSILLECTOMY PRIMARY/SECONDARY Tonsillectomy ALLERGIES Patient has no known allergies. MEDICATIONS montelukast (SINGULAIR) 10 mg tablet Take 1 tablet by mouth daily at bedtime. apixaban (ELIQUIS) 5 mg tab(s) Take 1 tablet by mouth two times a day. metoprolol tartrate, short acting, (LOPRESSOR) 50 mg tablet Take 1 tablet by mouth two times a day. levothyroxine (LEVOXYL) 25 mcg tablet Take 1 tablet by mouth once daily. Take on empty stomach. For Thyroid (Patient not taking: Reported on 09/28/2023) fenofibrate nanocrystallized (TRICOR) 145 mg tablet Take 1 tablet by mouth once daily. clobetasol (TEMOVATE) 0.05 % cream Apply 1 application to affected area twice daily. multivitamin tablet Take 1 tablet by mouth once daily. [place]-3 Fatty Acids (FISH OIL) 500 mg cap Take 1 capsule by mouth once daily. niacin ER (NIASPAN) 500 mg tablet Take 1 tablet by mouth daily at bedtime. FAMILY HISTORY Problem Relation Age of Onset other (low dilantin level) Father Social History Tobacco Use Smoking status: Former Current packs/day: 0.00 Types: Cigarettes Quit date: 07/09/2018 Years since quittin.5 Smokeless tobacco: Never Vaping Use Vaping status: Some Days Substance Use Topics Alcohol use: Yes Comment: occasionally Drug use: No PHYSICAL EXAM BP 128/80 Pulse 92 Temp 36.6 ?C (97.8 ?F) (Temporal) Resp 16 Wt 91.2 kg (201 lb) SpO2 96% BMI 25.12 kg/m? General Appearance: well appearing, in no acute distress, alert Skin: Skin color, texture, turgor normal for age; Eyes: conjunctiva pink and moist, no icterus, sclera white, non-injected Nose/sinus: Nares normal. Septum midline. Mucosa normal. No drainage., No sinus tenderness Neck: Thyroid normal size and symmetric without palpable nodules, Neck supple, No adenopathy Lymph nodes: No cervical lymphadenopathy and No supraclavicular lymphadenopathy Lungs: Lungs clear to auscultation. No wheezing, rhonchi, rales. Slightly diminished to bilateral posterior bases. Heart: RRR without murmur, gallop, or rubs. No ectopy Health maintenance reviewed with patient: Depression Screening Never done Anxiety Screening Never done Advance Directive Discussion due on 04/27/2023 Covid-19 Vaccine( season) due on 12/27/2023 Influenza Vaccine(1) due on 12/27/2023 Hepatitis C Screening due on 03/18/2024 Annual PCP Team Chronic Disease Visit due on 09/27/2024 BP Controlled (<130/80) due on 01/13/2025 Colorectal Cancer Screening due on 02/01/2026 Diabetes Screening due on 05/06/2026 Lipid Screening due on 09/21/2028 DTaP,Tdap,Td Vaccine(2 - Td or Tdap) due on 10/16/2030 Abdominal Aortic Aneurysm Screening Completed RSV Vaccine Completed Shingrix Vaccine Completed Pneumococcal Vaccine: 65+ Completed DATA REVIEWED: Most recent imaging ASSESSMENT/PLAN: 1. Pneumonia of left lung due to infectious organism, unspecified part of lung - ICD9: 486, ICD10: J18.9 - Was improving on previous antibiotic but has been off for a few days. Will do augmentin and z-pack - Call if no improvement in the next few days and follow up in 1 week. - tessalon for cough as ordered Will need repeat chest xray in 4-6 weeks. 2. Acute non-recurrent sinusitis, unspecified location - ICD9: 461.9, ICD10: J01.90 - Will begin treatment with as per antibiotic as written, see orders - Supportive care with plenty of fluids, rest, and analgesia prn. - Follow up in 3-5 days if symptoms persist or worsen. Prescription instructions reviewed with patient as applicable. Potential red flag symptoms discussed with the patient. Reviewed appropriate action plan to take if red flag sympto (more content not included)... [facility] 01-18-2024 History of Present illness Narrative CC: Patient presents with: Recheck: Follow up cough, pneumonia HPI Rito Leon is a 73 year old male who presents today for follow up on pneumonia. Seen in [facility] with ill symptoms for 4 days. Diagnosed with pneumonia and treated with ceftin and doxycycline. Was only given 5 days of treatment and finished this past Thursday. [place] good enough to go to work on Thursday but then started coughing again Thursday night. Started feeling ill again yesterday. Today with persistent non-productive cough, shortness of breath, fatigued, low grade fever, chills, decreased appetite, headaches, sinus congestion, and generalized weakness. Denies wheezing, syncope, dizziness, chest pain, palpitations, edema, or N/V/D. Has been taking dimetapp for sinus congestion. No history of asthma or other respiratory disease, has not smoked in almost 9 years. REVIEW OF SYSTEMS See HPI PAST MEDICAL HISTORY Diagnosis Date A-fib (HCC) BCC (basal cell carcinoma) face Hypertriglyceridemia Psoriasis SCC (squamous cell carcinoma) right arm PAST SURGICAL HISTORY Procedure Laterality Date HERNIA REPAIR HX TONSILLECTOMY PRIMARY/SECONDARY <AGE 14 Tonsillectomy ALLERGIES Patient has no known allergies. MEDICATIONS montelukast (SINGULAIR) 10 mg tablet Take 1 tablet by mouth daily at bedtime. apixaban (ELIQUIS) 5 mg tab(s) Take 1 tablet by mouth two times a day. metoprolol tartrate, short acting, (LOPRESSOR) 50 mg tablet Take 1 tablet by mouth two times a day. levothyroxine (LEVOXYL) 25 mcg tablet Take 1 tablet by mouth once daily. Take on empty stomach. For Thyroid (Patient not taking: Reported on 09/28/2023) fenofibrate nanocrystallized (TRICOR) 145 mg tablet Take 1 tablet by mouth once daily. clobetasol (TEMOVATE) 0.05 % cream Apply 1 application to affected area twice daily. multivitamin tablet Take 1 tablet by mouth once daily. [place]-3 Fatty Acids (FISH OIL) 500 mg cap Take 1 capsule by mouth once daily. niacin ER (NIASPAN) 500 mg tablet Take 1 tablet by mouth daily at bedtime. FAMILY HISTORY Problem Relation Age of Onset other (low dilantin level) Father Social History Tobacco Use Smoking status: Former Current packs/day: 0.00 Types: Cigarettes Quit date: 07/09/2018 Years since quittin.5 Smokeless tobacco: Never Vaping Use Vaping status: Some Days Substance Use Topics Alcohol use: Yes Comment: occasionally Drug use: No PHYSICAL EXAM BP 128/80 Pulse 92 Temp 36.6 C (97.8 F) (Temporal) Resp 16 Wt 91.2 kg (201 lb) SpO2 96% BMI 25.12 kg/m General Appearance: well appearing, in no acute distress, alert Skin: Skin color, texture, turgor normal for age; Eyes: conjunctiva pink and moist, no icterus, sclera white, non-injected Nose/sinus: Nares normal. Septum midline. Mucosa normal. No drainage., No sinus tenderness Neck: Thyroid normal size and symmetric without palpable nodules, Neck supple, No adenopathy Lymph nodes: No cervical lymphadenopathy and No supraclavicular lymphadenopathy Lungs: Lungs clear to auscultation. No wheezing, rhonchi, rales. Slightly diminished to bilateral posterior bases. Heart: RRR without murmur, gallop, or rubs. No ectopy Health maintenance reviewed with patient: Depression Screening Never done Anxiety Screening Never done Advance Directive Discussion due on 04/27/2023 Covid-19 Vaccine( season) due on 12/27/2023 Influenza Vaccine(1) due on 12/27/2023 Hepatitis C Screening due on 03/18/2024 Annual PCP Team Chronic Disease Visit due on 09/27/2024 BP Controlled (<130/80) due on 01/13/2025 Colorectal Cancer Screening due on 02/01/2026 Diabetes Screening due on 05/06/2026 Lipid Screening due on 09/21/2028 DTaP,Tdap,Td Vaccine(2 - Td or Tdap) due on 10/16/2030 Abdominal Aortic Aneurysm Screening Completed RSV Vaccine Completed Shingrix Vaccine Completed Pneumococcal Vaccine: 65+ Completed DATA REVIEWED: Most recent imaging ASSESSMENT/PLAN: 1. Pneumonia of left lung due to infectious organism, unspecified part of lung - ICD9: 486, ICD10: J18.9 - Was improving on previous antibiotic but has been off for a few days. Will do augmentin and z-pack - Call if no improvement in the next few days and follow up in 1 week. - tessalon for cough as ordered Will need repeat chest xray in 4-6 weeks. 2. Acute non-recurrent sinusitis, unspecified location - ICD9: 461.9, ICD10: J01.90 - Will begin treatment with as per antibiotic as written, see orders - Supportive care with plenty of fluids, rest, and analgesia prn. - Follow up in 3-5 days if symptoms persist or worsen. Prescription instructions reviewed with patient as applicable. Potential red flag symptoms discussed with the patient. Reviewed appropriate action plan to take if red flag symptoms occur. Patient agreeable to treatment plan. Leah Bloom APRN.CNP documented in this encounter [facility] 01-17-2024 Telephone encounter Note Reason for Call: Patient calling with new fever, worsening cough and congestion Outcome: Recommendation to see PCP within 24 hours Patient was conferenced to Sharon in Appointment Center for 24 hour appointment scheduling. Also advised patient on Urgent Care, Express Care or ED Reason for Disposition [1] Taking antibiotic > 24 hours for pneumonia AND [2] new-onset of fever Answer Assessment - Initial Assessment Questions 1. SYMPTOM: Cough, congestion 2. ONSET: 01/15 cough, woke him up at about 3 AM 3. [id number]: Worsening congestion and cough 4. BREATHING DIFFICULTY: Denies difficulty breathing 5. FEVER: 99.8 Tympanic 6. SPUTUM: Productive cough last night, green color 7. DIAGNOSIS CONFIRMATION: PNA diagnosed at Urgent Care 01/10, had chest x-ray 8. ANTIBIOTIC: Ceftin 500 mg and Doxycycline 100 mg completed 01/14, satarted 01/10 9. OTHER TREATMENT: Denies 10. HOSPITAL ADMISSION: Not hospitalized 11. O2 SATURATION MONITOR: Denies having monitor Protocols used: Pneumonia Follow-up [id number] Congestion Was on Ceftin 500 mg and Doxycycline 100 mg completed 01/14, satarted 01/[address] [facility] 01-17-2024 Miscellaneous Notes Reason for Call: Patient calling with new fever, worsening cough and congestion Outcome: Recommendation to see PCP within 24 hours Patient was conferenced to Sharon in Appointment Center for 24 hour appointment scheduling. Also advised patient on Urgent Care, Express Care or ED Reason for Disposition [1] Taking antibiotic > 24 hours for pneumonia AND [2] new-onset of fever Answer Assessment - Initial Assessment Questions 1. SYMPTOM: Cough, congestion 2. ONSET: 01/15 cough, woke him up at about 3 AM 3. [id number]: Worsening congestion and cough 4. BREATHING DIFFICULTY: Denies difficulty breathing 5. FEVER: 99.8 Tympanic 6. SPUTUM: Productive cough last night, green color 7. DIAGNOSIS CONFIRMATION: PNA diagnosed at Urgent Care 01/10, had chest x-ray 8. ANTIBIOTIC: Ceftin 500 mg and Doxycycline 100 mg completed 01/14, satarted 01/10 9. OTHER TREATMENT: Denies 10. HOSPITAL ADMISSION: Not hospitalized 11. O2 SATURATION MONITOR: Denies having monitor Protocols used: Pneumonia Follow-up [id number] Congestion Was on Ceftin 500 mg and Doxycycline 100 mg completed 01/14, satarted 01/10 documented in this encounter [facility] 01-14-2024 Instructions Sri Nelson APRN.CNP - 01/14/2024 8:06 AM EDT 1) Follow up with Dr. Juanito Magallanes 2) Finish antibiotics 3) Encourage water intake 4) Call if symptoms return documented in this encounter [facility] 01-14-2024 Note HNO ID: [id number] Author: SRI NELSON APRN.CNP Service: ? Author Type: Clinical Nurse Specialist Type: Progress Notes Filed: 01/14/2024 08:06 Note Text: This is a 73 year old male who presents today with: Patient presents with: Cough: Follow up HISTORY OF PRESENT ILLNESS: Rito Leon is a 73 year old male. Patient presents with: Cough: Follow up Does feel really tired but some improvement. + cough, non-productive. Occ. Plegm. Had fever but that has subsided since yesterday morning. Still taking ceftin and doxycycline- enough for 3 more doses. Initially nausea, one episode of vomiting. No change in body aches. PAST MEDICAL HISTORY: PAST MEDICAL HISTORY Diagnosis Date A-fib (HCC) BCC (basal cell carcinoma) face Hypertriglyceridemia Psoriasis SCC (squamous cell carcinoma) right arm PAST SURGICAL HISTORY Procedure Laterality Date HERNIA REPAIR HX TONSILLECTOMY PRIMARY/SECONDARY Tonsillectomy ALLERGIES Patient has no known allergies. MEDICATIONS Current Outpatient Medications Medication Sig doxycycline monohydrate 100 mg tablet Take 1 tablet by mouth two times a day for 5 days. cefUROXime (CEFTIN) 500 mg tablet Take 1 tablet by mouth two times a day for 5 days. montelukast (SINGULAIR) 10 mg tablet Take 1 tablet by mouth daily at bedtime. apixaban (ELIQUIS) 5 mg tab(s) Take 1 tablet by mouth two times a day. metoprolol tartrate, short acting, (LOPRESSOR) 50 mg tablet Take 1 tablet by mouth two times a day. fenofibrate nanocrystallized (TRICOR) 145 mg tablet Take 1 tablet by mouth once daily. multivitamin tablet Take 1 tablet by mouth once daily. [place]-3 Fatty Acids (FISH OIL) 500 mg cap Take 1 capsule by mouth once daily. niacin ER (NIASPAN) 500 mg tablet Take 1 tablet by mouth daily at bedtime. levothyroxine (LEVOXYL) 25 mcg tablet Take 1 tablet by mouth once daily. Take on empty stomach. For Thyroid (Patient not taking: Reported on 09/28/2023) clobetasol (TEMOVATE) 0.05 % cream Apply 1 application to affected area twice daily. No current facility-administered medications for this visit. FAMILY HISTORY Problem Relation Age of Onset other (low dilantin level) Father Social History Tobacco Use Smoking status: Former Current packs/day: 0.00 Types: Cigarettes Quit date: 07/09/2018 Years since quittin.5 Smokeless tobacco: Never Vaping Use Vaping status: Some Days Substance Use Topics Alcohol use: Yes Comment: occasionally Drug use: No EXAM: BP 128/72 Pulse 75 Temp 36.5 ?C (97.7 ?F) (Tympanic) Resp 20 Wt 91 kg (200 lb 9.9 oz) SpO2 97% BMI 25.08 kg/m? PHYSICAL EXAM: Physical Exam Vitals reviewed. Constitutional: Appearance: Normal appearance. HENT: Head: Normocephalic. Cardiovascular: Rate and Rhythm: Normal rate. Rhythm irregular. Pulses: Normal pulses. Heart sounds: Murmur heard. Comments: Soft MARINA @ sternal border Pulmonary: Effort: Pulmonary effort is normal. Breath sounds: Rhonchi present. No wheezing or rales. Comments: Cleared after cough Abdominal: Palpations: Abdomen is soft. Musculoskeletal: General: Normal range of motion. Skin: General: Skin is warm and dry. Neurological: Mental Status: He is alert. LABS: ASSESSMENT/PLAN: 1. Bacterial pneumonia - ICD9: 482.9, ICD10: J15.9 -improving - continue antibiotics until gone - encourage water intake Discussed treatment plan and patient voices understanding. Patient's questions answered appropriately. Medications and potential side effects were discussed and patient voices understanding. Return to the office as scheduled or as needed for worsening/no improvement. Sri Nelson APRN.[facility] 01-14-2024 History of Present illness Narrative This is a 73 year old male who presents today with: Patient presents with: Cough: Follow up HISTORY OF PRESENT ILLNESS: Rito Leon is a 73 year old male. Patient presents with: Cough: Follow up Does feel really tired but some improvement. + cough, non-productive. Occ. Plegm. Had fever but that has subsided since yesterday morning. Still taking ceftin and doxycycline- enough for 3 more doses. Initially nausea, one episode of vomiting. No change in body aches. PAST MEDICAL HISTORY: PAST MEDICAL HISTORY Diagnosis Date A-fib (HCC) BCC (basal cell carcinoma) face Hypertriglyceridemia Psoriasis SCC (squamous cell carcinoma) right arm PAST SURGICAL HISTORY Procedure Laterality Date HERNIA REPAIR HX TONSILLECTOMY PRIMARY/SECONDARY <AGE 14 Tonsillectomy ALLERGIES Patient has no known allergies. MEDICATIONS Current Outpatient Medications Medication Sig doxycycline monohydrate 100 mg tablet Take 1 tablet by mouth two times a day for 5 days. cefUROXime (CEFTIN) 500 mg tablet Take 1 tablet by mouth two times a day for 5 days. montelukast (SINGULAIR) 10 mg tablet Take 1 tablet by mouth daily at bedtime. apixaban (ELIQUIS) 5 mg tab(s) Take 1 tablet by mouth two times a day. metoprolol tartrate, short acting, (LOPRESSOR) 50 mg tablet Take 1 tablet by mouth two times a day. fenofibrate nanocrystallized (TRICOR) 145 mg tablet Take 1 tablet by mouth once daily. multivitamin tablet Take 1 tablet by mouth once daily. [place]-3 Fatty Acids (FISH OIL) 500 mg cap Take 1 capsule by mouth once daily. niacin ER (NIASPAN) 500 mg tablet Take 1 tablet by mouth daily at bedtime. levothyroxine (LEVOXYL) 25 mcg tablet Take 1 tablet by mouth once daily. Take on empty stomach. For Thyroid (Patient not taking: Reported on 09/28/2023) clobetasol (TEMOVATE) 0.05 % cream Apply 1 application to affected area twice daily. No current facility-administered medications for this visit. FAMILY HISTORY Problem Relation Age of Onset other (low dilantin level) Father Social History Tobacco Use Smoking status: Former Current packs/day: 0.00 Types: Cigarettes Quit date: 07/09/2018 Years since quittin.5 Smokeless tobacco: Never Vaping Use Vaping status: Some Days Substance Use Topics Alcohol use: Yes Comment: occasionally Drug use: No EXAM: BP 128/72 Pulse 75 Temp 36.5 C (97.7 F) (Tympanic) Resp 20 Wt 91 kg (200 lb 9.9 oz) SpO2 97% BMI 25.08 kg/m PHYSICAL EXAM: Physical Exam Vitals reviewed. Constitutional: Appearance: Normal appearance. HENT: Head: Normocephalic. Cardiovascular: Rate and Rhythm: Normal rate. Rhythm irregular. Pulses: Normal pulses. Heart sounds: Murmur heard. Comments: Soft MARINA @ sternal border Pulmonary: Effort: Pulmonary effort is normal. Breath sounds: Rhonchi present. No wheezing or rales. Comments: Cleared after cough Abdominal: Palpations: Abdomen is soft. Musculoskeletal: General: Normal range of motion. Skin: General: Skin is warm and dry. Neurological: Mental Status: He is alert. LABS: ASSESSMENT/PLAN: 1. Bacterial pneumonia - ICD9: 482.9, ICD10: J15.9 -improving - continue antibiotics until gone - encourage water intake Discussed treatment plan and patient voices understanding. Patient's questions answered appropriately. Medications and potential side effects were discussed and patient voices understanding. Return to the office as scheduled or as needed for worsening/no improvement. Sri Nelson APRN.CNP documented in this encounter [facility] 01-11-2024 Telephone encounter Note Patient given results and verbalized understanding of instructions given. Alma Perea MA [facility] 01-11-2024 Miscellaneous Notes Patient given results and verbalized understanding of instructions given. Alma Perea MA You tested negative for COVID, Influenza, and RSV. Please contact us if your symptoms are worsening or not improving. Please advise. documented in this encounter [facility] 01-11-2024 Telephone encounter Note You tested negative for COVID, Influenza, and RSV. Please contact us if your symptoms are worsening or not improving. Please advise. [facility] Work Phone: 01-11-2024 Instructions Brian Apple APRN.CNP - 01/11/2024 8:14 AM EDT How to Manage Common Symptoms Associated with COVID for Adults Fever- Fever is a temperature over 100.4 F and can occur when the body is fighting an infection. To help treat a fever: Drink plenty of fluids and stay well hydrated. Eat small amounts of easy to digest food. Rest. Your body needs rest to recover, but getting up and moving around the house frequently is a good idea. You should try to continue doing your normal daily activities (bathing, toileting, grooming, cooking), though you will probably feel tired, and need to rest often. Avoid any heavy activity or exercise, as this will increase your body temperature. Dress in light clothing and stay covered in a light sheet. Keep the room temperature cool. Take a slightly warm (not cold or cool) bath, or apply damp washcloths to the forehead and wrists. Cough- Cough is a common symptom associated with COVID and can be bothersome. To help treat a cough: Stay well hydrated. Try warm water or tea with lemon and/or honey to help soothe the cough. Use a humidifier to add moisture to the air. Try a product with menthol, like a cough drop or a rub for your chest such as Vicks, which can help reduce cough. Try cough drops. Avoid smoking and other strong odors or perfumes. Try breathing exercises to keep your lungs open and clear. Take a big deep breath through your nose and hold for 5 seconds before slowly releasing. Repeat frequently, while you are awake. Congestion- Runny nose or nasal congestion can occur with COVID. Treatment can help relieve symptoms: Try OTC nasal saline spray, or nasal saline rinse to relieve mucus congestion. Nasal strips can help keep nasal passages open, to increase airflow. Elevating your head with an extra pillow in bed can help reduce congestion. Using a humidifier can increase moisture in the air, and make breathing easier. Sore Throat- Another common symptom with COVID, can be managed at home by: Stay well hydrated. Gargle with salt water - mix teaspoon salt with 1 cup of warm water and gargle. This helps to loosen mucus in the back of the throat and may reduce discomfort. Try ice chips, popsicles or lozenges to soothe the throat. Nausea/Vomiting/Diarrhea- These are common symptoms, and staying hydrated is most important. If you are nauseous or vomiting, start with small sips of water every 10-15 minutes and increase as tolerated. You can try sucking an ice cube too. If tolerating, you can try pedialyte or Gatorade, or flat sprite or samantha-ailin. Start slowly and increase as you are able to. Instead of meals, try smaller, more frequent snacks. Try eating bland foods like crackers, toast, rice, and applesauce. Avoid spicy, greasy or fried foods and dairy containing foods. Even if you aren't feeling hungry due to lack of smell or taste, it is important to try to take in some food when you are able. After drinking and eating, rest in an upright position for up to two hours as needed to help decrease nauseous feelings. Try closing your eyes, avoid moving and watching TV. Avoid strong odors that can make you feel more nauseated. When to seek emergency medical attention Look for emergency warning signs for COVID-19. If having any of these symptoms, seek emergency medical care immediately: Trouble breathing Persistent pain or pressure in the chest New confusion Inability to wake or stay awake Bluish lips or face *This list is not all possible symptoms. Please call your medical provider for any other symptoms that are severe or concerning to you. documented in this encounter [facility] 01-11-2024 History of Present illness Narrative Radiology Service Progress Note PATIENT NAME: Rito Leon DATE OF SERVICE: January 11, 2024 TIME: 8:03 AM PATIENT IDENTITY VERIFICATION COMPLETED USING TWO (2) IDENTIFIERS: Name and Date of confirmed by patient verbally. FALL SCREENING: Has the patient had 2 falls in the last year or 1 fall with injury or currently using an Ambulatory Assistive Device (Walker, Cane, Wheelchair, Crutches, etc.)? No PATIENT GENDER DATA: Male PATIENT RELEVANT IMPLANT DATA REVIEWED: Yes PATIENT PRESENTS WITH AN IMPLANTABLE OR ATTACHED SURVEILLANCE INSPECTOR: No RADIOLOGY DEPARTMENT: General X-ray: Exam(s) Completed: Chest X-Ray PERIPHERAL IV DATA: Not applicable SIGNED BY: ISA Correa) January 11, 2024 8:03 AM documented in this encounter [facility] 01-11-2024 Note HNO ID: [id number] Author: SUHA GIMENEZ RT(R) Service: Radiology Author Type: Technologist Type: Progress Notes Filed: 01/11/2024 08:10 Note Text: Radiology Service Progress Note PATIENT NAME: Rito Leon DATE OF SERVICE: January 11, 2024 TIME: 8:03 AM PATIENT IDENTITY VERIFICATION COMPLETED USING TWO (2) IDENTIFIERS: Name and Date of confirmed by patient verbally. FALL SCREENING: Has the patient had 2 falls in the last year or 1 fall with injury or currently using an Ambulatory Assistive Device (Walker, Cane, Wheelchair, Crutches, etc.)? No PATIENT GENDER DATA: Male PATIENT RELEVANT IMPLANT DATA REVIEWED: Yes PATIENT PRESENTS WITH AN IMPLANTABLE OR ATTACHED SURVEILLANCE INSPECTOR: No RADIOLOGY DEPARTMENT: General X-ray: Exam(s) Completed: Chest X-Ray PERIPHERAL IV DATA: Not applicable SIGNED BY: RT Madeline(Jennifer) January 11, 2024 8:03 AM [facility] 01-11-2024 Note HNO ID: [id number] Author: BRIAN APPLE APRN.FIRST BEATER Service: ? Author Type: Nurse Practitioner Type: Progress Notes Filed: 01/11/2024 08:52 Note Text: Subjective HPI Nontoxic-appearing male presents urgent care chief complaint flulike symptoms. Duration of symptoms 4 days. Associated symptoms head congestion cough fever headache sore throat. Most prominent symptom today is fatigue. Had a fever 102 when he woke up this morning. Did take Tylenol. This did help. No known sick contacts. Denies any body aches chills productive cough chest pain shortness of breath pleuritic pain hemoptysis nausea vomiting abdominal pain change in bowel or bladder habits. Past medical history prescription medication use and allergies reviewed. .Patient presents with: Head Congestion: cough, fever, headache and sore throat x 4 days PAST MEDICAL HISTORY Diagnosis Date A-fib (HCC) BCC (basal cell carcinoma) face Hypertriglyceridemia Psoriasis SCC (squamous cell carcinoma) right arm PAST SURGICAL HISTORY Procedure Laterality Date HERNIA REPAIR HX TONSILLECTOMY PRIMARY/SECONDARY Tonsillectomy ALLERGIES Patient has no known allergies. MEDICATIONS montelukast (SINGULAIR) 10 mg tablet Take 1 tablet by mouth daily at bedtime. apixaban (ELIQUIS) 5 mg tab(s) Take 1 tablet by mouth two times a day. metoprolol tartrate, short acting, (LOPRESSOR) 50 mg tablet Take 1 tablet by mouth two times a day. fenofibrate nanocrystallized (TRICOR) 145 mg tablet Take 1 tablet by mouth once daily. clobetasol (TEMOVATE) 0.05 % cream Apply 1 application to affected area twice daily. multivitamin tablet Take 1 tablet by mouth once daily. [place]-3 Fatty Acids (FISH OIL) 500 mg cap Take 1 capsule by mouth once daily. niacin ER (NIASPAN) 500 mg tablet Take 1 tablet by mouth daily at bedtime. levothyroxine (LEVOXYL) 25 mcg tablet Take 1 tablet by mouth once daily. Take on empty stomach. For Thyroid (Patient not taking: Reported on 09/28/2023) FAMILY HISTORY Problem Relation Age of Onset other (low dilantin level) Father Social History Tobacco Use Smoking status: Former Current packs/day: 0.00 Types: Cigarettes Quit date: 07/09/2018 Years since quittin.5 Smokeless tobacco: Never Vaping Use Vaping status: Some Days Substance Use Topics Alcohol use: Yes Comment: occasionally Drug use: No BP 126/76 Pulse 92 Temp 36.7 ?C (98.1 ?F) Resp 16 Wt 90.5 kg (199 lb 8.3 oz) SpO2 96% BMI 24.94 kg/m? Review of Systems Constitutional: Positive for fever and malaise/fatigue. Negative for chills. HENT: Positive for congestion and sore throat. Negative for ear discharge, ear pain and sinus pain. Eyes: Negative for blurred vision, pain, discharge and redness. Respiratory: Positive for cough. Negative for hemoptysis, sputum production, shortness of breath, wheezing and stridor. Cardiovascular: Negative for chest pain. Gastrointestinal: Negative for abdominal pain, diarrhea, nausea and vomiting. Musculoskeletal: Positive for myalgias. Skin: Negative for itching and rash. Neurological: Negative for dizziness and headaches. Objective Physical Exam Constitutional: General: He is not in acute distress. Appearance: He is not diaphoretic. HENT: Head: Normocephalic. Jaw: No trismus, tenderness, swelling or pain on movement. Right Ear: Tympanic membrane, ear canal and external ear normal. Left Ear: Tympanic membrane, ear canal and external ear normal. Nose: Congestion present. Mouth/Throat: Mouth: Mucous membranes are moist. Pharynx: Oropharynx is clear. Uvula midline. No pharyngeal swelling, oropharyngeal exudate, posterior oropharyngeal erythema or uvula swelling. Eyes: Conjunctiva/sclera: Conjunctivae normal. Pupils: Pupils are equal, round, and reactive to light. Cardiovascular: Rate and Rhythm: Normal rate and regular rhythm. Heart sounds: Normal heart sounds. Pulmonary: Effort: Pulmonary effort is normal. No tachypnea, accessory muscle usage or respiratory distress. Breath sounds: No stridor. Rhonchi present. No wheezing or rales. Abdominal: General: There is no distension. Palpations: Abdomen is soft. Tenderness: There is no abdominal tenderness. There is no guarding or rebound. Musculoskeletal: Cervical back: Normal range of motion and neck supple. No edema, erythema, rigidity or tenderness. No pain with movement. Normal range of motion. Lymphadenopathy: Cervical: No cervical adenopathy. Skin: General: Skin is warm and dry. Neurological: Mental Status: He is alert and oriented to person, place, and time. ASSESSMENT/PLAN: 1. Acute cough - ICD9: 786.2, ICD10: R05.1 (primary diagnosis) - XR CHEST 2V FRONTAL/LAT - COVID AND INFLUENZA A/B AND RSV PCR, ROUTINE 2. Suspected COVID-19 virus infection - ICD9: V01.79, ICD10: Z20.822 - COVID AND INFLUENZA A/B AND RSV PCR, ROUTINE 3. Community acquired pneumonia of left lower lobe of lung (more content not included)... [facility] 01-11-2024 History of Present illness Narrative Subjective HPI Nontoxic-appearing male presents urgent care chief complaint flulike symptoms. Duration of symptoms 4 days. Associated symptoms head congestion cough fever headache sore throat. Most prominent symptom today is fatigue. Had a fever 102 when he woke up this morning. Did take Tylenol. This did help. No known sick contacts. Denies any body aches chills productive cough chest pain shortness of breath pleuritic pain hemoptysis nausea vomiting abdominal pain change in bowel or bladder habits. Past medical history prescription medication use and allergies reviewed. .Patient presents with: Head Congestion: cough, fever, headache and sore throat x 4 days PAST MEDICAL HISTORY Diagnosis Date A-fib (HCC) BCC (basal cell carcinoma) face Hypertriglyceridemia Psoriasis SCC (squamous cell carcinoma) right arm PAST SURGICAL HISTORY Procedure Laterality Date HERNIA REPAIR HX TONSILLECTOMY PRIMARY/SECONDARY <AGE 14 Tonsillectomy ALLERGIES Patient has no known allergies. MEDICATIONS montelukast (SINGULAIR) 10 mg tablet Take 1 tablet by mouth daily at bedtime. apixaban (ELIQUIS) 5 mg tab(s) Take 1 tablet by mouth two times a day. metoprolol tartrate, short acting, (LOPRESSOR) 50 mg tablet Take 1 tablet by mouth two times a day. fenofibrate nanocrystallized (TRICOR) 145 mg tablet Take 1 tablet by mouth once daily. clobetasol (TEMOVATE) 0.05 % cream Apply 1 application to affected area twice daily. multivitamin tablet Take 1 tablet by mouth once daily. [place]-3 Fatty Acids (FISH OIL) 500 mg cap Take 1 capsule by mouth once daily. niacin ER (NIASPAN) 500 mg tablet Take 1 tablet by mouth daily at bedtime. levothyroxine (LEVOXYL) 25 mcg tablet Take 1 tablet by mouth once daily. Take on empty stomach. For Thyroid (Patient not taking: Reported on 09/28/2023) FAMILY HISTORY Problem Relation Age of Onset other (low dilantin level) Father Social History Tobacco Use Smoking status: Former Current packs/day: 0.00 Types: Cigarettes Quit date: 07/09/2018 Years since quittin.5 Smokeless tobacco: Never Vaping Use Vaping status: Some Days Substance Use Topics Alcohol use: Yes Comment: occasionally Drug use: No BP 126/76 Pulse 92 Temp 36.7 C (98.1 F) Resp 16 Wt 90.5 kg (199 lb 8.3 oz) SpO2 96% BMI 24.94 kg/m Review of Systems Constitutional: Positive for fever and malaise/fatigue. Negative for chills. HENT: Positive for congestion and sore throat. Negative for ear discharge, ear pain and sinus pain. Eyes: Negative for blurred vision, pain, discharge and redness. Respiratory: Positive for cough. Negative for hemoptysis, sputum production, shortness of breath, wheezing and stridor. Cardiovascular: Negative for chest pain. Gastrointestinal: Negative for abdominal pain, diarrhea, nausea and vomiting. Musculoskeletal: Positive for myalgias. Skin: Negative for itching and rash. Neurological: Negative for dizziness and headaches. Objective Physical Exam Constitutional: General: He is not in acute distress. Appearance: He is not diaphoretic. HENT: Head: Normocephalic. Jaw: No trismus, tenderness, swelling or pain on movement. Right Ear: Tympanic membrane, ear canal and external ear normal. Left Ear: Tympanic membrane, ear canal and external ear normal. Nose: Congestion present. Mouth/Throat: Mouth: Mucous membranes are moist. Pharynx: Oropharynx is clear. Uvula midline. No pharyngeal swelling, oropharyngeal exudate, posterior oropharyngeal erythema or uvula swelling. Eyes: Conjunctiva/sclera: Conjunctivae normal. Pupils: Pupils are equal, round, and reactive to light. Cardiovascular: Rate and Rhythm: Normal rate and regular rhythm. Heart sounds: Normal heart sounds. Pulmonary: Effort: Pulmonary effort is normal. No tachypnea, accessory muscle usage or respiratory distress. Breath sounds: No stridor. Rhonchi present. No wheezing or rales. Abdominal: General: There is no distension. Palpations: Abdomen is soft. Tenderness: There is no abdominal tenderness. There is no guarding or rebound. Musculoskeletal: Cervical back: Normal range of motion and neck supple. No edema, erythema, rigidity or tenderness. No pain with movement. Normal range of motion. Lymphadenopathy: Cervical: No cervical adenopathy. Skin: General: Skin is warm and dry. Neurological: Mental Status: He is alert and oriented to person, place, and time. ASSESSMENT/PLAN: 1. Acute cough - ICD9: 786.2, ICD10: R05.1 (primary diagnosis) - XR CHEST 2V FRONTAL/LAT - COVID & INFLUENZA A/B & RSV PCR, ROUTINE 2. Suspected COVID-19 virus infection - ICD9: V01.79, ICD10: Z20.822 - COVID & INFLUENZA A/B & RSV PCR, ROUTINE 3. Community acquired pneumonia of left lower lobe of lung - ICD9: 486, ICD10: J18.9 IMPRESSION: Left basilar patchy opacities, raising concern for pneumonia or aspiration. Please clinically correlate. Hemodynamically stable. Nontoxic-appearing. Diagnosed with community-acquired pneumonia. Will treat with Ceftin and doxycycline. Follow-up with PCP 48 to 72 hours reevaluation. Patient was educated on supportive therapies. Patient was instructed to immediately proceed to emergency room for any new, worsening, or symptoms lasting longer than anticipated. The patient's clinical presentation is otherwise unremarkable at this time. Based on exam and clinical finding, the patient is stable for discharge. Plan of care was discussed with patient. Patient verbalizes understanding and agrees to plan of care. This note was generated using [employer] software. It may contain errors in wording, punctuation, or spelling. Brian Apple APRN.HILDA documented in this encounter [facility] 12-11-2023 Note HNO ID: [id number] Author: CASSY DAMON MA Service: ? Author Type: Sales Communications Manager Type: Progress Notes Filed: 12/11/2023 11:27 Note Text: POPULATION HEALTH NAVIGATION OUTREACH Action/FYI Patient is on [facility] CURRENT [facility] Workbench list for below and needs appointment to address: Depression Screening Anxiety Screening BP Controlled (<130/80) Advance Directive Discussion No results found for: HBA1C Patient due for: Medicare Annual Wellness Visit Controlling Blood Pressure Patient already scheduled for AWV. Updated notes for AWV to please address due care gaps and HCC gap closure. No HCC BP to be addressed at upcoming appointment Reason for Outreach Care Gap/HCC or Scheduling Wellness Visits Care Gaps due: Medicare Annual Wellness Visit Controlling Blood Pressure Patient Contacted: Unable or unnecessary to reach patient: Patient already scheduled Updated appointment notes Navigation Signature: Cassy Damon MA December 11, 2023 11:26 AM [facility] 12-11-2023 History of Present illness Narrative POPULATION HEALTH NAVIGATION OUTREACH Action/FYI Patient is on [facility] for below and needs appointment to address: Depression Screening Anxiety Screening BP Controlled (<130/80) Advance Directive Discussion No results found for: HBA1C Patient due for: Medicare Annual Wellness Visit Controlling Blood Pressure Patient already scheduled for AWV. Updated notes for AWV to please address due care gaps and HCC gap closure. No HCC BP to be addressed at upcoming appointment Reason for Outreach Care Gap/HCC or Scheduling Wellness Visits Care Gaps due: Medicare Annual Wellness Visit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 continues to have 1-2/10 pain rating most of the time with increased pain at times. He notes his leg always feels better after the rolling and strethching. States he still uses cane for longer distances if going for a 1-2 mile walk. He notes it does get better if he stops and rests for a minute. He is scheduled for [facility] tomorrow at [facility] in [place] and follow up with physician next week. Functional Limitations: stair negotiation;walking in the community Pain: Pain Pain Level: 2 (1-2) Pain Location: Hip - Right;Thigh - Right;Knee - Right Description: Aching Frequency: Continuous Post Treatment Pain Post Treatment Pain Level: 0 PROMIS Scales T-scores: mean of general population = 50. 5 points is clinically meaningfully difference Percentiles provide an indication of how the patient's score ranks in relation to the general population. Higher percentile rankings indicate better function/quality of life. 50th percentile is the average of the general population and indicates half of respondents had a worse score. T-scores: mean of general population = 50. 5 points is clinically meaningfully difference Percentiles provide an indication of how the patient's score ranks in relation to the general population. Higher percentile rankings indicate better function/quality of life. 50th percentile is the average of the general population and indicates half of respondents had a worse score. OBJECTIVE MEASURES WITH LEVEL OF FUNCTION: LE AROM R Knee Extension: -2 Degrees R Knee Flexion: 133 Degrees LE Flexibility R SLR Flexibility: 50 deg L SLR Flexibility: 60 deg LE Strength R Hip Flexion (L2): 4+/5 R Hip ABduction: 4+/5 R Hip ADduction: 5/5 R Knee Extension (L3): 4+/5 R Knee Flexion: 5/5 Gait Gait Observation: Pt ambulates independently with antalgic gait pattern that varies in severity related to his symptoms. TREATMENT: Therapeutic Exercise: 1: Sci[employer] seated stepper, seat 16, WL 2.5 x 5 min 2: Leg press 93# B 3x10 reps 3: Right leg press 64# 2x15 4: Right [place] hamstring curls 50# 3x10 5: Long sitting self assist hamstring stretch 5 x 30 seconds 6: Sit to stand from chair holding 7# ball 1x20 Skilled Intervention: Patient was educated in proper exercise technique and purpose for exercises. Reviewed and educated patient on additions/changes for home exercise program. Skilled judgment was provided in selection of appropriate interventions. Correct performance of therapeutic exercises was facilitated with verbal cuing. Additional time necessary for objective measurement and reassessment due to progress update. Patient education as noted. Manual Therapy: 1: Soft tissue mobs with foam roller to right hamstring, posterior knee , ITB and calf with 7# weight at ankle for LLLD stretch during soft tissue work x 10 minutes Skilled Intervention: Manual skills to improve joint mobility, ROM, and decrease pain. Utilized anatomy knowledge of the therapist, and assessment of patient's response to intervention. [facility] Session Start Time : 800 [facility] Session Stop Time : 846 Therapeutic Exercise Treatment Minutes: 36 Manual TherapyTreatment Minutes: 10 Total Treatment Time Minutes (timed/untimed): 46 Alma Scott PT documented in this encounter [facility] 09-09-2021 History of Present illness Narrative Episode Visit Count: 15 Therapist That Will Oversee The Plan Of Care: Alma Scott Start of Care Date: 07/24/21 Onset Date: 10/16/20 Plan of Care Certification Date: 11/30/20 Next Certification Due Date: 01/30/21 Patient Identified by Name and Date of : Yes REHABILITATION AND SPORTS THERAPY PHYSICAL THERAPY TREATMENT NOTE ASSESSMENT: Rito Leon tolerated the session with expected muscle soreness. He demonstrated difficulty with continual pain right leg and intermittent increase pain with exercises depending on activity. He had no change overall in pain at end of treatment.. The patient will continue to benefit from ongoing skilled physical therapy to progress toward set goals. PLAN FOR NEXT VISIT: POC update SUBJECTIVE: Patient Reason for Visit: Patient reports right leg is aching. He feels overall he is getting around better with acitivities. Pain: Pain Pain Level: 2 Pain Location: Hip - Right;Thigh - Right;Knee - Right Description: Aching Frequency: Continuous Post Treatment Pain Post Treatment Pain Level: No Change OBJECTIVE MEASURES WITH LEVEL OF FUNCTION: LE AROM R Knee Extension: -2 Degrees R Knee Flexion: 133 Degrees TREATMENT: Therapeutic Exercise: 1: SciFit seated stepper, seat 16, WL 2.5 x 5 min 2: Leg press 93# B 3x10 reps 3: Right leg press 64# 2x15 4: Right Peconic hamstring curls 50# 3x10 5: TKE right blue band 5 second hold 1x15 6: Long sitting self assist hamstring stretch 5 x 30 seconds 7: Sit to stand from chair holding 7# ball 1x20 8: phyisoball flexion and extension 1x15 Skilled Intervention: Patient was educated in proper exercise technique and purpose for exercises. Skilled judgment was provided in selection of appropriate interventions. Correct performance of therapeutic exercises was facilitated with verbal cuing. Manual Therapy: 1: Soft tissue mobs with foam rollerright hamstring, posterior knee , ITB and calf with 7# weight for LLLD stretch duing soft tissue work x 8 minutes Skilled Intervention: Manual skills to improve joint mobility, ROM, and decrease pain. Utilized anatomy knowledge of the therapist, and assessment of patient's response to intervention. Neuromuscular Re-Education: 1: Forward alt step ups onto foam beam leading with right and left 1x10 each 2: Marching in place on foam beam 1 UE assist 2x45 seconds 3: foam beam lateral steppight right and left length of beam x 3 with UE assist. Skilled Intervention: Skilled judgment used to assess appropriate program for balance and coordination activity. Theresa [facility] Session Start Time : 653 [facility] Session Stop Time : 740 Therapeutic Exercise Treatment Minutes: 29 Manual TherapyTreatment Minutes: 8 Neuromuscular Re-Education Treatment Minutes: 10 Total Treatment Time Minutes (timed/untimed): 47 LIZBET Farah PT documented in this encounter [facility] 09-04-2021 History of Present illness Narrative Episode Visit Count: 13 Therapist That Will Oversee The Plan Of Care: Alma Scott Start of Care Date: 07/24/21 Onset Date: 10/16/20 Plan of Care Certification Date: 11/30/20 Next Certification Due Date: 01/30/21 Patient Identified by Name and Date of : Yes REHABILITATION AND SPORTS THERAPY PHYSICAL THERAPY TREATMENT NOTE ASSESSMENT: Rito Leon tolerated the session with fatigue and expected muscle soreness. He demonstrated difficulty with maintaining knee flexion AROM gains from previous visits. The patient will continue to benefit from ongoing skilled physical therapy to progress toward set goals. PLAN FOR NEXT VISIT: SUBJECTIVE: Patient Reason for Visit: Pt states his legs are tired today as he has [place] doing a lot of [place] past couple days since weather has improved. Pain: Pain Pain Level: 2 Pain Location: Hip - Right;Thigh - Right;Knee - Right Description: Sore;Stiffness Post Treatment Pain Post Treatment Pain Level: 2 Post Treatment Pain Location: Hip - Right;Thigh - Right;Knee - Right Post Treatment Pain Description: (tired, fatigued) OBJECTIVE MEASURES WITH LEVEL OF FUNCTION: LE AROM R Knee Extension: -3 Degrees (-5 at beginning of session) Gait Gait Observation: Pt continues to ambulate with antalgic pattern favoring R LE. Most significant withfirst steps after initial sit ot stand. TREATMENT: Therapeutic Exercise: 1: SciFit seated stepper, seat 16, WL 2.5 x 5 min (Discussed progress report and symptoms during this time.) 2: Leg press 93# B 3x10 reps 3: Right leg press 64# 2x12 4: Right Pe[place]ic hamstring curls 50# 3x10 5: TKE right blue band 5 second hold 1x20 6: Long sitting self assist hamstring stretch 5 x 30 seconds 7: Sit to stand from chair holding 7# ball 1x20 8: phyisoball flexion and extension 1x20 Skilled Intervention: Patient was educated in proper exercise technique and purpose for exercises. Reviewed and educated patient on additions/changes for home exercise program and encouraged consistent and frequent stretches for knee ext. Skilled judgment was provided in selection of appropriate interventions. Correct performance of therapeutic exercises was facilitated with verbal and visual cuing. Patient education as noted. Manual Therapy: 1: Soft tissue mobs with foam rollerright hamstring, posterior knee , ITB and calf with 7# weight for LLLD stretch duing soft tissue work x 10 minutes Skilled Intervention: Manual skills to improve joint mobility, ROM, and decrease pain. Utilized anatomy knowledge of the therapist, and assessment of patient's response to intervention. Neuromuscular Re-Education: 1: Marching in place on AirEx pad 1 UE assist 3x45 seconds Skilled Intervention: Skilled judgment used to assess appropriate program for balance and coordination activity. Insured patient safety with use of therapist supervision and parallel bars. Patient education as noted. Billing [facility] Session Start Time : 08 [facility] Session Stop Time : 843 Therapeutic Exercise Treatment Minutes: 29 Manual TherapyTreatment Minutes: 10 Neuromuscular Re-Education Treatment Minutes: 5 Total Treatment Time Minutes (timed/untimed): 44 Alma Scott PT documented in this encounter [facility] 08-29-2021 History of Present illness Narrative Episode Visit Count: 12 Therapist That Will Oversee The Plan Of Care: Alma Scott Start of Care Date: 07/24/21 Onset Date: 10/16/20 Plan of Care Certification Date: 11/30/20 Next Certification Due Date: 01/30/21 Patient Identified by Name and Date of : Yes REHABILITATION AND SPORTS THERAPY PHYSICAL THERAPY TREATMENT NOTE ASSESSMENT: Rito Leon tolerated the session with expected muscle soreness. He demonstrated difficulty with pain , soreness and stiffness right hip, thigh and knee. He puts forth good effort with exercises in therapy. The patient will continue to benefit from ongoing skilled physical therapy to progress toward set goals. PLAN FOR NEXT VISIT: Progress quad strength and extension AROM SUBJECTIVE: Patient Reason for Visit: Patient reports pain persists. He reports doing chores at home this morning and is not feeling too bad. He reports manual therapy is helpful with pain and muscle soreness. Pain: Pain Pain Level: 2 Pain Location: Hip - Right;Thigh - Right;Knee - Right Description: Sore;Stiffness Frequency: Continuous Post Treatment Pain Post Treatment Pain Level: No Change OBJECTIVE MEASURES WITH LEVEL OF FUNCTION: LE AROM R Knee Extension: -5 Degrees R Knee Flexion: 135 Degrees TREATMENT: Therapeutic Exercise: 1: SciFit seated stepper, seat 16, WL 2.5 x 5 min (Subjective taken and discussed gait pattern) 2: Leg press 93# B 3x10 reps 3: Right leg press 64# 2x12 4: Right Pe[place]ic hamstring curls 50# 3x10 5: TRX straps squats with chair behind for target 2x12 6: Long sitting self assist hamstring stretch 5 x 30 seconds 8: TKE right blue band 5 second hold 1x15 9: phyisoball flexion and extension 1x15 10: Sit to stand from chair holding 7# ball 1x15 Skilled Intervention: Patient was educated in proper exercise technique and purpose for exercises. Skilled judgment was provided in selection of appropriate interventions. Correct performance of therapeutic exercises was facilitated with verbal cuing. Manual Therapy: 1: Soft tissue mobs with foam rollerright hamstring, posterior knee , ITB and calf with 7# weight for LLLD stretch duing soft tissue work x 10 minutes Skilled Intervention: Manual skills to improve joint mobility, ROM, and decrease pain. Utilized anatomy knowledge of the therapist, and assessment of patient's response to intervention. Neuromuscular Re-Education: 1: Air-Ex pad lateral step up and over with UE assist 1x10 each way. 2: Forward alt step ups onto AirEx pad leading with right and left 1x10 each 3: Marching in place on AirEx pad 1 UE assist 2x45 seconds Skilled Intervention: Skilled judgment used to assess appropriate program for balance and coordination activity. Billing [facility] Session Start Time : 744 [facility] Session Stop Time : 829 Therapeutic Exercise Treatment Minutes: 29 Manual TherapyTreatment Minutes: 8 Neuromuscular Re-Education Treatment Minutes: 8 Total Treatment Time Minutes (timed/untimed): 45 LIZBET Farah PT documented in this encounter [facility] 08-27-2021 History of Present illness Narrative Episode Visit Count: 11 Therapist That Will Oversee The Plan Of Care: Alma Scott Start of Care Date: 07/24/21 Onset Date: 10/16/20 Plan of Care Certification Date: 11/30/20 Next Certification Due Date: 01/30/21 Patient Identified by Name and Date of : Yes REHABILITATION AND SPORTS THERAPY PHYSICAL THERAPY TREATMENT NOTE ASSESSMENT: Rito Leon tolerated the session with expected muscle soreness. He demonstrated difficulty with pain right hip, thigh and knee. He had no change with 30 second sit to stand test. . The patient will continue to benefit from ongoing skilled physical therapy to progress toward set goals. PLAN FOR NEXT VISIT: Progress quad strength and extension AROM SUBJECTIVE: Patient Reason for Visit: Patient reports being fatigued after last treatment and had soreness. He reports seeing his Dr yesterday who felt he has done all he can do and feels everything is healed. He reports he does not have to use bone stimulator anymore. Pain: Pain Pain Level: 2 Pain Location: Hip - Right;Thigh - Right;Knee - Right Description: Sore;Stiffness Frequency: Continuous Post Treatment Pain Post Treatment Pain Level: 2 Post Treatment Symptoms: feels about the same OBJECTIVE MEASURES WITH LEVEL OF FUNCTION: Functional Performance Test Results 30 Second Chair Stand Test: 9 reps TREATMENT: Therapeutic Exercise: 1: SciFit seated stepper, seat 16, WL 2.5 x 5 min (Subjective taken and discussed gait pattern) 2: Leg press 88# B 3x10 reps 3: Right leg press 64# 2x12 4: Right [place]ic hamstring curls 50# 3x10 5: TRX straps squats with chair behind for target 2x12 6: Long sitting self assist hamstring stretch 5 x 30 seconds 7: Forward alt hip flexion toe taps onto 2 blue steps 2x15 8: TKE right blue band 5 second hold 1x15 9: phyisoball flexion and extension 1x15 10: 30 second sit to stand x7 and second time x 9 Skilled Intervention: Patient was educated in proper exercise technique and purpose for exercises. Skilled judgment was provided in selection of appropriate interventions. Correct performance of therapeutic exercises was facilitated with verbal cuing. Manual Therapy: 1: Soft tissue mobs with foam rollerright hamstring, posterior knee , ITB and calf with 7# weight for LLLD stretch duing soft tissue work x 10 minutes Skilled Intervention: Manual skills to improve joint mobility, ROM, and decrease pain. Utilized anatomy knowledge of the therapist, and assessment of patient's response to intervention. Neuromuscular Re-Education: 1: Air-Ex pad lateral step up and over with UE assist 1x10 each way. 2: Forward alt step upes onto AirEx pad leading with right and left 1x10 each Skilled Intervention: Skilled judgment used to assess appropriate program for balance and coordination activity. Theresa [facility] Session Start Time : 656 [facility] Session Stop Time : 744 Therapeutic Exercise Treatment Minutes: 35 Manual TherapyTreatment Minutes: 8 Neuromuscular Re-Education Treatment Minutes: 5 Total Treatment Time Minutes (timed/untimed): 48 LIZBET Farah, PT documented in this encounter [facility] 08-23-2021 History of Present illness Narrative Episode Visit Count: 10 Therapist That Will Oversee The Plan Of Care: Tlyer Alma Start of Care Date: 07/24/21 Onset Date: 10/16/20 Plan of Care Certification Date: 11/30/20 Next Certification Due Date: 01/30/21 Patient Identified by Name and Date of : Yes REHABILITATION AND SPORTS THERAPY PHYSICAL THERAPY TREATMENT NOTE ASSESSMENT: Rito Leon tolerated the session with decreased pain. He demonstrated difficulty with sharp pain with walking right hip and quad. He is progressing with AROM of right knee and strength.. The patient will continue to benefit from ongoing skilled physical therapy to progress toward set goals. PLAN FOR NEXT VISIT: Progress quad strength and extension AROM SUBJECTIVE: Patient Reason for Visit: Patient reports right leg is sore and stiff in the morning. Pain: Pain Pain Level: 2 Pain Location: Hip - Right;Thigh - Right;Knee - Right Description: Sore;Stiffness Frequency: Continuous Post Treatment Pain Post Treatment Pain Level: 1 Post Treatment Symptoms: feels better right leg OBJECTIVE MEASURES WITH LEVEL OF FUNCTION: LE AROM R Knee Extension: -1 Degrees R Knee Flexion: 135 Degrees TREATMENT: Therapeutic Exercise: 1: SciFit seated stepper, seat 16, WL 2 x 5 min (Subjective taken and discussed gait pattern) 2: Leg press 88# B 3x10 reps 3: Right leg press 64# 2x10 4: Right [place]ic hamstring curls 50# 2x10 5: TRX straps squats with chair behind for target 2x10 6: Long sitting self assist hamstring stretch 5 x 30 seconds 7: Forward alt hip flexion toe taps onto 2 blue steps 2x12 8: TKE right blue band 5 second hold 1x15 9: phyisoball flexion and extension 1x15 Skilled Intervention: Patient was educated in proper exercise technique and purpose for exercises. Skilled judgment was provided in selection of appropriate interventions. Correct performance of therapeutic exercises was facilitated with verbal and visual cuing. Manual Therapy: 1: Soft tissue mobs with lacrosse ball right hamstring, posterior knee , ITB and calf with 6# weight for LLLD stretch duing soft tissue work x 10 minutes Skilled Intervention: Manual skills to improve joint mobility, ROM, and decrease pain. Utilized anatomy knowledge of the therapist, and assessment of patient's response to intervention. Theresa [facility] Session Start Time : 657 [facility] Session Stop Time : 744 Therapeutic Exercise Treatment Minutes: 37 Manual TherapyTreatment Minutes: 10 Total Treatment Time Minutes (timed/untimed): 47 Virgen Paula, LITHOGRAPH DESIGNER Alma Scott PT documented in this encounter [facility] 08-20-2021 History of Present illness Narrative Episode Visit Count: 9 Therapist That Will Oversee The Plan Of Care: Alma Scott Start of Care Date: 07/24/21 Onset Date: 10/16/20 Plan of Care Certification Date: 11/30/20 Next Certification Due Date: 01/30/21 Patient Identified by Name and Date of : Yes REHABILITATION AND SPORTS THERAPY PHYSICAL THERAPY TREATMENT NOTE ASSESSMENT: Rito Leon tolerated the session with decreased pain and expected muscle soreness. He demonstrated improvements in tolerance for prolonged extension stretch. The patient will continue to benefit from ongoing skilled physical therapy to progress toward set goals. PLAN FOR NEXT VISIT: Progress quad strength and extension AROM SUBJECTIVE: Patient Reason for Visit: Patient reports yesterday increase pain in right hip and had difficulty with walking. He reports better today with soreness right hip,thigh and knee. Pain: Pain Pain Level: 2 Pain Location: Hip - Right;Thigh - Right;Knee - Right Description: Sore Frequency: Continuous Post Treatment Pain Post Treatment Pain Level: 1 Post Treatment Symptoms: feels a little better OBJECTIVE MEASURES WITH LEVEL OF FUNCTION: LE AROM R Knee Extension: -2 Degrees R Knee Flexion: 134 Degrees Functional Performance Test Results 30 Second Chair Stand Test: 9 reps TREATMENT: Therapeutic Exercise: 1: SciFit seated stepper, seat 17, WL 1.5 x 5 min (Subjective taken and discussed progression of stretching.) 2: Long sitting self assist hamstring stretch 5 x 30 seconds 3: Leg press 88# 3x10 reps 4: TKE right blue band 5 second hold 1x15 5: Quad sets 5 second hold 1x15 6: 30 second sit to stand from chair x 9 7: Sit to stand from chair x 10 8: Forward hip flexion right onto 12 inch step 1x10(2 green and 1 blue step) and 2x10 with alt step taps with UE assist 9: phyisoball flexion and extension 1x15 Skilled Intervention: Patient was educated in proper exercise technique and purpose for exercises. Skilled judgment was provided in selection of appropriate interventions. Correct performance of therapeutic exercises was facilitated with verbal and visual cuing. Manual Therapy: 1: Soft tissue mobs with lacrosse ball right hamstring, posterior knee , ITB and calf with 6# weight for LLLD stretch duing soft tissue work x 10 minutes Skilled Intervention: Manual skills to improve joint mobility, ROM, and decrease pain. Utilized anatomy knowledge of the therapist, and assessment of patient's response to intervention. Billing [facility] Session Start Time : 914 [facility] Session Stop Time : 957 Therapeutic Exercise Treatment Minutes: 33 Manual TherapyTreatment Minutes: 10 Total Treatment Time Minutes (timed/untimed): 43 LIZBET Farah PT documented in this encounter [facility] 08-16-2021 History of Present illness Narrative Episode Visit Count: 8 Therapist That Will Oversee The Plan Of Care: Alma Scott Start of Care Date: 07/24/21 Onset Date: 10/16/20 Plan of Care Certification Date: 11/30/20 Next Certification Due Date: 01/30/21 Patient Identified by Name and Date of : Yes REHABILITATION AND SPORTS THERAPY PHYSICAL THERAPY TREATMENT NOTE ASSESSMENT: Rito Leon tolerated the session with fatigue and expected muscle soreness. He demonstrated improvements in knee extension ROM. The patient will continue to benefit from ongoing skilled physical therapy to progress toward set goals. PLAN FOR NEXT VISIT: Ther ex for strengthening and knee ext. Manual techniques to reduce soft tissue restrictions. SUBJECTIVE: Patient Reason for Visit: Pt states leg feels, About the same as it always is. Notes he is sitting with leg propped on stool and working on knee ext when sitting at home. Pain: Pain Pain Level: 2 Pain Location: Thigh - Right Frequency: Continuous Post Treatment Pain Post Treatment Pain Level: 1 Post Treatment Pain Location: Thigh - Right;Knee - Right Post Treatment Pain Description: Sore (Just sore from all the stretching.) OBJECTIVE MEASURES WITH LEVEL OF FUNCTION: LE AROM R Knee Extension: -1 Degrees R Knee Flexion: 125 Degrees Tenderness at distal IT band and lateral hamstring tendon during manual techniques today. TREATMENT: Therapeutic Exercise: 1: SciFit seated stepper, seat 17, WL 1.5 x 5 min 2: Long sitting self assist hamstring stretch 5 x 30 seconds 3: Leg press 88# 2x10 reps 4: TKE right blue band 3-5 second hold 1x15 5: Quad sets 5 second hold 1x15 6: Sit to stand from low mat table (20 from floor) 2x10 with no UE assist Skilled Intervention: Patient was educated in proper exercise technique and purpose for exercises. Reviewed and educated patient on additions/changes for home exercise program. Skilled judgment was provided in selection of appropriate interventions. Correct performance of therapeutic exercises was facilitated with verbal and visual cuing. Patient education as noted. Manual Therapy: 1: Soft tissue mobs with lacrosse ball right hamstring, posterior knee and calf with 6# weight for LLLD stretch duing soft tissue work x 10 minutes Skilled Intervention: Manual skills to improve joint mobility, ROM, and decrease pain. Utilized anatomy knowledge of the therapist, and assessment of patient's response to intervention. Billing [facility] Session Start Time : 803 [facility] Session Stop Time : 845 Therapeutic Exercise Treatment Minutes: 32 Manual TherapyTreatment Minutes: 10 Total Treatment Time Minutes (timed/untimed): 42 Alma Scott PT documented in this encounter [facility] 08-09-2021 History of Present illness Narrative Episode Visit Count: 6 Therapist That Will Oversee The Plan Of Care: Alma Scott Start of Care Date: 07/24/21 Onset Date: 10/16/20 Plan of Care Certification Date: 11/30/20 Next Certification Due Date: 01/30/21 Patient Identified by Name and Date of : Yes REHABILITATION AND SPORTS THERAPY PHYSICAL THERAPY TREATMENT NOTE ASSESSMENT: Rito Leon tolerated the session with expected muscle soreness. He demonstrated improvements in progression of exercises. The patient will continue to benefit from ongoing skilled physical therapy to progress toward set goals. PLAN FOR NEXT VISIT: Continue to strengthen and focus on knee extension. SUBJECTIVE: Patient Reason for Visit: Pt states pain is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 Charis Oconnor DO) Atrial fibrillation Chronic anticoagulation High cholesterol HTN (hypertension) Kidney stones Home Medications atenolol 50 mg PO DAILY 11/02/16 [History Last Taken 11/01/16] fenofibrate nanocrystallized 145 mg PO DAILY 11/02/16 [History Last Taken 11/01/16] montelukast 10 mg PO DAILY 11/02/16 [History Last Taken 11/01/16] Allergy/AdvReac Type Severity Reaction Status Date / Time No Known Allergies Allergy Verified 10/16/20 10:09 Family History (Updated 10/24/20 @ 10:[address] Charis Oconnor DO) Father , at 79 YOA Heart disease Surgical History (Updated 10/24/20 @ 11:[address] Charis Oconnor DO) Status post open reduction and internal fixation (ORIF) of fracture Social History (Updated 10/24/20 @ 10:[address] Charis Oconnor DO) household members: spouse housing: house number of children: 6 Smoking Status: Former smoker quit date: 04/27/17 alcohol intake: current details: occasional/holidays ROS ROS Narrative He is c/o Pain in the R leg that is not adequately relieved with Oxycodone 5 mg Q6H PRN. Tells me that at previous hospital he was getting more frequently and sometimes he took 10 mg. He did not sleep well last night. He denies CP, SOB, palpitations, calf pain. He is having some nausea when he takes the Oxycodone on an empty stomach. Denies dysuria. Gets up 1-2 times at night to urinate. Feels as though he completely empties. Constitutional Constitutional: Reports systems reviewed and no addt'l complaints, except as documented and difficulty sleeping Eyes Eyes: Reports systems reviewed and no addt'l complaints, except as documented ENT HEENT: Reports systems reviewed and no addt'l complaints, except as documented Cardiovascular Cardiovascular: Reports systems reviewed and no addt'l complaints, except as documented Respiratory/Chest Respiratory/Chest: Reports systems reviewed and no addt'l complaints, except as documented Gastrointestinal Gastrointestinal: Reports systems reviewed and no addt'l complaints, except as documented Genitourinary Genitourinary: Reports systems reviewed and no addt'l complaints, except as documented Musculoskeletal Musculoskeletal: Reports difficulty walking, extremity pain and joint swelling Integumentary Integumentary: Reports wounds and other Details: Surgical wound R LE due to ORIF of mid femur fracture Neurologic Neurologic: Reports systems reviewed and no addt'l complaints, except as documented Psychiatric Psychiatric: Reports systems reviewed and no addt'l complaints, except as documented and other Details: His told the last hospital that he is having difficulty with short term memory for the past year. He (more content not included)... [facility] 10-22-2020 Note Department of Trauma / Critical Care Discharge Summary Name: Rito Leon Date: 10/23/2020 2:15 PM : 1950 Age/Sex: 70 y.o. male Admit Date: 10/16/2020 Discharge Date: 10/22/2020 Attending: Home Presley MD Discharge Diagnosis: 1. Closed fracture of shaft of right femur, unspecified fracture morphology, initial encounter (HCC) 2. Acute traumatic pain 3. Accident caused by machinery, initial encounter Patient Active Problem List Diagnosis ? Oth fx shaft of right femur, init for opn fx type I/2 (HCC) ? Closed fracture of shaft of right femur (HCC) ? Acute traumatic pain ? Trauma ? Traumatic rhabdomyolysis (HCC) ? Machinery accident ? Thrombosis of right saphenous vein Body mass index is 23.87 kg/m?. BMI Classification: Normal Weight (BMI 18.5-24.9) Reason for Hospitalization: The patient was admitted for rolled over by a tractor. Hospital Course (Care, treatment and services provided): Please see H&P and prior notes for more detailed summary of previous investigations and clinical assessment prior to this admission. Brief HPI 70 y.o.?male?status post rollover by a javed cisnerosler. ?The incident happened around 0900?on 10/16/2020?at work. 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 Traction splint was placed to his RLE for 10 mg ketamine. He has an open wound to right thigh with venous oozing. He denies LOC and remembers the entire event. INR at OSH is 3.5.? Hospital course: Patient presented to the ED as a transfer from [facility] after a tractor rolled onto his right leg. Patient was evaluated in the ED and found to have an open right femur fracture. Patient arrived with a supratherapeutic INR for which patient was given Vitamin K. Orthpedics was consulted and plan was to go to OR on 10/16/2020 for I and D and intramedullary nail. Patient was given k-centra prior to OR. Patient was traction splinted and admitted to the floor. Patient went to OR on for I and D right open femur, right knee exam under anesthesia and retrograde right femoral nail. Patient tolerated procedures well and returned to the floor post op. Patient was changed from coumadin to Eliquis during admission. PT and OT evaluated patient-both of whom recommend inpatient therapy. Patient was tolerating diet prior to discharge and pain was controlled on po pain regimen prior to discharge. Patient was discharged to [facility] in stable condition on 10/22/2020. Consultations: Orthopedics Geriatrics PCP: No primary care provider on file. Recommended Follow-ups: Trauma Clinic 2 weeks [facility] 2 weeks Orthopedics 2 weeks PCP 2 weeks Treatments and Procedures with outcomes: Labs: Data Review Data CBC with Differential: Lab Results Component Value Date WBC 12.1 10/19/2020 RBC 3.20 10/19/2020 HGB 10.0 10/19/2020 HCT 29.3 10/19/2020 PLT 274 10/19/2020 CMP: Lab Results Component Value Date NA 137 10/19/2020 K 3.8 10/19/2020 CL 103 10/19/2020 CO2 26 10/19/2020 BUN 21 10/19/2020 CREATININE 0.80 10/19/2020 GLUCOSE 130 10/19/2020 CALCIUM 8.5 10/19/2020 BMP: Hepatic Function Panel: Ionized Calcium: No results found for: IONCA Magnesium: No results found for: MG Phosphorus: No results found for: PHOS PT/INR: Lab Results Component Value Date PROTIME 11.7 10/17/2020 INR 1.1 10/17/2020 PTT: Lab Results Component Value Date APTT 37.0 10/16/2020 [APTT Last 3 Troponin: No results found for: TROPONINI Urine Culture: No components found for: CURINE Blood Culture: No components found for: CBLOOD, CFUNGUSBL Blood Culture from Central Line: No components found for: CBLOODLN Stool Culture: No components found for: CSTOOL Sputum Culture: No components found for: CSPUTUM Sputum Culture for AFB: No components found for: CAFBSM Wound Culture: n/a Procedures: 10/17/2020: 1. Irrigation and debridement of right open femur fracture 2.??Retrograde right femoral nail ?(CPT 31006) 3. ?Right knee exam under anesthesia ? Significant Imaging Results: XR FEMUR RIGHT (MIN 2 VIEWS) Result Date: 10/16/2020 Patient Name: RITO LEON [facility]#: [id number] Diagnostic Radiology ACCESSION EXAM DATE/TIME PROCEDURE ORDERING PROVIDER [id number] 10/16/2020 21:24 EDT CR Femur 2+ Views Right [id number] -maria d HARRIS CPT code 95061 Reason For Exam (CR Femur 2+ Views Right n) s/p rIMN, please include entire implant Report RIGHT FEMUR, AP & LATERAL: INDICATION: Intramedullary [place] placement COMPARISON: No previous studies are available for comparison. AP and lateral views of the right femur which include the hip and the knee demonstrate a midshaft fracture with placement of an intramedullary [place]. The fracture fragments are near anatomic in alignment. No osseous erosion or periosteal reaction is seen. No (more content not included)... [facility] 10-22-2020 History of Present illness Narrative Physical Therapy Facility/Department: [facility] Daily Treatment Note NAME: Rito Leon : 1950 Date of Service: 10/22/2020 Discharge Recommendations: IP Rehab PT Equipment Recommendations Equipment Needed: No (TBD at next level of care) Assessment Body structures, Functions, Activity limitations: Decreased functional mobility ;Decreased endurance;Decreased ADL status;Decreased strength;Decreased balance;Increased pain Assessment: Patient demo improved bed mobility tasks this date with ability to use LLE to assist RLE off EOB. He continues to require min A for transfers and ambulation due to unsteadiness and continued difficulty bearing full weight through RLE. He did demo improving RLE heel strike today but continues with decreased RLE stance phase and limited weight acceptance. Continue to recommend IP rehab upon discharge. Patient with good potential to tolerate 15 hrs of therapy per week. Specific instructions for Next Treatment: Gait training using FWW Prognosis: Good Decision Making: Medium Complexity PT Education: PT Role;Goals;Plan of Care;Weight-bearing Education;Gait Training REQUIRES PT FOLLOW UP: Yes Activity Tolerance Activity Tolerance: Patient limited by pain;Patient limited by endurance Patient Diagnosis(es): The primary encounter diagnosis was Closed fracture of shaft of right femur, unspecified fracture morphology, initial encounter ([facility]). Diagnoses of Acute traumatic pain and Accident caused by machinery, initial encounter were also pertinent to this visit. has a past medical history of Atrial fibrillation ([facility]) and Hyperlipidemia. has a past surgical history that includes Femur fracture surgery (Right, 10/16/2020). Restrictions Restrictions/Precautions Restrictions/Precautions: Weight Bearing, Fall Risk Required Braces or Orthoses?: No Lower Extremity Weight Bearing Restrictions Right Lower Extremity Weight Bearing: Weight Bearing As Tolerated Position Activity Restriction Other position/activity restrictions: Tele Subjective General Chart Reviewed: Yes Response To Previous Treatment: Patient with no complaints from previous session. Family / Caregiver Present: Yes () Subjective Subjective: Nurse cleared patient for therapy. Patient supine in bed upon arrival with at bedside. Patient agreeable to get OOB. Pain Screening Patient Currently in Pain: Yes Pain Assessment Pain Assessment: 0-10 Pain Level: 6 Pain Type: Acute pain;Surgical pain Pain Location: Leg Pain Orientation: Right Pain Descriptors: Aching;Sore;Discomfort Pain Frequency: Continuous Pain Onset: On-going Clinical Progression: Not changed Functional Pain Assessment: Prevents or interferes some active activities and ADLs Non-Pharmaceutical Pain Intervention(s): (Repositioned) Response to Pain Intervention: Patient Satisfied Multiple Pain Sites: No POSS Score (Patient Ctrl Analgesia): 1 Vital Signs Patient Currently in Pain: Yes Orientation Orientation Overall Orientation Status: Within Normal Limits Cognition Cognition Overall Cognitive Status: WFL Objective Bed mobility Supine to Sit: Contact guard assistance Scooting: Stand by assistance Comment: Patient able to demo use of LLE to assist RLE OOB today. Performed with HOB elevated. Patient performs tasks slowly due to RLE pain. Transfers Sit to Stand: Minimal Assistance Stand to sit: Minimal Assistance Comment: Performed from EOB, toilet and chair. Patient requires heavy use of grab bar to stand from toilet. Patient unsteady upon first standing, requiring bilat UE support on walker and min A for safety. Ambulation Ambulation?: Yes WB Status: WBAT RLE More Ambulation?: Yes Ambulation 1 Surface: level tile Device: Rolling Walker Assistance: Minimal assistance Quality of Gait: narrow LEON, decreased RLE stance phase Gait Deviations: Slow Vanessa Distance: 50 feet Comments: Continues to demo only PWB through RLE, although weight acceptance has increased since initital eval. Patient demo improved heel strike today but continues to demo decreased stance time through RLE with step-to gait pattern. Noted unsteadiness when turning with narrow LEON. Ambulation 2 Surface - 2: level tile Device 2: Rolling Walker Assistance 2: Minimal assistance Quality of Gait 2: see above Gait Deviations: Slow Vanessa Distance: 15 feet Comments: see above Ambulation 3 Surface - 3: level tile Device 3: Rolling Walker Assistance 3: Minimal assistance Quality of Gait 3: see above Gait Deviations: Slow Vanessa Comments: see above; cues given to increase LEON, especially when turning to improve stability. Patient with fair return demonstration. Stairs/Curb Stairs?: No Balance Posture: Fair Sitting - Static: Good;+ Sitting - Dynamic: Good;+ Standing - Static: Fair Standing - Dynamic: Fair;- Comments: Performed anterior/posterior and lateral weight shifting in standing at FWW in order to increase RLE weight acceptance for improved gait mechanics. Patient also stood at sink to wash hands, required min A for task due to unsteadiness. Exercises Hip Flexion: seated march RLE x5 reps with AAROM Knee Long Arc Quad: RLE x5 reps with AAROM Comments: Cues given for proper breathing technique/to not hold breath Other exercises Other exercises?: No G-Code OutComes Score AM-PAC Score AM-PAC Inpatient Mobility Raw Score : 15 (10/22/201317) AM-PAC Inpatient T-Scale Score : 39.45 (10/22/201317) Mobility Inpatient CMS 0-100% Score: 57.7 (10/22/201317) Mobility Inpatient CMS G-Code Modifier : CK (10/22/201317) Goals Short term goals Time Frame for Short term goals: 2 weeks Short term goal 1: Perform bed mobility with modif indep- PROGRESSING Short term goal 2: Perform transfers with modif indep- NOT MET Short term goal 3: Ambulate 100 feet using FWW with supervision and increased weight acceptance through RLE- PROGRESSING Short term goal 4: Ascend/descend 4 stairs using hand rail with supervision- NOT ADDRESSED Patient Goals Patient goals : To walk Plan Plan Times per week: 7 Times per day: Daily Plan weeks: 2 Specific instructions for Next Treatment: Gait training using FWW Current Treatment Recommendations: Strengthening, Transfer Training, Endurance Training, ROM, Patient/Caregiver Education & Training, Balance Training, Gait Training, Functional Mobility Training, Stair training, Safety Education & Training Safety Devices Type of devices: All fall risk precautions in place, Gait belt, Call light within reach, Nurse notified, Left in chair Restraints Initially in place: No Therapy Time Individual Concurrent Group Co-treatment Time In 1223 Time Out 1255 Minutes 32 Timed Code Treatment Minutes: 32 Minutes (Gait x1, FA x1) Ariana Zamudio PT PT wore kN95 mask, goggles, and gloves throughout entire session with patient. Patient s Physical Therapy Plan of Care supervision is transferred to [facility] Rehab Department Physical Therapist. Images from the original note were not included. Daily Trauma Progress Note Nurse Practitioner 10/21/2020 7:11 AM Admit Date: 10/16/2020 Post Trauma Day 5 Tractor rollover HISTORY OF TRAUMATIC EVENT: 70 y.o. male status post rollover by a javed bailer. The incident happened around 0900 on 10/16/2020 at work. 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 He received ancef and tetanus. Traction splint was placed to his RLE for 10 mg ketamine. He has an open wound to right thigh with venous oozing. He denies LOC and remembers the entire event. INR at OSH is 3.5. INJURIES: Right open femur fracture PROCEDURES: 10/17/2020: 1. Irrigation and debridement of right open femur fracture 2. Retrograde right femoral nail (CPT 62674) 3. Right knee exam under anesthesia CHIEF COMPLAINT: feeling good, no complaints PREVIOUS 24 HOUR EVENTS: Awaiting approval for [facility] Consults: IP CONSULT TO GERIATRICS MEDICATIONS: Current Facility-Administered Medications Medication Dose Route Frequency Provider Last Rate Last Admin diphenhydrAMINE (BENADRYL) tablet 25 mg 25 mg Oral Q6H PRN Angel Toth MD melatonin tablet 3 mg 3 mg Oral Nightly Justin Calix MD 3 mg at 10/20/202111 metoprolol tartrate (LOPRESSOR) tablet 25 mg 25 mg Oral BID Home Presley MD 25 mg at 10/20/202112 fenofibrate (TRIGLIDE) tablet 160 mg 160 mg Oral Daily Kinseyagnes Frias APRN - FIRST BEATER 160 mg at 10/20/20806 montelukast (SINGULAIR) tablet 10 mg 10 mg Oral Nightly Kinseyagnes Frias APRN - FIRST BEATER 10 mg at 10/20/202111 niacin (NIASPAN) extended release tablet 500 mg 500 mg Oral Nightly Kinseyagnes Frias APRN - FIRST BEATER 500 mg at 10/20/202111 apixaban (ELIQUIS) tablet 5 mg 5 mg Oral BID Kinseyagnes Frias APRN - FIRST BEATER 5 mg at 10/20/202112 lidocaine 1 % injection 30 mL 30 mL Intradermal Once Vishal Mooney MD sodium chloride flush 0.9 % injection 5-40 mL 5-40 mL Intravenous 2 times per day Sharon Camejo MD 10 mL at 10/20/202119 sodium chloride flush 0.9 % injection 5-40 mL 5-40 mL Intravenous PRN Sharon Camejo MD 0.9 % sodium chloride infusion 25 mL Intravenous PRN Sharon Camejo MD polyethylene glycol (GLYCOLAX) packet 17 g 17 g Oral Daily Sharon Camejo MD 17 g at 10/18/20 0737 acetaminophen (TYLENOL) tablet 1,000 mg 1,000 mg Oral 3 times per day Sharon Camejo MD 1,000 mg at 10/21/20 0531 oxyCODONE (ROXICODONE) immediate release tablet 5 mg 5 mg Oral Q4H PRN Sharon Camejo MD 5 mg at 10/18/20 0633 Or oxyCODONE (ROXICODONE) immediate release tablet 10 mg 10 mg Oral Q4H PRN Sharon Camejo MD 10 mg at 10/21/20 0439 sennosides-docusate sodium (SENOKOT-S) 8.6-50 MG tablet 1 tablet 1 tablet Oral BID Sharon Camejo MD 1 tablet at 10/20/202111 bisacodyl (DULCOLAX) suppository 10 mg 10 mg Rectal Daily PRN Sharon Camejo MD ondansetron (ZOFRAN) injection 4 mg 4 mg Intravenous Q6H PRN Sharon Camejo MD ARE THERE PERTINENT UPDATES TO PAST,FAMILY, OR SOCIAL HISTORY?: No Subjective: States he is feeling well this morning. Pain is well controlled. Awaiting insurance approval. Review of Systems Musculoskeletal: Positive for arthralgias and myalgias. All other systems reviewed and are negative. PHQ In the last 2 weeks have you had: 1. Little interest or pleasure in doing things No 2. Been feeling down, depressed, or hopeless No If greater then 0, place CLP consult Date PHQ completed: 10/17/2020 Objective: Patient Vitals for the past 24 hrs: BP Temp Temp src Pulse Resp SpO2 10/21/20 0630 112/67 97.2 F (36.2 C) Temporal 76 16 95 % 10/21/20 0202 118/74 97.2 F (36.2 C) Temporal 89 16 94 % 10/20/20 2207 115/73 97.8 F (36.6 C) Temporal 97 20 96 % 10/20/20 1735 123/73 98.5 F (36.9 C) Temporal 88 18 94 % 10/20/20 1403 108/71 99.9 F (37.7 C) Temporal 99 18 96 % 10/20/20 1019 121/78 97.4 F (36.3 C) Temporal 101 18 95 % Date 10/21/20 0000 - 10/21/20 2359 Shift [id number] 2951-2751 3677-4778 24 Hour Total INTAKE Shift Total(mL/kg) OUTPUT Urine(mL/kg/hr) 500 500 Shift Total(mL/kg) 500(5.8) 500(5.8) Weight (kg) 86.6 86.6 86.6 86.6 Last BM: 10/18 Diet: general PHYSICAL: Physical Exam Vitals and nursing note reviewed. Constitutional: General: He is not in acute distress. Appearance: Normal appearance. HENT: Head: Normocephalic and atraumatic. Nose: Nose normal. Mouth/Throat: Mouth: Mucous membranes are moist. Eyes: Extraocular Movements: Extraocular movements intact. Pupils: Pupils are equal, round, and reactive to light. Cardiovascular: Rate and Rhythm: Normal rate. Pulmonary: Effort: Pulmonary effort is normal. Abdominal: General: Abdomen is flat. Palpations: Abdomen is soft. Musculoskeletal: General: Tenderness and signs of injury present. Cervical back: Normal range of motion and neck supple. No tenderness. Comments: RLE in maria guadalupe wrap, compartments soft, MSPs intact Skin: General: Skin is warm and dry. Capillary Refill: Capillary refill takes less than 2 seconds. Neurological: General: No focal deficit present. Mental Status: He is alert and oriented to person, place, and time. Psychiatric: Mood and Affect: Mood normal. Sutures or maliha? Yes O2: RA / / / Data Review Data CBC with Differential: Lab Results Component Value Date WBC 12.1 10/19/2020 RBC 3.20 10/19/2020 HGB 10.0 10/19/2020 HCT 29.3 10/19/2020 PLT 274 10/19/2020 CMP: Lab Results Component Value Date NA 137 10/19/2020 K 3.8 10/19/2020 CL 103 10/19/2020 CO2 26 10/19/2020 BUN 21 10/19/2020 CREATININE 0.80 10/19/2020 GLUCOSE 130 10/19/2020 CALCIUM 8.5 10/19/2020 BMP: Hepatic Function Panel:Ionized Calcium: No results found for: IONCA Magnesium: No results found for: MG Phosphorus: No results found for: PHOS PT/INR: Lab Results Component Value Date PROTIME 11.7 10/17/2020 INR 1.1 10/17/2020 PTT: Lab Results Component Value Date APTT 37.0 10/16/2020 [APTT Last 3 Troponin: No results found for: TROPONINI Urine Culture: No components found for: CURINE Blood Culture: No components found for: CBLOOD, CFUNGUSBL Blood Culture from Central Line: No components found for: CBLOODLN Stool Culture: No components found for: CSTOOL Sputum Culture: No components found for: CSPUTUM Sputum Culture for AFB: No components found for: CAFBSM Wound Culture: n/a Radiology: XR FEMUR RIGHT (MIN 2 VIEWS) Result Date: 10/16/2020 Patient Name: RITO LEON Diagnostic Radiology ACCESSION EXAM DATE/TIME PROCEDURE ORDERING PROVIDER [id number] 10/16/2020 21:24 EDT CR Femur 2+ Views Right [id number] -maria d HARRIS CPT code 23496 Reason For Exam (CR Femur 2+ Views Right n) s/p rIMN, please include entire implant Report RIGHT FEMUR, AP & LATERAL: INDICATION: Intramedullary [place] placement COMPARISON: No previous studies are available for comparison. AP and lateral views of the right femur which include the hip and the knee demonstrate a midshaft fracture with placement of an intramedullary [place]. The fracture fragments are near anatomic in alignment. No osseous erosion or periosteal reaction is seen. No osteolytic or osteoblastic osseous densities are identified. There is no significant soft tissue abnormality. IMPRESSION: Midshaft femoral fracture with placement of an intramedullary [place] in near anatomic alignment of the fracture fragments Report Dictated on Workstation: [id number] --- Final --- Dictated: 10/16/2020 10:56 pm Dictating Physician: DO MOTLEY ALFRED Signed Date and Time: 10/16/2020 10:57 pm Signed by: DO MOTLEY ALFRED Transcribed Date and Time: 10/16/2020 10:56 XR FEMUR RIGHT (MIN 2 VIEWS) Result Date: 10/16/2020 Patient Name: RITO LEON Diagnostic Radiology ACCESSION EXAM DATE/TIME PROCEDURE ORDERING PROVIDER [id number] 10/16/2020 12:17 EDT CR Femur 2+ Views Right MD PRESLEY ALEKSANDAR n CPT code 70083 Reason For Exam (CR Femur 2+ Views Right n) right upper leg pain Report Right femur: 10/16/2020. Clinical Information: Trauma. Findings: 2 views of the right femur from the hip to the knee reveal the bones to be well mineralized. There is a transverse comminuted fracture of the mid femoral diaphysis. The proximal fragment is displaced anteriorly and may be open from the skin. There is a small amount of subcutaneous emphysema. There is a small cortical fragment. Report Dictated on --- Final --- Dictated: 10/16/2020 12:22 pm Dictating Physician: MD WARD RISA Signed Date and Time: 10/16/2020 12:23 pm Signed by: MD WARD RISA Transcribed Date and Time: 10/16/2020 12:22 XR TIBIA FIBULA RIGHT (2 VIEWS) Result Date: 10/16/2020 Patient Name: RITO LEON Diagnostic Radiology ACCESSION EXAM DATE/TIME PROCEDURE ORDERING PROVIDER [id number] 10/16/2020 12:17 EDT CR Tibia/Fibula 2 Views MD PRESLEY ALEKSANDAR Right CPT code 63619 Reason For Exam (CR Tibia/Fibula 2 Views Right) right lower leg pain ortho only wanted proximal tib/fib Report Right tibia and fibula: 10/16/2020 Clinical information: Trauma. Findings: 2 views of the proximal right tibia and fibula were obtained as requested. The distal tibiofibular was not imaged. There is cortical irregularity along the lateral aspect of the fibular head. There could be a nondisplaced hairline fracture in this area. There is a small joint effusion in the suprapatellar space. No other bony abnormalities are grossly identified. Report Dictated on --- Final --- Dictated: 10/16/2020 12:43 pm Dictating Physician: MD WARD RISA Signed Date and Time: 10/16/2020 12:44 pm Signed by: MD WARD RISA Transcribed Date and Time: 10/16/2020 12:43 CT HEAD WO CONTRAST Result Date: 10/16/2020 Patient Name: RITO LEON Computed Tomography ACCESSION EXAM DATE/TIME PROCEDURE ORDERING PROVIDER [id number] 10/16/2020 12:[address] Head or Brain w/o MD TERE, HOME Contrast CPT code 28186 Reason For Exam (CT Head or Brain w/o Contrast) tactor rollover Report CT scan head: 10/16/2020. CLINICAL INFORMATION: Closed head trauma. FINDINGS: CT scans of the head were performed at 3 mm slice thickness. No prior studies for comparison. The ventricular system and cortical sulci are within normal limits. There is no evidence of hemorrhage or edema. No areas of mass effect or infarct are seen. There is minimal mucosal thickening in the ethmoid air cells bilaterally and left maxillary sinus. IMPRESSION: No acute process. Incidental sinusitis. Report Dictated on --- Final --- Dictated: 10/16/2020 12:32 pm Dictating Physician: MD WARD RISA Signed Date and Time: 10/16/2020 12:34 pm Signed by: MD WARD RISA Transcribed Date and Time: 10/16/2020 12:32 CT CERVICAL SPINE WO CONTRAST Result Date: 10/16/2020 Patient Name: RITO LEON Computed Tomography ACCESSION EXAM DATE/TIME PROCEDURE ORDERING PROVIDER [id number] 10/16/2020 12:[address] Spine Cervical w/o MD TERE, HOME Contrast CPT code 49426 Reason For Exam (CT Spine Cervical w/o Contrast) tractor rollover Report Clinical indication: Tractor rollover accident Comparison: None Radiation dose: DLP 432 mGycm Multidetector imaging from skull base through thoracic inlet was performed with axial, coronal and sagittal reconstructions evaluated. No fracture or focal spondylolisthesis is identified. C4-C5 disc is moderately narrowed with associated endplate spur formation. Left neural foraminal stenosis is noted at C3-C4 and bilateral neural foraminal stenosis at C4-C5 related to a combination of uncovertebral and facet hypertrophy. IMPRESSION: No acute osseous abnormality is noted in the cervical spine. 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 Report Dictated on --- Final --- Dictated: 10/16/2020 12:49 pm Dictating Physician: MD SPEAR DIANE Signed Date and Time: 10/16/2020 12:52 pm Signed by: MD SPEAR DIANE Transcribed Date and Time: 10/16/2020 12:49 XR CHEST PORTABLE Result Date: 10/16/2020 Patient Name: RITO LEON Diagnostic Radiology ACCESSION EXAM DATE/TIME PROCEDURE ORDERING PROVIDER [id number] 10/16/2020 12:16 EDT CR Chest Portable MD PRESLEY ALEKSANDAR CPT code 72840 Reason For Exam (CR Chest Portable) chest pain Report PORTABLE CHEST Clinical indication: chest pain Comparison: None. Cardiac silhouette is nonenlarged. Lung volumes are shallow. No focal consolidative pneumonia is identified. There is no pleural effusion or pneumothorax. No obvious fractures are visible. IMPRESSION: No acute radiographic abnormality Report Dictated on --- Final --- Dictated: 10/16/2020 12:28 pm Dictating Physician: MD SPEAR DIANE Signed Date and Time: 10/16/2020 12:29 pm Signed by: MD SPEAR DIANE Transcribed Date and Time: 10/16/2020 12:28 CT LOWER EXTREMITY RIGHT WO CONTRAST Result Date: 10/16/2020 Patient Name: RITO LEON Computed Tomography ACCESSION EXAM DATE/TIME PROCEDURE ORDERING PROVIDER [id number] 10/16/2020 12:[address] Low Ext w/o Contrast MD PRESLEY ALEKSANDAR Right CPT code 32791 Reason For Exam (CT Low Ext w/o Contrast Right) tractor rollover Report CT right femur CLINICAL INDICATION: Tractor rollover accident. Right femur fracture. COMPARISON: Plain films right femur 10/16/2020 Radiation dose: DLP 1856 mGycm Imaging was performed from the iliac crest through the proximal tibial and fibular metaphyses with [id number] restricted to the right lower extremity. Axial, coronal and sagittal images are reconstructed. Hip joint is intact. There is no fracture noted in the femoral neck or trochanteric region. There is no fracture noted in the right iliac bone or in the right superior or inferior pubic rami. Comminuted fracture is present at the midshaft of the right femur. The distal fracture fragment is externally rotated about 90 degrees. At the level the fracture there are soft tissue air bubbles from skin to lateral muscle compartment indicating an open fracture. There is a small amount of hematoma intervening between the fracture fragments. Distal fracture fragment is displaced posteriorly by about 4 cm. There is a small collection in the knee joint with a fat fluid level. A tiny calcific density is present adjacent to the medial femoral condyle in the intercondylar notch which could represent a tiny avulsion. No other fracture is noted at the knee. Diffuse arteriosclerotic calcifications are noted. IMPRESSION: Comminuted displaced open fracture mid shaft right femur Small joint effusion with a fat fluid level Tiny calcific density adjacent to the medial femoral condyle in the intercondylar notch could represent a tiny avulsion. There is no other articular involving fracture identified Computed Tomography Report Report Dictated on --- Final --- Dictated: 10/16/2020 1:03 pm Dictating Physician: MD SPEAR DIANE Signed Date and Time: 10/16/2020 1:13 pm Signed by: MD SPEAR DIANE Transcribed Date and Time: 10/16/2020 1:03 XR PELVIS (1-2 VW) Result Date: 10/16/2020 [id number] ACCESSION EXAM DATE/TIME PROCEDURE ORDERING PROVIDER [id number] 10/16/2020 12:16 EDT CR Pelvis 1 or 2 Views MD PRESLEY ALEKSANDAR CPT code 28160 Reason For Exam (CR Pelvis 1 or 2 Views) pelvic pain Report Pelvis CLINICAL INDICATION: Pelvic pain AP view of the pelvis was obtained. There is no fracture noted. Sacroiliac joints are symmetric. Symphysis pubis is normal in width. There is no dislocation evident at the hips. IMPRESSION: No acute osseous abnormality Report Dictated on --- Final --- Dictated: 10/16/2020 12:29 pm Dictating Physician: MD SPEAR DIANE Signed Date and Time: 10/16/2020 12:34 pm Signed by: MD SPEAR DIANE Transcribed Date and Time: 10/16/2020 12:29 Patient Active Problem List Diagnosis Oth fx shaft of right femur, init for opn fx type I/2 (HCC) Closed fracture of shaft of right femur (HCC) Acute traumatic pain Trauma Traumatic rhabdomyolysis (HCC) Machinery accident Thrombosis of right saphenous vein ASSESSMENT: 70 yo male s/p tractor rollover with open femur fracture PLAN: Neuro/Spine: - pain prn oxycodone, robaxin, scheduled tylenol - Neurovascular checks HEENT: - no issues Cardiovascular: - hx afib-home Coumadin-Kcentra given in ED - Change coumadin to Eliquis- follow up as OP to discuss with cardiology - hx htn home metoprolol - hx hld home Niacin and fenofibrate Pulmonary: - hx copd home Singulair FEN/GI: - general diet - hl iv -bowel regimen : - Cr stable - DC daily labs Heme: - Hgb: stable - DC daily labs ID: - Zosyn x 24 hours per ortho- complete Endo: - no issues Lines/Devices: - peripheral Prophylaxis: DVT: Eliquis Has DVT PPX been started? Yes If no, why? n/a GI: none Pressure Ulcer: none Musculoskeletal: - right open femur fracture s/p IMN right femur and EUA Right knee POD #1-wbat -pt/ot rec IP rehab WB Status: RUE:at LUE: at RLE: at LLE: at Disposition: H 6 care, dispo planning to [facility], medically ready Associated attestation - Beti Jay MD - 10/22/2020 2:53 PM EDT ~~~~~~~~~~~~~~~~~~~~~~~~~~~~~~~~~~~~ ~~~~~~~~~~~~~~~~~~~~~~~~~ ATTENDING ADDENDUM CC: right leg pain Active Diagnoses/Problems this Admission: Hospital Problems Last Modified POA Oth fx shaft of right femur, init for opn fx type I/2 (HCC) 10/16/2020 Yes Closed fracture of shaft of right femur (HCC) 10/17/2020 Yes Acute traumatic pain 10/17/2020 Yes Trauma 10/19/2020 Yes Traumatic rhabdomyolysis (HCC) 10/19/2020 Yes Machinery accident 10/19/2020 Yes Thrombosis of right saphenous vein 10/19/2020 Yes I personally supervised the ENGINE HOSTLER/NISHANT in the evaluation and development of a treatment plan for this patient on the same day of service as above. I personally discussed the review of systems and interviewed the patient along with performing a physical examination. I reviewed the recent events, imaging, labs, vital signs. In addition, I discussed the patient's condition and treatment options with him/her when possible. I have also reviewed and agree with the past medical, family, and social history unless otherwise noted. All of the patient's questions were answered and family updated when appropriate and possible. 70M s/p s/p open femur fx on the right and EUA of right knee Warfarin reversed in ED due to open femur fx Lactic acidosis - resolved Appreciate orthopedic recommendations s/p intramuscular nail - Weightbearing as tolerated - Follow-up outpatient in 1-2 weeks Cont home meds Change to eliquis at this time given shortage of blue tops - Takes Coumadin for A. 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 The document was proofread; however, unrecognized voice recognition can vacuum tester errors may be present. Physical Therapy Facility/Department: [facility] Daily Treatment Note NAME: Rito Leon : 1950 Date of Service: 10/20/2020 Discharge Recommendations: IP Rehab PT Equipment Recommendations Equipment Needed: No Assessment Body structures, Functions, Activity limitations: Decreased functional mobility ;Decreased endurance;Decreased ADL status;Decreased strength;Decreased balance;Increased pain Assessment: Pt was able to ambulate further this session but HR increased to 150's with activity and pt diaphoretic through out session. Pt could not attempt stairs this date. Currently recommend rehab at disch. Pt has good potential to tolerate 15 hours of theapy a week. Specific instructions for Next Treatment: Gait training using FWW Prognosis: Good Decision Making: Medium Complexity REQUIRES PT FOLLOW UP: Yes Activity Tolerance Activity Tolerance: Patient limited by pain;Treatment limited secondary to medical complications (free text) Activity Tolerance: increased HR and diaphoretic Patient Diagnosis(es): The primary encounter diagnosis was Closed fracture of shaft of right femur, unspecified fracture morphology, initial encounter ([facility]). A diagnosis of Acute traumatic pain was also pertinent to this visit. has a past medical history of Atrial fibrillation ([facility]) and Hyperlipidemia. has a past surgical history that includes Femur fracture surgery (Right, 10/16/2020). Restrictions Restrictions/Precautions Restrictions/Precautions: Weight Bearing, Fall Risk Required Braces or Orthoses?: (RLE maria guadalupe wrapped) Lower Extremity Weight Bearing Restrictions Right Lower Extremity Weight Bearing: Weight Bearing As Tolerated Position Activity Restriction Other position/activity restrictions: Tele Subjective General Response To Previous Treatment: Patient with no complaints from previous session. Family / Caregiver Present: Yes (daughter Hermila) Subjective Subjective: Pt supine in the bed, agrees to PT. Pain Screening Patient Currently in Pain: Yes Pain Assessment Pain Assessment: 0-10 Pain Level: 7 Pain Type: Acute pain Pain Location: Leg Pain Orientation: Right Vital Signs Patient Currently in Pain: Yes Orientation Orientation Overall Orientation Status: Within Normal Limits Cognition Cognition Overall Cognitive Status: WFL Objective Bed mobility Supine to Sit: Minimal assistance Sit to Supine: Minimal assistance Scooting: Stand by assistance Comment: assist for RLE with in and out of bed, showed technique on how to use other leg to help lift RLE but had too much pain Transfers Sit to Stand: Minimal Assistance Stand to sit: Minimal Assistance Comment: stood from EOB, cues for hand placement. stood from toilet, heavy use of grab bar Ambulation Ambulation?: Yes WB Status: WBAT RLE Ambulation 1 Surface: level tile Device: Rolling Walker Assistance: Minimal assistance Quality of Gait: Difficulty bearing weight through RLE, keeps right hip/knee flexed, tends to put weight through toes, no heel strike, step-to gait pattern Gait Deviations: Slow Vanessa Distance: 50 ft x 2, 5 ft x 2 Comments: tends to demonstrate PWB with RLE Stairs/Curb Stairs?: No Balance Comments: pt able to wipe self after using toilet, Pt stood at sink, min assist for balance while washing hands when reaching out side LEON. Exercises Quad Sets: supine x 10 Heelslides: supine RLE x 10 reps, AAROM small range Gluteal Sets: supine x 10 Knee Long Arc Quad: seated EOB x 10 reps, PROM/AAROM RLE Ankle Pumps: supine x 10 reps, BLE, AROM Goals Short term goals Time Frame for Short term goals: 2 weeks Short term goal 1: Perform bed mobility with modif indep- NOT MET Short term goal 2: Perform transfers with modif indep- NOT MET Short term goal 3: Ambulate 100 feet using FWW with supervision and increased weight acceptance through RLE- NOT MET Short term goal 4: Ascend/descend 4 stairs using hand rail with supervision- NOT ADDRESSED Patient Goals Patient goals : To walk Plan Plan Times per week: 7 Times per day: Daily Plan weeks: 2 Specific instructions for Next Treatment: Gait training using FWW Current Treatment Recommendations: Strengthening, Transfer Training, Endurance Training, ROM, Patient/Caregiver Education & Training, Balance Training, Gait Training, Functional Mobility Training, Stair training, Safety Education & Training Safety Devices Type of devices: All fall risk precautions in place, Gait belt, Call light within reach, Left in bed Restraints Initially in place: No Therapy Time Individual Concurrent Group Co-treatment Time In 931 Time Out 1010 Minutes 38 Timed Code Treatment Minutes: 28 Minutes (gait, TP) Variance: 10 (pt on toilet) *PPE worn per facility policy during session* Tish Mix PTA Images from the original note were not included. Daily Trauma Progress Note Nurse Practitioner 10/20/2020 6:31 AM Admit Date: 10/16/2020 Post Trauma Day 4 Tractor rollover HISTORY OF TRAUMATIC EVENT: 70 y.o. male status post rollover by a javed bailer. The incident happened around 0900 on 10/16/2020 at work. 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 He received ancef and tetanus. Traction splint was placed to his RLE for 10 mg ketamine. He has an open wound to right thigh with venous oozing. He denies LOC and remembers the entire event. INR at OSH is 3.5. INJURIES: Right open femur fracture PROCEDURES: 10/17/2020: 1. Irrigation and debridement of right open femur fracture 2. Retrograde right femoral nail (CPT 86527) 3. Right knee exam under anesthesia CHIEF COMPLAINT: feeling good PREVIOUS 24 HOUR EVENTS: Awaiting approval for [facility] Consults: IP CONSULT TO GERIATRICS MEDICATIONS: Current Facility-Administered Medications Medication Dose Route Frequency Provider Last Rate Last Admin diphenhydrAMINE (BENADRYL) tablet 25 mg 25 mg Oral Q6H PRN Angel Toth MD melatonin tablet 3 mg 3 mg Oral Nightly Justin Calix MD 3 mg at 10/19/202116 metoprolol tartrate (LOPRESSOR) tablet 25 mg 25 mg Oral BID Home Presley MD 25 mg at 10/19/202121 fenofibrate (TRIGLIDE) tablet 160 mg 160 mg Oral Daily TYRELL Salgado CNP 160 mg at 10/19/20 0849 montelukast (SINGULAIR) tablet 10 mg 10 mg Oral Nightly Kinseyagnes Frias APRN - HILDA 10 mg at 10/19/202116 niacin (NIASPAN) extended release tablet 500 mg 500 mg Oral Nightly TYRELL Salgado CNP 500 mg at 10/19/202119 apixaban (ELIQUIS) tablet 5 mg 5 mg Oral BID Kinsey Frias, ENGINE HOSTLER - FIRST BEATER 5 mg at 10/19/202116 lidocaine 1 % injection 30 mL 30 mL Intradermal Once Vishal Mooney MD sodium chloride flush 0.9 % injection 5-40 mL 5-40 mL Intravenous 2 times per day Sharon Camejo MD 10 mL at 10/19/202117 sodium chloride flush 0.9 % injection 5-40 mL 5-40 mL Intravenous PRN Sharon Camejo MD 0.9 % sodium chloride infusion 25 mL Intravenous PRN Sharon Camejo MD polyethylene glycol (GLYCOLAX) packet 17 g 17 g Oral Daily Sharon Camejo MD 17 g at 10/18/20 0737 acetaminophen (TYLENOL) tablet 1,000 mg 1,000 mg Oral 3 times per day Sharon Camejo MD 1,000 mg at 10/20/20 0536 oxyCODONE (ROXICODONE) immediate release tablet 5 mg 5 mg Oral Q4H PRN Sharon Camejo MD 5 mg at 10/18/20 0633 Or oxyCODONE (ROXICODONE) immediate release tablet 10 mg 10 mg Oral Q4H PRN Sharon Camejo MD 10 mg at 10/19/20 2323 sennosides-docusate sodium (SENOKOT-S) 8.6-50 MG tablet 1 tablet 1 tablet Oral BID Sharon Camejo MD 1 tablet at 10/19/202116 bisacodyl (DULCOLAX) suppository 10 mg 10 mg Rectal Daily PRN Sharon Camejo MD ondansetron (ZOFRAN) injection 4 mg 4 mg Intravenous Q6H PRN Sharon Camejo MD ARE THERE PERTINENT UPDATES TO PAST,FAMILY, OR SOCIAL HISTORY?: No Subjective: States he is feeling well this morning. Pain is well controlled. Awaiting insurance approval. Review of Systems Musculoskeletal: Positive for arthralgias and myalgias. All other systems reviewed and are negative. PHQ In the last 2 weeks have you had: 1. Little interest or pleasure in doing things No 2. Been feeling down, depressed, or hopeless No If greater then 0, place CLP consult Date PHQ completed: 10/17/2020 Objective: Patient Vitals for the past 24 hrs: BP Temp Temp src Pulse Resp SpO2 10/20/20 0526 118/67 97.3 F (36.3 C) 85 16 96 % 10/19/20 2347 101/66 97.8 F (36.6 C) Temporal 85 16 95 % 10/19/20 1959 116/65 97.7 F (36.5 C) Temporal 96 16 96 % 10/19/20 1515 112/72 95.2 F (35.1 C) Temporal 94 17 95 % 10/19/20 0935 115/73 98 F (36.7 C) Temporal 80 18 95 % Date 10/20/20 0000 - 10/20/20 2359 Shift 6004-1727 8673-8430 4581-8984 24 Hour Total INTAKE Shift Total(mL/kg) OUTPUT Urine(mL/kg/hr) 400 400 Shift Total(mL/kg) 400(4.6) 400(4.6) Weight (kg) 86.6 86.6 86.6 86.6 Last BM: 10/18 Diet: general PHYSICAL: Physical Exam Vitals and nursing note reviewed. Constitutional: General: He is not in acute distress. Appearance: Normal appearance. HENT: Head: Normocephalic and atraumatic. Nose: Nose normal. Mouth/Throat: Mouth: Mucous membranes are moist. Eyes: Extraocular Movements: Extraocular movements intact. Pupils: Pupils are equal, round, and reactive to light. Cardiovascular: Rate and Rhythm: Normal rate. Pulmonary: Effort: Pulmonary effort is normal. Abdominal: General: Abdomen is flat. Palpations: Abdomen is soft. Musculoskeletal: General: Tenderness and signs of injury present. Cervical back: Normal range of motion and neck supple. No tenderness. Comments: RLE in maria guadalupe wrap, compartments soft, MSPs intact Skin: General: Skin is warm and dry. Capillary Refill: Capillary refill takes less than 2 seconds. Neurological: General: No focal deficit present. Mental Status: He is alert and oriented to person, place, and time. Psychiatric: Mood and Affect: Mood normal. Sutures or maliha? Yes O2: RA / / / Data Review Data CBC with Differential: Lab Results Component Value Date WBC 12.1 10/19/2020 RBC 3.20 10/19/2020 HGB 10.0 10/19/2020 HCT 29.3 10/19/2020 PLT 274 10/19/2020 CMP: Lab Results Component Value Date NA 137 10/19/2020 K 3.8 10/19/2020 CL 103 10/19/2020 CO2 26 10/19/2020 BUN 21 10/19/2020 CREATININE 0.80 10/19/2020 GLUCOSE 130 10/19/2020 CALCIUM 8.5 10/19/2020 BMP: Hepatic Function Panel:Ionized Calcium: No results found for: IONCA Magnesium: No results found for: MG Phosphorus: No results found for: PHOS PT/INR: Lab Results Component Value Date PROTIME 11.7 10/17/2020 INR 1.1 10/17/2020 PTT: Lab Results Component Value Date APTT 37.0 10/16/2020 [APTT Last 3 Troponin: No results found for: TROPONINI Urine Culture: No components found for: CURINE Blood Culture: No components found for: CBLOOD, CFUNGUSBL Blood Culture from Central Line: No components found for: CBLOODLN Stool Culture: No components found for: CSTOOL Sputum Culture: No components found for: CSPUTUM Sputum Culture for AFB: No components found for: CAFBSM Wound Culture: n/a Radiology: XR FEMUR RIGHT (MIN 2 VIEWS) Result Date: 10/16/2020 Patient Name: RITO LEON Diagnostic Radiology ACCESSION EXAM DATE/TIME PROCEDURE ORDERING PROVIDER [id number] 10/16/2020 21:24 EDT CR Femur 2+ Views Right [id number] -maria d HARRIS CPT code 94092 Reason For Exam (CR Femur 2+ Views Right n) s/p rIMN, please include entire implant Report RIGHT FEMUR, AP & LATERAL: INDICATION: Intramedullary [place] placement COMPARISON: No previous studies are available for comparison. AP and lateral views of the right femur which include the hip and the knee demonstrate a midshaft fracture with placement of an intramedullary [place]. The fracture fragments are near anatomic in alignment. No osseous erosion or periosteal reaction is seen. No osteolytic or osteoblastic osseous densities are identified. There is no significant soft tissue abnormality. IMPRESSION: Midshaft femoral fracture with placement of an intramedullary [place] in near anatomic alignment of the fracture fragments Report Dictated on Workstation: [id number] --- Final --- Dictated: 10/16/2020 10:56 pm Dictating Physician: DO MOTLEY ALFRED Signed Date and Time: 10/16/2020 10:57 pm Signed by: DO MOTLEY ALFRED Transcribed Date and Time: 10/16/2020 10:56 XR FEMUR RIGHT (MIN 2 VIEWS) Result Date: 10/16/2020 Patient Name: RITO LEON Diagnostic Radiology ACCESSION EXAM DATE/TIME PROCEDURE ORDERING PROVIDER [id number] 10/16/2020 12:17 EDT CR Femur 2+ Views Right MD PRESLEY ALEKSANDAR n CPT code 61672 Reason For Exam (CR Femur 2+ Views Right n) right upper leg pain Report Right femur: 10/16/2020. Clinical Information: Trauma. Findings: 2 views of the right femur from the hip to the knee reveal the bones to be well mineralized. There is a transverse comminuted fracture of the mid femoral diaphysis. The proximal fragment is displaced anteriorly and may be open from the skin. There is a small amount of subcutaneous emphysema. There is a small cortical fragment. Report Dictated on --- Final --- Dictated: 10/16/2020 12:22 pm Dictating Physician: MD WARD RISA Signed Date and Time: 10/16/2020 12:23 pm Signed by: MD WARD RISA Transcribed Date and Time: 10/16/2020 12:22 XR TIBIA FIBULA RIGHT (2 VIEWS) Result Date: 10/16/2020 Patient Name: RITO LEON Diagnostic Radiology ACCESSION EXAM DATE/TIME PROCEDURE ORDERING PROVIDER [id number] 10/16/2020 12:17 EDT CR Tibia/Fibula 2 Views MD PRESLEY ALEKSANDAR Right CPT code 80760 Reason For Exam (CR Tibia/Fibula 2 Views Right) right lower leg pain ortho only wanted proximal tib/fib Report Right tibia and fibula: 10/16/2020 Clinical information: Trauma. Findings: 2 views of the proximal right tibia and fibula were obtained as requested. The distal tibiofibular was not imaged. There is cortical irregularity along the lateral aspect of the fibular head. There could be a nondisplaced hairline fracture in this area. There is a small joint effusion in the suprapatellar space. No other bony abnormalities are grossly identified. Report Dictated on --- Final --- Dictated: 10/16/2020 12:43 pm Dictating Physician: MD WARD RISA Signed Date and Time: 10/16/2020 12:44 pm Signed by: MD WARD RISA Transcribed Date and Time: 10/16/2020 12:43 CT HEAD WO CONTRAST Result Date: 10/16/2020 Patient Name: RITO LEON Computed Tomography ACCESSION EXAM DATE/TIME PROCEDURE ORDERING PROVIDER [id number] 10/16/2020 12:[address] Head or Brain w/o MD TERE, HOME Contrast CPT code 60973 Reason For Exam (CT Head or Brain w/o Contrast) tactor rollover Report CT scan head: 10/16/2020. CLINICAL INFORMATION: Closed head trauma. FINDINGS: CT scans of the head were performed at 3 mm slice thickness. No prior studies for comparison. The ventricular system and cortical sulci are within normal limits. There is no evidence of hemorrhage or edema. No areas of mass effect or infarct are seen. There is minimal mucosal thickening in the ethmoid air cells bilaterally and left maxillary sinus. IMPRESSION: No acute process. Incidental sinusitis. Report Dictated on --- Final --- Dictated: 10/16/2020 12:32 pm Dictating Physician: MD WARD RISA Signed Date and Time: 10/16/2020 12:34 pm Signed by: MD WARD RISA Transcribed Date and Time: 10/16/2020 12:32 CT CERVICAL SPINE WO CONTRAST Result Date: 10/16/2020 Patient Name: RITO LEON Computed Tomography ACCESSION EXAM DATE/TIME PROCEDURE ORDERING PROVIDER [id number] 10/16/2020 12:[address] Spine Cervical w/o MD PRESLEY ALEKSANDAR Contrast CPT code 82004 Reason For Exam (CT Spine Cervical w/o Contrast) tractor rollover Report Clinical indication: Tractor rollover accident Comparison: None Radiation dose: DLP 432 mGycm Multidetector imaging from skull base through thoracic inlet was performed with axial, coronal and sagittal reconstructions evaluated. No fracture or focal spondylolisthesis is identified. C4-C5 disc is moderately narrowed with associated endplate spur formation. Left neural foraminal stenosis is noted at C3-C4 and bilateral neural foraminal stenosis at C4-C5 related to a combination of uncovertebral and facet hypertrophy. IMPRESSION: No acute osseous abnormality is noted in the cervical spine. 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 Report Dictated on --- Final --- Dictated: 10/16/2020 12:49 pm Dictating Physician: MD SPEAR DIANE Signed Date and Time: 10/16/2020 12:52 pm Signed by: MD SPERA DIANE Transcribed Date and Time: 10/16/2020 12:49 XR CHEST PORTABLE Result Date: 10/16/2020 Patient Name: RITO LEON [facility]#: [id number] Diagnostic Radiology ACCESSION EXAM DATE/TIME PROCEDURE ORDERING PROVIDER [id number] 10/16/2020 12:16 EDT CR Chest Portable MD PRESLEY ALEKSANDAR CPT code 63136 Reason For Exam (CR Chest Portable) chest pain Report PORTABLE CHEST Clinical indication: chest pain Comparison: None. Cardiac silhouette is nonenlarged. Lung volumes are shallow. No focal consolidative pneumonia is identified. There is no pleural effusion or pneumothorax. No obvious fractures are visible. IMPRESSION: No acute radiographic abnormality Report Dictated on --- Final --- Dictated: 10/16/2020 12:28 pm Dictating Physician: MD SPEAR DIANE Signed Date and Time: 10/16/2020 12:29 pm Signed by: MD SPEAR DIANE Transcribed Date and Time: 10/16/2020 12:28 CT LOWER EXTREMITY RIGHT WO CONTRAST Result Date: 10/16/2020 [id number] Tomography ACCESSION EXAM DATE/TIME PROCEDURE ORDERING PROVIDER [id number] 10/16/2020 12:[address] Low Ext w/o Contrast MD TERE, HOME Right CPT code 45485 Reason For Exam (CT Low Ext w/o Contrast Right) tractor rollover Report CT right femur CLINICAL INDICATION: Tractor rollover accident. Right femur fracture. COMPARISON: Plain films right femur 10/16/2020 Radiation dose: DLP 1856 mGycm Imaging was performed from the iliac crest through the proximal tibial and fibular metaphyses with [id number] restricted to the right lower extremity. Axial, coronal and sagittal images are reconstructed. Hip joint is intact. There is no fracture noted in the femoral neck or trochanteric region. There is no fracture noted in the right iliac bone or in the right superior or inferior pubic rami. Comminuted fracture is present at the midshaft of the right femur. The distal fracture fragment is externally rotated about 90 degrees. At the level the fracture there are soft tissue air bubbles from skin to lateral muscle compartment indicating an open fracture. There is a small amount of hematoma intervening between the fracture fragments. Distal fracture fragment is displaced posteriorly by about 4 cm. There is a small collection in the knee joint with a fat fluid level. A tiny calcific density is present adjacent to the medial femoral condyle in the intercondylar notch which could represent a tiny avulsion. No other fracture is noted at the knee. Diffuse arteriosclerotic calcifications are noted. IMPRESSION: Comminuted displaced open fracture mid shaft right femur Small joint effusion with a fat fluid level Tiny calcific density adjacent to the medial femoral condyle in the intercondylar notch could represent a tiny avulsion. There is no other articular involving fracture identified Computed Tomography Report Report Dictated on --- Final --- Dictated: 10/16/2020 1:03 pm Dictating Physician: MD SPEAR DIANE Signed Date and Time: 10/16/2020 1:13 pm Signed by: MD SPEAR DIANE Transcribed Date and Time: 10/16/2020 1:03 XR PELVIS (1-2 VW) Result Date: 10/16/2020 [id number] ACCESSION EXAM DATE/TIME PROCEDURE ORDERING PROVIDER [id number] 10/16/2020 12:16 EDT CR Pelvis 1 or 2 Views MD PRESLEY ALEKSANDAR CPT code 36884 Reason For Exam (CR Pelvis 1 or 2 Views) pelvic pain Report Pelvis CLINICAL INDICATION: Pelvic pain AP view of the pelvis was obtained. There is no fracture noted. Sacroiliac joints are symmetric. Symphysis pubis is normal in width. There is no dislocation evident at the hips. IMPRESSION: No acute osseous abnormality Report Dictated on --- Final --- Dictated: 10/16/2020 12:29 pm Dictating Physician: MD SPEAR DIANE Signed Date and Time: 10/16/2020 12:34 pm Signed by: MD SPEAR DIANE Transcribed Date and Time: 10/16/2020 12:29 Patient Active Problem List Diagnosis Oth fx shaft of right femur, init for opn fx type I/2 (HCC) Closed fracture of shaft of right femur (HCC) Acute traumatic pain Trauma Traumatic rhabdomyolysis (HCC) Machinery accident Thrombosis of right saphenous vein ASSESSMENT: 70 yo male s/p tractor rollover with open femur fracture PLAN: Neuro/Spine: - pain prn oxycodone, robaxin, scheduled tylenol - Neurovascular checks HEENT: - no issues Cardiovascular: - hx afib-home Coumadin-Kcentra given in ED - Change coumadin to Eliquis- follow up as OP to discuss with cardiology - hx htn home metoprolol - hx hld home Niacin and fenofibrate Pulmonary: - hx copd home Singulair FEN/GI: - general diet - hl iv -bowel regimen : - Cr stable - DC daily labs Heme: - Hgb: stable - DC daily labs ID: - Zosyn x 24 hours per ortho- complete Endo: - no issues Lines/Devices: - peripheral Prophylaxis: DVT: Eliquis Has DVT PPX been started? Yes If no, why? n/a GI: none Pressure Ulcer: none Musculoskeletal: - right open femur fracture s/p IMN right femur and EUA Right knee POD #1-wbat -pt/ot rec IP rehab WB Status: RUE:at LUE: at RLE: at LLE: at Disposition: H 6 care, dispo planning to [facility], medically ready Associated attestation - Beti Jay MD - 10/20/2020 11:57 AM EDT ~~~~~~~~~~~~~~~~~~~~~~~~~~~~~~~~~~~~ ~~~~~~~~~~~~~~~~~~~~~~~~~ ATTENDING ADDENDUM CC: Right leg pain Active Diagnoses/Problems this Admission: Hospital Problems Last Modified POA Oth fx shaft of right femur, init for opn fx type I/2 (HCC) 10/16/2020 Yes Closed fracture of shaft of right femur (HCC) 10/17/2020 Yes Acute traumatic pain 10/17/2020 Yes Trauma 10/19/2020 Yes Traumatic rhabdomyolysis (HCC) 10/19/2020 Yes Machinery accident 10/19/2020 Yes Thrombosis of right saphenous vein 10/19/2020 Yes I personally supervised the ENGINE HOSTLER/NISHANT in the evaluation and development of a treatment plan for this patient on the same day of service as above. I personally discussed the review of systems and interviewed the patient along with performing a physical examination. I reviewed the recent events, imaging, labs, vital signs. In addition, I discussed the patient's condition and treatment options with him/her when possible. I have also reviewed and agree with the past medical, family, and social history unless otherwise noted. All of the patient's questions were answered and family updated when appropriate and possible. 70M s/p s/p open femur fx on the right and EUA of right knee Warfarin reversed in ED due to open femur fx Lactic acidosis - resolved Appreciate orthopedic recommendations s/p intramuscular nail - Weightbearing as tolerated - Follow-up outpatient in 1-2 weeks Cont home meds Change to eliquis at this time given shortage of blue tops - Takes Coumadin for A. 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 The document was proofread; however, unrecognized voice recognition can vacuum tester errors may be present. Physical Therapy Facility/Department: [facility] Daily Treatment Note NAME: Rito Leon : 1950 Date of Service: 10/19/2020 Discharge Recommendations: IP Rehab (currently recommend IP rehab, but may progress to home with assist and home PT) Assessment Body structures, Functions, Activity limitations: Decreased functional mobility ;Decreased endurance;Decreased ADL status;Decreased strength;Decreased balance;Increased pain Assessment: Pt currently requires min assist for mobility. Increased ambulation distance this session. Decreased WB tolerance noted on RLE. Verbal cues needed for sequencing at times. No PT goals met this session. Recommend IP rehab at discharge currently, but may progress to home with assist and home PT. Specific instructions for Next Treatment: Gait training using FWW REQUIRES PT FOLLOW UP: Yes Activity Tolerance Activity Tolerance: Patient limited by pain Activity Tolerance: Difficulty bearing weight through RLE in standing Patient Diagnosis(es): The primary encounter diagnosis was Closed fracture of shaft of right femur, unspecified fracture morphology, initial encounter (HCC). A diagnosis of Acute traumatic pain was also pertinent to this visit. has a past medical history of Atrial fibrillation (HCC) and Hyperlipidemia. has a past surgical history that includes Femur fracture surgery (Right, 10/16/2020). Restrictions Restrictions/Precautions Restrictions/Precautions: Weight Bearing, Fall Risk Required Braces or Orthoses?: (RLE with maria guadalupe wrap) Lower Extremity Weight Bearing Restrictions Right Lower Extremity Weight Bearing: Weight Bearing As Tolerated Position Activity Restriction Other position/activity restrictions: Tele Subjective General Chart Reviewed: Yes Response To Previous Treatment: Not applicable Family / Caregiver Present: Yes Subjective Subjective: Pt supine in the bed, agrees to PT. Pain Screening Patient Currently in Pain: Yes Pain Assessment Pain Assessment: 0-10 Pain Level: 6 Pain Type: Acute pain;Surgical pain Pain Location: Leg Pain Orientation: Right Vital Signs Patient Currently in Pain: Yes Orientation Orientation Overall Orientation Status: Within Normal Limits Cognition Cognition Overall Cognitive Status: WFL Objective Bed mobility Supine to Sit: Stand by assistance Sit to Supine: Minimal assistance Scooting: Stand by assistance Transfers Sit to Stand: Minimal Assistance Stand to sit: Minimal Assistance Ambulation Ambulation?: Yes WB Status: WBAT RLE More Ambulation?: Yes Ambulation 1 Surface: level tile Device: Rolling Walker Assistance: Minimal assistance;Contact guard assistance Quality of Gait: Difficulty bearing weight through RLE Gait Deviations: Slow Vanessa Distance: 15 feet x 2 Ambulation 2 Surface - 2: level tile Device 2: Rolling Walker Assistance 2: Contact guard assistance Distance: 10 feet Stairs/Curb Stairs?: No Balance Comments: pt stood at sink to wash and dry hands with CGA for balance G-Code AM-PAC Score Goals Short term goals Time Frame for Short term goals: 2 weeks Short term goal 1: Perform bed mobility with modif indep- NOT MET Short term goal 2: Perform transfers with modif indep- NOT MET Short term goal 3: Ambulate 100 feet using FWW with supervision and increased weight acceptance through RLE- NOT MET Short term goal 4: Ascend/descend 4 stairs using hand rail with supervision- NOT ADDRESSED Patient Goals Patient goals : To walk Plan Plan Times per week: 7 Times per day: Daily Plan weeks: 2 Specific instructions for Next Treatment: Gait training using FWW Current Treatment Recommendations: Strengthening, Transfer Training, Endurance Training, ROM, Patient/Caregiver Education & Training, Balance Training, Gait Training, Functional Mobility Training, Stair training, Safety Education & Training Safety Devices Type of devices: Gait belt, Nurse notified, Patient at risk for falls, Call light within reach, All fall risk precautions in place, Left in bed Restraints Initially in place: No Therapy Time Individual Concurrent Group Co-treatment Time In 1528 Time Out 1553 Minutes 25 Timed Code Treatment Minutes: (FA, GT) *PPE per facility policy used during session* Marietta Zazueta PTA Images from the original note were not included. Daily Trauma Progress Note Nurse Practitioner 10/19/2020 7:10 AM Admit Date: 10/16/2020 Post Trauma Day 2 Tractor rollover HISTORY OF TRAUMATIC EVENT: 70 y.o. male status post rollover by a javed cisnerosler. The incident happened around 0900 on 10/16/2020 at work. 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 He received ancef and tetanus. Traction splint was placed to his RLE for 10 mg ketamine. He has an open wound to right thigh with venous oozing. He denies LOC and remembers the entire event. INR at OSH is 3.5. INJURIES: Right open femur fracture PROCEDURES: 10/17/2020: 1. Irrigation and debridement of right open femur fracture 2. Retrograde right femoral nail (CPT 49390) 3. Right knee exam under anesthesia CHIEF COMPLAINT: feeling good PREVIOUS 24 HOUR EVENTS: Awaiting approval for [facility] Consults: IP CONSULT TO GERIATRICS MEDICATIONS: Current Facility-Administered Medications Medication Dose Route Frequency Provider Last Rate Last Admin melatonin tablet 3 mg 3 mg Oral Nightly Justin Calix MD 3 mg at 10/18/202011 metoprolol tartrate (LOPRESSOR) tablet 25 mg 25 mg Oral BID Home Presley MD 25 mg at 10/18/202011 fenofibrate (TRIGLIDE) tablet 160 mg 160 mg Oral Daily Kinsey Frias APRN - FIRST BEATER 160 mg at 10/18/20 0737 montelukast (SINGULAIR) tablet 10 mg 10 mg Oral Nightly TYRELL Salgado CNP 10 mg at 10/18/20 2238 niacin (NIASPAN) extended release tablet 500 mg 500 mg Oral Nightly TYRELL Salgado CNP 500 mg at 10/18/202011 apixaban (ELIQUIS) tablet 5 mg 5 mg Oral BID Kinsey Frias APRN - FIRST BEATER 5 mg at 10/18/202011 lidocaine 1 % injection 30 mL 30 mL Intradermal Once Vishal Mooney MD sodium chloride flush 0.9 % injection 5-40 mL 5-40 mL Intravenous 2 times per day Sharon Camejo MD 10 mL at 10/18/202011 sodium chloride flush 0.9 % injection 5-40 mL 5-40 mL Intravenous PRN Sharon Camejo MD 0.9 % sodium chloride infusion 25 mL Intravenous PRN Sharon Camejo MD polyethylene glycol (GLYCOLAX) packet 17 g 17 g Oral Daily Sharon Camejo MD 17 g at 10/18/20 0737 acetaminophen (TYLENOL) tablet 1,000 mg 1,000 mg Oral 3 times per day Sharon Camejo MD 1,000 mg at 10/19/20 0532 oxyCODONE (ROXICODONE) immediate release tablet 5 mg 5 mg Oral Q4H PRN Sharon Camejo MD 5 mg at 10/18/20 0633 Or oxyCODONE (ROXICODONE) immediate release tablet 10 mg 10 mg Oral Q4H PRN Sharon Camejo MD 10 mg at 10/19/20 0532 sennosides-docusate sodium (SENOKOT-S) 8.6-50 MG tablet 1 tablet 1 tablet Oral BID Sharon Camejo MD 1 tablet at 10/18/202011 bisacodyl (DULCOLAX) suppository 10 mg 10 mg Rectal Daily PRN Sharon Camejo MD ondansetron (ZOFRAN) injection 4 mg 4 mg Intravenous Q6H PRN Sharon Camejo MD ARE THERE PERTINENT UPDATES TO PAST,FAMILY, OR SOCIAL HISTORY?: No Subjective: States he is feeling well this morning, eating breakfast. Had a BM yesterday. Pain is well controlled. Awaiting insurance approval. Review of Systems Musculoskeletal: Positive for arthralgias and myalgias. All other systems reviewed and are negative. PHQ In the last 2 weeks have you had: 1. Little interest or pleasure in doing things No 2. Been feeling down, depressed, or hopeless No If greater then 0, place CLP consult Date PHQ completed: 10/17/2020 Objective: Patient Vitals for the past 24 hrs: BP Temp Temp src Pulse Resp SpO2 10/19/20 0525 108/65 97.7 F (36.5 C) Temporal 82 16 96 % 10/19/20 0114 102/74 98.3 F (36.8 C) Temporal 86 16 94 % 10/18/20 2148 102/66 99.1 F (37.3 C) Temporal 107 17 95 % 10/18/20 1648 109/72 98.6 F (37 C) Temporal 105 18 93 % 10/18/20 1306 110/71 97.9 F (36.6 C) Temporal 112 18 94 % 10/18/20 1009 112/63 98.3 F (36.8 C) Temporal 90 18 96 % Last BM: 10/18 Diet: general PHYSICAL: Physical Exam Vitals and nursing note reviewed. Constitutional: General: He is not in acute distress. Appearance: Normal appearance. HENT: Head: Normocephalic and atraumatic. Nose: Nose normal. Mouth/Throat: Mouth: Mucous membranes are moist. Eyes: Extraocular Movements: Extraocular movements intact. Pupils: Pupils are equal, round, and reactive to light. Cardiovascular: Rate and Rhythm: Normal rate. Pulmonary: Effort: Pulmonary effort is normal. Abdominal: General: Abdomen is flat. Palpations: Abdomen is soft. Musculoskeletal: General: Tenderness and signs of injury present. Cervical back: Normal range of motion and neck supple. No tenderness. Comments: RLE in maria guadalupe wrap, compartments soft, MSPs intact Skin: General: Skin is warm and dry. Capillary Refill: Capillary refill takes less than 2 seconds. Neurological: General: No focal deficit present. Mental Status: He is alert and oriented to person, place, and time. Psychiatric: Mood and Affect: Mood normal. Sutures or maliha? Yes O2: RA / / / Data Review Data CBC with Differential: Lab Results Component Value Date WBC 12.1 10/19/2020 RBC 3.20 10/19/2020 HGB 10.0 10/19/2020 HCT 29.3 10/19/2020 PLT 274 10/19/2020 CMP: Lab Results Component Value Date NA 137 10/19/2020 K 3.8 10/19/2020 CL 103 10/19/2020 CO2 26 10/19/2020 BUN 21 10/19/2020 CREATININE 0.80 10/19/2020 GLUCOSE 130 10/19/2020 CALCIUM 8.5 10/19/2020 BMP: Hepatic Function Panel:Ionized Calcium: No results found for: IONCA Magnesium: No results found for: MG Phosphorus: No results found for: PHOS PT/INR: Lab Results Component Value Date PROTIME 11.7 10/17/2020 INR 1.1 10/17/2020 PTT: Lab Results Component Value Date APTT 37.0 10/16/2020 [APTT Last 3 Troponin: No results found for: TROPONINI Urine Culture: No components found for: CURINE Blood Culture: No components found for: CBLOOD, CFUNGUSBL Blood Culture from Central Line: No components found for: CBLOODLN Stool Culture: No components found for: CSTOOL Sputum Culture: No components found for: CSPUTUM Sputum Culture for AFB: No components found for: CAFBSM Wound Culture: n/a Radiology: XR FEMUR RIGHT (MIN 2 VIEWS) Result Date: 10/16/2020 [id number] Radiology ACCESSION EXAM DATE/TIME PROCEDURE ORDERING PROVIDER [id number] 10/16/2020 21:24 EDT CR Femur 2+ Views Right [id number] -maria d HARRIS CPT code 27038 Reason For Exam (CR Femur 2+ Views Right n) s/p rIMN, please include entire implant Report RIGHT FEMUR, AP & LATERAL: INDICATION: Intramedullary [place] placement COMPARISON: No previous studies are available for comparison. AP and lateral views of the right femur which include the hip and the knee demonstrate a midshaft fracture with placement of an intramedullary [place]. The fracture fragments are near anatomic in alignment. No osseous erosion or periosteal reaction is seen. No osteolytic or osteoblastic osseous densities are identified. There is no significant soft tissue abnormality. IMPRESSION: Midshaft femoral fracture with placement of an intramedullary [place] in near anatomic alignment of the fracture fragments Report Dictated on Workstation: [id number] --- Final --- Dictated: 10/16/2020 10:56 pm Dictating Physician: DO MOTLEY ALFRED Signed Date and Time: 10/16/2020 10:57 pm Signed by: DO MOTLEY ALFRED Transcribed Date and Time: 10/16/2020 10:56 XR FEMUR RIGHT (MIN 2 VIEWS) Result Date: 10/16/2020 Patient Name: RITO LEON Diagnostic Radiology ACCESSION EXAM DATE/TIME PROCEDURE ORDERING PROVIDER [id number] 10/16/2020 12:17 EDT CR Femur 2+ Views Right MD PRESLEY ALEKSANDAR n CPT code 11173 Reason For Exam (CR Femur 2+ Views Right n) right upper leg pain Report Right femur: 10/16/2020. Clinical Information: Trauma. Findings: 2 views of the right femur from the hip to the knee reveal the bones to be well mineralized. There is a transverse comminuted fracture of the mid femoral diaphysis. The proximal fragment is displaced anteriorly and may be open from the skin. There is a small amount of subcutaneous emphysema. There is a small cortical fragment. Report Dictated on --- Final --- Dictated: 10/16/2020 12:22 pm Dictating Physician: MD WARD RISA Signed Date and Time: 10/16/2020 12:23 pm Signed by: MD WARD RISA Transcribed Date and Time: 10/16/2020 12:22 XR TIBIA FIBULA RIGHT (2 VIEWS) Result Date: 10/16/2020 Patient Name: RITO LEON Diagnostic Radiology ACCESSION EXAM DATE/TIME PROCEDURE ORDERING PROVIDER [id number] 10/16/2020 12:17 EDT CR Tibia/Fibula 2 Views MD PRESLEY ALEKSANDAR Right CPT code 81538 Reason For Exam (CR Tibia/Fibula 2 Views Right) right lower leg pain ortho only wanted proximal tib/fib Report Right tibia and fibula: 10/16/2020 Clinical information: Trauma. Findings: 2 views of the proximal right tibia and fibula were obtained as requested. The distal tibiofibular was not imaged. There is cortical irregularity along the lateral aspect of the fibular head. There could be a nondisplaced hairline fracture in this area. There is a small joint effusion in the suprapatellar space. No other bony abnormalities are grossly identified. Report Dictated on --- Final --- Dictated: 10/16/2020 12:43 pm Dictating Physician: MD WARD RISA Signed Date and Time: 10/16/2020 12:44 pm Signed by: MD WARD RISA Transcribed Date and Time: 10/16/2020 12:43 CT HEAD WO CONTRAST Result Date: 10/16/2020 Patient Name: RITO LEON Computed Tomography ACCESSION EXAM DATE/TIME PROCEDURE ORDERING PROVIDER [id number] 10/16/2020 12:[address] Head or Brain w/o MD TERE, HOME Contrast CPT code 07913 Reason For Exam (CT Head or Brain w/o Contrast) tactor rollover Report CT scan head: 10/16/2020. CLINICAL INFORMATION: Closed head trauma. FINDINGS: CT scans of the head were performed at 3 mm slice thickness. No prior studies for comparison. The ventricular system and cortical sulci are within normal limits. There is no evidence of hemorrhage or edema. No areas of mass effect or infarct are seen. There is minimal mucosal thickening in the ethmoid air cells bilaterally and left maxillary sinus. IMPRESSION: No acute process. Incidental sinusitis. Report Dictated on --- Final --- Dictated: 10/16/2020 12:32 pm Dictating Physician: MD WARD RISA Signed Date and Time: 10/16/2020 12:34 pm Signed by: MD WARD RISA Transcribed Date and Time: 10/16/2020 12:32 CT CERVICAL SPINE WO CONTRAST Result Date: 10/16/2020 Patient Name: RITO LEON Computed Tomography ACCESSION EXAM DATE/TIME PROCEDURE ORDERING PROVIDER [id number] 10/16/2020 12:[address] Spine Cervical w/o MD TERE, HOME Contrast CPT code 37823 Reason For Exam (CT Spine Cervical w/o Contrast) tractor rollover Report Clinical indication: Tractor rollover accident Comparison: None Radiation dose: DLP 432 mGycm Multidetector imaging from skull base through thoracic inlet was performed with axial, coronal and sagittal reconstructions evaluated. No fracture or focal spondylolisthesis is identified. C4-C5 disc is moderately narrowed with associated endplate spur formation. Left neural foraminal stenosis is noted at C3-C4 and bilateral neural foraminal stenosis at C4-C5 related to a combination of uncovertebral and facet hypertrophy. IMPRESSION: No acute osseous abnormality is noted in the cervical spine. 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 Report Dictated on --- Final --- Dictated: 10/16/2020 12:49 pm Dictating Physician: MD SPEAR DIANE Signed Date and Time: 10/16/2020 12:52 pm Signed by: MD SPEAR DIANE Transcribed Date and Time: 10/16/2020 12:49 XR CHEST PORTABLE Result Date: 10/16/2020 Patient Name: RITO LEON Diagnostic Radiology ACCESSION EXAM DATE/TIME PROCEDURE ORDERING PROVIDER [id number] 10/16/2020 12:16 EDT CR Chest Portable MD PRESLEY ALEKSANDAR CPT code 16640 Reason For Exam (CR Chest Portable) chest pain Report PORTABLE CHEST Clinical indication: chest pain Comparison: None. Cardiac silhouette is nonenlarged. Lung volumes are shallow. No focal consolidative pneumonia is identified. There is no pleural effusion or pneumothorax. No obvious fractures are visible. IMPRESSION: No acute radiographic abnormality Report Dictated on --- Final --- Dictated: 10/16/2020 12:28 pm Dictating Physician: MD SPEAR DIANE Signed Date and Time: 10/16/2020 12:29 pm Signed by: MD SPEAR DIANE Transcribed Date and Time: 10/16/2020 12:28 CT LOWER EXTREMITY RIGHT WO CONTRAST Result Date: 10/16/2020 Patient Name: RITO LEON Computed Tomography ACCESSION EXAM DATE/TIME PROCEDURE ORDERING PROVIDER [id number] 10/16/2020 12:[address] Low Ext w/o Contrast MD TERE, HOME Right CPT code 13573 Reason For Exam (CT Low Ext w/o Contrast Right) tractor rollover Report CT right femur CLINICAL INDICATION: Tractor rollover accident. Right femur fracture. COMPARISON: Plain films right femur 10/16/2020 Radiation dose: DLP 1856 mGycm Imaging was performed from the iliac crest through the proximal tibial and fibular metaphyses with [id number] restricted to the right lower extremity. Axial, coronal and sagittal images are reconstructed. Hip joint is intact. There is no fracture noted in the femoral neck or trochanteric region. There is no fracture noted in the right iliac bone or in the right superior or inferior pubic rami. Comminuted fracture is present at the midshaft of the right femur. The distal fracture fragment is externally rotated about 90 degrees. At the level the fracture there are soft tissue air bubbles from skin to lateral muscle compartment indicating an open fracture. There is a small amount of hematoma intervening between the fracture fragments. Distal fracture fragment is displaced posteriorly by about 4 cm. There is a small collection in the knee joint with a fat fluid level. A tiny calcific density is present adjacent to the medial femoral condyle in the intercondylar notch which could represent a tiny avulsion. No other fracture is noted at the knee. Diffuse arteriosclerotic calcifications are noted. IMPRESSION: Comminuted displaced open fracture mid shaft right femur Small joint effusion with a fat fluid level Tiny calcific density adjacent to the medial femoral condyle in the intercondylar notch could represent a tiny avulsion. There is no other articular involving fracture identified Computed Tomography Report Report Dictated on --- Final --- Dictated: 10/16/2020 1:03 pm Dictating Physician: MD SPEAR DIANE Signed Date and Time: 10/16/2020 1:13 pm Signed by: MD SPEAR DIANE Transcribed Date and Time: 10/16/2020 1:03 XR PELVIS (1-2 VW) Result Date: 10/16/2020 [id number]iology ACCESSION EXAM DATE/TIME PROCEDURE ORDERING PROVIDER [id number] 10/16/2020 12:16 EDT CR Pelvis 1 or 2 Views MD TERE, HOME CPT code 32370 Reason For Exam (CR Pelvis 1 or 2 Views) pelvic pain Report Pelvis CLINICAL INDICATION: Pelvic pain AP view of the pelvis was obtained. There is no fracture noted. Sacroiliac joints are symmetric. Symphysis pubis is normal in width. There is no dislocation evident at the hips. IMPRESSION: No acute osseous abnormality Report Dictated on --- Final --- Dictated: 10/16/2020 12:29 pm Dictating Physician: MD SPEAR DIANE Signed Date and Time: 10/16/2020 12:34 pm Signed by: MD SPEAR DIANE Transcribed Date and Time: 10/16/2020 12:29 Patient Active Problem List Diagnosis Oth fx shaft of right femur, init for opn fx type I/2 (HCC) Closed fracture of shaft of right femur (HCC) Acute traumatic pain Trauma Traumatic rhabdomyolysis (HCC) Machinery accident ASSESSMENT: 70 yo male s/p tractor rollover with open femur fracture PLAN: Neuro/Spine: - pain prn oxycodone, robaxin, scheduled tylenol - Neurovascular checks HEENT: - no issues Cardiovascular: - hx afib-home Coumadin-Kcentra given in ED - Change coumadin to Eliquis- follow up as OP to discuss with cardiology - hx htn home metoprolol - hx hld home Niacin and fenofibrate Pulmonary: - hx copd home Singulair FEN/GI: - general diet - hl iv -bowel regimen : - Cr stable - DC daily labs Heme: - Hgb: stable - DC daily labs ID: - Zosyn x 24 hours per ortho- complete Endo: - no issues Lines/Devices: - peripheral Prophylaxis: DVT: Eliquis Has DVT PPX been started? Yes If no, why? n/a GI: none Pressure Ulcer: none Musculoskeletal: - right open femur fracture s/p IMN right femur and EUA Right knee POD #1-wbat -pt/ot rec IP rehab WB Status: RUE:at LUE: at RLE: at LLE: at Disposition: H 6 care, DC daily labs, dispo planning to [facility], medically ready Associated attestation - Beti Jay MD - 10/19/2020 1:03 PM EDT ~~~~~~~~~~~~~~~~~~~~~~~~~~~~~~~~~~~~ ~~~~~~~~~~~~~~~~~~~~~~~~~ ATTENDING ADDENDUM CC: right leg pain Active Diagnoses/Problems this Admission: Hospital Problems Last Modified POA Oth fx shaft of right femur, init for opn fx type I/2 (HCC) 10/16/2020 Yes Closed fracture of shaft of right femur (HCC) 10/17/2020 Yes Acute traumatic pain 10/17/2020 Yes Trauma 10/19/2020 Yes Traumatic rhabdomyolysis (HCC) 10/19/2020 Yes Machinery accident 10/19/2020 Yes I personally supervised the ENGINE HOSTLER/NISHANT in the evaluation and development of a treatment plan for this patient on the same day of service as above. I personally discussed the review of systems and interviewed the patient along with performing a physical examination. I reviewed the recent events, imaging, labs, vital signs. In addition, I discussed the patient's condition and treatment options with him/her when possible. I have also reviewed and agree with the past medical, family, and social history unless otherwise noted. All of the patient's questions were answered and family updated when appropriate and possible. 70M s/p s/p open femur fx on the right and EUA of right knee Warfarin reversed in ED due to open femur fx Lactic acidosis - resolved Appreciate orthopedic recommendations s/p intramuscular nail - Weightbearing as tolerated - Magnetic resonance imaging studies 24 hours - Follow-up outpatient in 1-2 weeks Cont home meds Change to eliquis at this time given shortage of blue tops - Takes Coumadin for A. 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 The document was proofread; however, unrecognized voice recognition can vacuum tester errors may be present. Occupational Therapy Occupational Therapy Initial Assessment Date: 10/18/2020 Patient Name: Rito Leon : 1950 Date of Service: 10/18/2020 OT wearing surgical mask throughout entire session Discharge Recommendations: IP Rehab OT Equipment Recommendations Equipment Needed: Yes Other: FWW Assessment Performance deficits / Impairments: Decreased functional mobility ;Decreased ADL status;Decreased strength;Decreased ROM;Decreased balance;Decreased high-level IADLs Assessment: OT eval completed. pt. presents with deficits stated above. Pt. has decreased functional mobility, ADL/IADL status, and balance which intefere with his ability to engage in activities effectively. Pt. is a fall risk and not safe to return home. Pt. wants to go to rehab and is willing to work. Pt. can tolerate 3 hrs of therapy. Recommend IP rehab to maximize strength and endurance and also a FWW to ensure safety. Prognosis: Good Decision Making: Medium Complexity OT Education: OT Role;Plan of Care REQUIRES OT FOLLOW UP: Yes Activity Tolerance Activity Tolerance: Patient Tolerated treatment well Safety Devices Safety Devices in place: Yes Type of devices: Left in chair;Gait belt;Call light within reach Restraints Initially in place: No Patient Diagnosis(es): The encounter diagnosis was Closed fracture of shaft of right femur, unspecified fracture morphology, initial encounter (HCC). has a past medical history of Atrial fibrillation (HCC) and Hyperlipidemia. has a past surgical history that includes Femur fracture surgery (Right, 10/16/2020). Restrictions Restrictions/Precautions Restrictions/Precautions: Weight Bearing, Fall Risk Required Braces or Orthoses?: Yes (RLE bandaged) Lower Extremity Weight Bearing Restrictions Right Lower Extremity Weight Bearing: Weight Bearing As Tolerated Position Activity Restriction Other position/activity restrictions: Tele Subjective General Chart Reviewed: Yes Patient assessed for rehabilitation services?: Yes Family / Caregiver Present: No Diagnosis: Closed fracture of shaft R femur, fibular head fx, knee effusion, possible ligamentous injury s/p I&D femur fx, retrograde R femoral nail and R knee exam under anesthesia on 10/16 Subjective Subjective: Upon arrival, pt. talking on phone in bed. Pt. reported he was only in pain when moving (7/10 pain in RLE when ambulating). Pt. agreeable and cooperative to therapy. General Comment Comments: R hand dominant Patient Currently in Pain: Yes Pain Assessment Pain Assessment: 0-10 Pain Level: 7 Pain Type: Acute pain;Surgical pain Pain Location: Leg;Knee Pain Orientation: Right Pain Descriptors: Aching;Sore Non-Pharmaceutical Pain Intervention(s): Elevation;Cold applied;Repositioned Response to Pain Intervention: Patient Satisfied Vital Signs Patient Currently in Pain: Yes Social/Functional History Social/Functional History Lives With: Spouse, Family (Daughter and son-in-law) Type of Home: House Home Layout: Two level, Able to Live on Main level with bedroom/bathroom Home Access: Stairs to enter with rails Entrance Stairs - Number of Steps: 4 Bathroom Shower/Tub: Tub/Shower unit, Walk-in shower Bathroom Toilet: Standard Bathroom Accessibility: Accessible Receives Help From: Family ADL Assistance: Independent Homemaking Assistance: Independent Homemaking Responsibilities: Yes (Shares with ) Ambulation Assistance: Independent Transfer Assistance: Independent Active Content Director: Yes Mode of Transportation: Car 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 reported plans on staying on the main level when home. Pt. reported he has family who can assist PRN. Pt. reported he may need a FWW once discharged because he threw out his old one. Objective Vision: Impaired Vision Exceptions: Wears glasses at all times Hearing: Within functional limits Orientation Overall Orientation Status: Within Functional Limits Observation/Palpation Posture: Fair Observation: Maria Guadalupe bandages from upper thigh to foot Balance Sitting Balance: Supervision Standing Balance: Minimal assistance Functional Mobility Functional - Mobility Device: Rolling Walker (FWW) Activity: To/from bathroom Assist Level: Minimal assistance Functional Mobility Comments: Pt. required cues and encouragement for using RLE heel when walking and not just toes. Pt. reported he had 7/10 pain in RLE when ambulating. Toilet Transfers Toilet - Technique: Ambulating (FWW) Equipment Used: Standard toilet Toilet Transfer: Minimal assistance ADL Grooming: Minimal assistance LE Dressing: Moderate assistance Toileting: Minimal assistance Additional Comments: Treatment. Pt. required minimal assistance for toileting and standing at sink level to wash hands for balance. Pt. was able to don/doff sock on LLE. Based upon functional observation, pt. would be supv for feeding, UE dressing/bathing. Minimal assist with LE bathing. Coordination Movements Are Fluid And Coordinated: Yes Bed mobility Supine to Sit: Stand by assistance Scooting: Stand by assistance Comment: HOB elevated. Transfers Sit to stand: Minimal assistance Stand to sit: Minimal assistance Transfer Comments: Pt. required minimal assist due to uncontrolled descent. Cognition Overall Cognitive Status: WFL LUE AROM (degrees) LUE AROM : WFL Left Hand AROM (degrees) Left Hand AROM: WFL RUE AROM (degrees) RUE AROM : WFL Right Hand AROM (degrees) Right Hand AROM: WFL LUE Strength L Hand General: 4/5 LUE Strength Comment: 5/5 shoulder flexion RUE Strength R Hand General: 4/5 RUE Strength Comment: 5/5 shoulder flexion Plan Plan Times per week: 5x Plan weeks: 4 Current Treatment Recommendations: Strengthening, ROM, Balance Training, Functional Mobility Training, Endurance Training, Safety Education & Training, Self-Care / ADL, Pain Management, Patient/Caregiver Education & Training, Home Management Training, Equipment Evaluation, Education, & procurement, Gait Training, Positioning OutComes Score [facility] Daily Activity Inpatient How much help for putting on and taking off regular lower body clothing?: A Lot How much help for Bathing?: A Little How much help for Toileting?: None How much help for putting on and taking off regular upper body clothing?: None How much help for taking care of personal grooming?: None How much help for eating meals?: None [facility] Inpatient Daily Activity Raw [facility]: [facility] T-Scale Score : 44.27 ADL Inpatient CMS 0-100% Score: 32.79 ADL Inpatient CMS G-Code Modifier : CJ Goals Short term goals Time Frame for Short term goals: 4 weeks Short term goal 1: Modified indep with toilet transfer Short term goal 2: Supv with LE dressing Short term goal 3: Functional activity with good standing balance for 5 min Short term goal 4: Decrease pain level to 3 during functional activity Patient Goals Patient goals : Wants to go to rehab. Therapy Time Individual Concurrent Group Co-treatment Time In 800 Time Out 0832 Minutes 31 Timed Code Treatment Minutes: 10 Minutes (ADL) Patient's Occupational Therapy Plan of Care supervision is transferred to [facility] Occupational Therapist. Goals and/or treatment plan was established in collaboration with patient/family/other representatives. Nathaly Rao S/OT Nutrition rescreen completed. Chart reviewed. Patient to be monitored and followed by the diet fire extinguisher technician. Images from the original note were not included. Daily Trauma Progress Note Nurse Practitioner 10/18/2020 7:07 AM Admit Date: 10/16/2020 Post Trauma Day 2 Tractor rollover HISTORY OF TRAUMATIC EVENT: 70 y.o. male status post rollover by a javed [place]. The incident happened around 0900 on 10/16/2020 at work. 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 He received ancef and tetanus. Traction splint was placed to his RLE for 10 mg ketamine. He has an open wound to right thigh with venous oozing. He denies LOC and remembers the entire event. INR at OSH is 3.5. INJURIES: Right open femur fracture PROCEDURES: 10/17/2020: 1. Irrigation and debridement of right open femur fracture 2. Retrograde right femoral nail (CPT 24426) 3. Right knee exam under anesthesia CHIEF COMPLAINT: feeling good PREVIOUS 24 HOUR EVENTS: PT rec IP rehab Consults: IP CONSULT TO GERIATRICS MEDICATIONS: Current Facility-Administered Medications Medication Dose Route Frequency Provider Last Rate Last Admin metoprolol tartrate (LOPRESSOR) tablet 25 mg 25 mg Oral BID Home Presley MD 25 mg at 10/17/202034 fenofibrate (TRIGLIDE) tablet 160 mg 160 mg Oral Daily Kinsey Frias APRN - HILDA 160 mg at 10/17/20 130 montelukast (SINGULAIR) tablet 10 mg 10 mg Oral Nightly Kinseyagnes Frias APRN - FIRST BEATER 10 mg at 10/17/202034 niacin (NIASPAN) extended release tablet 500 mg 500 mg Oral Nightly Kinseyagnes Frias APRN - FIRST BEATER 500 mg at 10/17/202048 apixaban (ELIQUIS) tablet 5 mg 5 mg Oral BID Kinsey Frias APRN - HILDA 5 mg at 10/17/202034 lidocaine 1 % injection 30 mL 30 mL Intradermal Once Vishal Mooney MD sodium chloride flush 0.9 % injection 5-40 mL 5-40 mL Intravenous 2 times per day Sharon Camejo MD 10 mL at 10/17/202034 sodium chloride flush 0.9 % injection 5-40 mL 5-40 mL Intravenous PRN Sharon Camejo MD 0.9 % sodium chloride infusion 25 mL Intravenous PRN Sharon Camejo MD polyethylene glycol (GLYCOLAX) packet 17 g 17 g Oral Daily Sharon Camejo MD 17 g at 10/17/20 0810 piperacillin-tazobactam (ZOSYN) 3375 mg in dextrose 50 mL IVPB extended infusion (premix) 3,375 mg Intravenous Q8H Sharon Camejo MD Stopped at 10/18/20 0616 acetaminophen (TYLENOL) tablet 1,000 mg 1,000 mg Oral 3 times per day Sharon Camejo MD 1,000 mg at 10/18/20 0631 oxyCODONE (ROXICODONE) immediate release tablet 5 mg 5 mg Oral Q4H PRN Sharon Camejo MD 5 mg at 10/18/2033 Or oxyCODONE (ROXICODONE) immediate release tablet 10 mg 10 mg Oral Q4H PRN Sharon Camejo MD 10 mg at 10/17/202034 morphine sulfate (PF) injection 2 mg 2 mg Intravenous Q3H PRN Sharon Camejo MD sennosides-docusate sodium (SENOKOT-S) 8.6-50 MG tablet 1 tablet 1 tablet Oral BID Sharon Camejo MD 1 tablet at 10/17/202034 bisacodyl (DULCOLAX) suppository 10 mg 10 mg Rectal Daily PRN Sharon Camejo MD ondansetron (ZOFRAN) injection 4 mg 4 mg Intravenous Q6H PRN Sharon Camejo MD piperacillin-tazobactam (ZOSYN) 4500 mg in dextrose 100 mL IVPB extended infusion (premix) 4,500 mg Intravenous Once Emiliano Harris MD ARE THERE PERTINENT UPDATES TO PAST,FAMILY, OR SOCIAL HISTORY?: No Subjective: States he is feeling well this morning, eating breakfast. Feels as though he will have a bowel movement. Pain is well controlled. Is feeling ready to go to rehab. Review of Systems Musculoskeletal: Positive for arthralgias and myalgias. All other systems reviewed and are negative. PHQ In the last 2 weeks have you had: 1. Little interest or pleasure in doing things No 2. Been feeling down, depressed, or hopeless No If greater then 0, place CLP consult Date PHQ completed: 10/17/2020 Objective: Patient Vitals for the past 24 hrs: BP Temp Temp src Pulse Resp SpO2 10/18/20 0532 Temporal 10/18/20 0531 121/75 98.2 F (36.8 C) Temporal 85 18 94 % 10/18/20 0056 105/75 98.1 F (36.7 C) Temporal 85 18 97 % 10/17/20 2227 98/74 98 F (36.7 C) Temporal 83 18 96 % 10/17/20 1735 99/66 99.1 F (37.3 C) Temporal 117 18 96 % 10/17/20 1301 (!) 106/57 97.2 F (36.2 C) Temporal 101 18 94 % 10/17/20 0736 102/77 98.5 F (36.9 C) Temporal 78 18 95 % Date 10/18/20 0000 - 10/18/20 2359 Shift 9041-1047 1430-8581 4763-1768 24 Hour Total INTAKE Shift Total(mL/kg) OUTPUT Urine(mL/kg/hr) 700 700 Shift Total(mL/kg) 700(8.1) 700(8.1) Weight (kg) 86.6 86.6 86.6 86.6 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 Constitutional: General: He is not in acute distress. Appearance: Normal appearance. HENT: Head: Normocephalic and atraumatic. Nose: Nose normal. Mouth/Throat: Mouth: Mucous membranes are moist. Eyes: Extraocular Movements: Extraocular movements intact. Pupils: Pupils are equal, round, and reactive to light. Cardiovascular: Rate and Rhythm: Normal rate. Pulmonary: Effort: Pulmonary effort is normal. Abdominal: General: Abdomen is flat. Palpations: Abdomen is soft. Musculoskeletal: General: Tenderness and signs of injury present. Cervical back: Normal range of motion and neck supple. No tenderness. Comments: RLE in maria guadalupe wrap, compartments soft, MSPs intact Skin: General: Skin is warm and dry. Capillary Refill: Capillary refill takes less than 2 seconds. Neurological: General: No focal deficit present. Mental Status: He is alert and oriented to person, place, and time. Psychiatric: Mood and Affect: Mood normal. Sutures or maliha? Yes O2: RA / / / Data Review Data CBC with Differential: Lab Results Component Value Date WBC 13.4 10/18/2020 RBC 3.34 10/18/2020 HGB 10.4 10/18/2020 HCT 30.4 10/18/2020 PLT 273 10/18/2020 CMP: Lab Results Component Value Date NA 139 10/18/2020 K 4.4 10/18/2020 CL 106 10/18/2020 CO2 27 10/18/2020 BUN 19 10/18/2020 CREATININE 0.84 10/18/2020 GLUCOSE 114 10/18/2020 CALCIUM 8.7 10/18/2020 BMP: Hepatic Function Panel:Ionized Calcium: No results found for: IONCA Magnesium: No results found for: MG Phosphorus: No results found for: PHOS PT/INR: Lab Results Component Value Date PROTIME 11.7 10/17/2020 INR 1.1 10/17/2020 PTT: Lab Results Component Value Date APTT 37.0 10/16/2020 [APTT Last 3 Troponin: No results found for: TROPONINI Urine Culture: No components found for: CURINE Blood Culture: No components found for: CBLOOD, CFUNGUSBL Blood Culture from Central Line: No components found for: CBLOODLN Stool Culture: No components found for: CSTOOL Sputum Culture: No components found for: CSPUTUM Sputum Culture for AFB: No components found for: CAFBSM Wound Culture: n/a Radiology: XR FEMUR RIGHT (MIN 2 VIEWS) Result Date: 10/16/2020 Patient Name: RITO LEON Diagnostic Radiology ACCESSION EXAM DATE/TIME PROCEDURE ORDERING PROVIDER [id number] 10/16/2020 21:24 EDT CR Femur 2+ Views Right [id number] LEBRON CPT code 96749 Reason For Exam (CR Femur 2+ Views Right n) s/p rIMN, please include entire implant Report RIGHT FEMUR, AP & LATERAL: INDICATION: Intramedullary [place] placement COMPARISON: No previous studies are available for comparison. AP and lateral views of the right femur which include the hip and the knee demonstrate a midshaft fracture with placement of an intramedullary [place]. The fracture fragments are near anatomic in alignment. No osseous erosion or periosteal reaction is seen. No osteolytic or osteoblastic osseous densities are identified. There is no significant soft tissue abnormality. IMPRESSION: Midshaft femoral fracture with placement of an intramedullary [place] in near anatomic alignment of the fracture fragments Report Dictated on Workstation: [id number] --- Final --- Dictated: 10/16/2020 10:56 pm Dictating Physician: DO MOTLEY ALFRED Signed Date and Time: 10/16/2020 10:57 pm Signed by: DO MOTLEY ALFRED Transcribed Date and Time: 10/16/2020 10:56 XR FEMUR RIGHT (MIN 2 VIEWS) Result Date: 10/16/2020 Patient Name: RITO LEON Diagnostic Radiology ACCESSION EXAM DATE/TIME PROCEDURE ORDERING PROVIDER [id number] 10/16/2020 12:17 EDT CR Femur 2+ Views Right MD PRESLEY ALEKSANDAR n CPT code 02615 Reason For Exam (CR Femur 2+ Views Right n) right upper leg pain Report Right femur: 10/16/2020. Clinical Information: Trauma. Findings: 2 views of the right femur from the hip to the knee reveal the bones to be well mineralized. There is a transverse comminuted fracture of the mid femoral diaphysis. The proximal fragment is displaced anteriorly and may be open from the skin. There is a small amount of subcutaneous emphysema. There is a small cortical fragment. Report Dictated on --- Final --- Dictated: 10/16/2020 12:22 pm Dictating Physician: MD WARD RISA Signed Date and Time: 10/16/2020 12:23 pm Signed by: MD WARD RISA Transcribed Date and Time: 10/16/2020 12:22 XR TIBIA FIBULA RIGHT (2 VIEWS) Result Date: 10/16/2020 Patient Name: RITO LEON Diagnostic Radiology ACCESSION EXAM DATE/TIME PROCEDURE ORDERING PROVIDER [id number] 10/16/2020 12:17 EDT CR Tibia/Fibula 2 Views MD TERE, HOME Right CPT code 81425 Reason For Exam (CR Tibia/Fibula 2 Views Right) right lower leg pain ortho only wanted proximal tib/fib Report Right tibia and fibula: 10/16/2020 Clinical information: Trauma. Findings: 2 views of the proximal right tibia and fibula were obtained as requested. The distal tibiofibular was not imaged. There is cortical irregularity along the lateral aspect of the fibular head. There could be a nondisplaced hairline fracture in this area. There is a small joint effusion in the suprapatellar space. No other bony abnormalities are grossly identified. Report Dictated on --- Final --- Dictated: 10/16/2020 12:43 pm Dictating Physician: MD WARD RISA Signed Date and Time: 10/16/2020 12:44 pm Signed by: MD WARD RISA Transcribed Date and Time: 10/16/2020 12:43 CT HEAD WO CONTRAST Result Date: 10/16/2020 Patient Name: RITO LEONN: [id number] Computed Tomography ACCESSION EXAM DATE/TIME PROCEDURE ORDERING PROVIDER [id number] 10/16/2020 12:[address] Head or Brain w/o MD TERE, HOME Contrast CPT code 76004 Reason For Exam (CT Head or Brain w/o Contrast) tactor rollover Report CT scan head: 10/16/2020. CLINICAL INFORMATION: Closed head trauma. FINDINGS: CT scans of the head were performed at 3 mm slice thickness. No prior studies for comparison. The ventricular system and cortical sulci are within normal limits. There is no evidence of hemorrhage or edema. No areas of mass effect or infarct are seen. There is minimal mucosal thickening in the ethmoid air cells bilaterally and left maxillary sinus. IMPRESSION: No acute process. Incidental sinusitis. Report Dictated on --- Final --- Dictated: 10/16/2020 12:32 pm Dictating Physician: MD WARD RISA Signed Date and Time: 10/16/2020 12:34 pm Signed by: MD WARD RISA Transcribed Date and Time: 10/16/2020 12:32 CT CERVICAL SPINE WO CONTRAST Result Date: 10/16/2020 Patient Name: RITO LEON Computed Tomography ACCESSION EXAM DATE/TIME PROCEDURE ORDERING PROVIDER [id number] 10/16/2020 12:[address] Spine Cervical w/o MD TERE, HOME Contrast CPT code 56118 Reason For Exam (CT Spine Cervical w/o Contrast) tractor rollover Report Clinical indication: Tractor rollover accident Comparison: None Radiation dose: DLP 432 mGycm Multidetector imaging from skull base through thoracic inlet was performed with axial, coronal and sagittal reconstructions evaluated. No fracture or focal spondylolisthesis is identified. C4-C5 disc is moderately narrowed with associated endplate spur formation. Left neural foraminal stenosis is noted at C3-C4 and bilateral neural foraminal stenosis at C4-C5 related to a combination of uncovertebral and facet hypertrophy. IMPRESSION: No acute osseous abnormality is noted in the cervical spine. 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 Report Dictated on --- Final --- Dictated: 10/16/2020 12:49 pm Dictating Physician: MD SPEAR DIANE Signed Date and Time: 10/16/2020 12:52 pm Signed by: MD SPEAR DIANE Transcribed Date and Time: 10/16/2020 12:49 XR CHEST PORTABLE Result Date: 10/16/2020 [id number] ACCESSION EXAM DATE/TIME PROCEDURE ORDERING PROVIDER [id number] 10/16/2020 12:16 EDT CR Chest Portable MD PRESLEY ALEKSANDAR CPT code 16745 Reason For Exam (CR Chest Portable) chest pain Report PORTABLE CHEST Clinical indication: chest pain Comparison: None. Cardiac silhouette is nonenlarged. Lung volumes are shallow. No focal consolidative pneumonia is identified. There is no pleural effusion or pneumothorax. No obvious fractures are visible. IMPRESSION: No acute radiographic abnormality Report Dictated on --- Final --- Dictated: 10/16/2020 12:28 pm Dictating Physician: MD SPEAR DIANE Signed Date and Time: 10/16/2020 12:29 pm Signed by: MD SPEAR DIANE Transcribed Date and Time: 10/16/2020 12:28 CT LOWER EXTREMITY RIGHT WO CONTRAST Result Date: 10/16/2020 [id number] Comput[facility] Tomography ACCESSION EXAM DATE/TIME PROCEDURE ORDERING PROVIDER [id number] 10/16/2020 12:[address] Low Ext w/o Contrast MD PRESLEY ALEKSANDAR Right CPT code 00334 Reason For Exam (CT Low Ext w/o Contrast Right) tractor rollover Report CT right femur CLINICAL INDICATION: Tractor rollover accident. Right femur fracture. COMPARISON: Plain films right femur 10/16/2020 Radiation dose: DLP 1856 mGycm Imaging was performed from the iliac crest through the proximal tibial and fibular metaphyses with [id number] restricted to the right lower extremity. Axial, coronal and sagittal images are reconstructed. Hip joint is intact. There is no fracture noted in the femoral neck or trochanteric region. There is no fracture noted in the right iliac bone or in the right superior or inferior pubic rami. Comminuted fracture is present at the midshaft of the right femur. The distal fracture fragment is externally rotated about 90 degrees. At the level the fracture there are soft tissue air bubbles from skin to lateral muscle compartment indicating an open fracture. There is a small amount of hematoma intervening between the fracture fragments. Distal fracture fragment is displaced posteriorly by about 4 cm. There is a small collection in the knee joint with a fat fluid level. A tiny calcific density is present adjacent to the medial femoral condyle in the intercondylar notch which could represent a tiny avulsion. No other fracture is noted at the knee. Diffuse arteriosclerotic calcifications are noted. IMPRESSION: Comminuted displaced open fracture mid shaft right femur Small joint effusion with a fat fluid level Tiny calcific density adjacent to the medial femoral condyle in the intercondylar notch could represent a tiny avulsion. There is no other articular involving fracture identified Computed Tomography Report Report Dictated on --- Final --- Dictated: 10/16/2020 1:03 pm Dictating Physician: MD SPEAR DIANE Signed Date and Time: 10/16/2020 1:13 pm Signed by: MD SPEAR DIANE Transcribed Date and Time: 10/16/2020 1:03 XR PELVIS (1-2 VW) Result Date: 10/16/2020 Patient Name: RITO LEON [facility]#: [id number] Diagnostic Radiology ACCESSION EXAM DATE/TIME PROCEDURE ORDERING PROVIDER [id number] 10/16/2020 12:16 EDT CR Pelvis 1 or 2 Views MD PRESLEY ALEKSANDAR CPT code 11885 Reason For Exam (CR Pelvis 1 or 2 Views) pelvic pain Report Pelvis CLINICAL INDICATION: Pelvic pain AP view of the pelvis was obtained. There is no fracture noted. Sacroiliac joints are symmetric. Symphysis pubis is normal in width. There is no dislocation evident at the hips. IMPRESSION: No acute osseous abnormality Report Dictated on --- Final --- Dictated: 10/16/2020 12:29 pm Dictating Physician: MD SPEAR DIANE Signed Date and Time: 10/16/2020 12:34 pm Signed by: MD SPEAR DIANE Transcribed Date and Time: 10/16/2020 12:29 Patient Active Problem List Diagnosis Oth fx shaft of right femur, init for opn fx type I/2 (HCC) Closed fracture of shaft of right femur (HCC) Acute traumatic pain ASSESSMENT: 70 yo male s/p tractor rollover with open femur fracture PLAN: Neuro/Spine: - pain prn oxycodone, robaxin, scheduled tylenol HEENT: - no issues Cardiovascular: - hx afib-home Coumadin-Kcentra given in ED - discuss with tcc/pharmacy cost of switching to Eliquis or Xarelto from Coumadin -hx htn home metoprolol -hx hld home Niacin Pulmonary: - hx copd home Singulair FEN/GI: - general diet -hl iv -bowel regimen : - Cr stable -dc navarro today Heme: - Hgb: stable ID: - Zosyn x 24 hours per ortho- complete Endo: - no issues Lines/Devices: - peripheral Prophylaxis: DVT: Lovenox Has DVT PPX been started? Yes If no, why? n/a GI: none Pressure Ulcer: none Musculoskeletal: - right open femur fracture s/p IMN right femur and EUA Right knee POD #1-wbat -pt/ot today WB Status: RUE:at LUE: at RLE: at LLE: at Disposition: H 6 care, switching to Eliquis, dispo planning Associated attestation - Beti Jay MD - 10/18/2020 11:23 AM EDT ~~~~~~~~~~~~~~~~~~~~~~~~~~~~~~~~~~~~ ~~~~~~~~~~~~~~~~~~~~~~~~~ ATTENDING ADDENDUM CC: right leg pain Active Diagnoses/Problems this Admission: Hospital Problems Last Modified POA Oth fx shaft of right femur, init for opn fx type I/2 (HCC) 10/16/2020 Yes Closed fracture of shaft of right femur (HCC) 10/17/2020 Yes Acute traumatic pain 10/17/2020 Yes I personally supervised the ENGINE HOSTLER/NISHANT in the evaluation and development of a treatment plan for this patient on the same day of service as above. I personally discussed the review of systems and interviewed the patient along with performing a physical examination. I reviewed the recent events, imaging, labs, vital signs. In addition, I discussed the patient's condition and treatment options with him/her when possible. I have also reviewed and agree with the past medical, family, and social history unless otherwise noted. All of the patient's questions were answered and family updated when appropriate and possible. 70M s/p s/p open femur fx on the right and EUA of right knee Warfarin reversed in ED due to open femur fx Lactic acidosis - resolved Appreciate orthopedic recommendations s/p intramuscular nail - Weightbearing as tolerated - Magnetic resonance imaging studies 24 hours - Follow-up outpatient in 1-2 weeks Cont home meds Change to eliquis at this time given shortage of blue tops - Takes Coumadin for A. Fib - Follow-up with primary care for outpatient management in 1 week to discuss cont vs changing back to coumadin PTOT Multimodal pain control CK plateaued - DC Dispo - Rehab Beti Jay MD Division of Trauma Department of Surgery [facility] Pager: [phone] ~~~~~~~~~~~~~~~~~~~~~~~~~~~~~~~~~~~~ ~~~~~~~~~~~~~~~~~~~~~~~~~ This note may have been dictated using [employer] Edition 2.6 and/or [employer] Voice Recognition Feature. The document was proofread; however, unrecognized voice recognition can vacuum tester errors may be present. Images from the original note were not included. . [facility] [address] [place] [address] Dept: Loc: Orthopedic Progress Note Name: Rito Leon Date:10/18/2020 Attending:Home Presley MD Subjective No events o/n.Patient doing well. Denies any significant pain this morning. Has been up and moving with some difficulty. Objective Vitals: Vitals: 10/17/20 2227 10/18/20 0056 10/18/20 0531 10/18/20 0532 BP: 98/74 105/75 121/75 Pulse: 83 85 85 Resp: 18 18 18 Temp: 98 F (36.7 C) 98.1 F (36.7 C) 98.2 F (36.8 C) TempSrc: Temporal Temporal Temporal Temporal SpO2: 96% 97% 94% Weight: Height: Physical Exam: General: NAD RLE Dressing/Skin: Clean/Dry/Intact SILT: Saphenous/Superficial Peroneal/Deep Peroneal/Tibial/Sural distributions Motor: +Dorsiflexion/Plantarflexion/Great toe extension Pulses: Palpable DP Compartments are soft and compressible No TTP or pain w/ p/a ROM at ankle LABS: Recent Labs 10/16/20 1137 10/17/20 0322 10/18/20 0058 WBC 20.6* 10.4 13.4* HGB 13.3 11.4* 10.4* HCT 38.9* 33.3* 30.4* PLT 354 269 273 Recent Labs 10/16/20 1137 10/17/20 0322 10/18/20 0058 NA 139 136 139 K 3.8 4.6 4.4 CL 109* 108* 106 CO2 23 22 27 BUN 19 15 19 CREATININE 0.93 0.71 0.84 CALCIUM 8.7 8.3* 8.7 Recent Labs 10/16/20 1140 10/16/20 1447 10/17/20 0322 INR 4.8* 1.2* 1.1 No results for input(s): SEDRATE, CRP in the last 72 hours. No results for input(s): HCG in the last 72 hours. Assessment Rito is a 70 y.o.male s/p Irrigation and debridement R femur, R retrograde IMN 10/16 Plan -No plans for return OR -WBAT, activity as tolerated, up with assistance -Ice & elevate -PT/OT -Neurochecks -skin checks -Dressings: keep clean dry intact, change as needed for saturation -Abx: Zosyn x 24h, ok to discontinue from Ortho perspective -Ok for diet & anticoagulation -Medical management, pain control, dvt ppx per primary -F/u OP with Dr. Dover in 1-2 weeks -Ortho to sign off at this time. Please page resident sterilisation technician with any questions or concerns. Bryon Blair MD Orthopaedic Surgery PGY-1 *[id number] Physical Therapy Facility/Department: [facility] Initial Assessment NAME: Rito Leon : 1950 Date of Service: 10/17/2020 Discharge Recommendations: Continue to assess pending progress (Inpatient rehab vs home with assist PRN and home health PT) PT Equipment Recommendations Equipment Needed: (TBD) Assessment Body structures, Functions, Activity limitations: Decreased functional mobility ;Decreased endurance;Decreased ADL status;Decreased strength;Decreased balance;Increased pain Assessment: Patient admitted due to tractor accident with open femur fx RLE, fibular head fx, knee effusion, possible ligamentous injury s/p I&D femur fx, retrograde R femoral nail and R knee exam under anesthesia on 10/16. Patient presents with the above deficits. He is WBAT RLE. Patient able to perform bed mobility with SBA only, able to move RLE over EOB using bilat UE to assist. He required min A for sit <> stand transfers from EOB. Patient demo difficulty bearing weight through RLE in standing. He ambulated 6 feet and 15 feet using FWW with CGA, demo TTWB through RLE at this time. If patient were to discharge today, he would benefit from inpatient rehab in order to maximize functional independence and safety with mobility. Will continue to assess discharge disposition pending progress. If patient were to return home, he would require home health PT. Specific instructions for Next Treatment: Gait training using FWW Prognosis: Good Decision Making: Medium Complexity PT Education: PT Role;Goals;Plan of Care;Weight-bearing Education;Gait Training REQUIRES PT FOLLOW UP: Yes Activity Tolerance Activity Tolerance: Patient limited by pain Activity Tolerance: Difficulty bearing weight through RLE in standing Patient Diagnosis(es): The encounter diagnosis was Closed fracture of shaft of right femur, unspecified fracture morphology, initial encounter ([facility]). has a past medical history of Atrial fibrillation ([facility]) and Hyperlipidemia. has a past surgical history that includes Femur fracture surgery (Right, 10/16/2020). Restrictions Restrictions/Precautions Restrictions/Precautions: Weight Bearing, Fall Risk, Up as Tolerated (Up with assist) Required Braces or Orthoses?: Yes (Maria Guadalupe bandage RLE) Lower Extremity Weight Bearing Restrictions Right Lower Extremity Weight Bearing: Weight Bearing As Tolerated Position Activity Restriction Other position/activity restrictions: IV Vision/Hearing Subjective General Chart Reviewed: Yes Patient assessed for rehabilitation services?: Yes Response To Previous Treatment: Not applicable Family / Caregiver Present: Yes ( arrived during session) Diagnosis: Open femur fx RLE, fibular head fx, knee effusion, possible ligamentous injury s/p I&D femur fx, retrograde R femoral nail and R knee exam under anesthesia on 10/16 Follows Commands: Within Functional Limits General Comment Comments: IV Subjective Subjective: Nurse cleared patient for PT eval. Patient lying in bed upon arrival and eager to get up. Pain Screening Patient Currently in Pain: Yes Pain Assessment Pain Assessment: 0-10 Pain Level: 4 Pain Type: Acute pain;Surgical pain Pain Location: Leg;Knee Pain Orientation: Right Pain Descriptors: Aching;Sore Pain Frequency: Continuous Pain Onset: On-going Clinical Progression: Not changed Functional Pain Assessment: Prevents or interferes some active activities and ADLs Non-Pharmaceutical Pain Intervention(s): (RLE elevation) Response to Pain Intervention: Patient Satisfied POSS Score (Patient Ctrl Analgesia): 1 Vital Signs Patient Currently in Pain: Yes Pre Treatment Pain Screening Intervention List: Patient able to continue with treatment Orientation Orientation Overall Orientation Status: Within Normal Limits Social/Functional History Social/Functional History Lives With: Spouse, Family (daughter and son-in-law) Type of Home: House Home Layout: Two level, Able to Live on Main level with bedroom/bathroom (Daughter and son-in-law currently staying in main level bedroom but patient states this can be re-arranged) Home Access: Stairs to enter with rails Entrance Stairs - Number of Steps: 4 Bathroom Shower/Tub: Tub/Shower unit, Walk-in shower Bathroom Toilet: Standard Bathroom Accessibility: Accessible Receives Help From: Family ADL Assistance: Independent Homemaking Assistance: Independent Homemaking Responsibilities: Yes (Shares with ) Ambulation Assistance: Independent (Without a device) Transfer Assistance: Independent Active Content Director: Yes Mode of Transportation: Car 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 Additional Comments: Workers Comp Cognition Cognition Overall Cognitive Status: WNL Objective Observation/Palpation Posture: Fair Observation: Maria Guadalupe bandages from upper thigh to foot AROM RLE (degrees) RLE General AROM: Unable to assess knee and ankle due to maria guadalupe bandages AROM LLE (degrees) LLE AROM : WFL Strength RLE Comment: Did not test formally due to recent surgery and maria guadalupe bandages placed; patient with difficulty bearing weight through RLE in standing Strength LLE Comment: 4/5 throughout Tone RLE RLE Tone: Normotonic Tone LLE LLE Tone: Normotonic Motor Control Gross Motor?: WNL Sensation Overall Sensation Status: WFL Bed mobility Supine to Sit: Stand by assistance Scooting: Stand by assistance Comment: Patient able to assist RLE over EOB using bilat UE. HOB elevated Transfers Sit to Stand: Minimal Assistance Stand to sit: Minimal Assistance Comment: Required bilat UE support. Patient with difficulty bearing weight through RLE during transfers, relying heavily on LLE. Ambulation Ambulation?: Yes WB Status: WBAT RLE More Ambulation?: Yes Ambulation 1 Surface: level tile Device: Rolling Walker Assistance: Contact guard assistance Quality of Gait: Difficulty bearing weight through RLE Gait Deviations: Slow Vanessa Distance: 6 feet Comments: Edu re: WBAT status for RLE. Patient with difficulty bearing weight through RLE, tends to demo TTWB only at this time. Ambulation 2 Surface - 2: level tile Device 2: Rolling Walker Assistance 2: Contact guard assistance Gait Deviations: Slow Vanessa Distance: 15 feet Comments: see above Stairs/Curb Stairs?: No Balance Posture: Fair Sitting - Static: Good;+ Sitting - Dynamic: Good;+ Standing - Static: Fair Standing - Dynamic: Fair;- Plan Plan Times per week: 7 Times per day: Daily Plan weeks: 2 Specific instructions for Next Treatment: Gait training using FWW Current Treatment Recommendations: Strengthening, Transfer Training, Endurance Training, ROM, Patient/Caregiver Education & Training, Balance Training, Gait Training, Functional Mobility Training, Stair training, Safety Education & Training Safety Devices Type of devices: Gait belt, Nurse notified, Patient at risk for falls, Call light within reach, Left in chair Restraints Initially in place: No G-Code OutComes Score AM-PAC Score AM-PAC Inpatient Mobility Raw Score : 15 (10/17/201412) AM-PAC Inpatient T-Scale Score : 39.45 (10/17/20 141) Mobility Inpatient CMS 0-100% Score: 57.7 (10/17/201412) Mobility Inpatient CMS G-Code Modifier : CK (10/17/201412) Goals Short term goals Time Frame for Short term goals: 2 weeks Short term goal 1: Perform bed mobility with modif indep Short term goal 2: Perform transfers with modif indep Short term goal 3: Ambulate 100 feet using FWW with supervision and increased weight acceptance through RLE Short term goal 4: Ascend/descend 4 stairs using hand rail with supervision Patient Goals Patient goals : To walk Therapy Time Individual Concurrent Group Co-treatment Time In 1227 Time Out 1252 Minutes 25 Timed Code Treatment Minutes: 8 Minutes (Gait x1) Ariana Zamudio PT PT wore kN95 mask, goggles, and gloves throughout entire session with patient. Patient s Physical Therapy Plan of Care supervision is transferred to [facility] Rehab Department Physical Therapist. On rounds this a.m., Dr. Jay and I discussed with patient the option of changing Coumadin to Eliquis vs. Xarleto. Patient agreeable but would like the cost of each option. This nurse spoke to social work and requested the cost of each with his insurance coverage. Prices as below per social work/pharmacy: Eliquis- First month $107.00 (has first month free card) After first month $47 Xarelto- First month $107.00 (NO first month free card) After first month $47.00-does require prior auth This nurse presented options to patient and answered questions. Patient agreeable to switching to Eliquis. Orders placed in Epic and drug information sheet printed from [employer] and given to patient. D/W Dr. Jay. Bed side nurse updated as well. Department of Orthopedic Surgery Attending Progress Note SUBJECTIVE Pt feels pain controlled OBJECTIVE Physical VITALS: BP 102/77 Pulse 78 Temp 98.5 F (36.9 C) (Temporal) Resp 18 Ht 6' 3 (1.905 m) Wt 191 lb (86.6 kg) SpO2 95% BMI 23.87 kg/m RLE Dressing CDI Calf soft and NT LT good in foot DP intact DF and PF good Data CBC: Lab Results Component Value Date WBC 10.4 10/17/2020 RBC 3.63 10/17/2020 HGB 11.4 10/17/2020 HCT 33.3 10/17/2020 MCV 91.6 10/17/2020 MCH 31.4 10/17/2020 MCHC 34.3 10/17/2020 RDW 13.7 10/17/2020 PLT 269 10/17/2020 MPV 7.7 10/17/2020 ASSESSMENT AND PLAN POD #1 I and D and IMN R femur with EUA R knee -WBAT, activity as tolerated, up with assistance -Ice & elevate -PT/OT -Dressings: keep clean dry intact, change as needed for saturation -Abx: Zosyn x 24h -Ok for diet & anticoagulation -Medical management, pain control, dvt ppx per primary -F/u with me in 2 weeks call [phone] for OP appt Images from the original note were not included. Daily Trauma Progress Note Nurse Practitioner 10/17/2020 7:03 AM Admit Date: 10/16/2020 Post Trauma Day 1 Tractor rollover HISTORY OF TRAUMATIC EVENT: 70 y.o. male status post rollover by a javed [place]. The incident happened around 0900 on 10/16/2020 at work. 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 He received ancef and tetanus. Traction splint was placed to his RLE for 10 mg ketamine. He has an open wound to right thigh with venous oozing. He denies LOC and remembers the entire event. INR at OSH is 3.5. INJURIES: Right open femur fracture PROCEDURES: 10/17/2020: 1. Irrigation and debridement of right open femur fracture 2. Retrograde right femoral nail (CPT 43778) 3. Right knee exam under anesthesia CHIEF COMPLAINT: none PREVIOUS 24 HOUR EVENTS: new admission and OR with orthopedics Consults: IP CONSULT TO GERIATRICS MEDICATIONS: Current Facility-Administered Medications Medication Dose Route Frequency Provider Last Rate Last Admin metoprolol tartrate (LOPRESSOR) tablet 25 mg 25 mg Oral BID Home Presley MD 25 mg at 10/17/20 0241 lidocaine 1 % injection 30 mL 30 mL Intradermal Once Vishal Mooney MD sodium chloride flush 0.9 % injection 5-40 mL 5-40 mL Intravenous 2 times per day Sharon Camejo MD sodium chloride flush 0.9 % injection 5-40 mL 5-40 mL Intravenous PRN Sharon Camejo MD 0.9 % sodium chloride infusion 25 mL Intravenous PRN Sharon Camejo MD polyethylene glycol (GLYCOLAX) packet 17 g 17 g Oral Daily Sharon Camejo MD piperacillin-tazobactam (ZOSYN) 3375 mg in dextrose 50 mL IVPB extended infusion (premix) 3,375 mg Intravenous Q8H Sharon Camejo MD 12.5 mL/hr at 10/17/20 0245 3,375 mg at 10/17/20 0245 lactated ringers infusion Intravenous Continuous Sharon Camejo MD 100 mL/hr at 10/16/20 2259 New Bag at 10/16/20 2259 acetaminophen (TYLENOL) tablet 1,000 mg 1,000 mg Oral 3 times per day Sharon Camejo MD 1,000 mg at 10/17/20 0541 oxyCODONE (ROXICODONE) immediate release tablet 5 mg 5 mg Oral Q4H PRN Sharon Camejo MD Or oxyCODONE (ROXICODONE) immediate release tablet 10 mg 10 mg Oral Q4H PRN Sharon Camejo MD morphine sulfate (PF) injection 2 mg 2 mg Intravenous Q3H PRN Sharon Camejo MD sennosides-docusate sodium (SENOKOT-S) 8.6-50 MG tablet 1 tablet 1 tablet Oral BID Sharon Camejo MD 1 tablet at 10/16/20 2301 bisacodyl (DULCOLAX) suppository 10 mg 10 mg Rectal Daily PRN Sharon Camejo MD ondansetron (ZOFRAN) injection 4 mg 4 mg Intravenous Q6H PRN Sharon Camejo MD piperacillin-tazobactam (ZOSYN) 4500 mg in dextrose 100 mL IVPB extended infusion (premix) 4,500 mg Intravenous Once Emiliano Harris MD enoxaparin (LOVENOX) injection 30 mg 30 mg Subcutaneous BID Gisele De Dios MD ARE THERE PERTINENT UPDATES TO PAST,FAMILY, OR SOCIAL HISTORY?: No Subjective: 70 yo male s/p roll over by tractor with ope femur fracture Review of Systems Musculoskeletal: Positive for arthralgias and myalgias. All other systems reviewed and are negative. PHQ In the last 2 weeks have you had: 1. Little interest or pleasure in doing things No 2. Been feeling down, depressed, or hopeless No If greater then 0, place CLP consult Date PHQ completed: 10/17/2020 Objective: Patient Vitals for the past 24 hrs: BP Temp Temp src Pulse Resp SpO2 Height Weight 10/17/20 0413 110/65 97.8 F (36.6 C) Temporal 79 18 96 % 10/17/20 012 106/76 97 F (36.1 C) Temporal 105 12 97 % 10/16/202201 123/82 98.6 F (37 C) Temporal 117 16 97 % 10/16/202135 117/78 98.1 F (36.7 C) Temporal 121 18 95 % 10/16/202029 129/75 107 16 97 % 10/16/202014 105/88 107 12 97 % 10/16/201999 114/83 103 12 100 % 10/16/201951 125/78 98 F (36.7 C) Temporal 111 10 100 % 10/16/20 170 134/81 99 F (37.2 C) Temporal 133 18 100 % 6' 3 (1.905 m) 191 lb (86.6 kg) 10/16/20 1315 6' 3 (1.905 m) 191 lb (86.6 kg) Date 10/17/20 0000 - 10/17/20 2359 Shift 8013-8805 3323-3328 9717-6839 24 Hour Total INTAKE P.O. 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 Constitutional: Appearance: Normal appearance. HENT: Head: Normocephalic and atraumatic. Right Ear: Tympanic membrane, ear canal and external ear normal. Left Ear: Tympanic membrane, ear canal and external ear normal. Nose: Nose normal. Mouth/Throat: Mouth: Mucous membranes are dry. Pharynx: Oropharynx is clear. Eyes: Extraocular Movements: Extraocular movements intact. Conjunctiva/sclera: Conjunctivae normal. Pupils: Pupils are equal, round, and reactive to light. Cardiovascular: Rate and Rhythm: Normal rate and regular rhythm. Pulses: Normal pulses.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 your skin Diarrhea Fever Trouble sleeping documented in this encounter [facility] Work Phone: Discharge summary Note Date/Time November 09, 2024 9:25am [facility] Medical Records Department [address] [place] [address] Emergency Department Summary 11/09/24 MR#: [id number] Acct: [id number] Name: RITO LEON Rep #:[id number] : 1950 74 From: Pablo Jaime MD PCP: Dr. Sherin Boswell MD Status:REG E R Location: ED HPI History of Present Illness Chief Complaint: Stroke Alert Detail of Chief Complaint: According to squad patient was flaccid on the left side his speech was much Informant: patient and EMS Onset/Context/Timing Onset: Today (0800) Context: Onset with activity and Sudden Onset Timing: Continuous Quality and Location: Positive for Left Facial Droop, Left Arm Weakness, Left Leg Weakness, Slurred Speech and Difficulty with Ambulation Current Severity: Mild Maximum Severity: Severe Worsened by: Probable stroke Relieved by: Not applicable Associated Symptoms Associated Symptoms: Negative for Headache, Nausea or Vomiting Narrative Narrative: Patient is a 74-year-old male with history of atrial fibrillation on Eliquis. saw him fall. He had a flaccid left side significantly slurred speech and facial droop. He denies headache. Denies visual disturbance. He denies cardiac or respiratory symptoms. He denies nausea or vomiting. There are no records available for review. Prior similar symptoms: No Recent Illness/Hospitalization: No [facility] Medical History (Updated 11/09/24 @ 09:[address] Pablo Jaime MD) Atrial fibrillation Social History (Updated 11/09/24 @ 08:[address] Pablo Jaime MD) household members: spouse housing: house Smoking Status: Former smoker ROS ROS ED Eyes Eyes: Denies blurry vision or change in vision Cardiovascular Cardiovascular: Denies chest pain or palpitations Respiratory/Chest Respiratory/Chest: Denies cough, dyspnea or dyspnea on exertion Gastrointestinal Gastrointestinal: Denies abdominal pain, nausea or vomiting Integumentary Denies rash Neurologic Neurologic: Reports weakness; Denies headache(s) or paresthesias Hematologic/Lymphatic Hematologic/Lymphatic: Denies easy bleeding or easy bruising EXAM Physical Exam Const Vital Signs: 11/09/24 08:32 11/09/24 08:46 11/09/24 09:01 Temperature 97.7 F L Temperature Source Oral Pulse Rate 96 81 Respiratory Rate 25 H 19 H Blood Pressure 164/89 H 166/127 H Blood Pressure Mean 114 140 Pulse Ox 93 97 Oxygen Delivery Method Room Air Room Air Room Air 11/09/24 09:02 Temperature Temperature Source Pulse Rate 79 Respiratory Rate 19 H Blood Pressure 166/127 H Blood Pressure Mean 140 Pulse Ox 97 Oxygen Delivery Method Room Air Positive well nourished and well developed General Appearance ED: well developed and NAD HEENT Reports moist mucous membranes atraumatic Eyes PERRL and EOMs intact bilaterally General Eye ED: Negative for pale conjunctiva or scleral icterus Neck no lymphadenopathy, supple and no JVD Resp normal respiratory effort and clear to auscultation bilaterally Cardio no murmurs Rate: regular rate Rhythm: abnormal rhythm irregularly irregular GI normal to inspection, nondistended, normoactive bowel sounds, soft to palpation and non-tender Back/Spine no CVA tenderness Extremity normal to inspection General Extremety ED: Negative for deformity or edema General Extremity: Negative for deformity or edema Neuro oriented x3 and No CN's II-XII intact bilaterally Estrella Coma Scale: document GCS findings Spontaneous Obeys Commands Oriented 15 Sensorium / Orientation: Negative for alert Speech: Negative for speech normal Psych mental status grossly normal Skin no wounds General Skin Exam: Negative for jaundice Lesions: no lesions Rashes: no rashes MDM MDM MDM Narrative Medical decision making narrative: Patient presents with strokelike symptoms. Need to evaluate for LVO. He is nota candidate for TNKase since he is on anticoagulant. CT minus was obtained as well as CTA of the head and neck. Monitor from paramedics reveals atrial fibrillation. Stroke team was called. Lab Data Labs: Laboratory Results - last 24 hr 11/09/24 09:03 POC Glucose 101 Radiography Diagnostic Testing: Clinical Impression(s) from Imaging Studies Brain CT 11/09/24 08:33 IMPRESSION: 1. Subtle hypodense lesion of the left basal ganglia could represent infarctionof indeterminate age or prominent perivascular space. Further evaluation with MRI is recommended. 2. Generalized brain atrophy. 3. Small vessel ischemic/degenerative changes. 4. No acute intracranial hemorrhage, midline shift or mass effect. If symptoms persist, further evaluation with MRI is recommended. Reading Location: [facility] CT report that was documented 0839 was reviewed at 0841. Spoke with Dr. Pompa as the neurologist at [facility]. Patient has an M2 clot on theright. Presently there is flow. Since patient symptoms have improved markedly recommend stat ground transport to [facility] in the event he deteriorates for emergentretrieval. Patient and were made aware of this. He is in agreement. [facility] has been asked to make arrangements for stat ground transport to [facility]. Dr. Leonard agrees patient not a candidate for TNKase since he is on Eliquis and took his last dose at 7 AM. Rhythm Strip Rhythm Strip: A-fib Rate: 95 Ectopy: None EKG Initial EKG: Attestation: I personally reviewed and interpreted this EKG as follows: Interpretation: Atrial Fibrillation (Atrial fibrillation 93. There is evidence of right bundle branch block. [place] interval is not applicable. QRS duration 130 ms. QT duration 4 and 28 ms. [place] is normal.) Management Discussion w/another healthcare provider: [facility] and Radiologist Treatment and Re-Evaluation Narrative: Patient's blood pressure is elevated. Will allow for permissive hypertension since she is a stroke patient. Discharge Plan Triage Chief Complaint: Stroke Alert ED Provider: Pablo Jaime Dx/Rx/DC Orders Clinical Impression: Cerebrovascular accident (CVA) involving right cerebral hemisphere, Anticoagulant long-term use, Chronic a-fib Primary Care Provider: Sherin Boswell Referrals: Sherin Boswell MD [Primary Care Provider] - Print Language: Malagasy Disposition Disposition: Acute Care Hospital Discharge Location: [facility] NIHSS NIHSS 1a. Level of Consciousness: 1 - Not alert; Arousable by minor stimuli to obey, answer & respond 1b. LOC Questions: 0 - Answers BOTH questions correctly 1c. LOC Commands: 0 - Performs BOTH tasks correctly 2. Best Gaze: 0 - Normal 3. Visual: 0 - No visual loss 4. Facial Palsy: 1 - Minor paralysis (flattened nasolabial fold, asymmetry on smiling) 5a. Left Arm: 0 - No drift; arm holds 90 (or 45) degrees for full 10 seconds 5b. Right Arm: 0 - No drift; arm holds 90 (or 45) degrees for full 10 seconds 6a. Left Le - No drift; leg holds 30-degree position for full 5 seconds 6b. Right Le - No drift; leg holds 30-degree position for full 5 seconds 7. Limb Ataxia: 0 - Absent 8. Sensory: 0 - Normal; no sensory loss 9. Best Language: 0 - No aphasia; normal 10. Dysarthria: 1 = [id number] dysarthria; 11. Extinction and Inattention: 0 - No abnormality Total: 3 Stroke Questions Stroke Team Activated: Yes Reviewed Inclusion/Exclusion criteria: Yes IV Thrombolytic Administered: No (Patient is on Eliquis) What to do if you have Problems For any increased pain, shortness of breath, bleeding, nausea or vomiting, chestpain, or any unexpected problems, contact your Primary Care Provider. Call [facility] ([phone]) or report to the closest Emergency Room. Call 911 if necessary. 11/09/24 9005 <Electronically signed by Pablo Jaime MD> Cosigner Signature (if applicable): CC: Dr. Sherin Boswell MD ~ Signed [facility] Work Phone: Evaluation note* Diagnosis Closed fracture of shaft of right femur, unspecified fracture morphology, initial encounter (HCC)- Primary Acute traumatic pain Acute pain due to trauma Accident caused by machinery, initial encounter Oth fx shaft of right femur, init for opn fx type I/2 (HCC) Trauma Injury, other and unspecified, unspecified site Traumatic rhabdomyolysis (HCC) Thrombosis of right saphenous vein documented in this encounter [facility] Work Phone: Evaluation noteThere may be information available, but it has not been provided by the sender.[facility] Work Phone: Evaluation note* Diagnosis Type III open fracture of shaft of right femur with routine healing, unspecified fracture morphology, subsequent encounter- Primary [facility] Diagnosis Type III open fracture of shaft of right femur with routine healing, unspecified fracture morphology, subsequent encounter [facility] Diagnosis Type III open fracture of shaft of right femur with routine healing, unspecified fracture morphology, subsequent encounter [facility] Diagnosis Type III open fracture of shaft of right femur with routine healing, unspecified fracture morphology, subsequent encounter [facility] Diagnosis Type III open fracture of shaft of right femur with routine healing, unspecified fracture morphology, subsequent encounter [facility] Diagnosis Type III open fracture of shaft of right femur with routine healing, unspecified fracture morphology, subsequent encounter [facility] Diagnosis Type III open fracture of shaft of right femur with routine healing, unspecified fracture morphology, subsequent encounter [facility] Diagnosis Type III open fracture of shaft of right femur with routine healing, unspecified fracture morphology, subsequent encounter [facility] Diagnosis Type III open fracture of shaft of right femur with routine healing, unspecified fracture morphology, subsequent encounter [facility] Diagnosis Type III open fracture of shaft of right femur with routine healing, unspecified fracture morphology, subsequent encounter [facility] Diagnosis Type III open fracture of shaft of right femur with routine healing, unspecified fracture morphology, subsequent encounter [facility] Diagnosis Persistent atrial fibrillation (HCC)- Primary Atrial fibrillation Hypertension, unspecified type Mixed hyperlipidemia Rhinitis, unspecified type Chronic anticoagulation Long-term (current) use of anticoagulants documented [facility] Diagnosis Hypertriglyceridemia Pure hyperglyceridemia [facility]* Diagnosis Medicare annual wellness visit, subsequent- Primary Routine general medical examination at a [facility] care facility Hypertension with goal blood pressure less than 140/90 Palpitations Persistent atrial fibrillation (HCC) Atrial fibrillation Hypertriglyceridemia Pure hyperglyceridemia [facility] Diagnosis Hypothyroidism, acquired- Primary Unspecified hypothyroidism Hypercalcemia [facility] Diagnosis Aortic valve stenosis, etiology of cardiac valve disease unspecified- Primary Chronic a-fib (HCC) Atrial fibrillation Aortic stenosis, severe Aortic valve disorders Mixed hyperlipidemia Persistent atrial fibrillation (HCC) Atrial fibrillation [facility] Diagnosis Aortic stenosis, severe- Primary Aortic valve disorders Mixed hyperlipidemia Persistent atrial fibrillation (HCC) Atrial fibrillation [facility] Diagnosis Persistent atrial fibrillation (HCC)- Primary Atrial fibrillation [facility]* Diagnosis Aortic valve stenosis, etiology of cardiac valve disease unspecified- Primary Persistent atrial fibrillation (HCC) Atrial fibrillation [facility]* Diagnosis Hypertriglyceridemia Pure hyperglyceridemia [facility]* Diagnosis Primary hypertension- Primary Unspecified essential hypertension Hypothyroidism, unspecified type Mixed hyperlipidemia Persistent atrial fibrillation (HCC) Atrial fibrillation Encounter for immunization Need for other specified prophylactic vaccination against single bacterial disease [facility] Diagnosis Mixed hyperlipidemia- Primary Essential hypertension with goal blood pressure less than 140/90 Tobacco abuse disorder Tobacco use disorder Persistent atrial fibrillation (HCC) Atrial fibrillation Need for vaccination Need for prophylactic vaccination and inoculation against unspecified single disease Persistent atrial fibrillation (HCC) Atrial fibrillation Tobacco abuse disorder Tobacco use disorder Hypertension with goal blood pressure less than 140/90 Mixed hyperlipidemia Persistent atrial fibrillation (HCC)- Primary Atrial fibrillation Need for vaccination Need for prophylactic vaccination and inoculation against unspecified single disease Hypertension with goal blood pressure less than 140/90 Tobacco abuse disorder Tobacco use disorder Hypertriglyceridemia Pure hyperglyceridemia Allergic bronchitis without complication Acute cough- Primary Suspected COVID-19 virus infection Community acquired pneumonia of left lower lobe of lung Acute cough [facility] Diagnosis Mixed hyperlipidemia- Primary Essential hypertension with goal blood pressure less than 140/90 Tobacco abuse disorder Tobacco use disorder Persistent atrial fibrillation (HCC) Atrial fibrillation Need for vaccination Need for prophylactic vaccination and inoculation against unspecified single disease Persistent atrial fibrillation (HCC) Atrial fibrillation Tobacco abuse disorder Tobacco use disorder Hypertension with goal blood pressure less than 140/90 Mixed hyperlipidemia Persistent atrial fibrillation (HCC)- Primary Atrial fibrillation Need for vaccination Need for prophylactic vaccination and inoculation against unspecified single disease Hypertension with goal blood pressure less than 140/90 Tobacco abuse disorder Tobacco use disorder Hypertriglyceridemia Pure hyperglyceridemia Allergic bronchitis without complication Acute cough [facility] Diagnosis Mixed hyperlipidemia- Primary Essential hypertension with goal blood pressure less than 140/90 Tobacco abuse disorder Tobacco use disorder Persistent atrial fibrillation (HCC) Atrial fibrillation Need for vaccination Need for prophylactic vaccination and inoculation against unspecified single disease Persistent atrial fibrillation (HCC) Atrial fibrillation Tobacco abuse disorder Tobacco use disorder Hypertension with goal blood pressure less than 140/90 Mixed hyperlipidemia Persistent atrial fibrillation (HCC)- Primary Atrial fibrillation Need for vaccination Need for prophylactic vaccination and inoculation against unspecified single disease Hypertension with goal blood pressure less than 140/90 Tobacco abuse disorder Tobacco use disorder Hypertriglyceridemia Pure hyperglyceridemia Allergic bronchitis without complication Bacterial pneumonia- Primary Bacterial pneumonia, unspecified [facility] Diagnosis Mixed hyperlipidemia- Primary Essential hypertension with goal blood pressure less than 140/90 Tobacco abuse disorder Tobacco use disorder Persistent atrial fibrillation (HCC) Atrial fibrillation Need for vaccination Need for prophylactic vaccination and inoculation against unspecified single disease Persistent atrial fibrillation (HCC) Atrial fibrillation Tobacco abuse disorder Tobacco use disorder Hypertension with goal blood pressure less than 140/90 Mixed hyperlipidemia Persistent atrial fibrillation (HCC)- Primary Atrial fibrillation Need for vaccination Need for prophylactic vaccination and inoculation against unspecified single disease Hypertension with goal blood pressure less than 140/90 Tobacco abuse disorder Tobacco use disorder Hypertriglyceridemia Pure hyperglyceridemia Allergic bronchitis without complication Left foot pain Pain in limb documented [facility] this [facility] Diagnosis Mixed hyperlipidemia- Primary Essential hypertension with goal blood pressure less than 140/90 Tobacco abuse disorder Tobacco use disorder Persistent atrial fibrillation (HCC) Atrial fibrillation Need for vaccination Need for prophylactic vaccination and inoculation against unspecified single disease Persistent atrial fibrillation (HCC) Atrial fibrillation Tobacco abuse disorder Tobacco use disorder Hypertension with goal blood pressure less than 140/90 Mixed hyperlipidemia Persistent atrial fibrillation (HCC)- Primary Atrial fibrillation Need for vaccination Need for prophylactic vaccination and inoculation against unspecified single disease Hypertension with goal blood pressure less than 140/90 Tobacco abuse disorder Tobacco use disorder Hypertriglyceridemia Pure hyperglyceridemia Allergic bronchitis without complication Pneumonia of left lung due to infectious organism, unspecified part of lung- Primary Acute non-recurrent sinusitis, unspecified location [facility] Diagnosis Mixed hyperlipidemia- Primary Essential hypertension with goal blood pressure less than 140/90 Tobacco abuse disorder Tobacco use disorder Persistent atrial fibrillation (HCC) Atrial fibrillation Need for vaccination Need for prophylactic vaccination and inoculation against unspecified single disease Persistent atrial fibrillation (HCC) Atrial fibrillation Tobacco abuse disorder Tobacco use disorder Hypertension with goal blood pressure less than 140/90 Mixed hyperlipidemia Persistent atrial fibrillation (HCC)- Primary Atrial fibrillation Need for vaccination Need for prophylactic vaccination and inoculation against unspecified single disease Hypertension with goal blood pressure less than 140/90 Tobacco abuse disorder Tobacco use disorder Hypertriglyceridemia Pure hyperglyceridemia Allergic bronchitis without complication Pneumonia of left lung due to infectious organism, unspecified part of lung- Primary Sinus drainage Other diseases of nasal cavity and sinuses documented [facility] this [facility] Diagnosis Mixed hyperlipidemia- Primary Essential hypertension with goal blood pressure less than 140/90 Tobacco abuse disorder Tobacco use disorder Persistent atrial fibrillation (HCC) Atrial fibrillation Need for vaccination Need for prophylactic vaccination and inoculation against unspecified single disease Persistent atrial fibrillation (HCC) Atrial fibrillation Tobacco abuse disorder Tobacco use disorder Hypertension with goal blood pressure less than 140/90 Mixed hyperlipidemia Persistent atrial fibrillation (HCC)- Primary Atrial fibrillation Need for vaccination Need for prophylactic vaccination and inoculation against unspecified single disease Hypertension with goal blood pressure less than 140/90 Tobacco abuse disorder Tobacco use disorder Hypertriglyceridemia Pure hyperglyceridemia Allergic bronchitis without complication Chronic pain of right knee [facility] Diagnosis Mixed hyperlipidemia- Primary Essential hypertension with goal blood pressure less than 140/90 Tobacco abuse disorder Tobacco use disorder Persistent atrial fibrillation (HCC) Atrial fibrillation Need for vaccination Need for prophylactic vaccination and inoculation against unspecified single disease Persistent atrial fibrillation (HCC) Atrial fibrillation Tobacco abuse disorder Tobacco use disorder Hypertension with goal blood pressure less than 140/90 Mixed hyperlipidemia Persistent atrial fibrillation (HCC)- Primary Atrial fibrillation Need for vaccination Need for prophylactic vaccination and inoculation against unspecified single disease Hypertension with goal blood pressure less than 140/90 Tobacco abuse disorder Tobacco use disorder Hypertriglyceridemia Pure hyperglyceridemia Allergic bronchitis without complication Pneumonia of left lung due to infectious organism, unspecified part of lung [facility] Diagnosis Mixed hyperlipidemia- Primary Essential hypertension with goal blood pressure less than 140/90 Tobacco abuse disorder Tobacco use disorder Persistent atrial fibrillation (HCC) Atrial fibrillation Need for vaccination Need for prophylactic vaccination and inoculation against unspecified single disease Persistent atrial fibrillation (HCC) Atrial fibrillation Tobacco abuse disorder Tobacco use disorder Hypertension with goal blood pressure less than 140/90 Mixed hyperlipidemia Persistent atrial fibrillation (HCC)- Primary Atrial fibrillation Need for vaccination Need for prophylactic vaccination and inoculation against unspecified single disease Hypertension with goal blood pressure less than 140/90 Tobacco abuse disorder Tobacco use disorder Hypertriglyceridemia Pure hyperglyceridemia Allergic bronchitis without complication Hypertension with goal blood pressure less than 140/90 Medication management Encounter for long-term (current) use of other medications documented in this encounter [facility] note* Diagnosis Mixed hyperlipidemia- Primary Essential hypertension with goal blood pressure less than 140/90 Tobacco abuse disorder Tobacco use disorder Persistent atrial fibrillation (HCC) Atrial fibrillation Need for vaccination Need for prophylactic vaccination and inoculation against unspecified single disease Persistent atrial fibrillation (HCC) Atrial fibrillation Tobacco abuse disorder Tobacco use disorder Hypertension with goal blood pressure less than 140/90 Mixed hyperlipidemia Persistent atrial fibrillation (HCC)- Primary Atrial fibrillation Need for vaccination Need for prophylactic vaccination and inoculation against unspecified single disease Hypertension with goal blood pressure less than 140/90 Tobacco abuse disorder Tobacco use disorder Hypertriglyceridemia Pure hyperglyceridemia Allergic bronchitis without complication Medicare annual wellness visit, subsequent- Primary Routine general medical examination at a health care facility Need for influenza vaccination Need for prophylactic vaccination and inoculation against influenza Nocturia Prostate cancer screening Special screening for malignant neoplasm of prostate BPH associated with nocturia Hypertrophy of prostate with urinary obstruction and other lower urinary tract symptoms (LUTS) Aortic valve stenosis, etiology of cardiac valve disease unspecified Mixed hyperlipidemia [facility] Diagnosis Mixed hyperlipidemia- Primary Essential hypertension with goal blood pressure less than 140/90 Tobacco abuse disorder Tobacco use disorder Persistent atrial fibrillation (HCC) Atrial fibrillation Need for vaccination Need for prophylactic vaccination and inoculation against unspecified single disease Persistent atrial fibrillation (HCC) Atrial fibrillation Tobacco abuse disorder Tobacco use disorder Hypertension with goal blood pressure less than 140/90 Mixed hyperlipidemia Persistent atrial fibrillation (HCC)- Primary Atrial fibrillation Need for vaccination Need for prophylactic vaccination and inoculation against unspecified single disease Hypertension with goal blood pressure less than 140/90 Tobacco abuse disorder Tobacco use disorder Hypertriglyceridemia Pure hyperglyceridemia Allergic bronchitis without complication Aortic valve stenosis, etiology of cardiac valve disease unspecified- Primary Atrial fibrillation, unspecified type (HCC) documented in this encounter [facility] note* Diagnosis Mixed hyperlipidemia- Primary Essential hypertension with goal blood pressure less than 140/90 Tobacco abuse disorder Tobacco use disorder Persistent atrial fibrillation (HCC) Atrial fibrillation Need for vaccination Need for prophylactic vaccination and inoculation against unspecified single disease Persistent atrial fibrillation (HCC) Atrial fibrillation Tobacco abuse disorder Tobacco use disorder Hypertension with goal blood pressure less than 140/90 Mixed hyperlipidemia Persistent atrial fibrillation (HCC)- Primary Atrial fibrillation Need for vaccination Need for prophylactic vaccination and inoculation against unspecified single disease Hypertension with goal blood pressure less than 140/90 Tobacco abuse disorder Tobacco use disorder Hypertriglyceridemia Pure hyperglyceridemia Allergic bronchitis without complication Hypertriglyceridemia Pure hyperglyceridemia documented in this encounter [facility] note* Diagnosis Mixed hyperlipidemia- Primary Essential hypertension with goal blood pressure less than 140/90 Tobacco abuse disorder Tobacco use disorder Persistent atrial fibrillation (HCC) Atrial fibrillation Need for vaccination Need for prophylactic vaccination and inoculation against unspecified single disease Persistent atrial fibrillation (HCC) Atrial fibrillation Tobacco abuse disorder Tobacco use disorder Hypertension with goal blood pressure less than 140/90 Mixed hyperlipidemia Persistent atrial fibrillation (HCC)- Primary Atrial fibrillation Need for vaccination Need for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 regulations: The Federal rules restrict any use of the information to criminally investigate or prosecute any alcohol or drug abuse patient.[facility] CenterIn the event this information is protected by the Federal Confidentiality of Alcohol and Drug Abuse Patient Records regulations: The Federal rules restrict any use of the information to criminally investigate or prosecute any alcohol or drug abuse patient.[facility] CenterIn the event this information is protected by the Federal Confidentiality of Alcohol and Drug Abuse Patient Records regulations: The Federal rules restrict any use of the information to criminally investigate or prosecute any alcohol or drug abuse patient.[facility] CenterIn the event this information is protected by the Federal Confidentiality of Alcohol and Drug Abuse Patient Records regulations: The Federal rules restrict any use of the information to criminally investigate or prosecute any alcohol or drug abuse patient.[facility] CenterIn the event this information is protected by the Federal Confidentiality of Alcohol and Drug Abuse Patient Records regulations: The Federal rules restrict any use of the information to criminally investigate or prosecute any alcohol or drug abuse patient.[facility] CenterIn the event this information is protected by the Federal Confidentiality of Alcohol and Drug Abuse Patient Records regulations: The Federal rules restrict any use of the information to criminally investigate or prosecute any alcohol or drug abuse patient.[facility] CenterIn the event this information is protected by the Federal Confidentiality of Alcohol and Drug Abuse Patient Records regulations: The Federal rules restrict any use of the information to criminally investigate or prosecute any alcohol or drug abuse patient.[facility] CenterIn the event this information is protected by the Federal Confidentiality of Alcohol and Drug Abuse Patient Records regulations: The Federal rules restrict any use of the information to criminally investigate or prosecute any alcohol or drug abuse patient.[facility] CenterIn the event this information is protected by the Federal Confidentiality of Alcohol and Drug Abuse Patient Records regulations: The Federal rules restrict any use of the information to criminally investigate or prosecute any alcohol or drug abuse patient.[facility] CenterIn the event this information is protected by the Federal Confidentiality of Alcohol and Drug Abuse Patient Records regulations: The Federal rules restrict any use of the information to criminally investigate or prosecute any alcohol or drug abuse patient.[facility] CenterIn the event this information is protected by the Federal Confidentiality of Alcohol and Drug Abuse Patient Records regulations: The Federal rules restrict any use of the information to criminally investigate or prosecute any alcohol or drug abuse patient.[facility] CenterIn the event this information is protected by the Federal Confidentiality of Alcohol and Drug Abuse Patient Records regulations: The Federal rules restrict any use of the information to criminally investigate or prosecute any alcohol or drug abuse patient.[facility] CenterIn the event this information is protected by the Federal Confidentiality of Alcohol and Drug Abuse Patient Records regulations: The Federal rules restrict any use of the information to criminally investigate or prosecute any alcohol or drug abuse patient.[facility] CenterIn the event this information is protected by the Federal Confidentiality of Alcohol and Drug Abuse Patient Records regulations: The Federal rules restrict any use of the information to criminally investigate or prosecute any alcohol or drug abuse patient.[facility] CenterIn the event this information is protected by the Federal Confidentiality of Alcohol and Drug Abuse Patient Records regulations: The Federal rules restrict any use of the information to criminally investigate or prosecute any alcohol or drug abuse patient.[facility] CenterIn the event this information is protected by the Federal Confidentiality of Alcohol and Drug Abuse Patient Records regulations: The Federal rules restrict any use of the information to criminally investigate or prosecute any alcohol or drug abuse patient.[facility] CenterIn the event this information is protected by the Federal Confidentiality of Alcohol and Drug Abuse Patient Records regulations: The Federal rules restrict any use of the information to criminally investigate or prosecute any alcohol or drug abuse patient.[facility] CenterIn the event this information is protected by the Federal Confidentiality of Alcohol and Drug Abuse Patient Records regulations: The Federal rules restrict any use of the information to criminally investigate or prosecute any alcohol or drug abuse patient.[facility] CenterIn the event this information is protected by the Federal Confidentiality of Alcohol and Drug Abuse Patient Records regulations: The Federal rules restrict any use of the information to criminally investigate or prosecute any alcohol or drug abuse patient.[facility] CenterIn the event this information is protected by the Federal Confidentiality of Alcohol and Drug Abuse Patient Records regulations: The Federal rules restrict any use of the information to criminally investigate or prosecute any alcohol or drug abuse patient.[facility] CenterIn the event this information is protected by the Federal Confidentiality of Alcohol and Drug Abuse Patient Records regulations: The Federal rules restrict any use of the information to criminally investigate or prosecute any alcohol or drug abuse patient.[facility] CenterIn the event this information is protected by the Federal Confidentiality of Alcohol and Drug Abuse Patient Records regulations: The Federal rules restrict any use of the information to criminally investigate or prosecute any alcohol or drug abuse patient.[facility] CenterIn the event this information is protected by the Federal Confidentiality of Alcohol and Drug Abuse Patient Records regulations: The Federal rules restrict any use of the information to criminally investigate or prosecute any alcohol or drug abuse patient.[facility] CenterIn the event this information is protected by the Federal Confidentiality of Alcohol and Drug Abuse Patient Records regulations: The Federal rules restrict any use of the information to criminally investigate or prosecute any alcohol or drug abuse patient.[facility] CenterIn the event this information is protected by the Federal Confidentiality of Alcohol and Drug Abuse Patient Records regulations: The Federal rules restrict any use of the information to criminally investigate or prosecute any alcohol or drug abuse patient.[facility] CenterIn the event this information is protected by the Federal Confidentiality of Alcohol and Drug Abuse Patient Records regulations: The Federal rules restrict any use of the information to criminally investigate or prosecute any alcohol or drug abuse patient.[facility] CenterIn the event this information is protected by the Federal Confidentiality of Alcohol and Drug Abuse Patient Records regulations: The Federal rules restrict any use of the information to criminally investigate or prosecute any alcohol or drug abuse patient.[facility] CenterIn the event this information is protected by the Federal Confidentiality of Alcohol and Drug Abuse Patient Records regulations: The Federal rules restrict any use of the information to criminally investigate or prosecute any alcohol or drug abuse patient.[facility] CenterIn the event this information is protected by the Federal Confidentiality of Alcohol and Drug Abuse Patient Records regulations: The Federal rules restrict any use of the information to criminally investigate or prosecute any alcohol or drug abuse patient.[facility] CenterIn the event this information is protected by the Federal Confidentiality of Alcohol and Drug Abuse Patient Records regulations: The Federal rules restrict any use of the information to criminally investigate or prosecute any alcohol or drug abuse patient.[facility] CenterIn the event this information is protected by the Federal Confidentiality of Alcohol and Drug Abuse Patient Records regulations: The Federal rules restrict any use of the information to criminally investigate or prosecute any alcohol or drug abuse patient.[facility] CenterIn the event this information is protected by the Federal Confidentiality of Alcohol and Drug Abuse Patient Records regulations: The Federal rules restrict any use of the information to criminally investigate or prosecute any alcohol or drug abuse patient.[facility] CenterIn the event this information is protected by the Federal Confidentiality of Alcohol and Drug Abuse Patient Records regulations: The Federal rules restrict any use of the information to criminally investigate or prosecute any alcohol or drug abuse patient.[facility] CenterIn the event this information is protected by the Federal Confidentiality of Alcohol and Drug Abuse Patient Records regulations: The Federal rules restrict any use of the information to criminally investigate or prosecute any alcohol or drug abuse patient.[facility] CenterIn the event this information is protected by the Federal Confidentiality of Alcohol and Drug Abuse Patient Records regulations: The Federal rules restrict any use of the information to criminally investigate or prosecute any alcohol or drug abuse patient.[facility] CenterIn the event this information is protected by the Federal Confidentiality of Alcohol and Drug Abuse Patient Records regulations: The Federal rules restrict any use of the information to criminally investigate or prosecute any alcohol or drug abuse patient.[facility] CenterIn the event this information is protected by the Federal Confidentiality of Alcohol and Drug Abuse Patient Records regulations: The Federal rules restrict any use of the information to criminally investigate or prosecute any alcohol or drug abuse patient.[facility] CenterIn the event this information is protected by the Federal Confidentiality of Alcohol and Drug Abuse Patient Records regulations: The Federal rules restrict any use of the information to criminally investigate or prosecute any alcohol or drug abuse patient.[facility] CenterIn the event this information is protected by the Federal Confidentiality of Alcohol and Drug Abuse Patient Records regulations: The Federal rules restrict any use of the information to criminally investigate or prosecute any alcohol or drug abuse patient.[facility] CenterIn the event this information is protected by the Federal Confidentiality of Alcohol and Drug Abuse Patient Records regulations: The Federal rules restrict any use of the information to criminally investigate or prosecute any alcohol or drug abuse patient.[facility] CenterIn the event this information is protected by the Federal Confidentiality of Alcohol and Drug Abuse Patient Records regulations: The Federal rules restrict any use of the information to criminally investigate or prosecute any alcohol or drug abuse patient.[facility] CenterIn the event this information is protected by the Federal Confidentiality of Alcohol and Drug Abuse Patient Records regulations: The Federal rules restrict any use of the information to criminally investigate or prosecute any alcohol or drug abuse patient.[facility] CenterIn the event this information is protected by the Federal Confidentiality of Alcohol and Drug Abuse Patient Records regulations: The Federal rules restrict any use of the information to criminally investigate or prosecute any alcohol or drug abuse patient.[facility] CenterIn the event this information is protected by the Federal Confidentiality of Alcohol and Drug Abuse Patient Records regulations: The Federal rules restrict any use of the information to criminally investigate or prosecute any alcohol or drug abuse patient.[facility] CenterIn the event this information is protected by the Federal Confidentiality of Alcohol and Drug Abuse Patient Records regulations: The Federal rules restrict any use of the information to criminally investigate or prosecute any alcohol or drug abuse patient.[facility] Care Teams (unrecognized sec tion and content) Ground Operations Supervisor Relationship Specialty Start Date End Date Sherin Boswell MD [address] [place] [address] PCP - General Internal Medicine 08/17/15 Ground Operations Supervisor Relationship Specialty Start Date End Date Sherin Boswell MD [address] [place] [address] PCP - General Internal Medicine 08/17/15 Ground Operations Supervisor Relationship Specialty Start Date End Date Sherin Boswell MD [address] [place] [address] PCP - General Internal Medicine 08/17/15 Ground Operations Supervisor Relationship Specialty Start Date End Date Sherin Boswell MD [address] [place] [address] PCP - General Internal Medicine 08/17/15 Ground Operations Supervisor Relationship Specialty Start Date End Date Sherin Boswell MD [address] [place] [address] PCP - General Internal Medicine 08/17/15 Ground Operations Supervisor Relationship Specialty Start Date End Date Sherin Boswell MD [address] [facility] [place] [address] PCP - General Internal Medicine 08/17/15 Ground Operations Supervisor Relationship Specialty Start Date End Date Sherin Boswell MD [address] [place] [address] PCP - General Internal Medicine 08/17/15 Ground Operations Supervisor Relationship Specialty Start Date End Date Sherin Boswell MD [address] [place] [address] PCP - General Internal Medicine 08/17/15 Ground Operations Supervisor Relationship Specialty Start Date End Date Sherin Boswell MD [address] [place] [address] PCP - General Internal Medicine 08/17/15 Ground Operations Supervisor Relationship Specialty Start Date End Date Sherin Boswell MD [address] [place] [address] PCP - General Internal Medicine 08/17/15 Ground Operations Supervisor Relationship Specialty Start Date End Date Sherin Boswell MD [address] [place] [address] PCP - General Internal Medicine 08/17/15 Ground Operations Supervisor Relationship Specialty Start Date End Date Sherin Boswell MD [address] [place] [address] PCP - General Internal Medicine 08/17/15 Ground Operations Supervisor Relationship Specialty Start Date End Date Sherin Boswell MD [address] [place] [address] PCP - General Internal Medicine 08/17/15 Ground Operations Supervisor Relationship Specialty Start Date End Date Sherin Boswell MD [address] [place] [address] PCP - General Internal Medicine 08/17/15 Ground Operations Supervisor Relationship Specialty Start Date End Date Sherin Boswell MD [address] [place] [address] PCP - General Internal Medicine 08/17/15 Ground Operations Supervisor Relationship Specialty Start Date End Date Sherin Boswell MD [address] [place] [address] PCP - General Internal Medicine 08/17/15 Ground Operations Supervisor Relationship Specialty Start Date End Date Sherin Boswell MD [address] [place] [address] PCP - General Internal Medicine 08/17/15 Ground Operations Supervisor Relationship Specialty Start Date End Date Sherin Boswell MD [address] [place] [address] PCP - General Internal Medicine 08/17/15 Ground Operations Supervisor Relationship Specialty Start Date End Date Sherin Boswell MD [address] [place] [address] PCP - General Internal Medicine 08/17/15 Ground Operations Supervisor Relationship Specialty Start Date End Date Sherin Boswell MD [address] [place] [address] PCP - General Internal Medicine 08/17/15 Ground Operations Supervisor Relationship Specialty Start Date End Date Sherin Boswell MD [address] [place] [address] PCP - General Internal Medicine 08/17/15 Ground Operations Supervisor Relationship Specialty Start Date End Date Sherin Boswell MD [address] [place] [address] PCP - General Internal Medicine 08/17/15 Ground Operations Supervisor Relationship Specialty Start Date End Date Sherin Boswell MD [address] [place] [address] PCP - General Internal Medicine 08/17/15 Ground Operations Supervisor Relationship Specialty Start Date End Date Sherin Boswell MD [address] [place] [address] PCP - General Internal Medicine 08/17/15 Ground Operations Supervisor Relationship Specialty Start Date End Date Sherin Boswell MD [address] [place] [address] PCP - General Internal Medicine 08/17/15 Ground Operations Supervisor Relationship Specialty Start Date End Date Sherin Boswell MD [address] [place] [address] PCP - General Internal Medicine 08/17/15 Ground Operations Supervisor Relationship Specialty Start Date End Date Sherin Boswell MD [address] [place] [address] PCP - General Internal Medicine 08/17/15 Ground Operations Supervisor Relationship Specialty Start Date End Date Sherin Boswell MD [address] [place] [address] PCP - General Internal Medicine 08/17/15 Ground Operations Supervisor Relationship Specialty Start Date End Date Sherin Boswell MD [address] [place] [address] PCP - General Internal Medicine 08/17/15 Ground Operations Supervisor Relationship Specialty Start Date End Date Sherin Boswell MD [address] [place] [address] PCP - General Internal Medicine 08/17/15 Ground Operations Supervisor Relationship Specialty Start Date End Date Sherin Boswell MD [address] [place] [address] PCP - General Internal Medicine 08/17/15 Karla Curtis PA-C [address] [place] [address] Tie Up Worker Family Medicine 04/03/24 Leah Bloom APRN.FIRST [employer]ATER [address] [facility] [place] [address] Tie Up Worker Internal Medicine 04/03/24 Melissa Brennan PA-C [address] [place] [address] Tie Up Worker Family Medicine 04/03/24 Ground Operations Supervisor Relationship Specialty Start Date End Date Sherin Boswell MD [address] [place] [address] PCP - General Internal Medicine 08/17/15 Karla Curtis PA-C [address] [place] [address] Tie Up Worker Family Medicine 04/03/24 Leah Bloom APRN.FIRST BEATER [address] [facility] [place] [address] Tie Up Worker Internal Medicine 04/03/24 Melissa Brennan PA-C [address] [place] [address] Tie Up Worker Family Medicine 04/03/24 Ground Operations Supervisor Relationship Specialty Start Date End Date Sherin Boswell MD [address] [place] [address] PCP - General Internal Medicine 08/17/15 Karla Curtis PA-C [address] [place] [address] Tie Up Worker Family Medicine 04/03/24 Leah Bloom APRN.FIRST BEATER [address] [place] [address] Tie Up Worker Internal Medicine 04/03/24 Melissa Brennan PA-C [address] [place] [address] Tie Up Worker Family Medicine 04/03/24 Ground Operations Supervisor Relationship Specialty Start Date End Date Sherin Boswell MD [address] [place] [address] PCP - General Internal Medicine 08/17/15 Karla Curtis PA-C [address] [place] [address] Tie Up Worker Family Medicine 04/03/24 Leah Bloom, TYRELL.FIRST BEATER [address] [place] [address] Tie Up Worker Internal Medicine 04/03/24 Melissa Brennan PA-C [address] [place] [address] Tie Up Worker Family Medicine 04/03/24 Ground Operations Supervisor Relationship Specialty Start Date End Date Sherin Boswell MD [address] [place] [address] PCP - General Internal Medicine 08/17/15 Karla Curtis PA-C [address] [place] [address] Tie Up Worker Family Medicine 04/03/24 Leah Bloom APRN.FIRST BEATER [address] [facility] [place] [address] Tie Up Worker Internal Medicine 04/03/24 Melissa Brennan PA-C [address] [place] [address] [facility] Ground Operations Supervisor Relationship Specialty Start Date End Date Sherin Boswell MD [address] [place] [address] PCP - General Internal Medicine 08/17/15 Leah Bloom APRN.FIRST BEATER [address] [place] [address] Tie Up Worker Internal Medicine 04/03/24 Ground Operations Supervisor Relationship Specialty Start Date End Date Sherin Boswell MD [address] [place] [address] PCP - General Internal Medicine 08/17/15 Leah Bloom APRN.FIRST BEATER [address] [place] [address] [facility] Internal Medicine 04/03/24 Ground Operations Supervisor Relationship Specialty Start Date End Date Sherin Boswell MD [address] [place] [address] PCP - General Internal Medicine 08/17/15 Leah Bloom APRN.FIRST BEATER [address] [place] [address] Tie Up Worker Internal Medicine 04/03/24 Ground Operations Supervisor Relationship Specialty Start Date End Date Sherin Boswell MD [address] [place] [address] PCP - General Internal Medicine 08/17/15 Leah Bloom APRN.[employer] [address] [place] [address] Tie Up Worker Internal Medicine 04/03/24 Ground Operations Supervisor Relationship Specialty Start Date End Date Sherin Boswell MD [address] [place] [address] PCP - General Internal Medicine 08/17/15 Leah Bloom APRN.[employer] [address] [place] [address] Tie Up Worker Internal Medicine 04/03/24 Team Status: Active Member Role/Relationship Status Dates Dr. Sherin Boswell MD Primary Care Provider Active Team Status: Inactive Member Role/Relationship Status Dates Dr. Palbo Jaime MD Emergency Provider Active Sta rt: November 09, 2024 End: November 09, 2024 Dr. Sherin Boswell MD Primary Care Provider Active Start: November 09, 2024 End: November 09, 2024 Goals (unrecognized section and content) Goals may be documented in a n alternate section FOR RECORDS PERTAINING TO PATIENTS WHO ARE OR HAVE BEEN ENROLLED IN A CHEMICAL DEPENDENCY/SUBSTANCEABUSE PROGRAM, SOME INFORMATION MAY BE OMITTED. This clinical summary was aggregated from multiple sources. Caution should be exercised in using it in the provision of clinical care. This summary normalizes information from multiple sources, and as a consequence, information in this document may materially change the coding, format and clinical context of patient data. In addition, data may be omitted in some cases. CLINICAL DECISIONS SHOULD BE BASED ON THE PRIMARY CLINICAL RECORDS. [facility] [employer] [facility]. provides no warranty or guarantee of the accuracy or completeness of information in this document.
[2024-11-13 14:06] VITALS: BP 124/58; PULSE 77; RESP 16; TEMP 36.6; O2SAT 94; BMI 24.0
[2024-11-13 14:16] VITALS: PULSE 80; RESP 16; O2SAT 95
[2024-11-13 17:51] VITALS: BP 145/64; PULSE 73; RESP 17; TEMP 36.9; O2SAT 95
--- NOTE | 2024-11-13 21:00 | NURSING ---
pt was admitted on dayshift and when I went over the night time medications he was receiving, he thought he was missing some but could not recall which ones. Pt stated he would log onto his MyChart in the morning and would let the day nurse know his home medication list.
[2024-11-13 21:42] VITALS: BP 131/69; PULSE 86; RESP 16; O2SAT 96
[2024-11-13 21:44] VITALS: BP 131/69; PULSE 86
[2024-11-13] MEDS: Niacin SA 500 MG Tablet PO (21:44)
[2024-11-13] MEDS: APIXABAN 5 MG TABLET PO (21:44)
[2024-11-14] VITALS (7 sets, daily range): BP systolic 102–136; BP diastolic 67–94; PULSE 70–87; RESP 16; TEMP 36.6–36.9; O2SAT 91–94; BMI 23.8
[2024-11-14 05:49] LABS: Hematocrit 45.2 % (40-54); Hemoglobin 15.6 g/dL (13.0-16.5); Immature Granulocytes Count 0.050 X10^3/uL (0.0-0.0); Mean Corp Hgb Conc 34.5 g/dL (32-36); Mean Corpuscular Volume 91.9 fL (80-94); Mean Platelet Vol. 9.1 fl (6.2-12.0); NRBC Flagged by Analyzer 0 % (0-5); Platelet Count 265 K/mm3 (150-450); RBC Distribution Width CV 12.6 % (11.6-14.6); RBC Distribution Width SD 42.1 fl (35.1-43.9); Red Blood Count 4.92 M/mm3 (4.6-6.2); White Blood Count 9.3 K/mm3 (4.4-11.0)
[2024-11-14 06:17] LABS: Magnesium 2.2 mg/dL (1.5-2.2)
[2024-11-14 06:21] LABS: AST(SGOT) 31 U/L (<=37); Alanine Aminotransfer ALT/SGPT 27 U/L (<=46); Albumin, Serum 4.1 g/dL (3.4-4.8); Alkaline Phosphatase 51 U/L (40-129); Anion Gap 12 (5-15); BUN 19 mg/dL (4-19); BUN/Creat Ratio 18.3 RATIO (10-20); Calcium,Total 9.6 mg/dL (7.6-11.0); Carbon Dioxide 23.8 mmol/L (21.0-32.0); Chloride 102 mmol/L (98-108); Estimated Creatinine Clearance 77.48 ml/min (50-250); Globulin 3.9 g/dL (2.2-4.2); Glucose 106 mg/dL (70-99); Potassium 4.5 mmol/L (3.3-5.1)
[2024-11-14] MEDS: APIXABAN 5 MG TABLET PO ×2 (07:56→21:04)
--- NOTE | 2024-11-14 11:22 | EX.PCM.HP.RE ---
HPI - General General Date of Admission: 11/13/24 Date of Service: 11/14/24 HPI Narrative LAZARO MONSALVE, is a 74 YO M known to me from admission to acute rehab in September of 2020 for traumatic injury to the R leg (fracture of the right fibula and the right femoral shaft) from a tractor rolling over on it (he he had ORIF with placement of a intramedullary [place] in the right femur). 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 Stat noncontrast CT head was negative. CTA of the head and neck showed proximal to mid right M2 occlusion. He was not a candidate for thrombolytics due to chronic Eliquis use. He was transferred to [facility] for further evaluation. Upon arrival at [facility] his NIHSS was 1 for left facial droop. He was not a candidate for mechanical thrombectomy since it was an M2 lesion with a low NIHSS score of 1. Significant lab included an LDL of 70, low HDL at 30 and a hemoglobin A1c of 5.8. He was taking pravastatin and fenofibrate prior to this recent stroke and these medications were maintained at discharge from [facility]. The stroke is presumed to be embolic. MRI at [facility] showed multiple small infarcts in the right frontal and temporal lobes. There was no hemorrhagic transformation. Echocardiogram showed an ejection fraction of 50 to 55% with grossly normal regional wall motion. There was mild concentric remodeling of the left ventricle. The left atrium was severely enlarged. There was a moderate reduction in right ventricular systolic function. The aortic valve was heavily calcified with reduced excursion and he was diagnosed with moderate to severe aortic stenosis. Right ventricular systolic pressure could not be measured due to incomplete TR jet envelope. While at [facility] Lazaro was seen by PT/OT/ST and a recommendation for acute rehab was recommended. He was transferred to the acute inpt rehab unit at [facility] on 11/13/24 for 3 hours of therapy daily to restore function/independence at or near his level prior to recent CVA. He was independent with ADL's and driving prior to stroke and he was managing finances. He occasional uses a cane when the R leg pain is bad. Lazaro had an echocardiogram in March 2024 that showed a normal left ventricular ejection fraction with mild concentric left ventricular hypertrophy. There were no wall motion abnormalities. Right ventricular systolic function was normal with a mildly elevated right ventricular systolic pressure estimated at 39. The left atrial cavity was severely dilated and the right atrial cavity was also dilated. There was moderately severe aortic valve stenosis with an aortic valve area of 0.91 cm?. Afebrile Blood pressure has ranged from 102/84 to 145/64 since arrival on rehab. The heart rate has ranged from 70-86. He is maintaining appropriate oxygen saturation on room air. No urinary or fecal incontinence. All lab from today was personally reviewed. White blood cell count is normal at 9.3. Hemoglobin is 15.6 and platelets are within normal limits. Sodium is 137 and the potassium is 4.5. The BUN is 19 and the creatinine is 1.03. GFR is 77. At the admission to [facility] in 2020 he had been having memory problems for the preceding year. He scored 29/30 on the MMSE. Today he scored 42/50 on the BCAT. Calcium, phosphorus and magnesium are all normal. LFTs are normal. His student worker is Dr. Jody Raymond MD [facility] Medical History (Updated 11/14/24 @ 17:[address] Charis Oconnor DO) History of skin cancer Tobacco dependence in remission Nonrheumatic aortic valve stenosis Biatrial enlargement Pulmonary hypertension Left ventricular hypertrophy Foraminal stenosis of cervical region Psoriasis Right femoral shaft fracture Right fibular fracture Urine retention Chronic anticoagulation HTN (hypertension) Kidney stones Atrial fibrillation High cholesterol Home Medications ?Medication ?Instructions ?Recorded ?Last Taken ?Type atenolol 50 mg tablet 50 mg PO DAILY HTN 11/02/16 11/01/16 History fenofibrate nanocrystallized 145 145 mg PO DAILY cholesterol 11/02/16 11/01/16 History mg tablet Arthritis Pain Compound 0 click topical BID ##0 11/02/20 Unknown Rx acetaminophen 500 mg tablet 1,000 mg (2 x 500 mg) PO Q8H PRN 11/02/20 Unknown Rx PRN pain #1 TAB apixaban 5 mg tablet (Eliquis) 5 mg PO BID #60 tabs 11/02/20 Unknown Rx niacin 500 mg tablet,extended 500 mg PO 00 #30 tabs 11/02/20 Unknown Rx release omega-3 acid ethyl esters 1 gram 1 g PO 0800 #30 caps 11/02/20 Unknown Rx capsule oxycodone 5 mg capsule 10 mg (2 x 5 mg) PO Q4H PRN pain 7 11/02/20 Unknown Rx days #70 caps polyethylene glycol 3350 17 gram 17 g PO DAILY #14 ea 11/02/20 Unknown Rx oral powder packet sennosides 8.6 mg-docusate sodium 2 tab PO BID #120 tabs 11/02/20 Unknown Rx 50 mg tablet (Stool Softener-Stimulant Laxative) trazodone 50 mg tablet 50 - 100 mg (1 - 2 x 50 mg) PO QHS 11/02/20 Unknown Rx #60 tabs Allergy/AdvReac Type Severity Reaction Status Date / Time No Known Allergies Allergy Verified 10/16/20 10:09 Family History (Updated 10/24/20 @ 10:[address] Charis Oconnor DO) Father , at 79 YOA Heart disease Surgical History (Updated 11/14/24 @ 17:[address] Charis Oconnor DO) Status post open reduction and internal fixation (ORIF) of fracture Social History (Updated 10/24/20 @ 10:[address] Charis Oconnor DO) household members: spouse housing: house number of children: 6 Smoking Status: Former smoker quit date: 04/27/17 alcohol intake: current details: occasional/holidays ROS Review of Systems ROS Unobtainable: Denies due to encephalopathy, due to endotracheal tube, due to mental condition or due to mental status Constitutional Constitutional: Denies anorexia, change in weight, chills, fatigue, fever(s), night sweats or weakness Eyes Eyes: Denies blurry vision, change in vision, eye pain or loss of vision ENT HEENT: Denies abnormal hearing, dysphagia, headache(s), hearing loss, nasal congestion or sore throat Cardiovascular Cardiovascular: Denies chest pain, dyspnea on exertion, edema, lightheadedness, orthopnea, palpitations, paroxysmal nocturnal dyspnea or syncope Respiratory/Chest Respiratory/Chest: Denies cough, dyspnea, shortness of breath at rest, shortness of breath with exertion or wheezing Gastrointestinal Gastrointestinal: Denies abdominal pain, constipation, diarrhea, dyspepsia, hematemesis, hematochezia, nausea or vomiting Genitourinary Genitourinary: Reports other Details: only gets up once a night to urinate. He does retain urine and has done so for a few years now. No hx of UTI's. No increase in creat ; Denies dysuria, hematuria, nocturia, urinary frequency, urinary hesitancy, urinary incontinence or urinary urgency Musculoskeletal Musculoskeletal: Reports extremity pain and other Details: pain in the R leg ever since the fall/fracture/ORIF in 2020 ; Denies back pain, joint pain, joint swelling or neck pain Neurologic Neurologic: Reports confusion, focal weakness and memory loss; Denies disequilibrium, dizziness, frequent falls, headache(s), loss of vision, paresthesias, restless legs, seizures, syncope, tremor(s) or vertigo Psychiatric Psychiatric: Denies anxiety, depression, homicidal ideation or suicidal ideation Endocrine Endocrinology: Denies change in body appearance, polydipsia or polyuria Hematologic/Lymphatic Hematologic/Lymphatic: Reports easy bleeding and easy bruising; Denies lymphadenopathy Allergic/Immunologic Allergic/Immunologic: Reports rhinitis and other Details: He has seasonal allergies......worse in the spring. Has been on Singulair in the past with good improvement. Not really having much of a problem since he has been in the hospital with air conditioning and not in the barn. ; Denies eczemia or asthma Vital Signs Vital Signs Vital Signs: 11/13/24 14:06 11/13/24 14:16 11/13/24 17:51 Temperature 98 F 98.4 F Temperature Source Temporal Temporal Pulse Rate 77 80 73 Respiratory Rate 16 16 17 Respiratory Effort Normal Non-Labored Respiratory Depth Normal Respiratory Pattern Normal Blood Pressure 124/58 H 145/64 H Blood Pressure Mean 80 91 Blood Pressure Source Monitor Monitor Blood Pressure Position Semi-Fowlers Semi-Fowlers Blood Pressure Location Right Arm Right Arm Pulse Ox 94 95 95 Oxygen Delivery Method Room Air Room Air Room Air 11/13/24 21:42 11/13/24 21:44 11/13/24 22:00 Temperature Temperature Source Pulse Rate 86 86 Respiratory Rate 16 Respiratory Effort Normal Non-Labored Respiratory Depth Normal Respiratory Pattern Normal Blood Pressure 131/69 H 131/69 H Blood Pressure Mean 89 Blood Pressure Source Monitor Blood Pressure Position Sitting Blood Pressure Location Left Arm Pulse Ox 96 Oxygen Delivery Method Room Air Room Air 11/14/24 06:13 11/14/24 07:56 11/14/24 10:00 Temperature 97.8 F Temperature Source Temporal Pulse Rate 70 82 Respiratory Rate 16 Respiratory Effort Normal Non-Labored Respiratory Depth Normal Respiratory Pattern Normal Blood Pressure 115/67 102/84 H Blood Pressure Mean 83 Blood Pressure Source Monitor Blood Pressure Position Sitting Blood Pressure Location Left Arm Pulse Ox 94 Oxygen Delivery Method Room Air Weight Weight: 192 lb 3.889 oz Body Mass Index (BMI) 23.8 Indicators for Scoring Admitted with or Primary Diagnosis of CVA/Stroke: Yes Hx of CVA/Stroke: Yes Modified [place] Score MRS Score at time of Evaluation: 3-Moderate disability NIHSS NIHSS 1a. Level of Consciousness: 0 - Alert; keenly responsive 1b. LOC Questions: 0 - Answers BOTH questions correctly 1c. LOC Commands: 0 - Performs BOTH tasks correctly 2. Best Gaze: 0 - Normal 3. Visual: 0 - No visual loss 4. Facial Palsy: 2 - Partial paralysis (total or near-total paralysis of lower face) (able to raise his eyebrows but, not able to tightly close the left eye) 5a. Left Arm: 0 - No drift; arm holds 90 (or 45) degrees for full 10 seconds 5b. Right Arm: 0 - No drift; arm holds 90 (or 45) degrees for full 10 seconds (Holds the arm up at 10 seconds with no drift but does have some pronator drift.) 6a. Left Le - No drift; leg holds 30-degree position for full 5 seconds 6b. Right Le - No drift; leg holds 30-degree position for full 5 seconds 7. Limb Ataxia: 0 - Absent 8. Sensory: 0 - Normal; no sensory loss 9. Best Language: 0 - No aphasia; normal 10. Dysarthria: 1 = [id number] dysarthria; 11. Extinction and Inattention: 1 - Visual, tactile, auditory, spatial, or personal inattention; (Mild neglect of the left side.) Total: 4 Stroke Questions Stroke Team Activated: No Physical Exam Const alert, oriented x3 and no apparent distress General Appearance: cooperative and well kempt HEENT head/scalp atraumatic HEENT Narrative: Dry mucous membranes. No evidence of thrush. Tongue deviates to the left. Pronounced left facial droop. difficulty keeping the Left eye closed and I can easily pull his eye open when he is trying to keep it closed. The left upper lid is somwhat retracted giving the left eye an appearance of having proptosis. Eyes PERRL, EOMs intact bilaterally, conjunctivae normal, no scleral icterus and normal visual mayen by confrontation Eyes Narrative: No discharge from the eyes. No mattering of the eyelashes. Left eye appears to have proptosis but, I suspect this is do to weakness of the upper lid. Neck supple and No nodes Neck Narrative: I did not appreciate any carotid bruits but, he has decreased carotid pulse volume. General: trachea midline Chest Chest: symmetrical chest wall rise Resp normal respiratory effort and clear to auscultation bilaterally Effort and Inspection: able to speak in complete sentences Cardio no rub and no gallops Cardio Narrative: irreg irreg rhythm. Heart sounds are somewhat distant. I was not able to hear a significant heart MM but, he would not stop talking........will try again tomorrow. Resting HR is mildly increased. GI normal to inspection, nondistended, normoactive bowel sounds, soft to palpation and non-tender GI Narrative: No guarding with palpation no CVA tenderness Narrative: He is retaining urine.......he retained at his last admission to rehab in 2020........nothing > 300. Admits to a slow stream but, denies nocturia more than once a night and he denies urgency. Extremity no calf tenderness and no pedal edema Extremity Narrative: No clubbing, no cyanosis Skin General Skin Exam: no breakdown Rashes: no rashes Hair: normal Nails: Negative for discolored Neuro oriented x3 Neuro Narrative: He has a marked facial droop and also has weakness of the lower face. The tongue deviates to the left when protruded. He has weakness of the upper L eyelid and is not able to hold the left eye completely closed. Slurred speech. Good shoulder shrug BL. No drfit with any extremity.........has a mild pronator drift only with the LUE. Good plantarflexion and dorsiflexion bilaterally. 5/5 strength throughout. No sensory loss. No ataxia. Has mild neglect of the left side. No extinction. Psych cooperative, affect normal, denies hallucinations, denies homicidal ideation and denies suicidal ideation Psych Narrative: Impulsive. Seems to laugh inappropriately at times. Appearance: grossly normal, appropriate and well kempt Attitude: calm and engaged Activity / Motor Behavior: other Does not always make good eye contact. Has some neglect of the left side and does better with eye contact if I stand on his right side. Results Lab / Micro Data 11/14/24 05:27 11/14/24 05:27 Labs: Laboratory Results - last 24 hr 11/14/24 05:27: WBC 9.3, RBC 4.92, Hgb 15.6, Hct 45.2, MCV 91.9, MCH 31.7, MCHC 34.5, RDW Std Deviation 42.1, RDW Coeff of Maxx 12.6, Plt Count 265, MPV 9.1, Immature Gran % (Auto) 0.500, Neut % (Auto) 66.4, Lymph % (Auto) 15.6 L, Hopkins % (Auto) 13.9 H, Eos % (Auto) 2.8, Baso % (Auto) 0.8, Absolute Neuts (auto) 6.2, Absolute Lymphs (auto) 1.44, Nucleated RBC % 0, Sodium 137, Potassium 4.5, Chloride 102, Carbon Dioxide 23.8, Anion Gap 12, BUN 19, Creatinine 1.03, Estim Creat Clear Calc 77.48, Est GFR (MDRD) Non-Af 77, BUN/Creatinine Ratio 18.3, Glucose 106 H, Calcium 9.6, Phosphorus 3.6, Magnesium 2.2, Total Bilirubin 0.87, AST 31, ALT 27, Alkaline Phosphatase 51, Total Protein 8.0, Albumin 4.1, Globulin 3.9, Albumin/Globulin Ratio 1.0 Assessment & Plan Assessment/Plan (1) Physical debility: (2) Ischemic embolic stroke: PLAN: Due to AF? missed Eliquis dose (he denies) or due to poor cerebral blood flow due to intracerebral arterial disease and mod-severe plus chronic poor fluid intake? (3) Dysarthria: (4) Facial droop: PLAN: involving the Left lower face. (5) Mild cognitive impairment: PLAN: 42/50 on the BCAT (6) Left-sided neglect: (7) Urine retention: (8) Dehydration: (9) Elevated hemoglobin A1c: (10) Atrial fibrillation: QUALIFIERS: Atrial fibrillation type: longstanding persistent Qualified Code(s): I48.11 - Longstanding persistent atrial fibrillation (11) Chronic anticoagulation: PLAN: With Eliquis (12) High cholesterol: PLAN: On fenofibrate and Pravachol 10 mg. Recent LDL 70. (13) Nonrheumatic aortic valve stenosis: (14) Pulmonary hypertension: (15) Biatrial enlargement: (16) Left ventricular hypertrophy: (17) Psoriasis: PLAN: Plan PLAN PT for gait stability OT for ADL's ST for evaluation Analgesics as needed Bowel protocol Fall precautions Assess for Anxiety/Depression GI prophylaxis -not necessary at this time. He is asymptomatic. DVT prophylaxis -continue Eliquis 5 mg p.o. twice daily for atrial fibrillation Follow up with Dr. Crisostomo, Dr. Raymond and neurology following DC from [facility] AM lab including CMP, CBC, Mag and Phos ' I compared his current med list with the list of medications he was taking at home and reassured him that he is taking all of the meds he was on prior to the stroke. Neurology at [facility] told him they think the embolic strokes were due to missing a dose of Eliquis. He denies this and reiterates that he is compliant with his medications. He does not like to drink water and he drinks a lot of caffeinated coffee. He is outside working in the barn and it has been very hot recently. I suspect he may have gotten dehydrated and had poor cerebral blood flow that lead to a total occlusion of the M2 branch of the R MCA. He did not have a JAIME at [facility] but, the TTE did not show any source for emboli. He was a smoker for a long time and he has HLD so he has increased risk for intracerebral arterial disease. He also has moderately severe and with dehydration there may have been decreased CO/decreased cerebral blood flow. Would like to discuss recent events with his student worker and get her feelings on possible contribution of the to the recent CVA. He has an upcoming appt with cardiology which will need to be rescheduled since he is an inpt on acute rehab and can not leave rehab to go to an OP appt. Charges/Coding Visit Charges Inpatient E&M: 87940 Init Hosp L3
[2024-11-14] MEDS: Senna/Docusate Sodium 1 Tablet 2 TABLET PO ×2 (12:01→21:05)
--- NOTE | 2024-11-14 17:14 | PCM.RU.PYE ---
Admission Information Primary Diagnosis:: Post stroke debility Status Changes from Prescreening?: No changes Identified Actual Problem List:: Pain, ALteration in Cmfrt, Cognitve Impr/Memory Loss, Mobility Impaired, Self Care Deficit, Fluid Change-Dehydration and Alteration-Leisure Activ. Potential Problem List:: DVT, Bleeding, Infection, UTI, Aspiration, Falls, Skin Integrity and Depression Risk of Complications DVT: MARY Hose and - (Continue apixaban 5 mg twice daily) Bleeding: Monitor Lab Values, Nursing to Teach Precautions for anti-coagulation therapy., Wound, if applicable, to be assessed every shift. and Stroke patients assessed for lethargy or change in status. Infection: Clinical Staff to Monitor for S/S of infection: and S/S of infection include fever, redness, warmth, etc. Urinary Tract Infection: Monitor for frequency, burning, discomfort, or incontinence. and Nursing will obtain urine sample for urinalysis and C&S when ordered. Aspiration: Clinical staff will monitor for coughing, drooling, congestion., Speech will evaluate swallowing and dsyphasia. and Nursing will monitor patient swallowing during meals. Falls: Patient will be evaluated for Fall Precautions and Patient will be placed on Fall Precautions as indicated per protocol. Skin Breakdown: Nursing will assess skin daily using assessment tool. and Nursing will place on Skin Breakdown Precautions as indicated. Pain: Clinical staff will assess patient's pain level per protocol., Medications will be given, if needed, and the pain level reassessed. and Other methods: Massage, distraction, decrease stimulus, etc. used PRN. Plan of Care Patient requires physician specializing in physical medicine and rehab oversight to provide close medical supervision of rehab issues including: Pain Management, Sleep Problems, Bowel and Bladder, Medical and co-morbidity Management, DVT prophylaxis, Rehabilitation Leadership and Coordination of treatment team Patient needs Physical Therapy: For a minimum of 1 hour and At least 5 out of 7 days Patient needs Physical Therapy to improve:: Mobility, Strengthening, Transfers, Stretching, ROM, Endurance, Stairs, Gait and Balance Patient needs Occupational Therapy: For a minimum of 1 hour and At least 5 out of 7 days Patient needs Occupational Therapy to improve ADL's incl.: Eating, Grooming, Bathing, Dressing, Toileting, Toilet transfers, Community Reintegration, Higher functioning activities, Household tasks, Adaptive Equipment, Splinting and Other activities as determined Patient requires 24/ Rehabilitation Nursing for: Pain Issues, Identifying and preventing risk factors, Monitoring and reporting current medical conditions, Assisting with ambulation, transfer, and all ADL's, Teaching patients about disease process and medications, Family teaching, Providing safe environment, Bowel and Bladder Issues, Skin integrity and Medication Management Patient needs Trading Manager/ Case Management for: Discharge Planning, Arranging Home Equipment or Services and Family Interventions Patient needs Dietary and Nutrition Services for: Adequate Nutrition, Nutritional Supplements and Nutritional Education Goals Goals Patient will remain: free from falls Patient will perform eating at: MOD I level of assist. Patient will perform bed mobility at: - (Independent) Patient will complete transfers from bed to chair at: - (Independently) Patient will ambulate: - (1000 feet without an assistive device on various surfaces with supervision) Patient will complete upper body dressing at: - (Independently) Patient will complete lower body dressing at: MOD I level of assist. (With adaptive equipment as needed to facilitate increased independence with self-care.) Patient will complete toilet transfer at: - (Independent) Patient will complete toileting at: - (Independent) Patient will perform bathing at: MOD I level of assist. (He will complete upper body bathing independently and lower body bathing with adaptive equipment as needed to improve independence with self-care) Patient will perform Tub/Shower transfer at: - (Supervision) Patient will complete grooming at: - (Independently while standing at the sink) Patient will complete home management skills at: - (Supervision) Patient will achieve: 12 stairs (With 1 handrail at supervision) Patient will have pain level of: of 3 or less Patient's skin will: remain intact Patient will receive: adequate nutrition. Discharge Planning Pt Prognosis for Sig. Practical Improv. w/in Reasonable Time: Good Estimated Length of stay (days): 21 Anticipated D/C Destination: Home with Outpt Therapy Was Preadmission Assessment Accurate?: Yes
[2024-11-14] MEDS: Niacin SA 500 MG Tablet PO (21:00)
--- NOTE | 2024-11-14 21:12 | NURSING ---
Pt setting off BA and c/o being tethered to the alarms. RN explained to pt that safety protocol in place to ensure pt safety. Pt c/o being uncomfortable in bed and also alerted staff that he would NOT be doing the trending pulse ox this hs. RN attempted to reason with pt and discuss the function of the trending pulse ox. Pt also stated that he would prefer to be doing therapy as Out Patient. RN let pt express his frustrations. RT just left the floor and pt has trending pulse ox applied.
[2024-11-15] VITALS (7 sets, daily range): BP systolic 105–121; BP diastolic 55–76; PULSE 58–87; RESP 16; TEMP 36.6–37.1; O2SAT 95; BMI 23.8
[2024-11-15] MEDS: Senna/Docusate Sodium 1 Tablet 2 TABLET PO ×2 (07:41→21:01)
[2024-11-15] MEDS: APIXABAN 5 MG TABLET PO ×2 (07:41→21:01)
--- NOTE | 2024-11-15 09:09 | PN_ITS ---
Subjective Subjective Afebrile VSS -orthostatic vital signs were negative today. Blood pressure over the past 24 hours ranged from 102/84 to 126/94. The heart rate has ranged from 58-87. Maintaining appropriate oxygen saturation on RA Oral intake - FOOD good FLUIDS good. Fluid balance yesterday was +920. Postvoid residuals have ranged from 200-291 while on rehab. Discussed with nursing - Had some agitation last night. Aggravated about the bed and chair alarms. Yelled at staff. Today is apologizing for his behavior. Therapy has approved him to be MOD I in his room from 7 AM to 7 PM Reviewed the THERAPY notes Medication list reviewed. The overnight trending pulse ox was reviewed. The oxygen saturation was 89% or less for a total of 7 minutes and 46 seconds with no desaturation events > 60 sec. Denies lightheadedness, cephalgia, chest pain, palpitations, shortness of breath, cough, nausea/vomiting/abdominal pain, dysuria and calf pain. He tells me he got up once last night to urinate. He has no complaints today and is very apologetic about his behavior last night. Objective Data Objective Data Vital Signs: Vital Signs Temp Pulse Resp BP Pulse Ox O2 Del Method O2 Flow Rate 97.9 F 87 16 108/68 95 Room Air 0 11/15/24 05:56 11/15/24 07:42 11/15/24 05:56 11/15/24 07:42 11/15/24 05:56 11/15/24 05:56 11/14/24 21:14 FiO2 21 11/14/24 21:14 Oxygen Flow Rate (L/min) 0 Oxygen Delivery Method Room Air Weight: 192 lb 3.889 oz Body Mass Index (BMI) 23.8 Intake & Output: Intake and Output for Last 24 Hours 11/13/24 11/14/24 11/15/24 23:59 23:59 23:59 Intake Total 780 / 780 1460 / 1460 760 / 760 Output Total 850 / 1250 1300 / 1600 700 / 700 Balance -70 / -470 160 / -140 60 / 60 Lab / Micro Data 11/14/24 05:27 11/14/24 05:27 Physical Exam Const alert, oriented x3 and no apparent distress General Appearance: cooperative HEENT head/scalp atraumatic Mouth: dry mucous membranes Resp normal respiratory effort and clear to auscultation bilaterally Resp Narrative: No conversational dyspnea Effort and Inspection: Negative for tachypneic Cardio no rub and no gallops Cardio Narrative: Irregular irregular rhythm with controlled ventricular response on metoprolol. GI normal to inspection, nondistended, normoactive bowel sounds, soft to palpation and non-tender Extremity no calf tenderness General Extremity: Negative for edema Skin Rashes: no rashes Psych Psych Narrative: Laughs frequently.......at times seems inappropriate. Not sure is this is his baseline. Will need to discuss with family. The stroke did affect the R frontal lobe so this may be due to the stroke. Agitated last night but, not this AM. Frsutrated with the alarms. Understands why the alarms are necessary until we can confirm he will be safe in his room at [facility]. Assessment & Plan Assessment/Plan (1) Physical debility: (2) Ischemic embolic stroke: PLAN: Due to AF? missed Eliquis dose (he denies) or due to poor cerebral blood flow due to intracerebral arterial disease and mod-severe plus chronic poor fluid intake? (3) Dysarthria: (4) Facial droop: PLAN: involving the Left lower face. (5) Mild cognitive impairment: PLAN: 42/50 on the BCAT (6) Left-sided neglect: (7) Urine retention: (8) Elevated hemoglobin A1c: (9) Atrial fibrillation: QUALIFIERS: Atrial fibrillation type: longstanding persistent Q ualified Code(s): I48.11 - Longstanding persistent atrial fibrillation (10) Chronic anticoagulation: PLAN: With Eliquis (11) High cholesterol: PLAN: On fenofibrate and Pravachol 10 mg. Recent LDL 70. (12) Nonrheumatic aortic valve stenosis: PLAN: Plan 1. Continue therapy 2. Mod I in his room starting today 3. No changes to the drug regimen Charges/Coding Visit Charges Inpatient E&M: 14638 [facility] Hosp L1
[2024-11-15] MEDS: Niacin SA 500 MG Tablet PO (21:01)
[2024-11-16 06:00] VITALS: BP 137/59; PULSE 74; RESP 18; TEMP 36.4; O2SAT 96; BMI 24.5
[2024-11-16 08:10] VITALS: PULSE 74
[2024-11-16] MEDS: APIXABAN 5 MG TABLET PO ×2 (08:10→21:32)
[2024-11-16] MEDS: Senna/Docusate Sodium 1 Tablet 2 TABLET PO (08:10)
[2024-11-16 14:05] VITALS: BMI 24.5
[2024-11-16 18:00] VITALS: BP 119/71; PULSE 53; RESP 18; TEMP 36.7; O2SAT 96
[2024-11-16 21:32] VITALS: BP 107/63; PULSE 79
[2024-11-16] MEDS: Niacin SA 500 MG Tablet PO (21:32)
[2024-11-16 21:35] VITALS: BP 107/63; PULSE 79; RESP 18; O2SAT 96; BMI 24.5
[2024-11-17 06:00] VITALS: BP 114/70; PULSE 79; RESP 16; TEMP 36.5; O2SAT 98
[2024-11-17 07:59] VITALS: PULSE 79
[2024-11-17] MEDS: Senna/Docusate Sodium 1 Tablet 2 TABLET PO (07:59)
[2024-11-17] MEDS: APIXABAN 5 MG TABLET PO ×2 (07:59→20:56)
--- NOTE | 2024-11-17 13:02 | CASEMGMT ---
Addendum entered by Madelyn Mendoza 11/18/24 14:44: [facility] faxed Addendum entered by Madelyn Mendoza 11/17/24 13:53: Dr also recommending referral to [facility]. SW provided family with information. SW to fax referral. Original Note: Social Work IDT met with patient, , dtr and son for Team meeting. Discussed patient's progress in PT/OT/ST/SN/MD. Educated to [facility] insurance with NRD 11/23 and continued stay is not guaranteed with each review. Pt is mod I without a device, practicing higher level tasks. Pt voiced readiness to DC. IDT agreeable to set DC date for 11/20. Recommending outpatient ST. Family requesting PT as well. Pt agreeable. SW provided verbal options and only facility that has ST is [facility]. Pt agreeable. SW to send referral. expressed concerns with transportation since she is getting cataract surgery. SW provided resources for [facility] Van transport. Family appreciative. Pt has no DME needs. Family to transport at [place]. - [facility] faxed referral to [facility] for PT/ST. 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
[2024-11-17 13:03] VITALS: BMI 24.5
--- NOTE | 2024-11-17 17:29 | PN_ITS ---
Subjective Subjective Milind was seen on team rounds today. His family poor was present in the room. All questions were answered to their satisfaction. Afebrile VSS -blood pressure is within goal and he has no lightheadedness. The heart rate has ranged from 53-79 over the past 24 hours. Maintaining appropriate oxygen saturation on RA Oral intake - FOOD good FLUIDS good, much better since we talked about the importance of maintaining good hydration to improve cerebral blood flow. Discussed with nursing - no problems that need addressed Reviewed the THERAPY notes - He is MOD I in his room. PT/OT will not be needed at [facility] per the therapists but, family would like him to have both PT and ST at [facility]. Medication list reviewed. Since he has been on the scheduled acetaminophen every 8 hours he has not complained about pain in the right leg. Denies lightheadedness, cephalgia, cough, shortness of breath, chest pain, palpitations, dysuria and calf tenderness. His only real complaint is that he is not sleeping well at night. The last time he was on rehab in 2020 he also had trouble sleeping and he was given Trazodone with good results and no urine retention. Objective Data Objective Data Vital Signs: Vital Signs Temp Pulse Resp BP Pulse Ox O2 Del Method O2 Flow Rate 97.7 F L 79 16 114/70 98 Room Air 0 11/17/24 06:00 11/17/24 07:59 11/17/24 06:00 11/17/24 06:00 11/17/24 06:00 11/17/24 06:00 11/14/24 21:14 FiO2 21 11/14/24 21:14 Oxygen Flow Rate (L/min) 0 Oxygen Delivery Method Room Air Weight: 195 lb 15.855 oz Body Mass Index (BMI) 24.5 Intake & Output: Intake and Output for Last 24 Hours 11/15/24 11/16/24 11/17/24 23:59 23:59 23:59 Intake Total 3140 / 3290 2200 / 2200 555 / 555 Output Total 1300 / 1700 1100 / 1100 300 / 300 Balance 1840 / 1590 1100 / 1100 255 / 255 Lab / Micro Data 11/14/24 05:27 11/14/24 05:27 Physical Exam Const alert, oriented x3 and no apparent distress General Appearance: cooperative Resp normal respiratory effort and clear to auscultation bilaterally Cardio no gallops Cardio Narrative: Atrial fibrillation with controlled ventricular response. Denies palpitations. GI normal to inspection, nondistended, normoactive bowel sounds, soft to palpation and non-tender Extremity no calf tenderness General Extremity: Negative for edema Assessment & Plan Assessment/Plan (1) Physical debility: (2) Ischemic embolic stroke: (3) Dysarthria: (4) Facial droop: (5) Mild cognitive impairment: (6) Left-sided neglect: (7) Urine retention: (8) Elevated hemoglobin A1c: (9) Atrial fibrillation: QUALIFIERS: Atrial fibrillation type: longstanding persistent Q ualified Code(s): I48.11 - Longstanding persistent atrial fibrillation (10) Chronic anticoagulation: (11) High cholesterol: (12) Nonrheumatic aortic valve stenosis: PLAN: Plan 1. Continue therapy 2. Add trazodone 50 mg nightly to the current drug regimen. 3. He is doing very well and is JONATHAN in his room. TEAM agrees he could DC home and continue ST as an OP at [facility]. We have set a DC date for Thursday11/20/24. 4. RX's are to be sent to [facility] pharmacy. Charges/Coding Visit Charges Inpatient E&M: 22623 Subs Hosp L2
--- NOTE | 2024-11-17 17:39 | PCM.DC ---
Discharge Instructions DC O2, CPAP, BIPAP needs Home O2 Discharge instructions: No Dressing / Incision Discharge Activity: May Not Drive (referral made by the SW to the drivers rehab program at [facility] when he is ready to contemplate driving again. ), May Shower and - (Consider using a cane to help with balance when walking on uneven surfaces or in a crowd of people. ) Weight Bearing Status: Full weight bearing Additional Activity Instructions:: Do the exercises given to you by the therapists everyday. Dressing / Incision Call your doctor if you observe: Fever of 101 or Higher, Inability to urinate, Inability to have a bowel movement, Shortness of breath, Dizziness, Fainting spells, Swelling in the ankles, Chest pain, Increased palpitations (irregular heartbeat), Calf discomfort, Uncontrolled pain and - (STROKE symptoms: facial droop, slurred speech, inability to get words out, weakness on 1 side of the body and not the other, numbness on 1 side of the body and not the other, inability to maintain your balance sitting or standing, vertigo. ) Follow Up Care Please Follow Up With: Priscilla Solomon MD When: pt made his own appt. you will need to follow up with a neurologist. The Neurologist in [place] is Dr. Monroy. Will will try and get you an appt but, if we can not we will ask them to call you to set up and appt. You also need to follow up with Dr. Raymond (you already had an appt scheduled for 11/21. Test Results: Test results from this visit will be discussed in further detail at your follow-up appointment, if applicable. Pending Tests Upon Discharge: none Discharge Plan Admission Admit Date/Time: 11/13/24 13:50 Primary Reason for Your Visit: POST STROKE DEBILITY Attending Provider: Charis Oconnor Primary Care Provider: Priscilla Solomon Instructions Patient Instructions: Discharge Instructions for Stroke, Benign Prostatic Hyperplasia Additional Instructions / Restrictions: 1, You did very well on rehab. You have mild cognitive dysfunction and will need to continue with speech therapy. We are recommending that family help with medication management and financial decisions. 2. You should NOT have more than 1 caffeinated beverage daily. Caffeine is a diuretic and increases you urine output. You need to maintain good blood flow to your brain. 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 This can make you lightheaded and can even cause you to pass out. It has been very hot lately and it can be hard to stay hydrated. As we get older we lose our sense of thirst and this makes it even harder to stay hydrated. You have to make a CONSCIOUS effort to maintain good hydration. Set your watch for an alarm to go off every hour, yandy when you are outside in the heat, to remind you to have a glass of water. If you feel lightheaded get into the shade and sit down and drink some water. It may be best since you just had a stroke to avoid working outside during the heat of the afternoon. Stick to early mornings and evenings to be outside. 3. It is especially hard to maintain good blood flow to the brain when you have a bad valve in your heart that affects the amount of blood that can be ejected from the heart into your circulation. Peoiple tend to fatigue easier than usual and also tend to get short of breath with exertion. PACE YOURSELF. 4. You do not completely empty your bladder when you urinate. You had this the last time you were on rehab also. Most men your age have some problems with there prostate and then have slow stream, dribbling, urgency to urinate and they get up at night to urinate a few times. Usually we prescribe a medication called Flomax (also called Tamulosin) to help you empty the bladder better. This medication tends to drop the BP when you are standing up. Your BP is on the low side normally (some of this is due to the Metoprolol you take to control the heart rate when you are in atrial fibrillation). I do not think it is hurley to add this medication to your drug regimen at this time........yandy with the recent stroke. Urine retention is not generally a major concern as long as you are not retaining more than 300 cc's (this is 10 ounces). If at some point the prostate problems get worse you may need to see a urologist. 5. If you or your family have any questions after you leave rehab please do not hesitate to call me. OFFICE: [phone] CELL: [phone] NURSES STATION ON REHAB: [phone] PS: We made you an appt to follow up with a neurologist in [place] rather than going back to [facility]. You can cancel the appt at [facility] and follow up with Dr. Monroy in [place] instead. Discharge Orders/Prescriptions Prescriptions: New acetaminophen 500 mg Tablet 1,000 mg PO Q8 Qty: 0 0RF aspirin 81 mg Tablet,Chewable 81 mg PO BREAKFAST Qty: 0 0RF clobetasol 0.05 % Ointment 1 applic topical BID PRN (Reason: psoriasis) Qty: 1 0RF Protocol: *Topical Application Instructions APPLICATION INSTRUCTIONS: to affected areas trazodone 50 mg Tablet 50 mg PO QHS Qty: 10 0RF metoprolol tartrate 50 mg Tablet 50 mg PO BID Qty: 60 0RF pravastatin 20 mg Tablet 10 mg PO DAILY Qty: 30 0RF Therapeutic-M 9 mg iron-400 mcg Tablet 1 tab PO DAILY Qty: 0 0RF Continued omega-3 acid ethyl esters 1 gram Capsule 1 g PO 0800 Qty: 30 0RF fenofibrate nanocrystallized 145 MG tablet 145 mg PO DAILY Qty: 30 0RF niacin 500 mg Tablet Extended Release 500 mg PO 0800 Qty: 30 0RF Eliquis 5 mg Tablet 5 mg PO BID Qty: 60 0RF Discontinued polyethylene glycol 3350 17 gram Powder In Packet 17 g PO DAILY Qty: 14 0RF sennosides-docusate sodium [Stool Softener-Stimulant Laxat] 8.6-50 mg Tablet 2 tab PO BID Qty: 120 0RF Referrals / Follow Up: Andrew Mcgee [Other] - 01/20/25 1:00 pm () Priscilla Solomon MD [Primary Care Provider] - (pt to make) Dick Monroy MD [Non-Staff -Ordering Privileges] - (office will call with appt ) Disposition Disposition (needs filled in before D/C Order can be placed): Home, Self Care
[2024-11-17 18:00] VITALS: BP 129/80; PULSE 67; RESP 16; TEMP 36.9; O2SAT 97
[2024-11-17 20:55] VITALS: BP 125/60; PULSE 78
[2024-11-17] MEDS: Niacin SA 500 MG Tablet PO (20:55)
[2024-11-17 21:00] VITALS: BP 125/60; PULSE 78; RESP 16; O2SAT 97; BMI 24.5
[2024-11-18 05:00] VITALS: BP 113/63; PULSE 81; RESP 16; TEMP 36.8; O2SAT 95
[2024-11-18] MEDS: APIXABAN 5 MG TABLET PO ×2 (07:50→21:16)
[2024-11-18] MEDS: Senna/Docusate Sodium 1 Tablet 2 TABLET PO (07:50)
[2024-11-18 07:51] VITALS: PULSE 81
--- NOTE | 2024-11-18 14:24 | EX.DISCHREH ---
Providers Date of Admission: 11/13/24 Date of Discharge: 11/20/24 Primary Care Physician: Dr. Priscilla Solomon MD none Reason For Visit: CVA Diagnosis Discharge Diagnosis (1) Physical debility: Status: Acute Code(s): R53.81 - Other malaise (2) Ischemic embolic stroke: Status: Acute Code(s): I63.9 - Cerebral infarction, unspecified (3) Dysarthria: Status: Acute Code(s): R47.1 - Dysarthria and anarthria (4) Facial droop: Status: Acute Code(s): R29.810 - Facial weakness (5) Mild cognitive impairment: Status: Acute Code(s): G31.84 - Mild cognitive impairment of uncertain or unknown etiology (6) Left-sided neglect: Status: Acute Code(s): R41.4 - Neurologic neglect syndrome (7) Urine retention: Status: Chronic Code(s): R33.9 - Retention of urine, unspecified Plan: Retains less than 300 cc's. BP runs on the low side and he is chronically dehydrated due to poor fluid intake and many caffeinated beverages throughout the day. Did not start him on Tamulosin due to the risk of orthostatic hypotension. (8) Elevated hemoglobin A1c: Status: Chronic Code(s): R73.09 - Other abnormal glucose Plan: HGBa1C was 5.6 in 2020 and at the time of recent CVA it is 5.8. (9) Atrial fibrillation: Status: Chronic Code(s): I48.91 - Unspecified atrial fibrillation Qualifiers: Atrial fibrillation type: longstanding persistent Qualified Code(s): I48.11 - Longstanding persistent atrial fibrillation Plan: Rate controlled with Metoprolol. (10) Chronic anticoagulation: Status: Chronic Code(s): Z79.01 - enterer (current) use of anticoagulants Plan: On Eliquis 5 mg p.o. twice daily. (11) High cholesterol: Status: Acute Code(s): E78.00 - Pure hypercholesterolemia, unspecified Plan: Continue pravastatin. LDL was 70 on pravastatin 10 mg daily. Neurology did not recommend transitioning to a high intensity statin. HDL recently low at 30. (12) Nonrheumatic aortic valve stenosis: Status: Chronic Code(s): I35.0 - Nonrheumatic aortic (valve) stenosis Plan: Moderate to severe aortic stenosis on echocardiogram done at [facility]. EF is estimated at 50 to 55% with grossly normal regional wall motion. The left atrium is severely enlarged. There was a moderate reduction in right ventricular systolic function. He will follow up with his ceiling cleaner Dr. Onofre post DC from rehab. Plan 1. Plan DC for Thursday11/20/24. 2. He has follow up appts scheduled with Dr. Solomon, his primary care physician, and with Dr. Raymond his ceiling cleaner. Dr. Monroy's office (neurology) will call him to schedule an appt..........pt and family prefers to follow up in [place] rather than [facility]. 3. He was instructed to limit caffeine consumption to 1 beverage daily and to maintain good fluid intake. 4. Family will assist with medication management to ensure compliance. 5. He will get OP PT/ST at [facility]. Medications at Discharge Home Medications acetaminophen 500 mg tablet 1,000 mg (2 x 500 mg) PO Q8 #0 tabs 11/17/24 apixaban 5 mg tablet (Eliquis) 5 mg PO BID DVT prevention #60 tabs 11/17/24 aspirin 81 mg chewable tablet 81 mg PO BREAKFAST #0 tabs 11/17/24 clobetasol 0.05 % topical ointment 1 applic topical BID PRN psoriasis #1 tube 11/17/24 fenofibrate nanocrystallized 145 mg tablet 145 mg PO DAILY cholesterol #30 tabs 11/17/24 metoprolol tartrate 50 mg tablet 50 mg PO BID #60 tabs 11/17/24 multivitamin-iron 9 mg-folic acid 400 mcg-calcium and minerals tablet (Therapeutic-M) 1 tab PO DAILY #0 tabs 11/17/24 niacin 500 mg tablet,extended release 500 mg PO 0800 cholesteol #30 tabs 11/17/24 omega-3 acid ethyl esters 1 gram capsule 1 g PO 0800 supplement #30 caps 11/17/24 pravastatin 20 mg tablet 10 mg (1/2 x 20 mg) PO DAILY #30 tabs 11/17/24 trazodone 50 mg tablet 50 mg PO QHS #10 tabs 11/17/24 Physical Exam Const alert, oriented x3 and no apparent distress General Appearance: cooperative, well kempt and well developed HEENT normocephalic and head/scalp atraumatic HEENT Narrative: Tongue deviates to the left. Pronounced left facial droop persists. Difficulty keeping the Left eye closed and I can easily pull his eye open when he is trying to keep it closed. The left upper lid is somwhat retracted and so is the lower lid.....gives the appearance of proptosis but, I think it is just due to lid lag from the stroke. Eyes PERRL, EOMs intact bilaterally, conjunctivae normal, no scleral icterus and normal visual mayen by confrontation Eyes Narrative: No discharge from the eyes. No mattering of the eyelashes. Neck supple and No nodes Neck Narrative: I did not appreciate any carotid bruits but, he has decreased carotid pulse volume. General: trachea midline Chest Chest: symmetrical chest wall rise Resp normal respiratory effort and clear to auscultation bilaterally Effort and Inspection: able to speak in complete sentences Cardio no rub and no gallops Cardio Narrative: irreg irreg rhythm. Heart sounds are somewhat distant. I was not able to hear a significant heart MM but, he would not stop talking. Resting HR is mildly increased. GI normal to inspection, nondistended, normoactive bowel sounds, soft to palpation and non-tender GI Narrative: No guarding with palpation no CVA tenderness Narrative: He is retaining urine.......he retained at his last admission to rehab in 2020........nothing > 300. Admits to a slow stream but, denies nocturia more than once a night and he denies urgency. Extremity no calf tenderness and no pedal edema Extremity Narrative: No clubbing, no cyanosis Skin General Skin Exam: no breakdown Rashes: no rashes Hair: normal Nails: Negative for discolored Neuro oriented x3 Neuro Narrative: He has a marked facial droop and also has weakness of the lower face and also the orbicularis oculi muscles on the left. The tongue deviates to the left when protruded. Slurred speech. Good shoulder shrug BL. No drift with any extremity.........has a mild pronator drift only with the LUE. Good plantarflexion and dorsiflexion bilaterally. 5/5 strength throughout. No sensory loss. some intermittent ataxia per PT with descending steps. Has mild neglect of the left side. No extinction. Psych cooperative, affect normal, denies hallucinations, denies homicidal ideation and denies suicidal ideation Psych Narrative: Impulsive. Poor safety awareness. Appearance: grossly normal, appropriate and well kempt Attitude: calm and engaged Activity / Motor Behavior: other Does not always make good eye contact. Has some neglect of the left side and does better with eye contact if I stand on his right side. ; Negative for psychomotor agitation or psychomotor slowing Weight / BMI Weight Weight: 195 lb 15.855 oz Body Mass Index (BMI) 24.5 ABG / Lab / Microbiology Data 11/14/24 05:27 11/14/24 05:27 Indicators for Scoring Admitted with or Primary Diagnosis of CVA/Stroke: Yes Hx of CVA/Stroke: Yes Modified Thurston Score MRS Score at time of Evaluation: 3-Moderate disability NIHSS NIHSS 1a. Level of Consciousness: 0 - Alert; keenly responsive 1b. LOC Questions: 0 - Answers BOTH questions correctly 1c. LOC Commands: 0 - Performs BOTH tasks correctly 2. Best Gaze: 0 - Normal 3. Visual: 0 - No visual loss 4. Facial Palsy: 2 - Partial paralysis (total or near-total paralysis of lower face) (He can wrinkle his forehead and raise both eyebrows symmetrically but, has weakness of the orbicularis oculi muscles and is not able to tightly close the left eye.) 5a. Left Arm: 0 - No drift; arm holds 90 (or 45) degrees for full 10 seconds 5b. Right Arm: 0 - No drift; arm holds 90 (or 45) degrees for full 10 seconds 6a. Left Le - No drift; leg holds 30-degree position for full 5 seconds 6b. Right Le - No drift; leg holds 30-degree position for full 5 seconds 7. Limb Ataxia: 1 - Present in 1 limb (present in the LLE with stairs per PT, yandy with descending steps. ) 8. Sensory: 0 - Normal; no sensory loss 9. Best Language: 0 - No aphasia; normal 10. Dysarthria: 1 = [id number] dysarthria; 11. Extinction and Inattention: 0 - No abnormality Total: 4 D/C Instructions Diet Diet Order/Speech Therapy: INPATIENT Hospital Diet / Speech Therapy Order(s) 11/13/24 15:36 Diet: Cardiac - Heart Healthy Food consistency:: Soft & Bite Sized Liquid Consistency:: Regular/Thin Diet Comments: Ensure TID with meals Discharge order: Continue INPATIENT Hospital Diet / Speech Therapy Orders: Yes Weight Bearing Status: Full weight bearing Additional Activity Instructions: Do the exercises given to you by the therapists everyday. Call your doctor if you observe: Fever of 101 or Higher, Inability to urinate, Inability to have a bowel movement, Shortness of breath, Dizziness, Fainting spells, Swelling in the ankles, Chest pain, Increased palpitations (irregular heartbeat), Calf discomfort, Uncontrolled pain and - (STROKE symptoms: facial droop, slurred speech, inability to get words out, weakness on 1 side of the body and not the other, numbness on 1 side of the body and not the other, inability to maintain your balance sitting or standing, vertigo. ) DC O2, CPAP, BIPAP Needs RN Home O2 qualification: No Data to Display PSN CPAP & BiPAP: BiPAP & CPAP Settings per PSN Fraction of Inspired Oxygen ( 11/14/24 21:14 FIO2) Home O2 Discharge instructions: No Pending Tests Upon Discharge: none Please Follow Up With: Priscilla Solomon MD When: pt made his own appt. you will need to follow up with a neurologist. The Neurologist in [place] is Dr. Monroy. Will will try and get you an appt but, if we can not we will ask them to call you to set up and appt. You also need to follow up with Dr. Raymond (you already had an appt scheduled for 11/21. Meaningful Use Info Meaningful Use Meaningful Use Diagnoses (Choose all that apply): Ischemic CVA CVA Therapy Assessed for PT,OT and/or ST?: Yes Ischemic Stroke Antithrombotic order at d/c?: Yes Dx of Atrial fib/flutter?: Yes Anticoagulant at discharge?: Yes Statin Dosing Therapy Reference: STATIN DOSE THERAPY REFERENCE: * Patients > 75 years receive moderate or high dose statin therapy. * Patients 75 years or YOUNGER should receive HIGH intensity statin dose unless contraindicated. You will be required to document reason for non-treatment if statin daily dose does not meet guidelines. HIGH DOSE STATIN THERAPY DAILY Atorvastatin > than or = to 40 mg Rosuvastatin > than or = to 20 mg Amlodipine + Atorvastatin > than or = to 2.5/40 mg Ezetimibe + Simvastatin 10/80 mg Simvastatin 80mg Statins at discharge?: Yes If patient is 75 or younger, pt will be discharged on HIGH intensity statin.: No High intensity statin for patient 75 or younger not ordered due to: stroke presumed to be embolic related to AF. Neurology recommended continuing Pravachol 10 mg daily. LDL on 10 mg of Pravachol was 70. Primary Dx Acute Ischemic CVA?: Yes IV thrombolytic ordered during stay?: No Reason IV thrombolytic not ordered: Procedure not Indicated Discharge Plan Admission Admit Date/Time: 11/13/24 13:50 Primary Reason for Your Visit: POST STROKE DEBILITY Attending Provider: Charis Oconnor Primary Care Provider: Priscilla Solomon Instructions Patient Instructions: Discharge Instructions for Stroke, Benign Prostatic Hyperplasia Additional Instructions / Restrictions: 1, You did very well on rehab. You have mild cognitive dysfunction and will need to continue with speech therapy. We are recommending that family help with medication management and financial decisions. 2. You should NOT have more than 1 caffeinated beverage daily. Caffeine is a diuretic and increases you urine output. You need to maintain good blood flow to your brain. 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 This can make you lightheaded and can even cause you to pass out. It has been very hot lately and it can be hard to stay hydrated. As we get older we lose our sense of thirst and this makes it even harder to stay hydrated. You have to make a CONSCIOUS effort to maintain good hydration. Set your watch for an alarm to go off every hour, yandy when you are outside in the heat, to remind you to have a glass of water. If you feel lightheaded get into the shade and sit down and drink some water. It may be best since you just had a stroke to avoid working outside during the heat of the afternoon. Stick to early mornings and evenings to be outside. 3. It is especially hard to maintain good blood flow to the brain when you have a bad valve in your heart that affects the amount of blood that can be ejected from the heart into your circulation. Peoiple tend to fatigue easier than usual and also tend to get short of breath with exertion. PACE YOURSELF. 4. You do not completely empty your bladder when you urinate. You had this the last time you were on rehab also. Most men your age have some problems with there prostate and then have slow stream, dribbling, urgency to urinate and they get up at night to urinate a few times. Usually we prescribe a medication called Flomax (also called Tamulosin) to help you empty the bladder better. This medication tends to drop the BP when you are standing up. Your BP is on the low side normally (some of this is due to the Metoprolol you take to control the heart rate when you are in atrial fibrillation). I do not think it is hurley to add this medication to your drug regimen at this time........yandy with the recent stroke. Urine retention is not generally a major concern as long as you are not retaining more than 300 cc's (this is 10 ounces). If at some point the prostate problems get worse you may need to see a urologist. 5. If you or your family have any questions after you leave rehab please do not hesitate to call me. OFFICE: [phone] CELL: [phone] NURSES STATION ON REHAB: [phone] PS: We made you an appt to follow up with a neurologist in [place] rather than going back to [facility]. You can cancel the appt at [facility] and follow up with Dr. Monroy in [place] instead. Discharge Orders/Prescriptions Prescriptions: New acetaminophen 500 mg Tablet 1,000 mg PO Q8 Qty: 0 0RF aspirin 81 mg Tablet,Chewable 81 mg PO BREAKFAST Qty: 0 0RF clobetasol 0.05 % Ointment 1 applic topical BID PRN (Reason: psoriasis) Qty: 1 0RF Protocol: *Topical Application Instructions APPLICATION INSTRUCTIONS: to affected areas trazodone 50 mg Tablet 50 mg PO QHS Qty: 10 0RF metoprolol tartrate 50 mg Tablet 50 mg PO BID Qty: 60 0RF pravastatin 20 mg Tablet 10 mg PO DAILY Qty: 30 0RF Therapeutic-M 9 mg iron-400 mcg Tablet 1 tab PO DAILY Qty: 0 0RF Continued omega-3 acid ethyl esters 1 gram Capsule 1 g PO 0800 Qty: 30 0RF fenofibrate nanocrystallized 145 MG tablet 145 mg PO DAILY Qty: 30 0RF niacin 500 mg Tablet Extended Release 500 mg PO 0800 Qty: 30 0RF Eliquis 5 mg Tablet 5 mg PO BID Qty: 60 0RF Discontinued polyethylene glycol 3350 17 gram Powder In Packet 17 g PO DAILY Qty: 14 0RF sennosides-docusate sodium [Stool Softener-Stimulant Laxat] 8.6-50 mg Tablet 2 tab PO BID Qty: 120 0RF Referrals / Follow Up: Andrew Corless [Other] - 01/20/25 1:00 pm () Priscilla Solomon MD [Primary Care Provider] - (pt to make) Dick Monroy MD [Non-Staff -Ordering Privileges] - (office will call with appt ) Disposition Disposition (needs filled in before D/C Order can be placed): Home, Self Care Charges/Coding Visit Charges Inpatient E&M: 63571 Disch Hosp >30min Hospital Course RU Operations None Procedures Transthoracic echo (This was done at [facility]. It showed an ejection fraction of 50 to 55% with grossly normal regional wall motion. There was mild concentric remodeling of the left ventricle. The left atrium was severely enlarged. There was moderate reduction in right ventricular systolic function. The aortic valve wa) Summary of Care Provided Minutes Spent on Discharge: 45 Hospital Course: LAZARO MONSALVE, is a 74 YO M known to me from admission to acute rehab in September of 2020 for traumatic injury to the R leg (fracture of the right fibula and the right femoral shaft) from a tractor rolling over on it (he he had ORIF with placement of a intramedullary [place] in the right femur). 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 Stat noncontrast CT head was negative. CTA of the head and neck showed proximal to mid right M2 occlusion. He was not a candidate for thrombolytics due to chronic Eliquis use. He was transferred to [facility] for further evaluation. Upon arrival at [facility] his NIHSS was 1 for left facial droop. He was not a candidate for mechanical thrombectomy since it was an M2 lesion with a low NIHSS score of 1. Significant lab included an LDL of 70, low HDL at 30 and a hemoglobin A1c of 5.8. He was taking pravastatin and fenofibrate prior to this recent stroke and these medications were maintained at discharge from [facility]. The stroke is presumed to be embolic. MRI at [facility] showed multiple small infarcts in the right frontal and temporal lobes. There was no hemorrhagic transformation. Echocardiogram showed an ejection fraction of 50 to 55% with grossly normal regional wall motion. There was mild concentric remodeling of the left ventricle. The left atrium was severely enlarged. There was a moderate reduction in right ventricular systolic function. The aortic valve was heavily calcified with reduced excursion and he was diagnosed with moderate to severe aortic stenosis. Right ventricular systolic pressure could not be measured due to incomplete TR jet envelope. While at [facility] Lazaro was seen by PT/OT/ST and a recommendation for acute rehab was recommended. He was transferred to the acute inpt rehab unit at [facility] on 11/13/24 for 3 hours of therapy daily to restore function/independence at or near his level prior to recent CVA. He was independent with ADL's and driving prior to stroke and he was managing finances. He occasional uses a cane when the R leg pain is bad. Lazaro had an echocardiogram in March 2024 that showed a normal left ventricular ejection fraction with mild concentric left ventricular hypertrophy. There were no wall motion abnormalities. Right ventricular systolic function was normal with a mildly elevated right ventricular systolic pressure estimated at 39. The left atrial cavity was severely dilated and the right atrial cavity was also dilated. There was moderately severe aortic valve stenosis with an aortic valve area of 0.91 cm?. [facility] felt the stroke was cardioembolic and he likely missed dose/doses of Eliquis. He denies this. His blood pressures run on the low side and he takes Metoprolol for rate control for chronic atrial fibrillation. He drinks many caffeinated beverages daily and he has poor fluid intake otherwise. He has moderate to severe . 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 He may have gotten dehydrated and had poor cerebral blood flow resulting in CVA. He is going to follow up with his ceiling cleaner, Dr. Raymond, who has discussed possible need for valve replacement with him in the past. He was instructed to limit caffein intake to no more than 1 beverage daily. 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 Lazaro had mild cognitive dysfunction at admission to rehab. Speech therapy administered a BCAT (brief cognitive assessment tool) and he scored 42 out of a possible 50 which is consistent with mild cognitive impairment. He was previously admitted to rehab in 2020 after he fractured his femur. At that time his commented that his memory was not as good as it used to be. We recommended Lazaro have ongoing ST as an OP and he will be going to [facility] for this. We also recommended that a family member accompany him to all his doctors appts and assist with medication management. He will also be getting PT at [facility] at the family's request. Our PT did not recommend additional therapy post DC from rehab. Lazaro retains urine, more likely than not due to BPH. He also had this when he was admitted to rehab in 2020. He was not taking anything to treat BPH at admission to rehab. His BP is soft at times and tends to run on the low side. He needs to take Metoprolol to control the ventricular rate since he is chronically in AF. He has moderate to severe . The urine retention never exceeds 300 and we did not start tamsulosin due to risk of orthostatic hypotension. He was tilt negative on 11/15/24. Lazaro had an uneventful admission to rehab. We had no significant complications. At the time of DC he is able to do 8 sit to stands in 30 seconds using his upper extremities to rise. He is able to ascend/descend 20 steps with 1 handrail at supervision. He has some ataxic movement in the lower extremities, more with descending than ascending. He has ambulated up to 1200 feet with no assistive device on various surfaces at supervision. He is independent with eating, upper body dressing, toilet transfer and toileting. And modified independent with grooming, bathing and lower body dressing. He is supervision for tub/shower transfer. Lazaro asked if he could be discharged home on Thursday11/20/24. PT/OT were OK with this and did not recommend PT/OT post DC. He will need to have ongoing ST for cognitive dysfunction. He was told he would not be allowed to drive until he could pass an evaluation at the [facility] drivers rehab program. A referral was made by the SW. We recommended that a family member supervise his medications and that a family member accompany him to all his doctors appts post DC from rehab. Family reuqested PT in addition to ST and the SW arranged this. He will be going to [facility] for rehab. Lazaro has follow up appts schedule with Dr. Solomon (PCP) and with Dr. Raymond (cardiology). They have an appt to follow up with neurology at [facility] but, they prefer to follow up in [place]. We reached out to Dr. Monroy's office and they will call him post DC to schedule and appt.
[2024-11-18 15:12] VITALS: BMI 24.5
[2024-11-18 17:32] VITALS: BP 121/73; PULSE 69; RESP 16; TEMP 36.8; O2SAT 95
[2024-11-18 21:10] VITALS: BP 107/69; PULSE 82; O2SAT 95; BMI 24.5
[2024-11-18] MEDS: Niacin SA 500 MG Tablet PO (21:16)
[2024-11-18 21:17] VITALS: BP 107/69; PULSE 82
[2024-11-19 06:00] VITALS: BP 104/55; PULSE 70; RESP 16; TEMP 36.6; O2SAT 95
[2024-11-19] MEDS: APIXABAN 5 MG TABLET PO ×2 (08:29→20:26)
[2024-11-19 08:30] VITALS: BP 108/53; PULSE 77
[2024-11-19 15:18] VITALS: BMI 24.5
[2024-11-19 17:42] VITALS: BP 111/64; PULSE 69; RESP 16; TEMP 36.4; O2SAT 96
--- NOTE | 2024-11-19 18:31 | NURSING ---
Pt bladder scanned for 593ml pt encouraged to use bathroom but refused pt stated this is kind of ridiculous I will go on my own time. Educated pt on importance of voiding and emptying bladder. pt continued to refuse to use bathroom or straight cathed.
[2024-11-19 19:26] VITALS: BMI 24.5
[2024-11-19] MEDS: Niacin SA 500 MG Tablet PO (20:25)
[2024-11-19 20:27] VITALS: BP 128/65; PULSE 61; RESP 16; TEMP 36.6; O2SAT 94
[2024-11-19 20:30] VITALS: PULSE 61
[2024-11-19 20:45] VITALS: BMI 24.5
[2024-11-20 06:00] VITALS: BP 122/62; PULSE 63; RESP 15; TEMP 36.6; O2SAT 95
[2024-11-20 09:09] VITALS: BP 107/61; PULSE 63
[2024-11-20 09:12] VITALS: PULSE 63
[2024-11-20] MEDS: APIXABAN 5 MG TABLET PO (09:12)
[2024-11-20 09:36] VITALS: BMI 24.5
== END 2024-11-20 10:54 | disposition home or self-care (01) | DRG 57 ==
PROVIDERS: Admitting Provider Internal Medicine; PCP Internal Medicine; Visit Provider Internal Medicine
DX: I69.354 Hemiplegia and hemiparesis following cerebral infarction affecting left non-dominant side (principal); I48.11 Longstanding persistent atrial fibrillation; I27.20 Pulmonary hypertension, unspecified; I69.322 Dysarthria following cerebral infarction; G31.84 Mild cognitive impairment of uncertain or unknown etiology; I69.392 Facial weakness following cerebral infarction; E78.00 Pure hypercholesterolemia, unspecified; L40.9 Psoriasis, unspecified; R33.9 Retention of urine, unspecified; Z87.891 Personal history of nicotine dependence; Z79.899 Other long term (current) drug therapy; Z79.01 Long term (current) use of anticoagulants; R73.09 Other abnormal glucose
CPT/HCPCS: 36415; 80053; 83735; 84100; 85025; 92507; 92523; 94762; 97110; 97112; 97162; 97166; 97530; 97535; 97802

== ENCOUNTER 2025-01-10 14:30 | Outpatient (RCR) | payer MEDICARE, SELFPAY ==
--- NOTE | 2024-11-25 13:48 | HP.PTEVAL_ITS ---
Patient's Visit Information Visit Information Visit Information: MITCH MONSALVE is a 74 year old M referred to Physical Therapy by Dr. Charis Oconnor DO with a diagnosis of CVA/L side neglect. Date of Evaluation: 11/25/24 Physical Therapist: CECIL Pappas Visit Plan Frequency: 2x /Week Duration: 3 Months Plan: 2X/ week for 8-12 weeks for gait training, gait with head turns (he likes to veer to the L when looks to the L), functional balance, sit to stand transfers, toe raises strength, HEP Subjective Subjective: Pt reports that he had a stroke November 09. He was at home and the squad came. His daughter was there and saw him fall over and called the squad. He had 2 blood clots in R side of brain. He spent 5 days in [place] and then transferred to [place] for Rehab. He is still having trouble speech and he feels that he is droopy on the L side. He is not noticing L hand or leg issues. He is dropping stuff from his L hand. Stairs: 2 railings down to basement and goes recip. He has no trouble rolling in bed or getting out of car. He reports that his balance is still off a little bit. His L side neglect is getting better. He was using a cane prior to the stroke to previous R Leg injury outside of the house. He furniture walks in the house. Objective Objective: R handed [employer] strength R 95 and L 98 UE AROM: WFL B LE AROM: WFL B UE MMT: R shoulder flex 14.7 and L 14.3 R shoulder ABD 14.7 and L 17.3 R shoulder ER 11.9 and L 10.7 LE MMT R hip flex 19 and L 20.4 R knee ext 32.8 and 32.1 R knee flex 18.4 and L 15.6 FGA: 10 (instructed pt to use a cane due to balance). (When pt turns head to the L with gait he veers to the L and does not recognize this). He is very unsteady with walking with turning his head. He struggles with turning 180 degrees with catching his L LE). Gait: pt has some scissor gait at times to correct his balance. He has difficulty advancing his L LE especially when more fatigued. Pt is not able to walk BW without holding onto the hallway rail. (Discussed with the patient that he should use a cane for balance safety). L LE not as coordinated as the R LE. heel and toe raise: pt is able to heel and toe raise with UE support stairs: Pt is able to go up and down the steps recip with 2 hand rails but struggles to drive L leg up the step compared to the R. Sit to stand: Pt is able to get up with some increase effort on first attempt Balance/Special Test Scores Functional Gait Assessment Score: 10 % Disability: 66.6700 Lower Extremity Functional Score: 48 Goals Goal 1:: I HEP Goal Time Frame: 8-12 Weeks Goal 2:: Increase balance (FGA score of 10 at eval) Goal Time Frame: 8-12 Weeks Goal 3:: Be able to walk with turning his head to the L without veering to the L Goal Time Frame: 8-12 Weeks Goal 4:: Be able to walk with more fluid gait pattern using his L leg especially with fatigue Goal Time Frame: 8-12 Weeks Goal 5:: Be able to step up onto a curb with least restrictive device with CGA Goal Time Frame: 8-12 Weeks Rehabilitation Potential Rehabilitation Potential: Good Anticipated Interventions Patient/Client Instruction: Educate patient on: Condition and Plan of Care For the Purpose of:: To improve muscle performance and motor function, To improve ability to perform ADL's, To increase tolerance to activity/condition/position, To improve performance and independence with ADL's, To decrease level of supervision to perform tasks, To improve ability of physical actions for home/community/work/leisure, To improve gait and locomotor functions, To increase flexibility/ROM and To improve safety with gait Therapeutic Exercise to Include: Strength training, Endurance training, Balance training, Postural training, Flexibilty training, Gait and locomotor training and Neuromotor development For the Purpose of:: To improve ability to perform ADL's, To increase tolerance to activity/condition/position, To improve gait and locomotor functions, To improve health of tissue, To improve endurance, To improve balance and To improve safety with gait Functional Training to Include: Gait training For the Purpose of:: To improve gait and locomotor functions and To improve safety with gait Text: Thank you for the opportunity to evaluate your patient. For Medicare and Medicare HMO plans, please review the plan of care and approve it. It will need to be FAXED BACK to us at [phone] for Medicare purposes. For Medicare only, by signing this I certify the plan of care. Please let me know if there are questions or concerns regarding this plan of care. Physician Signature: D ate:
--- NOTE | 2024-11-29 15:37 | HP.SP.EVAL ---
Visit History Visit Info Date of Eval: 11/25/24 Today is Visit #: 1 Patient's Approved Number of Visits: 18 Insurance Date Limit: 02/27/25 Glass Sander Belt: OBDULIO [place] Attending Doctor: Referring Doctor: Reason for Referral: CVA. RX HERE Medical Diagnosis: CVA Date of Onset of Diagnosis: 11/09/24 Previous speech therapy: No Other Relevant Medical History/Diagnoses/Surgery: Anticoagulant long-term use, atrial fibrillation, left sided neglect, mild cognitive impairment, facial droop, dysarthria, ischemic embolic stroke Medications related to this diagnosis: acetaminophen, apixaban [eliquis], aspirin, clobetasol, fenofibrate nanocrystallized, metaprolol tartrate, rjrwdepi-nyuy-JP-calcium-mins, niacin, omega-3 acid ethyl esters Smoking Status: Former smoker Diagnosis Diagnosis: Mild cognitive impairment, dysarthria, and left sided neglect Pain Is pain an issue with your current prescribed condition?: No Personal Preferred language: Kosovan Patient Allergies Allergies Allergies: Allergies No Known Allergies Allergy (Verified 11/29/24 06:21) CLQT CLQT CLQT Administered: Yes CLQT: Cognitive Linguistic Quick Test (CLQT) is a criterion - referenced assessment designed for adults between the ages of 18 and 89 with known or suspected neurological dysfuntions. The CLQT is to assess strength and weaknesses in five cognitive domains. Severity ratings are within normal limits, mild, moderate, severe deficits. The subtests are as follows: Date: 11/29/24 Attention Attention: WNL Memory Memory: WNL Executive Functions Executive Functions: WNL Language Language: WNL Visuospatial Skills Visuospatial Skills: WNL Composite Severity Rating Composite Severity Rating: WNL Clock Drawing Severity Rating Clock Drawing Severity Rating: WNL CLQT Comments -: -: It should be noted that Rito did not experience difficulty with visual neglect on this assessment. However, when completing gross motor tasks, such as walking, he experiences neglect (on a larger scale). However, he is self aware of the neglect and uses compensatory strategies provided by PT to assist himself. N-FLETCHER [place] Dysarthria Assessment Tool Intelligibility:: Intelligible Breaths per minute: 15 Phonation: Phonation: Adequate Pitch: Adequate Quality: Adequate Maximum Phonation Time: 18 S/Z Ratio: 1 Sustained Volume: Able Pitch [place]: Inconsistent Pitch Range: Reduced Pitch Glides: Adequate Resonance: Resonance: Nasality: Adequate Articulation: Rate of speech: Adequate Phrase length: Adequate Rate of Movement: Number of repetitions in 5 seconds: 9 Sequential Motion Rates: Number of repetitions in 5 seconds: 8 Reference: Neuro-QoL instrument Radiation Oncology Patient Plan Plan Plan: At this time, it is recommended that Rito participate in weekly speech therapy sessions to target mild dysarthria. Participating in interventions will aid in helping increase his overall intelligibility and ability to communicate daily needs and wants to others. Recommendations Treatment Warranted: Yes Treatment Warranted: Speech Sound Production Progress Prognosis: Good Frequency Frequency: 1x/Week Duration: Indefinite Patient/Family Goal Patient/Family Goal: Patient stated that he hopes to improve his intelligibility and strengthen the muscles in his face. Goals that are Established Determination:: Goals will be added/modified as deemed necessary and appropriate. Therapy will be discontinued when results of re-evaluation indicate therapy is no longer needed or lack of progress has been documented. Goal #1-5 Goal #1: Rito will demonstrate and utilize speech intelligibility techniques (increased loudness, reduced rate of speech, exaggerated articulation, increased jaw ROM) 90% of the time during conversational speech independently across 3 consecutive sessions to facilitate increased expressive communication abilities in the home and social environments. Goal #2: Rito will participate in oral motor exercises to increase ROM in tongue, lips, and jaw as well as increase overall intelligibility during session with 90% accuracy as measured across 3 consecutive sessions. Education Patient has Indicated that the Following Identified Educational Needs: None The Patient has indicated that they have no educational or learning abilities that may effect their care.: Yes Patient Instruction Patient Education: Diagnosis, Treatment Plan and Goals Person Taught: Patient Teaching Method: Discussion Response to teaching: Verbalize Understanding
--- NOTE | 2025-01-03 13:19 | HP.PTDCSUM ---
Discharge Summary D/C summary: It has been my pleasure to treat MITCH MONSALVE referred by Dr. Charis Oconnor DO, with the diagnosis of CVA/L side neglect for a total of 8 visit(s). Discharge Date: 01/03/25 Please see the following information for a summary of their discharge status. Subjective Subjective: Pt feels that he is doing pretty good. His balance seems to be better than what it was. Pain Right Hip: Pain Intensity (Out of 10): 3 R knee pain: Pain Intensity (Out of 10): 4 Overall Improvement % Improvement: 70 Objective Objective/Function: FGA: 19 Walking with turning head to the L: he has slight decrease ability to look all the way to the L with gait but can turn head about 50% without LOB Curb step: up without UE support and back down X 2 with CGA AND no LOB Gait: Walks with slight coordination of the L LE but improved from initial eval. Goals Goal 1:: I HEP Goal Progress: Goal Met Goal 2:: Increase balance (FGA score of 10 at eval) Goal Progress: Goal Met Goal 3:: Be able to walk with turning his head to the L without veering to the L Goal Progress: Goal Met Goal 4:: Be able to walk with more fluid gait pattern using his L leg especially with fatigue Goal Progress: Progressing Goal 5:: Be able to step up onto a curb with least restrictive device with CGA Goal Progress: Goal Met Plan Plan: DC PT D/C Information Discharge Comments: DC PT d/c sentence: If there are questions or concerns regarding this patient's physical therapy, please feel free to call me at [phone]. Thank you for the referral of this patient. Sincerely, Luzma Her, MPT Balance/Gait/Functional tests Balance/Special Test Scores Functional Gait Assessment Score: 19 % Disability: 36.6700 Lower Extremity Functional Score: 62 Improvement % Improvement: 70
--- NOTE | 2025-01-10 14:59 | HP.SP.DC_ITS ---
ST Discharge Summary Discharged: Discharge: Rito Leon is discharged from speech therapy at [facility] as of January 10, 2025. His initial evaluation was on 11/25/24 with a diagnosis of dysarthria following his CVA. He was treated for 3 sessions with the goals to demonstrate and utilize speech intelligibility techniques and complete oral motor exercises. Goals have been met. He is 100% intelligible during conversation. He is independent in completion of exercises and he uses the exercises given to him by rehab therapist. He reported that he does not need strategies as he is not having difficulty. No limitations to activities is needed for communication aspect. Patient agrees with discharge. Thank you for allowing me to participate in the care of this patient.
== END 2025-01-10 19:00 | disposition home or self-care (01) ==
LOC: SP 14:30
PROVIDERS: PCP Internal Medicine; Referring Provider Internal Medicine; Visit Provider Internal Medicine
DX: Z86.73 Personal history of transient ischemic attack (TIA), and cerebral infarction without residual deficits (principal); H54.7 Unspecified visual loss; F09 Unspecified mental disorder due to known physiological condition; R47.1 Dysarthria and anarthria
CPT/HCPCS: 92507; 92523; 97110; 97162; 97530